=== PATIENT | male | born 1955 | race Caucasian/White ===

== ENCOUNTER → 2016-11-11 | Outpatient (CLI) | payer BC ==
--- NOTE | 2016-11-11 08:51 | Diagnostic Imaging Report ---
PROCEDURE: CT abdomen and pelvis without contrast. TECHNIQUE: Multiple contiguous axial images were obtained through the abdomen and pelvis without the use of intravenous contrast. INDICATION: Hematuria. FINDINGS: The lung bases appear clear. The liver demonstrates multiple hypoattenuation lesions with the fluid density suggestive of from hepatic cysts. The spleen is not enlarged. The adrenals and the pancreas appear unremarkable. Cholecystectomy clips are seen. There are no urinary tract stones. No hydronephrosis. The prostate is slightly enlarged measuring 5 cm in transverse dimension. The abdominal aorta is normal in caliber. No periaortic significant enlarged lymph nodes seen. There is no free fluid or fluid collection in the abdomen or pelvis. The appendix is normal. There are a few colonic diverticula. No diverticulitis. There is evidence of prior surgery in the right inguinal region presumably related to hernia repair. There is a small fat-containing indirect left inguinal hernia suggested. There is also a tiny umbilical fat-containing hernia. The osseous structures demonstrate degenerative changes in the lumbar spine and SI joints. IMPRESSION: 1. No urinary tract stones or hydronephrosis. 2. Mild enlargement of the prostate. 3. Tiny fat-containing umbilical and tiny fat-containing left inguinal hernias. Dictated by: Dictated on workstation # [id number]
== END ==
LOC: RAD 07:27
PROVIDERS: ATTEND Urology
DX: K40.90 Unilateral inguinal hernia, without obstruction or gangrene, not specified as recurrent (principal); K42.9 Umbilical hernia without obstruction or gangrene; R31.9 Hematuria, unspecified
CPT/HCPCS: 74176

== ENCOUNTER 2016-12-27 18:45 | Emergency (ER) | payer BC ==
[~2016-12-27] VITALS: Ht 175.3 cm; Wt 86.2 kg
--- NOTE | 2016-12-27 19:14 | ED Fall/Injury ---
General Chief Complaint: Trauma-Non Activation Stated Complaint: FALL FROM 12FT LADDER,DARK URINE, HIP PAIN Nursing Triage Note: Patient reports falling off a ladder falling about 12 ft. at 0800 on 12/27. patient reports falling on R side. patient denies hitting head, LOC or neck pain. patient reports R groin pain and R hip pain. patient is able to walk without difficulty. patient reports having dark urine earlier. patient also reports having CT and MRI contrast yesterday. 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 He's been walking on his leg ever since. He is not short of breath, having chest pain, nauseated or having any chills or fevers. 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 They did find a lesion on his left kidney and also told them they thought he might have a UTI and for the information to his PCP but he has not started any antibiotics for it. The patient does not take any medications nor does he have any other significant medical history other than his cancer that he is not quite in remission for it. He does not smoke drink or do drugs. Patient states that after he went in this afternoon he urinated dark black urine. He thought it may be from the contrast he was given on the CAT scan yesterday. This is the first time he is experienced dark urine. Allergies and Home Medications Allergies Coded Allergies: No Known Drug Allergies (Unverified , 04/29/12) Constitutional: No chills, No diaphoresis Eyes: Denies Blindness, Denies Blurred Vision, Denies Drainage Ears, Nose, Mouth, Throat: denies ear pain, denies ear discharge Respiratory: No cough, No dyspnea on exertion, No short of breath Cardiovascular: No chest pain, No Hx of Intervention, No palpitations Gastrointestinal: No abdominal pain, No constipation, No diarrhea, No dysphagia , No nausea, No vomiting Genitourinary: No discharge, No dysuria Musculoskeletal: No back pain, No gout, No joint pain Skin: No pruritus, No rash Psychiatric/Neurological: Denies Headache, Denies Numbness Past Xvvwlep-Vidpud-Kwcidh Hx Patient Social History Alcohol Use: Denies Use Recreational Drug Use: No Recent Foreign Travel: No Contact w/Someone Who Travel: No Recent Infectious Disease Expo: No Recent Hopitalizations: No Immunizations Up To Date Date of Influenza Vaccine: Feb 02, 2012 Surgeries History of Surgeries: Yes (GALLBLADDER) Surgeries: Gallbladder, Orthopedic Respiratory History of Respiratory Disorde: No Cardiovascular History of Cardiac Disorders: No Neurological History of Neurological Disord: No Genitourinary History of Genitourinary Disor: Yes (BLOOD IN URINE FOLLOWED BY DR. GOMEZ) Gastrointestinal History of Gastrointestinal Di: No Musculoskeletal History of Musculoskeletal Dis: No Endocrine History of Endocrine Disorders: No HEENT History of HEENT Disorders: No 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) Psychosocial History of Psychiatric Problem: No Integumentary History of Skin or Integumenta: No Blood Transfusions History of Blood Disorders: No Physical Exam Vital Signs Vital Sign - Last 12Hours 12/27/16 18:57 Temp 98.2 Pulse 77 Resp 18 B/P (MAP) 157/98 Pulse Ox 97 Capillary Refill : Less Than 3 Seconds General Appearance: WD/WN, no apparent distress HEENT: PERRL/EOMI, normal ENT inspection, TMs normal, pharynx normal Neck: non-tender, full range of motion, supple Cardiovascular: normal peripheral pulses, regular rate, rhythm, no edema Respiratory: chest non-tender, lungs clear, normal breath sounds Peripheral Pulses: 2+ Dorsalis Pedis (R), 2+ Left Dors-Pedis (L), 2+ Radial Pulses (R), 2+ Radial Pulses (L) Gastrointestinal: normal bowel sounds, soft, no organomegaly, tenderness ( right lower quadrant and right flank) Back: normal inspection, CVA tenderness (R) Extremities: normal range of motion, non-tender, normal inspection, normal capillary refill Neurologic/Psychiatric: no motor/sensory deficits, alert, normal mood/affect, oriented x 3 Skin: normal color, warm/dry Lymphatic: no adenopathy Diego Coma Score Best Eye Response: (4) Open Spontaneously Best Verbal Response: (5) Oriented Best Motor Response: (6) Obeys Commands [place] Total: 15 Progress/Results/Core Measures Results/Orders Lab Results Laboratory Tests Test 12/27/16 19:30 12/27/16 19:40 Range/Units White Blood Count 10.2 4.3-11.0 10^3/uL Red Blood Count 4.07 L 4.35-5.85 10^6/uL Hemoglobin 12.9 L 13.3-17.7 G/DL Hematocrit 37 L 40-54 % Mean Corpuscular Volume 92 80-99 FL Mean Corpuscular Hemoglobin 32 25-34 PG Mean Corpuscular Hemoglobin Concent 35 32-36 G/DL Red Cell Distribution Width 13.1 10.0-14.5 % Platelet Count 237 130-400 10^3/uL Mean Platelet Volume 9.9 7.4-10.4 FL Neutrophils (%) (Auto) 76 H 42-75 % Lymphocytes (%) (Auto) 12 12-44 % Monocytes (%) (Auto) 11 0-12 % Eosinophils (%) (Auto) 2 0-10 % Basophils (%) (Auto) 0 0-10 % Neutrophils # (Auto) 7.7 1.8-7.8 X 10^3 Lymphocytes # (Auto) 1.2 1.0-4.0 X 10^3 Monocytes # (Auto) 1.1 H 0.0-1.0 X 10^3 Eosinophils # (Auto) 0.2 0.0-0.3 10^3/uL Basophils # (Auto) 0.0 0.0-0.1 10^3/uL Sodium Level 143 135-145 MMOL/L Potassium Level 3.7 3.6-5.0 MMOL/L Chloride Level 110 H 98-107 MMOL/L Carbon Dioxide Level 21 21-32 MMOL/L Anion Gap 12 5-14 MMOL/L Blood Urea Nitrogen 14 7-18 MG/DL Creatinine 0.93 0.60-1.30 MG/DL Estimat Glomerular Filtration Rate > 60 BUN/Creatinine Ratio 15 Glucose Level 89 70-105 MG/DL Calcium Level 9.1 8.5-10.1 MG/DL Magnesium Level 2.1 1.8-2.4 MG/DL Total Bilirubin 0.5 0.1-1.0 MG/DL Aspartate Amino Transf (AST/SGOT) 42 H 5-34 U/L Alanine Aminotransferase (ALT/SGPT) 29 0-55 U/L Alkaline Phosphatase 56 40-136 U/L Total Protein 7.5 6.4-8.2 GM/DL Albumin 4.1 3.2-4.5 GM/DL Urine Color GENTRY H Urine Clarity VERY CLOUDY H Urine pH 5 5-9 Urine Specific [place] 1.025 H 1.016-1.022 Urine Protein 3+ H NEGATIVE Urine Glucose (UA) NEGATIVE NEGATIVE Urine Ketones NEGATIVE NEGATIVE Urine Nitrite NEGATIVE NEGATIVE Urine Bilirubin NEGATIVE NEGATIVE Urine Urobilinogen NORMAL NORMAL MG/DL Urine Leukocyte Esterase 1+ H NEGATIVE Urine RBC (Auto) 5+ H NEGATIVE Urine RBC TNTC H /HPF Urine WBC 0-2 /HPF Urine Crystals NONE /LPF Urine Bacteria NEGATIVE /HPF Urine Casts NONE /LPF Urine Mucus SMALL H /LPF Urine Culture Indicated NO My Orders Orders - ABIMAEL KIRAN Ct Abdomen/Pelvis Wo (12/27/16 19:06) Cbc With Automated Diff (12/27/16 19:06) Comprehensive Metabolic Panel (12/27/16 19:06) Magnesium (12/27/16 19:06) Ua Culture If Indicated (12/27/16 19:06) Vital Signs/I&O Vital Sign - Last 12Hours 12/27/16 18:57 Temp 98.2 Pulse 77 Resp 18 B/P (MAP) 157/98 Pulse Ox 97 Blood Pressure Mean: 117 Progress Note #1: Time: 19:13 Progress Note The trauma occurred several hours ago patient is been walking okay. We will go ahead and not activated a full trauma panel at this time. Progress Note #2: Time: 20:31 Progress Note As a lot of blood in his urine but he is not significantly anemic at this time. He is having no symptoms. We'll go ahead and allow him to follow-up with his prescheduled appointment with Dr. Clay on Thursday to compare this urinalysis to previous ones. No evidence of any UTI right now. Topical start any antibiotics. He may need a closer follow-up with urology based on this urinalysis and a repeat urinalysis on Thursday if the hematuria continues. We'll give him good return instructions and let him go home. His urine was not grossly bloody. Diagnostic Imaging Diagonstic Imaging: CT Plain Films/CT/US/NM/MRI: abdomen (C/O), pelvis Comments NAME: HARRY GARCÍA [facility] REC#: [id number] PHYSICIAN: ABIMAEL KIRAN MD CC: CJ KAUFMAN MD; ABIMAEL KIRAN Page 1 of 1 RADIOLOGY REPORT VIA [facility], [facility]. [place], [place] CC: CJ KAUFMAN MD; ABIMAEL KIRAN Page 1 of 1 RADIOLOGY REPORT NAME: HARRY GARCÍA [facility] REC#: [id number] PT STATUS: REG ER : 1955 PHYSICIAN: ABIMAEL KIRAN MD ADMIT DATE: 12/27/16/ER Signed Date of Exam: 12/27/16 CT ABDOMEN/PELVIS WO PROCEDURE: CT abdomen and pelvis without contrast. TECHNIQUE: Multiple contiguous axial images were obtained through the abdomen and pelvis without the use of intravenous contrast. INDICATION: Fall with right abdominal and groin region pain Unenhanced images of the liver reveal multiple hypodensities similar to the previous study which are most consistent with liver cysts. Gallbladder surgically absent. There is no evidence of pancreatic or splenic abnormality identified on noncontrast study. The stomach is distended with particulate matter. No adrenal gland abnormality is identified. Hypodense nodules in the upper and lower pole of the left kidney are not changed and likely represent cysts. There is no evidence of peritoneal fluid or organized hematoma in the abdomen or pelvis. There is postoperative finding within the right inguinal region likely related to previous hernia repair. No acute osseous abnormality is identified. There is no evidence of paraspinous hematoma. IMPRESSION: No acute abnormality or significant change is seen compared to the previous study. Dictated by: Dictated on workstation # [id number] Dict: 12/27/161924 Trans: 12/27/161948 Interpreted by: CJ KAUFMAN MD Electronically signed by: CJ KAUFMAN MD 12/27/161948 Reviewed: Reviewed by Me Departure Impression Impression: Primary Impression: Fall Qualified Codes: W19.XXXA - Unspecified fall, initial encounter Additional Impressions: Right hip pain Hematuria Qualified Codes: R31.21 - Asymptomatic microscopic hematuria Disposition: 01 HOME, SELF-CARE Condition: Stable Departure-Patient Inst. Decision time for Depature: 20:33 Referrals: KIKE CLAY MD (PCP/Family) Primary Care Physician Patient Instructions: Concussion, Adult (DC) Add. Discharge Instructions: Make sure drinking plenty of fluids to help flush out your kidneys. Reasons to return to the ER would be because of shortness of breath, chest pain or altered mental status or confusion. Otherwise plan on keeping your Thursday morning appointment with Dr. Clay. You may need to go and see the urologist if his repeat examination on Thursday indicates it. For your right hip pain you can take ibuprofen 800 mg every 8 hours or Naprosyn 2 capsules twice a day. You may also use Tylenol 1000 mg every 8 hours as needed. Applying ice over the right hip for 20 minutes every 4-6 hours will be very beneficial in bringing down the swelling and pain. Do not attempt to do things that worsen the pain and your hip. All discharge instructions reviewed with patient and/or family. Voiced understanding. Scripts No Active Prescriptions or Reported Meds Copy Copies To 1: KIKE CLAY MD Copies To 2: ALVA GOMEZ MD, TITUS J Dec 27, 2016 19:14
--- NOTE | 2016-12-27 19:32 | Diagnostic Imaging Report ---
PROCEDURE: CT abdomen and pelvis without contrast. TECHNIQUE: Multiple contiguous axial images were obtained through the abdomen and pelvis without the use of intravenous contrast. INDICATION: Fall with right abdominal and groin region pain Unenhanced images of the liver reveal multiple hypodensities similar to the previous study which are most consistent with liver cysts. Gallbladder surgically absent. There is no evidence of pancreatic or splenic abnormality identified on noncontrast study. The stomach is distended with particulate matter. No adrenal gland abnormality is identified. Hypodense nodules in the upper and lower pole of the left kidney are not changed and likely represent cysts. There is no evidence of peritoneal fluid or organized hematoma in the abdomen or pelvis. There is postoperative finding within the right inguinal region likely related to previous hernia repair. No acute osseous abnormality is identified. There is no evidence of paraspinous hematoma. IMPRESSION: No acute abnormality or significant change is seen compared to the previous study. Dictated by: Dictated on workstation # [id number]
[2016-12-27 19:37] LABS: BASOPHILS % (AUTO) 0 % (0-10); EOSINOPHILS # (AUTO) 0.2 10^3/uL (0.0-0.3); EOSINOPHILS % (AUTO) 2 % (0-10); LYMPHOCYTES # (AUTO) 1.2 X 10^3 (1.0-4.0); LYMPHOCYTES % (AUTO) 12 % (12-44); MEAN CORPUSCULAR HEMOGLOBIN 32 PG (25-34); MEAN CORPUSCULAR HGB CONC 35 G/DL (32-36); MEAN CORPUSCULAR VOLUME 92 FL (80-99); MEAN PLATELET VOLUME 9.9 FL (7.4-10.4); MONOCYTES # (AUTO) 1.1 X 10^3 (0.0-1.0); MONOCYTES % (AUTO) 11 % (0-12); NEUTROPHILS # (AUTO) 7.7 X 10^3 (1.8-7.8); NEUTROPHILS % (AUTO) 76 % (42-75); PLATELET COUNT 237 10^3/uL (130-400); RED BLOOD COUNT 4.07 10^6/uL (4.35-5.85); RED CELL DISTRIBUTION WIDTH 13.1 % (10.0-14.5); WHITE BLOOD COUNT 10.2 10^3/uL (4.3-11.0)
[2016-12-27 19:47] LABS: BILIRUBIN,URINE NEGATIVE (NEGATIVE); KETONES,URINE NEGATIVE (NEGATIVE); LEUKOCYTE ESTERASE ,URINE 1+ (NEGATIVE); NITRITE,URINE NEGATIVE (NEGATIVE); PH,URINE 5 (5-9); PROTEIN,URINE 3+ (NEGATIVE); UROBILINOGEN,URINE NORMAL (NORMAL)
[2016-12-27 19:59] LABS: ALANINE AMINOTRANSFERASE 29 U/L (0-55); ALBUMIN 4.1 GM/DL (3.2-4.5); ANION GAP 12 MMOL/L (5-14); ASPARTATE AMINO TRANSFERASE 42 U/L (5-34); BILIRUBIN,TOTAL 0.5 MG/DL (0.1-1.0); BLOOD UREA NITROGEN 14 MG/DL (7-18); BUN/CREATININE RATIO 15; CALCIUM 9.1 MG/DL (8.5-10.1); CARBON DIOXIDE 21 MMOL/L (21-32); CHLORIDE 110 MMOL/L (98-107); CREATININE SERUM 0.93 MG/DL (0.60-1.30); GFR ESTIMATED > 60; GLUCOSE 89 MG/DL (70-105); MAGNESIUM 2.1 MG/DL (1.8-2.4); POTASSIUM 3.7 MMOL/L (3.6-5.0); SODIUM 143 MMOL/L (135-145); TOTAL PROTEIN 7.5 GM/DL (6.4-8.2)
[2016-12-27 20:02] LABS: WBC,URINE 0-2 /HPF
[2016-12-27 20:44] VITALS: BP 147/97
--- OUTSIDE RECORDS SUMMARY | 2016-12-29 10:27 | XMS REPORT | Encounter Summary ---
Author Author [facility] Organization [facility] Address Unknown Phone Unavailable Care Team Providers Care Power Project Manager Name Role Phone PCP Unavailable Reason for Referral * Radiology Services Status Reason Specialty Diagnoses / Referred By Referred To Procedures Contact Contact No Auth Needed Radiology Diagnoses Emily Esparza [address] [address] carcinoma (HCC) [address]ND FLOOR (HCC) [address] [place], [place] [address] of left eye [address] Phone: P rocedures [phone] CT CHEST W Fax: CONTRAST [phone] * Radiology Services Status Reason Specialty Diagnoses / Referred By Referred To Procedures Contact Contact No Auth Needed Radiology Diagnoses Emily Esparza [address] carcinoma (HCC) [address] FLOOR (HCC) [address] [place], [place] [address] of left eye [address] Phone: P rocedures [phone] CT CHEST W Fax: CONTRAST [phone] Reason for Visit * Radiology Services Status Reason Specialty Diagnoses / Referred By Referred To Procedures Contact Contact No Auth Needed Radiology Diagnoses Emily Esparza [address] [place] [address] carcinoma (HCC) [address] FLOOR (HCC) [address] [place], [place] [address] of left eye [address] Phone: P rocedures [phone] CT CHEST W Fax: CONTRAST [phone] Encounter Details Date Type Department Care Team Description 12/26/2016 [facility] Emily Esparza MD Arrived Encounter Hospital Radiology [address] [facility] [place] [address] [place] [address] 2ND FLOOR [phone] [place] [address] [phone] Social History Tobacco Use Types Packs/Day Years Used Date Never Smoker Smokeless Tobacco: Never Used Alcohol Use Drinks/Week oz/Week Comments No Sex Assigned at Date Recorded Not on file as of this encounter Functional Status Functional Status Response Date of Assessment Does the patient have a hearing impairment: No 11/27/2014 Does the patient have a visual impairment: Yes 11/27/2014 Does the patient have impaired ambulation: No 11/27/2014 Does the patient have an activity of daily living No 11/27/2014 (ADL) impairment: Does the patient have an instrumental activity of No 11/27/2014 daily living (IADL) impairment: Cognitive Status Response Date of Assessment Does the patient have a cognitive impairment: No 11/27/2014 as of this encounter Plan of Treatment Not on fileas of this encounter Results * CT CHEST W CONTRAST (12/26/2016 7:31 AM) Specimen Performing Laboratory [facility] RAD RESULTS Impressions 1. Development of a tiny nodule in the right lower lobe with suggestion of central cavitation. This may be related to atypical infection, however follow- up chest CT in 3 months is recommended to assess for stability or resolution. 2. Development of a exophytic hypodense lesion upper pole of the left kidney . This may be an emerging cyst, however it does not demonstrate simple cyst features. [address] or contrast-enhanced MRI evaluation is recommended. 3. Relative hypoenhancement of the left kidney when compared to the right. This is concerning for pyelonephritis. Underlying infiltrating neoplasm is an additional, less likely consideration. Clinical correlation is recommended for signs and symptoms of urinary tract infection. 4. No thoracic lymphadenopathy. These findings were discussed with Dr. Esparza by telephone at 8:22 AM on 2016. Finalized by Aron Lennon M.D. on 12/26/2016 8:33 AM. Dictated by Aron Lennon M.D. on 12/26/2016 8: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 Surveillance. Technique: Multiple contiguous axial CT images were obtained through the chest during IV administration of Isovue-370 IV contrast.Post processing coronal and sagittal reconstruction images were made from the axial images. Comparison: May 14, [address] Findings: Axilla, Mediastinum and Ritika: No lymphadenopathy. Heart and Great Vessels: The heart size is normal. There is no pericardial effusion. Lungs and Pleura: Small amount of retained secretions are seen in the upper trachea. Minor scarring is again seen in both lungs with mild dependent atelectasis. A tiny new nodule is seen in the right lower lobe along the major fissure measuring 0.5 cm on series 5, image 27 with suggestion of internal cavitation. No other new or enlarging pulmonary nodules are identified. No pleural effusions. Chest Wall and Osseous Structures: No destructive osseous lesions. Visualized Upper Abdomen: Small probable cysts are stable in the right lobe of the liver. There is an exophytic lesion now seen from the medial upper left kidney with ill-defined margins which is higher density than a simple cyst. It measures up to 2.7 cm on series 5, image 66. There is mild relative hypoenhancement of the left renal parenchyma when compared to the right with loss of corticomedullary differentiation. 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 Surveillance. Technique: Multiple contiguous axial CT images were obtained through the chest during IV administration of Isovue-370 IV contrast. Post processing coronal and sagittal reconstruction images were made from the axial images. Comparison: May 14, [address] Findings: Axilla, Mediastinum and Ritika: No lymphadenopathy. Heart and Great Vessels: The heart size is normal. There is no pericardial effusion. Lungs and Pleura: Small amount of retained secretions are seen in the upper trachea. Minor scarring is again seen in both lungs with mild dependent atelectasis. A tiny new nodule is seen in the right lower lobe along the major fissure measuring 0.5 cm on series 5, image 27 with suggestion of internal cavitation. No other new or enlarging pulmonary nodules are identified. No pleural effusions. Chest Wall and Osseous Structures: No destructive osseous lesions. Visualized Upper Abdomen: Small probable cysts are stable in the right lobe of the liver. There is an exophytic lesion now seen from the medial upper left kidney with ill-defined margins which is higher density than a simple cyst. It measures up to 2.7 cm on series 5, image 66. There is mild relative hypoenhancement of the left renal parenchyma when compared to the right with loss of corticomedullary differentiation. IMPRESSION 1. Development of a tiny nodule in the right lower lobe with suggestion of central cavitation. This may be related to atypical infection, however follow- up chest CT in 3 months is recommended to assess for stability or resolution. 2. Development of a exophytic hypodense lesion upper pole of the left kidney . This may be an emerging cyst, however it does not demonstrate simple cyst features. [address] or contrast-enhanced MRI evaluation is recommended. 3. Relative hypoenhancement of the left kidney when compared to the right. This is concerning for pyelonephritis. Underlying infiltrating neoplasm is an additional, less likely consideration. Clinical correlation is recommended for signs and symptoms of urinary tract infection. 4. No thoracic lymphadenopathy. These findings were discussed with Dr. Esparza by telephone at 8:22 AM on 2016. Finalized by Aron Lennon M.D. on 12/26/2016 8:33 AM. Dictated by Aron Lennon M.D. on 12/26/2016 8:18 AM. 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 sodium chloride PF 0.9% injection 50 mL Given 12/26/2016 50 mL 50 mL, Intravenous, ONCE, 1 dose, Thu 07:45 CDT 12/26/16 at 0745, Intra-procedure (IR) in this encounter
--- OUTSIDE RECORDS SUMMARY | 2016-12-29 10:27 | XMS REPORT | Continuity of Care Document ---
Author Author [facility] Organization [facility] Address Unknown Phone Unavailable Care Team Providers Care Employee Communications Intern Name Role Phone [employer] Unavailable Unavailable Problems Medications Allergies, Adverse Reactions, Alerts Immunizations Results Vital Signs Encounters Location Location Details Encounter Type Encounter Number Reason For Visit Attending Provider ADM Date DC Date Status Source OUTPATIENT [id number] VERONICA BANDA 05/14/20152015 Active [facility] OUTPATIENT [id number] VERONICA BANDA 12/26/2016 Active [facility] Procedures Plan of Care Social History Assessment and Plan Family History Value Date Source Advance Directives Order Name Results Value Date Source
--- OUTSIDE RECORDS SUMMARY | 2016-12-29 10:27 | XMS REPORT | Encounter Summary ---
Author Author [facility] Organization [facility] Address Unknown Phone Unavailable Care Team Providers Care Seals Engraver Name Role Phone PCP Unavailable Encounter Details Date Type Department Care Team Description 11/24/2016 Procedure Pass [facility] Radiology [address] [place] [address] Social History Tobacco Use Types Packs/Day Years [...] Treatment Not on fileas of this encounter Visit Diagnoses Not on filein this encounter
--- OUTSIDE RECORDS SUMMARY | 2016-12-29 10:27 | XMS REPORT | Clinical Summary ---
Author Author [facility] Organization [facility] Address Unknown Phone Unavailable Care Team Providers Care Compressed Air Pile Driver Operator Name Role Phone PCP Unavailable Source Comments Some departments are not documenting in the electronic medical record. If you do not see the information that you expected, contact Release of Information in the Health Information Management department at [phone] for further assistance in locating additional records.[facility] Allergies No Known Allergies Current Medications Prescription Sig. Disp. Refills Start End Date Status Date ASCORBATE CALCIUM Take 1 Tab by mouth Active (VITAMIN C PO) daily. RESVERATROL PO Take 1 Tab by mouth Active daily. SELENIUM PO Take 1 Tab by mouth Active daily. vitamins, multiple tablet Take 1 Tab by mouth Active daily. acetaminophen (TYLENOL) Take 325 mg by mouth as Active 325 mg tablet Needed. 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 Dysphagia 05/31/2012 Impacted cerumen of left ear 05/31/2012 Encounters Date Type Specialty Care Team Description 12/26/2016 [facility] Radiology Emily Esparza MD Arrived Encounter 12/26/2016 [facility] Radiology Emily Esparza MD Arrived Encounter 11/24/2016 Office Visit Otolaryngology Emily Esparza MD Basaloid carcinoma (HCC) (Primary Dx);Oral cancer (HCC);Eyelash ptosis of left eye 11/24/2016 Procedure Pass Radiology 11/24/2016 Procedure Pass Radiology from Last 3 Months Family History Medical History Relation Name Comments Cancer Mother breast Allergy-severe Paternal Grandfather Relation Name Status Comments Brother Alive Brother Alive Brother Daughter Alive Father Maternal Grandfather Maternal Grandmother Mother Paternal Grandfather Alive Paternal Grandmother Sister Alive Son Alive Social History Tobacco Use Types Packs/Day Years Used Date Never Smoker Smokeless Tobacco: Never Used Alcohol Use Drinks/Week oz/Week Comments No Sex Assigned at Date Recorded Not on file Last Filed Vital Signs Vital Sign Reading Time Taken Blood Pressure 146/82 11/24/2016 10:11 AM CDT Pulse 60 11/24/2016 10:11 AM CDT Temperature 36.7 C (98 F) 06/10/2012 8:12 AM FUNDER Respiratory Rate - - Oxygen Saturation 95% 06/10/2012 8:12 AM FUNDER Inhaled Oxygen - - Concentration Weight 88.7 kg (195 lb 9.6 oz) 11/24/2016 10:11 AM CDT Height 175.3 cm (5' 9") 11/24/2016 10:11 AM CDT Body Mass Index 28.89 11/24/2016 10:11 AM CDT Plan of Treatment Health Maintenance Due Date Last Done Comments HEPATITIS C SCREENING 1954 PHYSICAL (COMPREHENSIVE) 1961 EXAM PERTUSSIS VACCINE 1965 TETANUS VACCINE 09/17/1971 COLORECTAL CANCER 2004 SCREENING SHINGLES VACCINE 2014 INFLUENZA VACCINE 01/02/2017 Results * MRI ORBIT FACE AND/OR NECK W/CONTRST (12/26/2016 8:29 AM) Specimen Performing Laboratory [facility] RES[facility] Impressions 1.Normal MRI of the orbits and optic pathway. 2.Stable postsurgical left buccal changes without residual or recurrent buccal mass lesion. 3.Small, peripherally enhancing, cystic bilateral superficial parotid lesions, similar to MRI brain June 28, 2013, and favored for benign etiology such as incidental lymphoepithelial cysts. Approved by Franc Valadez M.D. on 12/26/2016 11:36 AM By my electronic signature, I attest that I have personally reviewed the images for this examination and formulated the interpretations and opinions expressed in this report Finalized by Elie Espinal M.D. on 12/26/2016 11:57 AM. Dictated by Franc Valadez M.D. on 12/26/2016 9:44 AM. Narrative MRI ORBITS CLINICAL HISTORY: 61-year-old male, VISION CHANGES. 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 COMPARISON: MRI brain June 28, 2013. IV CONTRAST: Multihance FINDINGS: The globes and orbits are normal in appearance. No orbital mass is identified. The optic nerves, optic chiasm and optic tracts are symmetric and without signal abnormality. Surgical clips are noted in the left buccal space, without residual or recurrent left buccal mass lesion. There is a well-circumscribed, cystic, superficial left parotid lesion measuring 1.4 x 1.0 x 1.5 cm (series 5 image 18 and series 2 image 28) with a 0.5 cm enhancing mural nodule (series 6 image 18). There is a similar appearing cystic, incomplete rim enhancing lesion within the superficial right parotid gland measuring 0.9 cm (series 5 image 22). There are similar-appearing, though incompletely evaluated lesions on prior MRI of the brain from June 28, 2013. Procedure Note Interface, Radiant Results - 12/26/2016 12:00 PM CDT MRI ORBITS CLINICAL HISTORY: 61-year-old male, VISION CHANGES. 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 COMPARISON: MRI brain June 28, 2013. IV CONTRAST: Multihance FINDINGS: The globes and orbits are normal in appearance. No orbital mass is identified. The optic nerves, optic chiasm and optic tracts are symmetric and without signal abnormality. Surgical clips are noted in the left buccal space, without residual or recurrent left buccal mass lesion. There is a well-circumscribed, cystic, superficial left parotid lesion measuring 1.4 x 1.0 x 1.5 cm (series 5 image 18 and series 2 image 28) with a 0.5 cm enhancing mural nodule (series 6 image 18). There is a similar appearing cystic, incomplete rim enhancing lesion within the superficial right parotid gland measuring 0.9 cm (series 5 image 22). There are similar-appearing, though incompletely evaluated lesions on prior MRI of the brain from June 28, 2013. IMPRESSION 1. Normal MRI of the orbits and optic pathway. 2. Stable postsurgical left buccal changes without residual or recurrent buccal mass lesion. 3. Small, peripherally enhancing, cystic bilateral superficial parotid lesions , similar to MRI brain June 28, 2013, and favored for benign etiology such as incidental lymphoepithelial cysts. Approved by Franc Valadez M.D. on 12/26/2016 11:36 AM By my electronic signature, I attest that I have personally reviewed the images for this examination and formulated the interpretations and opinions expressed in this report Finalized by Elie Espinal M.D. on 12/26/2016 11:57 AM. Dictated by Franc Valadez M.D. on 12/26/2016 9:44 AM. * CT CHEST W CONTRAST (12/26/2016 7:31 [...] 0.4 - 1.24 MG/DL Specimen Performing Laboratory [facility] [address] [place] [address] from Last 3 Months
--- OUTSIDE RECORDS SUMMARY | 2016-12-29 10:27 | XMS REPORT | Encounter Summary ---
Author Author [facility] Organization [facility] Address Unknown Phone Unavailable Care Team Providers Care Family Reunification Specialist Name Role Phone PCP Unavailable Encounter Details Date Type Department Care Team Description 11/24/2016 Procedure Pass [facility] Radiology [address] MED OFFICE BLDG [address] [place] [address] Social History Tobacco Use Types Packs/Day Years [...]
--- OUTSIDE RECORDS SUMMARY | 2016-12-29 10:28 | XMS REPORT | Encounter Summary ---
Author Author [facility] Organization [facility] Address Unknown Phone Unavailable Care Team Providers Care Surface Grinder Tender Name Role Phone PCP Unavailable Reason for Referral * Radiology Services Status Reason Specialty Diagnoses / Referred By Referred To Procedures Contact Contact No Auth Needed Radiology Diagnoses Emily Esparza Mob Mri [facility] [address] carcinoma (HCC) [address] cancer [address] FLOOR (HCC) [address] [place], [place] [address] of left eye [address] Phone: P rocedures [phone] MRI ORBIT FACE Fax: AND/OR NECK [phone] W/CONTRST * Radiology Services Status Reason Specialty Diagnoses / Referred By Referred To Procedures Contact Contact No Auth Needed Radiology Diagnoses Emily Esparza Mob Ct [facility] [address] carcinoma (HCC) [address] cancer [address] 2ND FLOOR (HCC) [address] [place], [place] [address] of left eye [address] Phone: P rocedures [phone] CT CHEST W Fax: CONTRAST [phone] Reason for Visit * Reason Comments Follow Up Encounter Details Date Type Department Care Team Description 11/24/2016 Office Visit [facility] Emily Esparza MD Basaloid carcinoma (HCC) [facility] [address] (Primary Dx);Oral cancer [address] (HCC);Eyelash [place] [address] left eye 3RD FLOOR POD C [phone] [place] [address] Social History Tobacco Use Types Packs/Day Years Used Date Never Smoker Smokeless Tobacco: Never Used Alcohol Use Drinks/Week oz/Week Comments No Sex Assigned at Date Recorded Not on file as of this encounter Last Filed Vital Signs Vital Sign Reading Time Taken Blood Pressure 146/82 11/24/2016 10:11 AM CDT Pulse 60 11/24/2016 10:11 AM CDT Temperature - - Respiratory Rate - - Oxygen Saturation - - Inhaled Oxygen - - Concentration Weight 88.7 kg (195 lb 9.6 oz) 11/24/2016 10:11 AM CDT Height 175.3 cm (5' 9") 11/24/2016 10:11 AM CDT Body Mass Index 28.89 11/24/2016 10:11 AM CDT in this encounter Functional Status Functional Status Response [...] impairment: No 11/27/2014 as of this encounter Progress Notes * Emily Esparza MD - 11/24/2016 10:30 AM CDT Formatting of this note may be different from the original. Date of Service: 11/24/2016 Subjective: Carmelo Still is a 61 y.o. male. 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 He undergone resection of [id number] buccal mucosa adenoid cystic carcinoma with perineural invasion, with STSG reconstruction on 06/09/2012. He underwent adjuvant radiation, which he finished in October 2012. Currently about 4 years out from therapy. He returns today for routine surveillance. H has no new complaint , no newly felt lesions or bumps. He still complains of pain over his left cheek that has been present since his treatment. He has some limitation with his mouth opening. He has no problem with dry mouth and no problems with swallowing. History of Present Illness Review of Systems Constitutional: Negative. HENT: Pain over left cheek that has been present since his treatment. He has some limitation with his mouth opening. He has no problem with dry mouth and no problems with swallowing. Eyes: Negative. Respiratory: Negative. Cardiovascular: Negative. Gastrointestinal: Negative. Endocrine: Negative. Genitourinary: Negative. Musculoskeletal: Negative. Skin: Negative. Allergic/Immunologic: Negative. Neurological: Negative. Hematological: Negative. Psychiatric/Behavioral: Negative. Objective: acetaminophen (TYLENOL) 325 mg tablet Take 325 mg by mouth as Needed. ASCORBATE CALCIUM (VITAMIN C PO) Take 1 Tab by mouth daily. RESVERATROL PO Take 1 Tab by mouth daily. SELENIUM PO Take 1 Tab by mouth daily. vitamins, multiple tablet Take 1 Tab by mouth daily. Vitals: 11/24/16 1011 BP: 146/82 Pulse: 60 Weight: 88.7 kg (195 lb 9.6 oz) Height: 175.3 cm (69") Body mass index is 28.89 kg/(m^2). Physical Exam Constitutional: He is oriented to person, place, and time. He appears well- developed and well-nourished. HENT: Right Ear: External ear normal. Left Ear: External ear normal. Nose: Nose normal. Mouth/Throat: Oropharynx is clear and moist. No suspicious lesions on oral cavity examination. The operative site appears clear. The STSG appears well healed. Eyes: Patient has left sided mild ptosis. No limitations with his extra occular muscles movement. No problems with vision. Neck: Normal range of motion. Neck supple. Musculoskeletal: Normal range of motion. Neurological: He is alert and oriented to person, place, and time. He has normal reflexes. Skin: Skin is warm. Psychiatric: He has a normal mood and affect. His behavior is normal. Judgment and thought content normal. Assessment and Plan: Mr. Still appears to be doing great regarding his follow up with no suspicious newly developed lesions or neck nodes. We will order a new MRI H&N with contrast and chest CT scan. He will see an adoption services manager for his ptosis. He will follow up with us after 6 months. ATTESTATION I personally performed the henley portions of the E/M visit, discussed case with resident and concur with resident documentation of history, physical exam, assessment, and treatment plan unless otherwise noted. Staff name: Emily Esparza MD Date: 11/24/2016 in this encounter Plan of Treatment Not on fileas of this encounter Results * MRI ORBIT FACE AND/OR NECK [...] expressed in this report Finalized by Elie Espinla M.D. on 12/26/2016 11:57 AM. Dictated by [...] Aron Lennon M.D. on 12/26/2016 8:18 AM. in this encounter Visit Diagnoses Diagnosis Basaloid carcinoma (HCC) - Primary Other malignant neoplasm without specification of site Oral cancer (HCC) Malignant neoplasm of mouth, unspecified site Eyelash ptosis of left eye in this encounter
--- OUTSIDE RECORDS SUMMARY | 2016-12-29 10:28 | XMS REPORT | Encounter Summary ---
Author Author [facility] Organization [facility] Address Unknown Phone Unavailable Care Team Providers Care Airline Operations Agent Name Role Phone PCP Unavailable Reason for Referral * Radiology Services Status Reason Specialty Diagnoses / Referred By Referred To Procedures Contact Contact No Auth Needed Radiology Diagnoses Emily Esparza Mob Mri Basaloid MD [address] carcinoma (HCC) [address] FLOOR (HCC) [address] [place], [place] [address] of left eye [address] Phone: P rocedures [phone] MRI ORBIT FACE Fax: AND/OR NECK [phone] W/CONTRST * Radiology Services Status Reason Specialty Diagnoses / Referred By Referred To Procedures Contact Contact No Auth Needed Radiology Diagnoses Emily Esparza Mob Mri Basaloid MD [address] carcinoma (HCC) [address] FLOOR (HCC) [address] [place], [place] [address] of left eye [address] Phone: P rocedures [phone] MRI ORBIT FACE Fax: AND/OR NECK [phone] W/CONTRST Reason for Visit * Radiology Services Status Reason Specialty Diagnoses / Referred By Referred To Procedures Contact Contact No Auth Needed Radiology Diagnoses Emily Esparza Mob Mri Basaloid MD [address] carcinoma (HCC) [address] FLOOR (HCC) [address] [place], [place] [address] of left eye [address] Phone: P rocedures [phone] MRI ORBIT FACE Fax: AND/OR NECK [phone] W/CONTRST Encounter Details Date Type Department Care Team Description 12/26/2016 Hospital [facility] Emily Esparza MD Arrived Encounter [facility] Radiology [address] [place] [address] 2[address] FLOOR [phone] [place] [address] [phone] Social History Tobacco Use Types Packs/Day Years [...] Franc Valadez M.D. on 12/26/2016 9:44 AM. in this encounter Visit Diagnoses Diagnosis Basaloid carcinoma (HCC) Other malignant neoplasm without specification of site Oral cancer (HCC) Malignant neoplasm of mouth, unspecified site Eyelash ptosis of left eye in this encounter Administered Medications Medication Order MAR Action Action Date Dose Rate Site gadobenate dimeglumine (MULTIHANCE) Given 12/26/2016 18 mL injection 18 mL 08:10 CDT 18 mL, Intravenous, ONCE, 1 dose, Thu12/26/16 at 0815, NOTE: This is a HIGH ALERT Medication. in this encounter
== END 2016-12-27 20:42 | disposition home or self-care (01) ==
LOC: EDUNIT# 18:45 → ER 18:47
DX: M25.551 Pain in right hip (principal); R31.9 Hematuria, unspecified; C76.0 Malignant neoplasm of head, face and neck; W11.XXXA Fall on and from ladder, initial encounter
CPT/HCPCS: 36415; 74176; 80053; 81000; 83735; 85025; 99282

== ENCOUNTER → 2017-01-07 | Outpatient (CLI) | payer BC ==
[~2017-01-07] MED LIST: CEPH-507 PO; CIPR-225 PO; GLUC1TAB20 PO; HYDR-3812 PO; MV-M1TAB37 PO; ONDA4TAB8 SL; POLY17PO6 PO
--- NOTE | 2017-01-07 13:53 | Diagnostic Imaging Report ---
EXAMINATION: Bilateral renal ultrasound. INDICATION: Abnormal CT exam. FINDINGS: The CT abdomen/pelvis exam performed on 12/27/2016 noted hypodense nodules in the superior and inferior poles of the left kidney. These were felt to most likely represent cysts. On this exam, there is indeed a 1.6 x 2.3 x 2.1 cm simple cyst along the inferior pole of the left kidney. This would correspond with the finding of the CT exam. The medial aspect of the superior pole of the right kidney is partially obscured by bowel gas. A lengthy evaluation of this area was conducted by our sonologist. There is no clear evidence for a solid or cystic mass in this region. However I do feel that the analysis of the superior pole the left kidney is compromised by the bowel gas. I would recommend MRI be performed for more sensitive evaluation of the superior pole of the left kidney. The kidneys are otherwise unremarkable. The urinary bladder is only partially filled and consequently not well evaluated. There is no obvious bladder abnormality evident. Both of the ureteral jets were not visualized, however. IMPRESSION: 1. There is a 1.6 x 2.3 x 2.1 cm simple cyst along the inferior pole of the left kidney. There is no discrete solid or cystic mass involving the superior pole of the left kidney but this area was difficult to evaluate due to the presence of bowel gas. Recommendations as above. 2. There is no abnormality of the right kidney or the bladder. 3. These results were discussed with Dr. Ryan. Dictated by: Dictated on workstation # [id number]
== END ==
LOC: RAD 08:29
PROVIDERS: ATTEND Internal Medicine
DX: N28.1 Cyst of kidney, acquired (principal)
CPT/HCPCS: 76770

== ENCOUNTER → 2017-02-02 | Outpatient (CLI) | payer BC ==
[~2017-02-02] MED LIST changes: -CEPH-507 PO; -CIPR-225 PO; +GADOBUTROL 10 MMOL/10 ML (GADAVIST) VIAL IV ONE; -GLUC1TAB20 PO; -HYDR-3812 PO; -MV-M1TAB37 PO; -ONDA4TAB8 SL; -POLY17PO6 PO
--- NOTE | 2017-02-02 11:27 | Diagnostic Imaging Report ---
PROCEDURE: MR imaging abdomen with and without contrast. TECHNIQUE: Multiplanar, multisequence MR imaging of the abdomen was performed with and without contrast. INDICATION: Left kidney lesion. 8 mL of Gadavist is administered intravenously. FINDINGS: The upper pole of the left kidney demonstrates a medial T2 bright and T1 hypointense nonenhancing lesion measuring 2.4 cm compatible with a cyst. There is a similar lower pole lesion in the left kidney measuring 2.4 cm as well compatible with a simple cyst. There are multiple other lesions in both kidneys that are less than a centimeter in size, too small to accurately characterize with no obvious enhancement suggestive of multiple tiny cysts. There is no hydronephrosis in either kidney. The abdominal aorta is normal in caliber. No para-aortic significantly enlarged lymph nodes. The adrenal glands, and the spleen, and the pancreas appear unremarkable. Multiple simple appearing liver cysts are seen. There is mild diastasis of the recti and mild bulge of the anterior abdominal wall seen. IMPRESSION: Multiple bilateral renal cysts with no solid mass identified. Dictated by: Dictated on workstation # [id number]
== END ==
LOC: RAD 08:32
PROVIDERS: ATTEND Internal Medicine
DX: N28.1 Cyst of kidney, acquired (principal)
CPT/HCPCS: 74183

== ENCOUNTER 2017-02-09 06:29 | Emergency (ER) | payer BC ==
[~2017-02-09] VITALS: Ht 175.3 cm; Wt 86.2 kg
--- OUTSIDE RECORDS SUMMARY | 2017-02-09 06:35 | XMS REPORT | Encounter Summary ---
Author Author [facility] Organization [facility] Address Unknown Phone Unavailable Care Team Providers Care Manager Diversity Name Role Phone PCP Unavailable Reason for Referral * Radiology Services Status Reason Specialty Diagnoses / Referred By Referred To Procedures Contact Contact No Auth Needed Radiology Diagnoses Emily Esparza Mob Mri Basaloid MD [address] carcinoma (HCC) [address] FLOOR (HCC) [address] [place], [place] [address] of left eye [address] Phone: P rocedures [phone] MRI ORBIT FACE Fax: AND/OR NECK [phone] W/CONTRST * Radiology Services Status Reason Specialty Diagnoses / Referred By Referred To Procedures Contact Contact No Auth Needed Radiology Diagnoses Emily Esparza Mob Mri Basaloid MD [address] carcinoma (HCC) [address] FLOOR (HCC) [address] [place], [place] [address] of left eye [address] Phone: P rocedures [phone] MRI ORBIT FACE Fax: AND/OR NECK [phone] W/CONTRST Reason for Visit * Radiology Services Status Reason Specialty Diagnoses / Referred By Referred To Procedures Contact Contact No Auth Needed Radiology Diagnoses Emily Esparza Mob Mri Basaloid MD [address] carcinoma (HCC) [address] FLOOR (HCC) [address] [place] [address] of left eye [address] Phone: P rocedures [phone] MRI ORBIT FACE Fax: AND/OR NECK [phone] W/CONTRST Encounter Details Date Type Department Care Team Description 12/26/2016 Hospital [facility] Emily Esparza MD Encounter [facility] Radiology [address] [place] [address] 2[address] FLOOR [phone] [place] [address] [phone] Social History Tobacco Use Types Packs/Day Years [...] impairment: No 11/27/2014 as of this encounter Medications at Time of Discharge Medication Sig. Disp. Refills Start Date End Date acetaminophen (TYLENOL) Take 325 mg by mouth as 325 mg tablet Needed. ASCORBATE CALCIUM Take 1 Tab by mouth (VITAMIN C PO) daily. RESVERATROL PO Take 1 Tab by mouth daily. SELENIUM PO Take 1 Tab by mouth daily. vitamins, multiple tablet Take 1 Tab by mouth daily. as of this encounter Plan of Treatment [...]
--- OUTSIDE RECORDS SUMMARY | 2017-02-09 06:35 | XMS REPORT | Encounter Summary ---
Author Author [facility] Organization [facility] Address Unknown Phone Unavailable Care Team Providers Care Commercial Finance Analyst Name Role Phone PCP Unavailable Reason for Referral * Radiology Services Status Reason Specialty Diagnoses / Referred By Referred To Procedures Contact Contact No Auth Needed Radiology Diagnoses Emily Esparza Mob [address] [address] carcinoma (HCC) [address] FLOOR (HCC) [address] [place], [place] [address] of left eye [address] Phone: P rocedures [phone] CT CHEST W Fax: CONTRAST [phone] * Radiology Services Status Reason Specialty Diagnoses / Referred By Referred To Procedures Contact Contact No Auth Needed Radiology Diagnoses Emily Esparza Mob [address] [place] [address] carcinoma (HCC) [address] FLOOR (HCC) [address] [place] [address] of left eye [address] Phone: P rocedures [phone] CT CHEST W Fax: CONTRAST [phone] Reason for Visit * Radiology Services Status Reason Specialty Diagnoses / Referred By Referred To Procedures Contact Contact No Auth Needed Radiology Diagnoses Emily Esparza Mob [address] [facility] [address] carcinoma (HCC) [address] FLOOR (HCC) [address] [place] [address] of left eye [address] Phone: P rocedures [phone] CT CHEST W Fax: CONTRAST [phone] Encounter Details Date Type Department Care Team Description 12/26/2016 Hospital [facility] Emily Esparza MD Encounter Hospital Radiology [address] [facility] [address] [place] [address] 2ND FLOOR [phone] [place] [address] [phone] Social History Tobacco Use Types Packs/Day Years [...] Specimen Performing Laboratory [facility] [address] [place] [address] in this encounter Visit Diagnoses Diagnosis Basaloid [...]
--- OUTSIDE RECORDS SUMMARY | 2017-02-09 06:35 | XMS REPORT | Clinical Summary ---
Author Author [facility] Organization [facility] Address Unknown Phone Unavailable Care Team Providers Care Senior Group Manager Name Role Phone PCP Unavailable Source Comments Some departments are not documenting in the electronic medical record. If you do not see the information that you expected, contact Release of Information in the Health Information Management department at [phone] for further assistance in locating additional records.[facility] Allergies No Known Allergies Current Medications [...] Encounters Date Type Specialty Care Team Description 01/22/2017 Telephone Otolaryngology Nuvia Lopez RN Records Request 12/26/2016 Hospital Radiology Emily Esparza MD Encounter 12/26/2016 Hospital Radiology Emily Esparza MD Encounter 11/24/2016 Office Visit Otolaryngology Emily Esparza [...] 36.7 C (98 F) 06/10/2012 8:12 AM RADIOSONDE OPERATOR Respiratory Rate - - Oxygen Saturation 95% 06/10/2012 8:12 AM RADIOSONDE OPERATOR Inhaled Oxygen - - Concentration Weight 88.7 [...] 2004 SCREENING SHINGLES VACCINE 2014 INFLUENZA VACCINE 02/01/2017 Results * MRI ORBIT FACE AND/OR NECK [...] MG/DL Specimen Performing Laboratory [facility] [address] [place] [phone] from Last 3 Months
--- OUTSIDE RECORDS SUMMARY | 2017-02-09 06:35 | XMS REPORT | Encounter Summary ---
Author Author [facility] Organization [facility] Address Unknown Phone Unavailable Care Team Providers Care Boat Carpenter Mechanic Name Role Phone PCP Unavailable Reason for Visit * Reason Comments Records Request Encounter Details Date Type Department Care Team Description 01/22/2017 Telephone [facility] Nuvia Lopez RN Records Request Physicians - ENT 3RD FLOOR POD C [address] [place] [address] Social History Tobacco Use Types [...] impairment: No 11/27/2014 as of this encounter Miscellaneous Notes * Telephone Encounter - Nuvia Lopez RN - 01/22/2017 11:15 AM CDT PCP office received dictated report of recent chest CT, but did not receive copy of MRI. Requesting copy. Copy faxed as requested. in this encounter Plan of Treatment Not on fileas of this encounter Visit Diagnoses Not on filein this encounter
--- OUTSIDE RECORDS SUMMARY | 2017-02-09 06:35 | XMS REPORT | Continuity of Care Document ---
Author Author [facility] Organization [facility] Address Unknown Phone Unavailable Care Team Providers Care Networker Name Role Phone [employer] Unavailable Unavailable Problems Medications Allergies, Adverse Reactions, Alerts Immunizations Results Vital Signs Encounters Location Location Details Encounter Type Encounter Number Reason For Visit Attending Provider ADM Date DC Date Status Source OUTPATIENT [id number] VERONICA BANDA 05/14/20152015 Active [facility] OUTPATIENT [id number] VERONICA BANDA 12/26/20162016 Active [facility] O VERONICA BANDA 06/02/2017 Active [facility] Procedures Plan of Care Social History Assessment and Plan Family History Value Date Source Advance Directives Order Name Results Value Date Source
--- OUTSIDE RECORDS SUMMARY | 2017-02-09 06:36 | XMS REPORT | Encounter Summary ---
Author Author [facility] Organization [facility] Address Unknown Phone Unavailable Care Team Providers Care Research Biologist Name Role Phone PCP Unavailable Encounter Details Date Type Department Care Team Description 11/24/[address] [facility] Radiology [address] MED OFFICE BLDG [address]ND [place] [address] Social History Tobacco Use Types Packs/Day Years [...]
--- OUTSIDE RECORDS SUMMARY | 2017-02-09 06:36 | XMS REPORT | Encounter Summary ---
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) [address] [place], [place] [address] of left eye [address] Phone: P rocedures [phone] MRI ORBIT FACE Fax: AND/OR NECK [phone] W/CONTRST * Radiology Services Status Reason Specialty Diagnoses / Referred By Referred To Procedures Contact Contact No Auth Needed Radiology Diagnoses Emily Esparza Mob Ct 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) [address] [place], [place] [address] of left eye [address] Phone: P rocedures [phone] CT CHEST W Fax: CONTRAST [phone] Reason for Visit * Reason Comments Follow Up Encounter Details Date Type Department Care Team Description 11/24/2016 Office Visit [facility] Emily Esparza MD Basaloid carcinoma (HCC) Physicians - ENT Clinic [address] (Primary Dx);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 He will see an line driver for his ptosis. He will follow up [...]
--- OUTSIDE RECORDS SUMMARY | 2017-02-09 06:36 | XMS REPORT | Encounter Summary ---
Author Author [facility] Organization [facility] Address Unknown Phone Unavailable Care Team Providers Care Label Cutter Name Role Phone PCP Unavailable Encounter Details Date Type Department Care Team Description 11/24/2016 Procedure Pass [facility] Radiology [address] MED OFFICE [place]LD[address] [place] [address] Social History Tobacco Use Types Packs/Day Years [...]
[2017-02-09] MEDS ORDERED: NS IV 1000 ML 1,000 ML IV ONE (06:40)
[2017-02-09] MEDS ORDERED: ONDANSETRON 4 MG/2 ML (SDV) Z0FRAN IVP ONE (06:45)
[2017-02-09] MEDS ORDERED: fentaNYL INJECTION 100 MCG/2 ML AMP IVP ONE (06:45)
[2017-02-09 06:48] LABS: BASOPHILS % (AUTO) 0 % (0-10); EOSINOPHILS # (AUTO) 0.1 10^3/uL (0.0-0.3); EOSINOPHILS % (AUTO) 1 % (0-10); LYMPHOCYTES # (AUTO) 0.8 X 10^3 (1.0-4.0); LYMPHOCYTES % (AUTO) 8 % (12-44); MEAN CORPUSCULAR HEMOGLOBIN 31 PG (25-34); MEAN CORPUSCULAR HGB CONC 34 G/DL (32-36); MEAN CORPUSCULAR VOLUME 91 FL (80-99); MONOCYTES # (AUTO) 0.9 X 10^3 (0.0-1.0); MONOCYTES % (AUTO) 9 % (0-12); NEUTROPHILS # (AUTO) 8.5 X 10^3 (1.8-7.8); NEUTROPHILS % (AUTO) 82 % (42-75); PLATELET COUNT 241 10^3/uL (130-400); RED BLOOD COUNT 4.07 10^6/uL (4.35-5.85); RED CELL DISTRIBUTION WIDTH 13.1 % (10.0-14.5); WHITE BLOOD COUNT 10.4 10^3/uL (4.3-11.0)
--- NOTE | 2017-02-09 07:02 | ED Back Pain ---
General Chief Complaint: Back Problems Stated Complaint: GROIN PAIN BACK PAIN Nursing Triage Note: FLANK PAIN RADIATING TO GROIN Nursing Sepsis Screen: No Definite Risk Source of Information: Patient Exam Limitations: No Limitations History of Present Illness Time Seen by Provider: 06:34 Initial Comments This 61-year-old gentleman presents to the emergency room with sudden onset of pain in the left flank radiating around to the left groin and testicle this started very early this morning. He cannot find a comfortable position. He has been producing brown urine this morning. Patient describes a history of renal lesions. He also had a fall a couple months ago that resulted in hematuria. He is nauseated and heaving. He has no history of renal stones. According to chart review, and the CT of his abdomen and pelvis that identified renal lesions was followed by MRI and ultrasound. These studies confirmed the lesions were of cystic nature. There are also hypodensities noted within the liver that were unchanged from prior. No kidney stones were noted on recent imaging. Allergies and Home Medications Allergies Coded Allergies: No Known Drug Allergies (Unverified , 04/29/12) Home Medications No Active Prescriptions or Reported Meds Constitutional: no symptoms reported EENTM: no symptoms reported Respiratory: no symptoms reported Cardiovascular: no symptoms reported Gastrointestinal: see HPI Genitourinary: see HPI Musculoskeletal: no symptoms reported Skin: no symptoms reported Psychiatric/Neurological: No Symptoms Reported Past Zwdkiab-Smhupj-Hxqprf Hx Patient Social History Alcohol Use: Denies Use Recreational Drug Use: No Smoking Status: Never a Smoker Recent Foreign Travel: No Contact w/Someone Who Travel: No Recent Infectious Disease Expo: No Recent Hopitalizations: Yes Immunizations Up To Date Tetanus Booster (TDap): Unknown Date of Influenza Vaccine: Feb 02, 2012 Seasonal Allergies Seasonal Allergies: No Surgeries History of Surgeries: Yes (GALLBLADDER) Surgeries: Gallbladder, Orthopedic Respiratory History of Respiratory Disorde: No Cardiovascular History of Cardiac Disorders: No Neurological History of Neurological Disord: No Genitourinary History of Genitourinary Disor: Yes Genitourinary Disorders: Kidney Stones Gastrointestinal History of Gastrointestinal Di: No Musculoskeletal History of Musculoskeletal Dis: No Endocrine History of Endocrine Disorders: No HEENT History of HEENT Disorders: No 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) Psychosocial History of Psychiatric Problem: No Integumentary History of Skin or Integumenta: No Blood Transfusions History of Blood Disorders: No Physical Exam Vital Signs Vital Sign - Last 12Hours 02/09/17 06:45 Temp 97.6 Pulse 71 Resp 22 B/P (MAP) 140/83 Pulse Ox 97 O2 Delivery Room Air Capillary Refill : Less Than 3 Seconds General Appearance: WD/WN, Moderate Distress HEENT: PERRL/EOMI, Normal ENT Inspection Neck: Normal Inspection Cardiovascular: No Edema, No Murmur, Tachycardia Respiratory: Lungs Clear, Normal Breath Sounds, No Accessory Muscle Use, No Respiratory Distress Gastrointestinal: Normal Bowel Sounds, Non Tender, Soft Extremity: Normal Inspection, No Pedal Edema Neurologic/Psychiatric: Alert, Oriented x3, No Motor/Sensory Deficits, Normal Mood/Affect, vaccine key customer leader II-XII Norm as Tested Skin: Normal Color, Warm/Dry Progress/Results/Core Measures Results/Orders Lab Results Laboratory Tests Test 02/09/17 06:40 02/09/17 06:55 Range/Units White Blood Count 10.4 4.3-11.0 10^3/uL Red Blood Count 4.07 L 4.35-5.85 10^6/uL Hemoglobin 12.7 L 13.3-17.7 G/DL Hematocrit 37 L 40-54 % Mean Corpuscular Volume 91 80-99 FL Mean Corpuscular Hemoglobin 31 25-34 PG Mean Corpuscular Hemoglobin Concent 34 32-36 G/DL Red Cell Distribution Width 13.1 10.0-14.5 % Platelet Count 241 130-400 10^3/uL Mean Platelet Volume 10.0 7.4-10.4 FL Neutrophils (%) (Auto) 82 H 42-75 % Lymphocytes (%) (Auto) 8 L 12-44 % Monocytes (%) (Auto) 9 0-12 % Eosinophils (%) (Auto) 1 0-10 % Basophils (%) (Auto) 0 0-10 % Neutrophils # (Auto) 8.5 H 1.8-7.8 X 10^3 Lymphocytes # (Auto) 0.8 L 1.0-4.0 X 10^3 Monocytes # (Auto) 0.9 0.0-1.0 X 10^3 Eosinophils # (Auto) 0.1 0.0-0.3 10^3/uL Basophils # (Auto) 0.0 0.0-0.1 10^3/uL Sodium Level 139 135-145 MMOL/L Potassium Level 3.4 L 3.6-5.0 MMOL/L Chloride Level 105 98-107 MMOL/L Carbon Dioxide Level 25 21-32 MMOL/L Anion Gap 9 5-14 MMOL/L Blood Urea Nitrogen 14 7-18 MG/DL Creatinine 1.19 0.60-1.30 MG/DL Estimat Glomerular Filtration Rate > 60 BUN/Creatinine Ratio 12 Glucose Level 133 H 70-105 MG/DL Calcium Level 9.2 8.5-10.1 MG/DL Total Bilirubin 0.5 0.1-1.0 MG/DL Aspartate Amino Transf (AST/SGOT) 23 5-34 U/L Alanine Aminotransferase (ALT/SGPT) 21 0-55 U/L Alkaline Phosphatase 60 40-136 U/L Total Protein 7.6 6.4-8.2 GM/DL Albumin 4.1 3.2-4.5 GM/DL Urine Color BROWN H Urine Clarity BLOODY H Urine pH 7 5-9 Urine Specific [place] 1.010 L 1.016-1.022 Urine Protein 3+ H NEGATIVE Urine Glucose (UA) NEGATIVE NEGATIVE Urine Ketones NEGATIVE NEGATIVE Urine Nitrite NEGATIVE NEGATIVE Urine Bilirubin NEGATIVE NEGATIVE Urine Urobilinogen NORMAL NORMAL MG/DL Urine Leukocyte Esterase 1+ H NEGATIVE Urine RBC (Auto) 5+ H NEGATIVE Urine RBC TNTC H /HPF Urine WBC RARE /HPF Urine Crystals NONE /LPF Urine Bacteria TRACE /HPF Urine Casts NONE /LPF Urine Mucus NEGATIVE /LPF Urine Culture Indicated NO My Orders Orders - STEF GAVIN MD Saline Lock/Iv-Start (02/09/17 06:40) Cbc With Automated Diff (02/09/17 06:40) Comprehensive Metabolic Panel (02/09/17 06:40) Ua Culture If Indicated (02/09/17 06:40) Ns Iv 1000 Ml (Sodium Chloride 0.9%) (02/09/17 06:40) Fentanyl Injection (Sublimaze Injection (02/09/17 06:45) Ondansetron Injection (Zofran Injectio (02/09/17 06:45) Ct Abd/Pelvis Wo(Kidney Stone) (02/09/17 07:35) Ketorolac Injection (Toradol Injection) (02/09/17 07:45) Medications Given in ED Current Medications Medications Dose Ordered Sig/William Route Start Time Stop Time Status Last Admin Dose Admin Fentanyl Citrate 100 mcg ONCE ONCE IVP 02/09/17 06:45 02/09/17 06:46 DC 02/09/17 06:53 100 MCG Ketorolac Tromethamine 30 mg ONCE ONCE IVP 02/09/17 07:45 02/09/17 07:46 DC 02/09/17 08:13 30 MG Ondansetron HCl 8 mg ONCE ONCE IVP 02/09/17 06:45 02/09/17 06:46 DC 02/09/17 06:53 8 MG Sodium Chloride 1,000 ml @ 0 mls/hr Q0M ONCE IV 02/09/17 06:40 02/09/17 06:42 DC 02/09/17 06:53 0 MLS/HR Vital Signs/I&O Vital Sign - Last 12Hours 02/09/17 02/09/17 06:45 06:53 Temp 97.6 97.6 Pulse 71 Resp 22 B/P (MAP) 140/83 Pulse Ox 97 O2 Delivery Room Air Blood Pressure Mean: 102 Progress Note #1: Time: 08:52 Progress Note Patient had typical symptomatology of ureteral stone. Workup was pursued accordingly. Pain was initially treated with fentanyl. When pain rebounded he was treated with Toradol. Prior imaging studies were reviewed. To ensure I evaluated all of his prior abnormal findings appropriately along with his current complaint, I contacted Dr. Montanez, radiologist in [place] to discuss appropriate studies. He recommended using CT without contrast as the other issues had been well evaluated with follow-up MRI and ultrasound. Upon review of his present CT, I contacted Dr. Gomez. He would like to see the patient in follow-up and would like to review his CT studies personally. He recommends treating pain and providing prophylactic antibiotic in the meantime. Progress Note #2: Time: 09:16 Progress Note Patient is pain-free at this time. Plan was communicated with patient. He elaborates that he actually had an episode of hematuria prior to his fall and then another case of hematuria after the fall. Prior to his fall he had seen Dr. Gomez and underwent cystoscopy which he reports was clean. I contacted Dr. Gomez with this update. He still would like the patient to see him in follow- up with the plan as outlined above. Diagnostic Imaging Diagonstic Imaging: CT Plain Films/CT/US/NM/MRI: abdomen, pelvis Comments CT abdomen and pelvis viewed by me and report reviewed. See report below: NAME: [facility] REC#: [id number] PT STATUS: REG ER : 1955 PHYSICIAN: STEF GAVIN MD ADMIT DATE: 02/09/17/ER Signed Date of Exam:02/09/17 CT ABD/PELVIS WO(KIDNEY STONE) PROCEDURE: CT urinary tract, rule out kidney stone. TECHNIQUE: Multiple contiguous axial images were obtained through the abdomen and pelvis without the use of intravenous contrast. INDICATION: Left flank pain. Comparison made with prior examination from 12/27/16 FINDINGS: The heart size is normal. The lung bases are clear. There are benign cysts in the liver. There is no biliary ductal dilatation. Gallbladder is surgically absent. Spleen is normal. The pancreas and adrenal glands are unremarkable. The right kidney is normal in appearance. There are inflammatory changes about the left kidney including some fluid particularly along the anterior aspect of left pararenal space. There appears to be some left hydronephrosis with some hyperdense material layering in the renal pelvis as well as questionable faint stone near the left UPJ. The aorta is nonaneurysmal. Bowel gas pattern is nonspecific. There is no free air. There is no pelvic mass, adenopathy or free fluid. There are bilateral inguinal hernias containing omental fat. There are degenerative changes in the spine. IMPRESSION: Perinephric stranding in the left including some free fluid along the anterior aspect of left pararenal space. There is left hydronephrosis with suggestion of some hyperdense material layering within the left renal pelvis as well as a faint hyperdensity in region of left UPJ suspect for stone. Recommend clinical correlation. Multiple benign hepatic cysts. Degenerative changes in the spine. No other acute abnormality in the abdomen or pelvis. Dictated by: Dictated on workstation # [id number] Dict: 02/09/17751 Trans: 02/09/17827 [id number] Interpreted by: RUBA AGUSTIN MD Electronically signed by: RUBA AGUSTIN MD 02/09/17827 Departure Impression Impression: Primary Impression: Hydronephrosis, left Additional Impressions: Left flank pain Nausea and vomiting Qualified Codes: R11.2 - Nausea with vomiting, unspecified Hematuria Qualified Codes: R31.9 - Hematuria, unspecified Disposition: 01 HOME, SELF-CARE Condition: Improved Departure-Patient Inst. Referrals: KIKE CLAY MD (PCP/Family) Primary Care Physician Patient Instructions: Kidney Stones in Adults Add. Discharge Instructions: Drink plenty of water. Contact Dr. Gomez's office tomorrow for instructions on a follow-up appointment. Complete your antibiotic as prescribed. Use Zofran (ondansetron) as prescribed for nausea and vomiting. Use hydrocodone as prescribed for pain. Return to the emergency room if you have significant complications or return of severe symptoms. All discharge instructions reviewed with patient and/or family. Voiced understanding. Scripts Ondansetron (Zofran Odt) 4 Mg Tab.rapdis 4 MG SL Q4H Y for NAUSEA/VOMITING-1ST LINE, #10 TAB 1 Refill Prov: STEF GAVIN MD 02/09/17 Hydrocodone/Acetaminophen (Hydrocodon -Acetaminophen 5-325) 1 Each Tablet 1-2 EACH PO Q4H Y for PAIN, #20 TAB Prov: STEF GAVIN MD 02/09/17 Ciprofloxacin HCl (Cipro) 500 Mg Tablet 500 MG PO BID, #20 TAB Prov: STEF GAVIN MD 02/09/17 Copy Copies To 1: ALVA GOMEZ MD Copies To 2: KIKE CLAY MD, JOSHUA T MD Feb 09, 2017 07:02
[2017-02-09 07:04] LABS: BILIRUBIN,URINE NEGATIVE (NEGATIVE); KETONES,URINE NEGATIVE (NEGATIVE); LEUKOCYTE ESTERASE ,URINE 1+ (NEGATIVE); NITRITE,URINE NEGATIVE (NEGATIVE); PH,URINE 7 (5-9); PROTEIN,URINE 3+ (NEGATIVE); UROBILINOGEN,URINE NORMAL (NORMAL)
[2017-02-09 07:15] LABS: ALANINE AMINOTRANSFERASE 21 U/L (0-55); ALBUMIN 4.1 GM/DL (3.2-4.5); ANION GAP 9 MMOL/L (5-14); ASPARTATE AMINO TRANSFERASE 23 U/L (5-34); BILIRUBIN,TOTAL 0.5 MG/DL (0.1-1.0); BLOOD UREA NITROGEN 14 MG/DL (7-18); BUN/CREATININE RATIO 12; CALCIUM 9.2 MG/DL (8.5-10.1); CARBON DIOXIDE 25 MMOL/L (21-32); CHLORIDE 105 MMOL/L (98-107); CREATININE SERUM 1.19 MG/DL (0.60-1.30); GFR ESTIMATED > 60; GLUCOSE 133 MG/DL (70-105); POTASSIUM 3.4 MMOL/L (3.6-5.0); SODIUM 139 MMOL/L (135-145); TOTAL PROTEIN 7.6 GM/DL (6.4-8.2)
[2017-02-09 07:17] LABS: WBC,URINE RARE /HPF
[2017-02-09] MEDS ORDERED: KETOROLAC 30 MG/ML VIAL IVP ONE (07:45)
--- NOTE | 2017-02-09 08:13 | Diagnostic Imaging Report ---
PROCEDURE: CT urinary tract, rule out kidney stone. TECHNIQUE: Multiple contiguous axial images were obtained through the abdomen and pelvis without the use of intravenous contrast. INDICATION: Left flank pain. Comparison made with prior examination from 12/27/16 FINDINGS: The heart size is normal. The lung bases are clear. There are benign cysts in the liver. There is no biliary ductal dilatation. Gallbladder is surgically absent. Spleen is normal. The pancreas and adrenal glands are unremarkable. The right kidney is normal in appearance. There are inflammatory changes about the left kidney including some fluid particularly along the anterior aspect of left pararenal space. There appears to be some left hydronephrosis with some hyperdense material layering in the renal pelvis as well as questionable faint stone near the left UPJ. The aorta is nonaneurysmal. Bowel gas pattern is nonspecific. There is no free air. There is no pelvic mass, adenopathy or free fluid. There are bilateral inguinal hernias containing omental fat. There are degenerative changes in the spine. IMPRESSION: Perinephric stranding in the left including some free fluid along the anterior aspect of left pararenal space. There is left hydronephrosis with suggestion of some hyperdense material layering within the left renal pelvis as well as a faint hyperdensity in region of left UPJ suspect for stone. Recommend clinical correlation. Multiple benign hepatic cysts. Degenerative changes in the spine. No other acute abnormality in the abdomen or pelvis. Dictated by: Dictated on workstation # [id number]
[2017-02-09] MEDS ORDERED: ONDA4TAB8 SL (09:21)
[2017-02-09] MEDS ORDERED: CIPR-225 PO (09:21)
[2017-02-09] MEDS ORDERED: HYDR-3812 PO (09:21)
[2017-02-09 09:35] VITALS: BP 137/80
== END 2017-02-09 09:37 | disposition home or self-care (01) ==
LOC: EDUNIT# 06:29 → ER 06:31
DX: N13.30 Unspecified hydronephrosis (principal); R31.9 Hematuria, unspecified; R11.2 Nausea with vomiting, unspecified; Z85.828 Personal history of other malignant neoplasm of skin; Z87.442 Personal history of urinary calculi
CPT/HCPCS: 36415; 74176; 80053; 81000; 85025

== ENCOUNTER 2017-03-25 21:00 | Inpatient (IN) | payer BC ==
[~2017-03-25] VITALS: Ht 175.3 cm; Wt 88.9 kg
[~2017-03-25 21:00] MED LIST changes: +CIPR-225 PO; -GADOBUTROL 10 MMOL/10 ML (GADAVIST) VIAL IV ONE; +HYDR-3812 PO; +ONDA4TAB8 SL
[2017-03-25] MEDS ORDERED: KETOROLAC 30 MG/ML VIAL IVP ONE (21:15)
[2017-03-25] MEDS ORDERED: ONDANSETRON 4 MG/2 ML (SDV) Z0FRAN IVP ONE (21:15)
--- NOTE | 2017-03-25 21:21 | ED GI ---
General Chief Complaint: Abdominal/GI Problems Stated Complaint: ABD PAIN;VOMITING Source of Information: Patient Exam Limitations: No Limitations History of Present Illness Time Seen By Provider: 21:19 Initial Comments To ER with left-sided abdominal pain worse than usual and vomiting since 3 p.m. today. He states that he has had chronic consistent left-sided abdominal pain since a fall on December 27 of this year. At that time, he fell 12 feet landing on the RIGHT side. 3 hours after the fall he noticed his urine to be grossly bloody. He has had frequent intermittently bloody urine since the fall no December 27 and persistent left sided abdominal discomfort. He has followed up with Dr. Marino, had renal ultrasound and MRI of the abdomen and states that nothing can be found. Upon arrival to the emergency room tonight he is noted to be febrile at 101.4.. He has not had fevers up to this point. Timing/Duration: 1-2 Days Severity/Quality: Moderate Location: LUQ, LLQ Radiation: No Radiation Activities at Onset: None Allergies and Home Medications Allergies Coded Allergies: No Known Drug Allergies (Unverified , 04/29/12) Review of Systems Constitutional: see HPI, No chills, No fever EENTM: No Symptoms Reported Respiratory: No Symptoms Reported Cardiovascular: See HPI Gastrointestinal: See HPI, Abdominal Pain, Nausea, Vomiting Genitourinary: See HPI, Flank Pain, Hematuria Musculoskeletal: no symptoms reported Skin: no symptoms reported Psychiatric/Neurological: No Symptoms Reported Endocrine: No Symptoms Reported Past Ulbaein-Enqixy-Ogogob Hx Patient Social History Recent Foreign Travel: No Contact w/Someone Who Travel: No Recent Hopitalizations: Yes Immunizations Up To Date Tetanus Booster (TDap): Unknown Date of Influenza Vaccine: Feb 02, 2012 Seasonal Allergies Seasonal Allergies: No Surgeries History of Surgeries: Yes (GALLBLADDER) Surgeries: Gallbladder, Orthopedic Respiratory History of Respiratory Disorde: No Cardiovascular History of Cardiac Disorders: No Neurological History of Neurological Disord: No Genitourinary History of Genitourinary Disor: Yes Genitourinary Disorders: Kidney Stones Gastrointestinal History of Gastrointestinal Di: No Musculoskeletal History of Musculoskeletal Dis: No Endocrine History of Endocrine Disorders: No HEENT History of HEENT Disorders: No 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) Psychosocial History of Psychiatric Problem: No Integumentary History of Skin or Integumenta: No Blood Transfusions History of Blood Disorders: No Physical Exam Vital Signs VS - Last 72 Hours, by Label 03/25/17 21:04 Temp 101.4 Pulse 114 Resp 20 B/P (MAP) 149/106 Pulse Ox 98 O2 Delivery Room Air Capillary Refill : General Appearance: WD/WN, no apparent distress HEENT: PERRL/EOMI, normal ENT inspection Neck: non-tender, full range of motion Respiratory: no respiratory distress, no accessory muscle use Cardiovascular: regular rate, rhythm Gastrointestinal: normal bowel sounds, non tender, soft Extremities: normal range of motion, non-tender Neurologic/Psychiatric: alert, normal mood/affect, oriented x 3 Skin: normal color, warm/dry Focused Exam Evaluation Lactate Level Laboratory Tests 03/25/17 21:10: Lactic Acid Level 0.86 Lactic Acid Level Laboratory Tests Test 03/25/17 21:10 Lactic Acid Level 0.86 MMOL/L (0.50-2.00) Progress/Results/Core Measures Results/Orders Lab Results Laboratory Tests Test 03/25/17 21:05 03/25/17 21:10 Range/Units Urine Color GENTRY H Urine Clarity VERY CLOUDY H Urine pH 6.5 5-9 Urine Specific Russell 1.015 L 1.016-1.022 Urine Protein 3+ H NEGATIVE Urine Glucose (UA) NEGATIVE NEGATIVE Urine Ketones 2+ H NEGATIVE Urine Nitrite NEGATIVE NEGATIVE Urine Bilirubin NEGATIVE NEGATIVE Urine Urobilinogen NORMAL NORMAL MG/DL Urine Leukocyte Esterase 1+ H NEGATIVE Urine RBC (Auto) 5+ H NEGATIVE Urine RBC TNTC H /HPF Urine WBC 2-5 /HPF Urine Crystals NONE /LPF Urine Bacteria TRACE /HPF Urine Casts NONE /LPF Urine Mucus NEGATIVE /LPF Urine Culture Indicated YES Serum Alcohol < 10 <10 MG/DL White Blood Count 17.1 H 4.3-11.0 10^3/uL Red Blood Count 4.65 4.35-5.85 10^6/uL Hemoglobin 14.7 13.3-17.7 G/DL Hematocrit 42 40-54 % Mean Corpuscular Volume 91 80-99 FL Mean Corpuscular Hemoglobin 32 25-34 PG Mean Corpuscular Hemoglobin Concent 35 32-36 G/DL Red Cell Distribution Width 13.0 10.0-14.5 % Platelet Count 273 130-400 10^3/uL Mean Platelet Volume 10.0 7.4-10.4 FL Neutrophils (%) (Auto) 92 H 42-75 % Lymphocytes (%) (Auto) 2 L 12-44 % Monocytes (%) (Auto) 5 0-12 % Eosinophils (%) (Auto) 0 0-10 % Basophils (%) (Auto) 0 0-10 % Neutrophils # (Auto) 15.8 H 1.8-7.8 X 10^3 Lymphocytes # (Auto) 0.4 L 1.0-4.0 X 10^3 Monocytes # (Auto) 0.9 0.0-1.0 X 10^3 Eosinophils # (Auto) 0.1 0.0-0.3 10^3/uL Basophils # (Auto) 0.0 0.0-0.1 10^3/uL Neutrophils % (Manual) 91 % Lymphocytes % (Manual) 3 % Monocytes % (Manual) 3 % Eosinophils % (Manual) 0 % Basophils % (Manual) 0 % Band Neutrophils 3 % Blood Morphology Comment NORMAL Erythrocyte Sedimentation Rate 13 0-30 MM/HR Sodium Level 142 135-145 MMOL/L Potassium Level 3.9 3.6-5.0 MMOL/L Chloride Level 107 98-107 MMOL/L Carbon Dioxide Level 22 21-32 MMOL/L Anion Gap 13 5-14 MMOL/L Blood Urea Nitrogen 18 7-18 MG/DL Creatinine 1.21 0.60-1.30 MG/DL Estimat Glomerular Filtration Rate > 60 BUN/Creatinine Ratio 15 Glucose Level 122 H 70-105 MG/DL Lactic Acid Level 0.86 0.50-2.00 MMOL/L Calcium Level 9.7 8.5-10.1 MG/DL Total Bilirubin 0.9 0.1-1.0 MG/DL Aspartate Amino Transf (AST/SGOT) 28 5-34 U/L Alanine Aminotransferase (ALT/SGPT) 24 0-55 U/L Alkaline Phosphatase 65 40-136 U/L Lactate Dehydrogenase 299 H 125-220 U/L Total Protein 8.6 H 6.4-8.2 GM/DL Albumin 4.5 3.2-4.5 GM/DL Triglycerides Level 46 <150 MG/DL Cholesterol Level 154 < 200 MG/DL LDL Cholesterol Direct 98 1-129 MG/DL VLDL Cholesterol 9 5-40 MG/DL HDL Cholesterol 49 40-60 MG/DL Lipase 268 H 8-78 U/L My Orders Orders - MOLLY FISHER APRN Cbc With Automated Diff (03/25/17 21:05) Comprehensive Metabolic Panel (03/25/17 21:05) Ua Culture If Indicated (03/25/17 21:05) Saline Lock/Iv-Start (03/25/17 21:05) Ketorolac Injection (Toradol Injection) (03/25/17 21:15) Ondansetron Injection (Zofran Injectio (03/25/17 21:15) Ct Abdomen/Pelvis W Wo (03/25/17 21:16) Blood Culture (03/25/17:17) Lactic Acid Analyzer (03/25/17:17) Lipase (03/25/17 21:21) Ibuprofen Tablet (Motrin Tablet) (03/25/17 21:30) Drug Screen Stat (Urine) (03/25/17 21:23) Alcohol (03/25/17 21:23) Manual Differential (03/25/17 21:10) Ceftriaxone Injection (Rocephin Injectio (03/25/17 21:30) Ns Iv 1000 Ml (Sodium Chloride 0.9%) (03/25/17 21:30) Urine Culture (03/25/17 21:05) Lipid Panel (03/25/17 22:15) Chest Pa/Lat (2 View) (03/25/17 22:16) Erythrocyte Sedimentation Rate (03/25/17 22:23) Ekg Tracing (03/25/17 22:24) LDH (03/25/17 22:26) Medications Given in ED Current Medications Medications Dose Ordered Sig/William Route Start Time Stop Time Status Last Admin Dose Admin Ceftriaxone Sodium 1000 mg/ Sodium Chloride 50 ml @ 100 mls/hr ONCE ONCE IV 03/25/17 21:30 03/25/17 21:59 DC 03/25/17 22:05 100 MLS/HR Ibuprofen 800 mg ONCE ONCE PO 03/25/17 21:30 03/25/17 21:31 DC 03/25/17 21:30 800 MG Ondansetron HCl 4 mg ONCE ONCE IVP 03/25/17 21:15 03/25/17 21:16 DC 03/25/17 21:29 4 MG Vital Signs/I&O Vital Sign - Last 12Hours 03/25/17 21:04 Temp 101.4 Pulse 114 Resp 20 B/P (MAP) 149/106 Pulse Ox 98 O2 Delivery Room Air Diagnostic Imaging Diagonstic Imaging: CT Comments NAME: [facility] REC#: [id number] PT STATUS: REG ER : 1955 PHYSICIAN: MOLLY FISHER APRN ADMIT DATE: 03/25/17/ER Draft Date of Exam:03/25/17 CT ABDOMEN/PELVIS W WO PROCEDURE: CT abdomen and pelvis with and without contrast. TECHNIQUE: Precontrast acquisitions were acquired through the abdomen and pelvis. Multiple contiguous axial images were obtained through the abdomen and pelvis after the administration of intravenous contrast. INDICATION: Abdominal pain. COMPARISON: CT abdomen and pelvis without contrast 02/09/2017. MRI abdomen without and with IV contrast 02/02/2017. FINDINGS: The lung bases are clear. Stable benign-appearing cysts in the liver. Cholecystectomy. The pancreas, spleen, right kidney, adrenal glands, collecting systems, and unopacified bladder are unremarkable. Enlarged prostate. Again noted is the enlargement of the left kidney and perinephric stranding, mildly improved since the prior exam. There is decreased enhancement of the superior half of the left kidney. There is nonspecific diffuse moderate fluid distention of the small bowel with no focal transition point. No free intraperitoneal air or fluid. No lymphadenopathy. Moderate spondylotic changes in the visualized spine. No acute osseous findings. IMPRESSION: 1. The left kidney remains enlarged with mild improvement of the perinephric stranding since the prior, noncontrast, exam. There is decreased enhancement of the superior half of the left kidney, which can be seen with infarct, possibly an infectious etiology. A neoplastic process is considered less likely given the recent MRI findings. 2. Diffuse nonspecific fluid-filled distention of the small bowel, possibly related to an infectious or inflammatory enteritis. There is no finding suspicious for high-grade bowel obstruction at this time. Dictated on workstation # [id number] Dict: 03/25/172157 Trans: 03/25/172210 [id number] Interpreted by: YANIRA HARMON MD Electronically signed by: Departure Communication (Admissions) Time/Spoke to Admitting Phy: 22:53 Communication I discussed the case with Dr. Silva. She agrees to accept patient and would like him in ICU for monitoring. Consult to Dr. Boo. Time/Spoke to Consulting Phy: 22:53 Communication/Consulting I did speak with Dr. Boo just now and he agrees to consult in the morning. Agrees with the tentative plan for Rocephin IV fluids. Progress Notes 2221-HR was 114, Temp 101.4, WBC 17k. Left renal perfusion abnormality on CT possibly secondary to infection so pt meets sepsis criteria. However, he does not have pyuria. I did order a force culture on urine. At this point it is not clear why the patient has SIRS Impression Impression: Primary Impression: Left flank pain Additional Impressions: Sepsis Leukocytosis Pancreatitis Disposition: ADMITTED INPATIENT Condition: Stable Admissions Decision to Admit Reason: Admit from ER (General) Decision to Admit/Date: Mar 25, 2017 Time/Decision to Admit Time: 23:09 Departure-Patient Inst. Referrals: KIKE CLAY MD (PCP/Family) Primary Care Physician MOLLY FISHER APRN Mar 25, 2017 21:21
[2017-03-25 21:22] LABS: BASOPHILS % (AUTO) 0 % (0-10); EOSINOPHILS # (AUTO) 0.1 10^3/uL (0.0-0.3); EOSINOPHILS % (AUTO) 0 % (0-10); LYMPHOCYTES # (AUTO) 0.4 X 10^3 (1.0-4.0); LYMPHOCYTES % (AUTO) 2 % (12-44); MEAN CORPUSCULAR HEMOGLOBIN 32 PG (25-34); MEAN CORPUSCULAR HGB CONC 35 G/DL (32-36); MEAN CORPUSCULAR VOLUME 91 FL (80-99); MONOCYTES # (AUTO) 0.9 X 10^3 (0.0-1.0); MONOCYTES % (AUTO) 5 % (0-12); NEUTROPHILS # (AUTO) 15.8 X 10^3 (1.8-7.8); NEUTROPHILS % (AUTO) 92 % (42-75); PLATELET COUNT 273 10^3/uL (130-400); RED BLOOD COUNT 4.65 10^6/uL (4.35-5.85); WHITE BLOOD COUNT 17.1 10^3/uL (4.3-11.0)
[2017-03-25 21:23] LABS: BILIRUBIN,URINE NEGATIVE (NEGATIVE); KETONES,URINE 2+ (NEGATIVE); LEUKOCYTE ESTERASE ,URINE 1+ (NEGATIVE); NITRITE,URINE NEGATIVE (NEGATIVE); PH,URINE 6.5 (5-9); PROTEIN,URINE 3+ (NEGATIVE); UROBILINOGEN,URINE NORMAL (NORMAL)
[2017-03-25] MEDS ORDERED: IBUPROFEN 800 MG (MOTRIN) TAB PO ONE (21:30)
[2017-03-25] MEDS ORDERED: cefTRIAXone INJECTION 1,000 MG in NS (IVPB) 50 ML IV ONE (21:30)
[2017-03-25] MEDS ORDERED: NS IV 1000 ML 1,000 ML IV SCH (21:30)
[2017-03-25 21:52] LABS: ALANINE AMINOTRANSFERASE 24 U/L (0-55); ALBUMIN 4.5 GM/DL (3.2-4.5); ANION GAP 13 MMOL/L (5-14); ASPARTATE AMINO TRANSFERASE 28 U/L (5-34); BILIRUBIN,TOTAL 0.9 MG/DL (0.1-1.0); BLOOD UREA NITROGEN 18 MG/DL (7-18); BUN/CREATININE RATIO 15; CALCIUM 9.7 MG/DL (8.5-10.1); CARBON DIOXIDE 22 MMOL/L (21-32); CHLORIDE 107 MMOL/L (98-107); CREATININE SERUM 1.21 MG/DL (0.60-1.30); GFR ESTIMATED > 60; GLUCOSE 122 MG/DL (70-105); POTASSIUM 3.9 MMOL/L (3.6-5.0); SODIUM 142 MMOL/L (135-145); TOTAL PROTEIN 8.6 GM/DL (6.4-8.2)
[2017-03-25 22:08] LABS: BAND NEUTROPHILS 3 %; BASOPHILS % (MANUAL) 0 %; EOSINOPHILS % (MANUAL) 0 %; LYMPHOCYTES % (MANUAL) 3 %; NEUTROPHILS % (MANUAL) 91 %
--- NOTE | 2017-03-25 22:11 | Diagnostic Imaging Report ---
PROCEDURE: CT abdomen and pelvis with and without contrast. TECHNIQUE: Precontrast acquisitions were acquired through the abdomen and pelvis. Multiple contiguous axial images were obtained through the abdomen and pelvis after the administration of intravenous contrast. INDICATION: Abdominal pain. COMPARISON: CT abdomen and pelvis without contrast 02/09/2017. MRI abdomen without and with IV contrast 02/02/2017. FINDINGS: The lung bases are clear. Stable benign-appearing cysts in the liver. Cholecystectomy. The pancreas, spleen, right kidney, adrenal glands, collecting systems, and unopacified bladder are unremarkable. Enlarged prostate. Again noted is the enlargement of the left kidney and perinephric stranding, mildly improved since the prior exam. There is decreased enhancement of the superior half of the left kidney. There is nonspecific diffuse moderate fluid distention of the small bowel with no focal transition point. No free intraperitoneal air or fluid. No lymphadenopathy. Moderate spondylotic changes in the visualized spine. No acute osseous findings. IMPRESSION: 1. The left kidney remains enlarged with mild improvement of the perinephric stranding since the prior, noncontrast, exam. There is decreased enhancement of the superior half of the left kidney, which can be seen with infarct, possibly an infectious etiology. A neoplastic process is considered less likely given the recent MRI findings. 2. Diffuse nonspecific fluid-filled distention of the small bowel, possibly related to an infectious or inflammatory enteritis. There is no finding suspicious for high-grade bowel obstruction at this time. Dictated by: Dictated on workstation # [id number]
[2017-03-25 22:49] LABS: CHOLESTEROL 154 MG/DL (< 200); DIRECT LDL 98 MG/DL (1-129); TRIGLYCERIDES 46 MG/DL (<150); VLDL CHOLESTEROL 9 MG/DL (5-40)
[2017-03-25 23:40] VITALS: BP 142/86
[2017-03-26] VITALS (14 sets, daily range): BP systolic 115–144; BP diastolic 72–93
[2017-03-26] MEDS: NS IV 1000 ML 1,000 ML IV SCH ×2 (00:45→09:40)
[2017-03-26] MEDS ORDERED: IBUPROFEN 800 MG (MOTRIN) TAB PO PRN (01:00)
[2017-03-26] MEDS ORDERED: ACETAMINOPHEN 325 MG TABLET/CAPLET (TYLENOL) PO PRN (01:00)
[2017-03-26] MEDS: fentaNYL INJECTION 100 MCG/2 ML AMP IVP PRN ×3 (02:06→09:49)
[2017-03-26 05:16] LABS: BASOPHILS % (AUTO) 0 % (0-10); EOSINOPHILS % (AUTO) 0 % (0-10); LYMPHOCYTES # (AUTO) 0.3 X 10^3 (1.0-4.0); LYMPHOCYTES % (AUTO) 2 % (12-44); MEAN CORPUSCULAR HEMOGLOBIN 31 PG (25-34); MEAN CORPUSCULAR HGB CONC 34 G/DL (32-36); MEAN CORPUSCULAR VOLUME 92 FL (80-99); MONOCYTES # (AUTO) 0.8 X 10^3 (0.0-1.0); MONOCYTES % (AUTO) 7 % (0-12); NEUTROPHILS % (AUTO) 90 % (42-75); PLATELET COUNT 229 10^3/uL (130-400); RED BLOOD COUNT 4.02 10^6/uL (4.35-5.85); RED CELL DISTRIBUTION WIDTH 13.1 % (10.0-14.5); WHITE BLOOD COUNT 11.1 10^3/uL (4.3-11.0)
[2017-03-26 05:32] LABS: ANION GAP 7 MMOL/L (5-14); BLOOD UREA NITROGEN 16 MG/DL (7-18); BUN/CREATININE RATIO 18; CALCIUM 8.3 MG/DL (8.5-10.1); CARBON DIOXIDE 23 MMOL/L (21-32); CHLORIDE 111 MMOL/L (98-107); CREATININE SERUM 0.89 MG/DL (0.60-1.30); GFR ESTIMATED > 60; GLUCOSE 112 MG/DL (70-105); LIPASE 75 U/L (8-78); MAGNESIUM 1.8 MG/DL (1.8-2.4); PHOSPHORUS 2.8 MG/DL (2.3-4.7); POTASSIUM 3.7 MMOL/L (3.6-5.0); SODIUM 141 MMOL/L (135-145)
[2017-03-26] MEDS ORDERED: MAGNESIUM 1 GM/100 ML IVPB 100 ML IV SCH (06:00)
[2017-03-26] MEDS ORDERED: POTASSIUM CL 10MEQ/50ML IVPB 50 ML IV SCH (06:00)
[2017-03-26] MEDS ORDERED: KCL 20 MEQ TAB (K-DUR) PO SCH (06:00)
--- NOTE | 2017-03-26 07:20 | Diagnostic Imaging Report ---
Indication: Dyspnea. Comparison: 03/25/2017. Findings: Lungs are clear by portable radiography. No pleural effusion or pneumothorax. Normal cardiomediastinal silhouette and pulmonary vasculature. Impression: No acute cardiopulmonary process by portable radiography. Dictated by: Dictated on workstation # [id number]
--- NOTE | 2017-03-26 07:53 | Diagnostic Imaging Report ---
INDICATION: Dyspnea. EXAMINATION: Two-view chest 03/25/2017. COMPARISON: 07/27/2014 FINDINGS: There is atelectasis at the lung bases. No infiltrates or effusions. Heart and pulmonary vasculature appear unremarkable. IMPRESSION: 1. Atelectasis at the lung bases, otherwise negative chest. Dictated by: Dictated on workstation # [id number]
--- NOTE | 2017-03-26 08:21 | Consultation ---
History of Present Illness History of Present Illness Patient Consulted On(kody/time) 03/26/17 08:17 Date Seen by Provider: Mar 26, 2017 Time Seen by Provider: 07:48 Reason for Visit: Severe lower abdominal pain with nausea History of Present Illness This gentleman has a complex history, dating back to 4 months ago, when he sustained a fall from a tree, 12 feet high, landing on the left side of his body. He was evaluated at [facility] and renal cysts where discovered on the left side. No fractures were reported by the patient. He continues to suffer pain over the left side of the abdomen and reports a distinct change in his bowel habits, with increasing constipation and lower abdominal pain. He denies any urinary symptoms, but CT scan from last night shows inflammation around the left kidney with question about an infarction. In addition, his amylase was elevated at the time of ER visit last night, but has since returned to normal. He is otherwise healthy and takes no other medications. Allergies and Home Medications Allergies Coded Allergies: No Known Drug Allergies (Unverified , 04/29/12) Past Xmzdtfb-Mkwnqq-Ilofut Hx Patient Social History Alcohol Use: Denies Use Recreational Drug Use: No Smoking Status: Never a Smoker 2nd Hand Smoke Exposure: No Recent Foreign Travel: No Contact w/Someone Who Travel: No Recent Infectious Disease Expo: No Recent Hopitalizations: Yes Immunizations Up To Date Tetanus Booster (TDap): Unknown Date of Pneumonia Vaccine: Feb 15, 2014 Date of Influenza Vaccine: Feb 01, 2017 Seasonal Allergies Seasonal Allergies: No Surgeries History of Surgeries: Yes (Back surgery, Ing hernia bilat, adenoid cystic carcinoma L mouth wall) Surgeries: Gallbladder, Orthopedic Respiratory History of Respiratory Disorde: No Cardiovascular History of Cardiac Disorders: No Neurological History of Neurological Disord: No Reproductive System Sexually Transmitted Disease: No HIV/AIDS: No Genitourinary History of Genitourinary Disor: Yes Genitourinary Disorders: Kidney Stones Gastrointestinal History of Gastrointestinal Di: No (New DX pancreatitis) Gastrointestinal Disorders: Chronic Constipation, Pancreatitis, Gall Bladder Disease Musculoskeletal History of Musculoskeletal Dis: Yes (BL inguinal hernia, ) Musculoskeletal Disorders: Arthritis Endocrine History of Endocrine Disorders: No HEENT History of HEENT Disorders: No Loss of Vision: Denies 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 Did You Recieve Any Treatments: Yes Type of Tx Receive: Radiation Psychosocial History of Psychiatric Problem: No Integumentary History of Skin or Integumenta: No Blood Transfusions History of Blood Disorders: No Adverse Reaction to a Blood Tr: No Family Medical History Family Medial History: FH: breast cancer 19 MOTHER FH: heart failure 19 FATHER FHx: prostate cancer 19 FATHER Myocardial infarction 19 FATHER Review of Systems-General Constitutional: malaise, weakness EENTM: no symptoms reported Respiratory: no symptoms reported Cardiovascular: no symptoms reported Gastrointestinal: see HPI Genitourinary: no symptoms reported Musculoskeletal: back pain Skin: no symptoms reported Psychiatric/Neurological: No Symptoms Reported Physical Exam-General Problems Physical Exam Vital Signs Vital Sign - Last 12Hours 03/25/17 21:04 Temp 101.4 Pulse 114 Resp 20 B/P (MAP) 149/106 Pulse Ox 98 O2 Delivery Room Air Capillary Refill : Less Than 3 Seconds General Appearance: moderate distress HEENT: normal ENT inspection Neck: full range of motion, normal inspection Respiratory: lungs clear Cardiovascular: normal peripheral pulses Gastrointestinal: non tender, soft, other Rectal: deferred Back: normal inspection Extremities: normal inspection Neurologic/Psychiatric: alert, oriented x 3 Skin: warm/dry Comments No recurrence of his inguinal hernia. No ventral hernia. No mass palpable Assessment/Plan Assessment/Plan Admission Diagnosis/Plan Gentleman with undiagnosed lower abdominal pain. Change in bowel habits. Left renal issues. Reasonable to evaluate with colonoscopy first. Clinical Quality Measures DVT/VTE Risk/Contraindication: Risk Factor Score Per Nursin RFS Level Per Nursing on Admit: 4+=Very High PATRICIA ROSAS MD Mar 26, 2017 08:21
[2017-03-26] MEDS ORDERED: MAGNESIUM CITRATE 300 ML BTL PO NR ×3 (08:30→20:30)
--- NOTE | 2017-03-26 09:36 | History & Physical-Hospitalist ---
HPI History of Present Illness: HPI/Chief Complaint Pt is a 61yoCM who presented to the ER with CC of abd pain. He has a history of abdominal pain that developed after a stephanie 12/27/16 from a 12ft. He landed on his right side and since then has had intermittant abd pain, bloating, and bouts of hematuria. He had been evaluated extensively by his PCP and by Dr Marino , urology. He has had 3 CT abd/pelvis since that fall, along with an abd MRI, renal usg, and cystoscopy without identifying etiology of symptoms. Yesterday at 4pm he developed severe abd pain with nausea and vomiting prompting him to seek evaluation in the ER. 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 He was found to have perineprhic stranding on CT concenring for infection along with a leukocytosis. He was admitted for IV abx and pain management. He has also had a significant change in bowel habits since December where he is now constantly constipated and struggles to have BMs. He denies blood in his stool, change in bowel habits. Source: patient Exam Limitations: no limitations Date Seen 03/26/17 Time Seen by Provider: 08:40 Attending Physician Adwoa Silva DO PCP Elie Ryan MD Referring Physician Date of Admission Mar 25, 2017 at 11:00 pm Home Medications & Allergies Home Medications Reviewed patient Home Medication Reconciliation Form Allergies Allergies Coded Allergies No Known Drug Allergies (Nxirkrxvax73/27/12) Past Daouiys-Xjurzd-Mgyvpb Hx Patient Social History Marrital Status: Employed/Student: employed Alcohol Use: Denies Use Recreational Drug Use: No Smoking Status: Never a Smoker 2nd Hand Smoke Exposure: No Physical Abuse Screen: No Sexual Abuse: No Recent Foreign Travel: No Contact w/other who traveled: No Recent Hopitalizations: Yes Recent Infectious Disease Expo: No Immunizations Up To Date Tetanus Booster (TDap): Unknown Date of Pneumonia Vaccine: Feb 15, 2014 Date of Influenza Vaccine: Feb 01, 2017 Seasonal Allergies Seasonal Allergies: No Surgeries Yes (Back surgery, Ing hernia bilat, adenoid cystic carcinoma L mouth wall) Gallbladder, Orthopedic Respiratory No Cardiovascular No Neurological No Reproductive System Sexually Transmitted Disease: No HIV/AIDS: No Genitourinary Yes Kidney Stones Gastrointestinal No (New DX pancreatitis) Chronic Constipation, Pancreatitis, Gall Bladder Disease Musculoskeletal Yes (BL inguinal hernia, ) Arthritis Endocrine History of Endocrine Disorders: No HEENT History of HEENT Disorders: No Loss of Vision: Denies Cancer Yes (L CHEEK) Skin Did You Recieve Any Treatments: Yes Type of Treatment: Radiation Psychosocial History of Psychiatric Problem: No Integumentary History of Skin or Integumenta: No Blood Transfusions History of Blood Disorders: No Adverse Reaction to a Blood Tr: No Family Medical History Family Hx: FH: breast cancer 19 MOTHER FH: heart failure 19 FATHER FHx: prostate cancer 19 FATHER Myocardial infarction 19 FATHER Review of Systems Constitutional: No chills, No fever, malaise EENTM: No blurred vision, No double vision, No nose congestion, No throat pain Respiratory: No cough, No dyspnea on exertion, No short of breath Cardiovascular: No chest pain, No edema, No palpitations Gastrointestinal: see HPI, abdominal pain, constipation, No diarrhea, No hematemesis, No melena, nausea, vomiting Genitourinary: No dysuria, No frequency, hematuria Musculoskeletal: No joint pain, No muscle pain Skin: No lesions, No rash Psychiatric/Neurological: Denies Headache, Denies Numbness, Denies Tingling Physical Exam Physical Exam Vital Signs Vital Sign - Last 12Hours 03/25/17 21:04 Temp 101.4 Pulse 114 Resp 20 B/P (MAP) 149/106 Pulse Ox 98 O2 Delivery Room Air Capillary Refill : Less Than 3 Seconds General Appearance: No Apparent Distress, WD/WN HEENT: PERRL/EOMI, Moist Mucous Membranes Neck: Non Tender, Supple Respiratory: Lungs Clear, No Respiratory Distress Cardiovascular: Regular Rate, Rhythm, No Murmur Gastrointestinal: Normal Bowel Sounds, Non Tender, Soft, Distended (mild), No Guarding, No Rebound Extremity: Normal Capillary Refill, No Calf Tenderness Neurologic/Psychiatric: Alert, Oriented x3, Normal Mood/Affect Skin: Normal Color, Warm/Dry Results Results/Procedures Lab Laboratory Tests 03/25/17 21:10 03/26/17 05:00 Assessment/Plan Admission Diagnosis abd pain Diagnosis/Problems Diagnosis/Problems (1) Abdominal pain Status: Chronic Assessment & Plan: Surgery consulted, appreciate recs Plan for scope tomorrow- will do bowel prep today Symptoms consistent with IBS though could be related to a dietary intolerance ( gluten, lactose, etc) Qualifiers: Qualified Codes: R10.84 - Generalized abdominal pain (2) Constipation Status: Chronic Assessment & Plan: Bowel prep today Will likely need consistent bowel regimen at home (only takes intermittently) (3) Elevated blood pressure reading Status: Acute Assessment & Plan: No history of HTN Trend, likely due to acute illness (4) Hematuria Status: Chronic Assessment & Plan: Has had extensive work up with Dr Jamila YAO RBCs on UA from yesterday (clean catch- not cathed specimen) Follow up as outpatient Qualifiers: Qualified Codes: R31.9 - Hematuria, unspecified (5) Leukocytosis Status: Acute Assessment & Plan: Will continue abx given imaging findings and white count Continue Rocephin (6) Prophylactic measure Assessment & Plan: SCDs CLD 1/2 NS at 125ml/hr Clinical Quality Measures DVT/VTE Risk/Contraindication: Risk Factor Score Per Nursin RFS Level Per Nursing on Admit: 4+=Very High SUSHANT HOLMAN MD Mar 26, 2017 9:36 am
[2017-03-26] MEDS: ONDANSETRON 4 MG/2 ML (SDV) Z0FRAN IVP PRN ×2 (09:47→15:47)
[2017-03-26] MEDS: 1/2 NS IV SOLUTION 1,000 ML IV SCH ×2 (11:49→20:22)
--- OUTSIDE RECORDS SUMMARY | 2017-03-26 14:35 | XMS REPORT | Clinical Summary ---
Author Author [facility] Address Unknown Phone Unavailable Care Team Providers Care Piano Regulator Inspector Name Role Phone PCP Unavailable Source Comments Some departments are not documenting in the electronic medical record. If you do not see the information that you expected, contact Release of Information in the Health Information Management department at [phone] for further assistance in locating additional records.[facility] Allergies No Known Allergies Current Medications Prescription [...] Encounters Date Type Specialty Care Team Description 03/10/2017 Orders Only Otolaryngology Nuvia Lopez, RN Oral cancer (HCC ) (Primary Dx) 01/22/2017 Telephone Otolaryngology Nuvia Lopez RN Records Request 12/26/2016 Hospital Radiology Emily Esparza MD Encounter 12/26/2016 Hospital Radiology Emily Esparza MD Encounter 11/24/2016 Procedure Pass Radiology 11/24/2016 Procedure Pass [...] 36.7 C (98 F) 06/10/2012 8:12 AM CLINICAL DOCUMENTATION DEVELOPER Respiratory Rate - - Oxygen Saturation 95% 06/10/2012 8:12 AM CLINICAL DOCUMENTATION DEVELOPER Inhaled Oxygen - - Concentration Weight 88.7 [...] 2004 SCREENING SHINGLES VACCINE 2014 INFLUENZA VACCINE 12/02/2016 Results * MRI ORBIT FACE AND/OR NECK [...] Specimen Performing Laboratory [facility] [address] [place] [address] from Last 3 Months
--- OUTSIDE RECORDS SUMMARY | 2017-03-26 14:35 | XMS REPORT | Encounter Summary ---
Author Author [facility] Organization [facility] Address Unknown Phone Unavailable Care Team Providers Care Cloth Napping Supervisor Name Role Phone PCP Unavailable Reason for Referral * Radiology Services Status Reason Specialty Diagnoses / Referred By Referred To Procedures Contact Contact New Request Radiology Diagnoses Emily Esparza, Oral cancer ([facility]) [address] [place]ced[address] [place] [address] [place], [place] [address] Encounter Details Date Type Department Care Team Description 03/10/2017 Orders Only [facility] Nuvia Lopez RN Oral cancer ([facility]) Physicians - ENT (Primary Dx) 3RD FLOOR POD C [address] [place] [address] Social History Tobacco Use Types [...] as of this encounter Plan of Treatment Name Priority Associated Diagnoses Order Schedule CT CHEST W CONTRAST Routine Oral cancer (HCC) Expected: 03/10/2017 (Approximate), Expires: 03/10/2018 as of this encounter Visit Diagnoses Diagnosis Oral cancer (HCC) - Primary Malignant neoplasm of mouth, unspecified site in this encounter
--- OUTSIDE RECORDS SUMMARY | 2017-03-26 14:35 | XMS REPORT | Encounter Summary ---
Author Author [facility] Organization [facility] Address Unknown Phone Unavailable Care Team Providers Care Personal Injury Litigation Paralegal Name Role Phone PCP Unavailable Reason for Visit * Reason Comments Records Request Encounter Details Date Type Department Care Team Description 01/22/2017 Telephone [facility] Nuvia Lopez RN Records Request Physicians - ENT 3RD FLOOR POD C [address] [place] [address] Social History Tobacco Use Types [...]
--- OUTSIDE RECORDS SUMMARY | 2017-03-26 14:35 | XMS REPORT | Continuity of Care Document ---
Author Author [facility] Address Unknown Phone Unavailable Care Team Providers Care Apparel Rental Clerk Name Role Phone [employer] Unavailable Unavailable Problems Medications Allergies, Adverse Reactions, Alerts Immunizations Results Vital Signs Encounters Location Location Details Encounter Type Encounter Number Reason For Visit Attending Provider ADM Date DC Date Status Source OUTPATIENT [id number] VERONICA BANDA 05/14/20152015 Active [facility] OUTPATIENT [id number] VERONICA BANDA 12/26/20162016 Active [facility] O VERONICA BANDA 06/02/[address] [facility] Procedures Plan of Care Social History Assessment and Plan Family History Value Date Source Advance Directives Order Name Results Value Date Source
--- OUTSIDE RECORDS SUMMARY | 2017-03-26 14:36 | XMS REPORT | Encounter Summary ---
Author Author [facility] Organization [facility] Address Unknown Phone Unavailable Care Team Providers Care Biomedical Engineering Technologist Name Role Phone PCP Unavailable Encounter Details Date Type Department Care Team Description 11/24/2016 Procedure Pass [facility] Radiology [address] MED OFFICE [place]LD[place] [address]ND [place] [address] Social History Tobacco Use Types Packs/Day Years [...]
--- OUTSIDE RECORDS SUMMARY | 2017-03-26 14:36 | XMS REPORT | Encounter Summary ---
Author Author [facility] Organization [facility] Address Unknown Phone Unavailable Care Team Providers Care Endoscopy Specialty Technician Name Role Phone PCP Unavailable Encounter Details Date Type Department Care Team Description 11/24/2016 Procedure Pass [facility] Radiology [address] MED OFFICE [place]LD[place] [address] [place] [address] Social History Tobacco Use Types Packs/Day Years [...]
--- OUTSIDE RECORDS SUMMARY | 2017-03-26 14:36 | XMS REPORT | Encounter Summary ---
Author Author [facility] Organization [facility] Address Unknown Phone Unavailable Care Team Providers Care Therapist Respiratory Name Role Phone PCP Unavailable Reason for Referral * Radiology Services Status Reason Specialty Diagnoses / Referred By Referred To Procedures Contact Contact No Auth Needed Radiology Diagnoses Emily Esparza Mob [address] carcinoma (HCC) [address] OFF[address] Oral cancer Bl[address] 2ND FLOOR (HCC) [place] [address] [place], [place] [address] of left eye [address] Phone: P rocedures [phone] CT CHEST W Fax: CONTRAST [phone] * Radiology Services Status Reason Specialty Diagnoses / Referred By Referred To Procedures Contact Contact No Auth Needed Radiology Diagnoses Emily Esparza Mob [address] carcinoma (HCC) [address] OFF[address] Oral cancer [address] 2ND FLOOR (HCC) [place] [address] [place], [place] [address] of left eye [address] Phone: P rocedures [phone] CT CHEST W Fax: CONTRAST [phone] Reason for Visit * Radiology Services Status Reason Specialty Diagnoses / Referred By Referred To Procedures Contact Contact No Auth Needed Radiology Diagnoses Emily Esparza Mob [address] carcinoma (HCC) [address] OFF[address] Oral cancer Bl[address] 2ND FLOOR (HCC) [address] [place], [place] [address] of left eye [address] Phone: P rocedures [phone] CT CHEST W Fax: CONTRAST [phone] Encounter Details Date Type Department Care Team Description 12/26/2016 Hospital [facility] Emily Esparza MD Encounter [facility] [address] [facility] [address] [facility] MED [place] [address] [place] [address] 2ND FLOOR [phone] [place] [address] [phone] Social History Tobacco Use Types Packs/Day Years [...] Specimen Performing Laboratory [facility] [address] [place] [address] in this encounter Visit Diagnoses Diagnosis Basaloid [...]
--- OUTSIDE RECORDS SUMMARY | 2017-03-26 14:36 | XMS REPORT | Encounter Summary ---
Author Author [facility] Organization [facility] Address Unknown Phone Unavailable Care Team Providers Care Switchman Name Role Phone PCP Unavailable Reason for Referral * Radiology Services Status Reason Specialty Diagnoses / Referred By Referred To Procedures Contact Contact No Auth Needed Radiology Diagnoses Emily Esparza Mob Mri Basaloid MD [address] carcinoma (HCC) [address] OFF[address] Oral cancer [address] 2ND FLOOR (HCC) [address] [place], [place] [address] of left eye [address] Phone: P rocedures [phone] MRI ORBIT FACE Fax: AND/OR NECK [phone] W/CONTRST * Radiology Services Status Reason Specialty Diagnoses / Referred By Referred To Procedures Contact Contact No Auth Needed Radiology Diagnoses Emily Esparza Mob Mri Basaloid MD [address] carcinoma (HCC) [address] Oral cancer [address] 2ND FLOOR (HCC) [place] [address] [place], [place] [address] of left eye [address] Phone: P rocedures [phone] MRI ORBIT FACE Fax: AND/OR NECK [phone] W/CONTRST Reason for Visit * Radiology Services Status Reason Specialty Diagnoses / Referred By Referred To Procedures Contact Contact No Auth Needed Radiology Diagnoses Emily Esparza Mob Mri Basaloid MD [address] carcinoma (HCC) [address] OFF[address] cancer [address] 2ND FLOOR (HCC) [address] [place], [place] [address] of left eye [address] Phone: P rocedures [phone] MRI ORBIT FACE Fax: AND/OR NECK [phone] W/CONTRST Encounter Details Date Type Department Care Team Description 12/26/2016 Hospital [facility] Emily Esparza MD Encounter [facility] Radiology [address] [place] [address] 2ND FLOOR [phone] [place] [address] [phone] Social History Tobacco Use Types Packs/Day Years [...]
[2017-03-26] MEDS ORDERED: cefTRIAXone INJECTION 1,000 MG in NS (IVPB) 50 ML IV SCH (22:00)
[2017-03-27 00:34] VITALS: BP 135/75
[2017-03-27 04:40] VITALS: BP 137/56
[2017-03-27] MEDS: 1/2 NS IV SOLUTION 1,000 ML IV SCH (06:14)
[2017-03-27 06:18] LABS: BASOPHILS % (AUTO) 0 % (0-10); EOSINOPHILS # (AUTO) 0.2 10^3/uL (0.0-0.3); EOSINOPHILS % (AUTO) 3 % (0-10); LYMPHOCYTES # (AUTO) 0.7 X 10^3 (1.0-4.0); LYMPHOCYTES % (AUTO) 13 % (12-44); MEAN CORPUSCULAR HEMOGLOBIN 31 PG (25-34); MEAN CORPUSCULAR HGB CONC 34 G/DL (32-36); MEAN CORPUSCULAR VOLUME 93 FL (80-99); MEAN PLATELET VOLUME 10.7 FL (7.4-10.4); MONOCYTES % (AUTO) 17 % (0-12); NEUTROPHILS # (AUTO) 3.8 X 10^3 (1.8-7.8); NEUTROPHILS % (AUTO) 67 % (42-75); PLATELET COUNT 202 10^3/uL (130-400); RED BLOOD COUNT 3.74 10^6/uL (4.35-5.85); RED CELL DISTRIBUTION WIDTH 13.3 % (10.0-14.5); WHITE BLOOD COUNT 5.7 10^3/uL (4.3-11.0)
[2017-03-27 06:45] LABS: ANION GAP 7 MMOL/L (5-14); BLOOD UREA NITROGEN 10 MG/DL (7-18); BUN/CREATININE RATIO 12; CALCIUM 8.1 MG/DL (8.5-10.1); CARBON DIOXIDE 22 MMOL/L (21-32); CHLORIDE 110 MMOL/L (98-107); CREATININE SERUM 0.83 MG/DL (0.60-1.30); GFR ESTIMATED > 60; GLUCOSE 100 MG/DL (70-105); POTASSIUM 3.3 MMOL/L (3.6-5.0); SODIUM 139 MMOL/L (135-145)
[2017-03-27] MEDS: POTASSIUM CL 10MEQ/50ML IVPB 50 ML IV SCH ×2 (07:45→08:57)
[2017-03-27 08:10] VITALS: BP 140/84
[2017-03-27] MEDS ORDERED: MV-M1TAB37 PO (09:30)
[2017-03-27] MEDS ORDERED: GLUC1TAB20 PO (09:30)
[2017-03-27] MEDS ORDERED: POLY17PO6 PO (10:37)
[2017-03-27] MEDS ORDERED: CEPH-507 PO (10:37)
--- NOTE | 2017-03-27 10:46 | Discharge Summary-Hospitalist ---
Diagnosis/Chief Complaint Date of Admission Mar 25, 2017 at 11:00 pm Date of Discharge Admission Diagnosis abd pain Discharge Diagnosis Irritable Bowel Syndrome (1) Irritable bowel syndrome Assessment & Plan: Colonoscopy done 03/27- one rectal polyp removed otherwise unremarkable Will follow up with Dr Boo for repeat in 5 years Advised to start bowel regimen (2) Constipation Status: Chronic Assessment & Plan: Colonoscopy on 03/27- Will need consistent bowel regimen at home (only takes intermittently) Started on daily Miralax (3) Abdominal pain Status: Chronic Assessment & Plan: Surgery consulted, appreciate recs Symptoms consistent with IBS though could be related to a dietary intolerance ( gluten, lactose, etc) (4) Elevated blood pressure reading Status: Acute Assessment & Plan: No history of HTN Within goal for age though Follow up as an outpatient (5) Hematuria Status: Chronic Assessment & Plan: Has had extensive work up with Dr Gomez including cystoscopy TNTC RBCs on UA from yesterday (clean catch- not cathed specimen) Follow up as outpatient (6) Leukocytosis Status: Acute Assessment & Plan: Will continue abx given imaging findings and white count Transition to oral abx to complete as an outpatient Discharge Summary Consultations Dr Boo Discharge Physical Examination Allergies: Coded Allergies: No Known Drug Allergies (Unverified , 04/29/12) Vitals & I&Os Vital Signs Date Time Temp Pulse Resp B/P (MAP) Pulse Ox O2 Delivery O2 Flow Rate FiO2 03/27/17 12:30 99.1 74 18 156/79 99 Room Air Hospital Course Pt is a 61yoCM with a PMH of recurrent macroscopic hematuria who presented with abd pain. He has had progressive abd pain since a fall in December and has had extensive workup as an outpatient. His abd pain worsened and he was found to have perinephric stranding on CT abd/pelvis concerning for pyelonephritis. He was admitted for IV abx and surgical evaluation. He was transitioned to oral abx to complete a 7 day course. He underwent colonoscopy for bowel changes and a rectal polyp was found, otherwise unremarkable. He was discharged to home with a bowel regimen to follow up with Dr Clay. Labs (last 24 hrs) Laboratory Tests 03/27/17 05:31: White Blood Count 5.7, Red Blood Count 3.74L, Hemoglobin 11.7L, Hematocrit 35L, Mean Corpuscular Volume 93, Mean Corpuscular Hemoglobin 31, Mean Corpuscular Hemoglobin Concent 34, Red Cell Distribution Width 13.3, Platelet Count 202, Mean Platelet Volume 10.7H, Neutrophils (%) (Auto) 67, Lymphocytes (%) (Auto) 13 , Monocytes (%) (Auto) 17H, Eosinophils (%) (Auto) 3, Basophils (%) (Auto) 0, Neutrophils # (Auto) 3.8, Lymphocytes # (Auto) 0.7L, Monocytes # (Auto) 1.0, Eosinophils # (Auto) 0.2, Basophils # (Auto) 0.0, Sodium Level 139, Potassium Level 3.3L, Chloride Level 110H, Carbon Dioxide Level 22, Anion Gap 7, Blood Urea Nitrogen 10, Creatinine 0.83, Estimat Glomerular Filtration Rate > 60, BUN/ Creatinine Ratio 12, Glucose Level 100, Calcium Level 8.1L Microbiology 03/25/17 Blood Culture - Preliminary, Resulted No growth 03/26/17 MRSA Screen - Final, Complete MRSA not isolated 03/25/17 Urine Culture - Preliminary, Resulted NO GROWTH Pending Labs Discharge Home Medications: Active Scripts Active Keflex (Cephalexin) 500 Mg Capsule 500 Mg PO BID 4 Days Miralax (Polyethylene Glycol 3350) 17 Gm Powd.pack 17 Gm PO DAILY PRN 30 Days Use once to three time daily so have having at least one soft bowel movement every day. Reported Glucosamine Chondroitin Tab (Gluc [place]/Chondro [place] A/Vit C/Mn) 1 Each Tablet 1 Tab PO DAILY José Multi For Men Tablet (Mv-Mn/FA/Lycopene/Lut/Hb#178) 1 Each Tablet 1 Tab PO DAILY Instructions to patient/family Please see electronic discharge instructions given to patient. Clinical Quality Measures DVT/VTE Risk/Contraindication: Risk Factor Score Per Nursin RFS Level Per Nursing on Admit: 4+=Very High Copy Copies To 1: ALVA GOMEZ MD; KIKE CLAY MD Problem Qualifiers (1) Irritable bowel syndrome: Irritable bowel syndrome type: with constipation Qualified Codes: K58.1 - Irritable bowel syndrome with constipation (2) Abdominal pain: Abdominal location: generalized Qualified Codes: R10.84 - Generalized abdominal pain (3) Hematuria: Hematuria type: unspecified type Qualified Codes: R31.9 - Hematuria, unspecified SUSHANT HOLMAN MD Mar 27, 2017 10:46
[2017-03-27 12:30] VITALS: BP 156/79
[2017-03-27] MEDS ORDERED: MIDAZOLAM 2 MG/2 ML (VERSED) VIAL ONE ×3 (13:02→13:03)
[2017-03-27] MEDS ORDERED: fentaNYL INJECTION 100 MCG/2 ML AMP ONE (13:03)
[2017-03-27] MEDS: fentaNYL INJECTION 100 MCG/2 ML AMP IVP PRN ×2 (13:07→13:15)
[2017-03-27] MEDS: MIDAZOLAM 10 MG/2 ML (VERSED) VIAL IVP PRN ×3 (13:08→13:20)
--- NOTE | 2017-03-27 13:32 | Conscious Sedation/ASA ---
Conscious Sedation Pre-Proced Time Reviewed: 12:45 ASA Class: 2 Airway Mallampati Classification: ([place] appropriate class) I. II. III, IV Lungs Heart ASA score ASA 1: a normal healthy patient ASA 2: a patient with a mild systemic disease (mid diabetes, controlled hypertension, obesity ASA 3: a patient with a severe systemic disease that limits activity (angina , COPD, prior Myocardial infarction) ASA 4: a patient with an incapacitating disease that is a constant threat to life (CHF, renal failure) ASA 5: a moribund patient not expected to survive 24 hrs. (ruptured aneurysm) ASA 6: a declared brain patient whose organs are being harvested. For emergent operations, add the letter E after the classification Grade 1 Sedation Plan: Discussed options with patient/fam Note The patient is an appropriate candidate to undergo the planned procedure, sedation, and anesthesia. The patient immediately re-assessed prior to indication. PATRICIA ROSAS MD Mar 27, 2017 1:32 pm
--- NOTE | 2017-03-27 13:34 | Endo Procedure Record ---
Endo Procedure Report Date of Procedure Mar 27, 2017 Surgeon (s) PATRICIA ROSAS MD Post Procedure/Op Diagnosis 1. 2 mm mid rectal polyp 2. Very few sigmoid diverticula Procedure Performed Colonoscopy to cecum Hot biopsy polypectomy Description of Procedure Anesthesia Type: Conscious Sedation Specimen(s) collected/removed Rectal polyp Description of the Procedure Indication for procedure: This gentleman has been admitted with very poorly localized abdominal pain of long-standing duration. He reported a change in his bowel habits and therefore colonoscopy was felt to be reasonable. Informed consent was obtained after reviewing the procedure in detail. Description of procedure: He was placed in left lateral decubitus position and his vital signs were monitored. Conscious sedation was achieved using Versed and fentanyl. Digital rectal examination was unremarkable. The colonoscope was then introduced in the rectum and advanced all the way up to the cecum. The quality of bowel preparation was satisfactory. The scope was then withdrawn slowly and the mucosa examined in a systematic fashion. Findings: 1. 2 mm polyp at the mid rectum, that was excised with hot biopsy forceps 2. Very few sigmoid diverticula. He tolerated the procedure well and was taken back to the nursing area in a stable condition. Impression: Change in bowel habits. Small rectal polyp excised. Very few sigmoid diverticula. Recommend surveillance colonoscopy in 5 years. Copies To: KIKE CLAY MD Copies To: SUSHANT HOLMAN MD, XAVIER M MD Mar 27, 2017 1:34 pm
[2017-03-27] MEDS ORDERED: NS IV 500 ML 500 ML IV SCH (13:45)
[2017-03-27 15:23] VITALS: BP 165/85
[2017-03-27 15:29] VITALS: BP 165/85
== END 2017-03-27 15:40 | disposition home or self-care (01) | DRG 392 ==
LOC: EDUNIT# 21:00 → ER 21:02 → UNDOADMIN 23:00 → ICU 23:00 → 4TH 03-26 10:30
PROVIDERS: ADMIT Internal Medicine; ATTEND Internal Medicine
PROC: 0DBP8ZX Excision of Rectum, Via Natural or Artificial Opening Endoscopic, Diagnostic (ICD-10-PCS; principal; 2017-03-27 13:00)
DX: K58.1 Irritable bowel syndrome with constipation (principal); K62.1 Rectal polyp; R31.29 Other microscopic hematuria; D72.829 Elevated white blood cell count, unspecified
CPT/HCPCS: 36415; 71010; 71020; 74178; 80048; 80053; 80061; 80306; 80320; 81000; 83605; 83615; 83690; 83735; 84100; 85007; 85025; 85027; 85652; 87040; 87081; 87088

== ENCOUNTER → 2017-04-01 | Outpatient (CLI) | payer BC ==
[~2017-04-01] MED LIST changes: +CATHETER FLUSH 10 ML SYR IV PRN; +CEPH-507 PO; +GLUC1TAB20 PO; +IOHEXOL 350 MG/ML 100 ML (OMNIPAQUE 350) VIAL IV ONE; +MV-M1TAB37 PO; +POLY17PO6 PO
[2017-04-01 09:15] LABS: BLOOD UREA NITROGEN 16 MG/DL (7-18); BUN/CREATININE RATIO 18; CREATININE SERUM 0.91 MG/DL (0.60-1.30); GFR ESTIMATED > 60
--- NOTE | 2017-04-02 17:32 | Diagnostic Imaging Report ---
PROCEDURE: CT chest with contrast only. TECHNIQUE: Multiple contiguous axial images were obtained through the chest after administration of intravenous contrast. INDICATION: Follow-up pulmonary nodules. 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 COMPARISON: CT chest of 12/26/2016. 75 mL of Omnipaque-350 is administered intravenously. FINDINGS: CT chest: 7 mm pulmonary nodule is again noted in the superior segment of the right upper lobe without significant change from 12/26/2016 with a tiny central cavitation suggested. It appears minimally more prominent which could relate to slice selection without definitive change. It is close to the subpleural surface at the lateral aspect of the oblique fissure level. Another nodule measuring 6 mm is slightly more prominent compared to the previous exam when it measured 4 mm. There is no significant consolidation or mass otherwise within the lungs. The mediastinum demonstrates no significant lymphadenopathy or mass. No significant hilar or axillary lymphadenopathy. The thoracic aorta is normal in caliber. The heart size is normal. No pericardial or pleural effusion. Sections in the upper abdomen demonstrate large area of abnormal density within the upper pole of the left kidney. It appears to have associated fullness and is concerning for an infiltrative mass. When compared to 12/25/2016, it appears to involve a larger area although exact measurements are difficult related to the poor definition of its borders. The area of involvement on axial image 63 adjacent to the medial upper pole cyst is 7 x 4.7 cm compared roughly to similar level measurements of 6.4 x 4.7 cm. The persistence over a few months with suggestion of involvement of the larger area is concerning for an infiltrative neoplasm. This is not a typical appearance for renal cell carcinoma which would be expected to be a well-defined hyperenhancing mass. Hepatic cysts without change are seen in the central aspect of the liver measuring up to 1.3 cm. Osseous structures demonstrate mild degenerative changes. IMPRESSION: 1. Pulmonary nodules are seen in the superior segment of the right upper lobe with central tiny cavitation and in the superior segment of the left lower lobe posteriorly, both appear minimally more prominent compared to 12/26/2016. Difference is subtle and could potentially be related to technique differences. Early metastasis is not excluded. Correlate with follow-up exams. 2. The previously seen hypodense abnormality within the upper pole of the left kidney is more prominent and appears to involve a larger area although it is a poorly-defined process and the exact measurements are difficult. It is concerning for infiltrative malignancy such as a lymphoma or metastasis, and CT-guided biopsy is suggested. The findings were discussed with Dr. Ryan personally by Dr. Osorio at 03:00 p.m. Dictated by: Dictated on workstation # [id number]
== END ==
LOC: RAD 08:43
PROVIDERS: ATTEND Internal Medicine
DX: R91.8 Other nonspecific abnormal finding of lung field (principal); N28.89 Other specified disorders of kidney and ureter; Z85.89 Personal history of malignant neoplasm of other organs and systems
CPT/HCPCS: 36415; 71260; 82565; 84520

== ENCOUNTER 2017-04-08 06:59 | Day surgery (SDC) | payer BC ==
[2017-04-08] VITALS (16 sets, daily range): BP systolic 134–162; BP diastolic 68–91
[~2017-04-08] VITALS: Ht 175.3 cm; Wt 88.9 kg
[~2017-04-08 06:59] MED LIST changes: -CATHETER FLUSH 10 ML SYR IV PRN; -IOHEXOL 350 MG/ML 100 ML (OMNIPAQUE 350) VIAL IV ONE
--- OUTSIDE RECORDS SUMMARY | 2017-04-08 07:03 | XMS REPORT | Continuity of Care Document ---
Author Author [facility] Organization [facility] Address Unknown Phone Unavailable Care Team Providers Care Bill Cutter Name Role Phone [employer] Unavailable Unavailable Problems Medications Allergies, Adverse Reactions, Alerts Immunizations Results Vital Signs Encounters Location Location Details Encounter Type Encounter Number Reason For Visit Attending Provider ADM Date DC Date Status Source OUTPATIENT [id number] VERONICA BANDA 05/14/20152015 Active [facility] OUTPATIENT [id number] VERONICA BANDA 12/26/20162016 Active The [facility] O VERONICA BANDA 06/02/2017 Active [facility] Procedures Plan of Care Social History Assessment and Plan Family History Value Date Source Advance Directives Order Name Results Value Date Source
--- OUTSIDE RECORDS SUMMARY | 2017-04-08 07:03 | XMS REPORT | Clinical Summary ---
Author Author [facility] Organization [facility] Address Unknown Phone Unavailable Care Team Providers Care Window Dresser Name Role Phone PCP Unavailable Source Comments Some departments are not documenting in the electronic medical record. If you do not see the information that you expected, contact Release of Information in the Health Information Management department at [phone] for further assistance in locating additional records.[facility] Allergies No Known Allergies Current Medications Prescription [...] ) (Primary Dx) 01/22/2017 Telephone Otolaryngology Nuvia Lopez, RN Records Request from Last 3 Months Family History Medical [...] 36.7 C (98 F) 06/10/2012 8:12 AM FEED MIXER Respiratory Rate - - Oxygen Saturation 95% 06/10/2012 8:12 AM FEED MIXER Inhaled Oxygen - - Concentration Weight 88.7 [...] SHINGLES VACCINE 2014 INFLUENZA VACCINE 12/02/2016 Results Not on filefrom Last 3 Months
--- OUTSIDE RECORDS SUMMARY | 2017-04-08 07:03 | XMS REPORT | Encounter Summary ---
Author Author [facility] Organization [facility] Address Unknown Phone Unavailable Care Team Providers Care Front Office Manager Name Role Phone PCP Unavailable Reason for Referral * Radiology Services Status Reason Specialty Diagnoses / Referred By Referred To Procedures Contact Contact New Request Radiology Diagnoses Emily Esparza, Oral cancer ([facility]) [address] [place]ced[address] [place] [address] [place], [place] [address] Encounter Details Date Type Department Care Team Description 03/10/2017 Orders Only [facility] Nuvia Lopez RN Oral cancer ([facility]) Physicians - ENT (Primary Dx) 3RD FLOOR POD C [address] [place] [address] Social History Tobacco Use Types [...]
--- OUTSIDE RECORDS SUMMARY | 2017-04-08 07:03 | XMS REPORT | Encounter Summary ---
Author Author [facility] Organization [facility] Address Unknown Phone Unavailable Care Team Providers Care Hr Consultant Name Role Phone PCP Unavailable Reason for Visit * Reason Comments Records Request Encounter Details Date Type Department Care Team Description 01/22/2017 Telephone [facility] Nuvia Lopez RN Records Request Physicians - ENT 3RD FLOOR POD C [address] [place] [address] Social History Tobacco Use Types [...]
[2017-04-08] MEDS ORDERED: LIDOCAINE 1% INJ 20 ML (XYLOCAINE) VIAL INJ ONE (07:30)
[2017-04-08 07:40] LABS: MEAN PLATELET VOLUME 9.7 FL (7.4-10.4); RED BLOOD COUNT 4.09 10^6/uL (4.35-5.85); RED CELL DISTRIBUTION WIDTH 12.9 % (10.0-14.5); WHITE BLOOD COUNT 7.1 10^3/uL (4.3-11.0)
[2017-04-08 07:49] LABS: PROTHROMBIN TIME PATIENT 12.9 SEC (12.2-14.7)
[2017-04-08] MEDS: fentaNYL INJECTION 100 MCG/2 ML AMP IVP PRN ×3 (09:00→09:12)
--- NOTE | 2017-04-08 09:27 | Pre-Procedure Progress Note ---
Pre-Procedure Progress Note H&P Reviewed The H&P was reviewed, patient examined and no changes noted. Date H&P Reviewed: Apr 08, 2017 Time H&P Reviewed: 08:30 Pre-Procedure Diagnosis: left renal mass POLLY OLIVEIRA MD Apr 08, 2017 09:27
[2017-04-08] MEDS ORDERED: HYDROcodone/APAP 5 MG/325 MG (LORTAB) TAB PO PRN (09:30)
--- NOTE | 2017-04-08 13:47 | Diagnostic Imaging Report ---
EXAMINATION: CT-guided biopsy-kidney. INDICATION: Mass in the upper pole of the left kidney. Current history and physical and other medical records are reviewed prior to the procedure. CONSENT: Informed consent was obtained from the patient. The risks, benefits, potential complications and alternatives were reviewed and all questions answered to the patient's satisfaction. The patient's vital signs, cardiac rhythm, and pulse oximetry were observed throughout the procedure by qualified nursing personnel. Sedation/medications: none. FINDINGS: Infiltrative mass in the upper pole of the left kidney. PROCEDURE: After maximal sterile barrier technique preparation and draping, 1% lidocaine was utilized for local anesthesia. With the patient in prone position, and via posterior paraspinal approach, a 17-gauge guide needle is introduced into the upper pole left kidney mass under CT scan guidance. After confirming adequate positioning with saved CT images, multiple 18 gauge core biopsy specimens were obtained. Gelfoam injected in the tract as the guide needle was removed The patient tolerated the procedure well with no immediate complications. IMPRESSION: Successful CT-guided biopsy of upper pole left kidney mass. Dictated by: Dictated on workstation # [id number]
== END 2017-04-08 14:00 ==
LOC: RAD 06:59
PROVIDERS: ATTEND Internal Medicine
DX: N28.89 Other specified disorders of kidney and ureter (principal)
CPT/HCPCS: 36415; 77012; 85027; 85610; 85730

== ENCOUNTER → 2017-06-26 | Outpatient (CLI) | payer BC ==
[~2017-06-26] MED LIST changes: +ACHD5005 PO; -HYDR-3812 PO
[2017-06-26] MEDS: IOHEXOL 350 MG/ML 100 ML (OMNIPAQUE 350) VIAL IV ONE (08:19)
[2017-06-26] MEDS: NS 250 ML (IVPB) BAG IV ONE (08:19)
[2017-06-26] MEDS: BARIUM SUSPENSION 2.1% (VANILLA SILQ) 450 ML PO ONE (08:19)
--- NOTE | 2017-06-26 09:36 | Diagnostic Imaging Report ---
PROCEDURE: CT chest, abdomen, and pelvis with contrast. TECHNIQUE: Multiple contiguous axial images were obtained through the chest, abdomen, and pelvis after the administration of intravenous contrast. INDICATION: Urothelial carcinoma of the kidney. COMPARISON: Comparison is made with prior CT chest from 04/01/[address] abdomen and pelvis from 03/25/2017. FINDINGS: CT chest: No axillary lymphadenopathy is detected. No hilar or mediastinal lymphadenopathy is identified. No pericardial or pleural fluid is detected. Previously noted density in the superior segment of the right lower lobe has increased in size measuring 9 mm compared with 7 mm. This is primarily cavitary now with a very thin capsule. Subpleural nodular density superior segment left lower lobe has also increased in size measuring 10 mm compared with 6 mm. A nodule in the subpleural right upper lobe measures 4 mm compared with 2-3 mm on prior. New nodules are identified in the left lower lobe. The largest in the anterior portion of the left lower lobe, image 39 measures 9 mm. Second nodule more posterior in left lower lobe measures 7 mm image 40. IMPRESSION: 1. Increase in size and number of bilateral pulmonary nodules when compared with prior exam from 04/01/2017, consistent with worsening pulmonary metastatic disease. No thoracic lymphadenopathy is identified. CT abdomen and pelvis: Liver again demonstrates numerous circumscribed low-density lesions throughout, suggestive of cysts. These are similar to prior exam. The gallbladder appears to be surgically absent. The pancreas and spleen are unremarkable. No adrenal mass is identified. The right kidney is unremarkable. The patient has undergone left nephrectomy since prior CT. There are several slightly prominent lymph nodes in the central retroperitoneum. An aortocaval node measures approximately 8 mm short axis. There are numerous shotty nodes in the central retroperitoneum. No definite renal vein or IVC thrombus is identified. The aorta is non-aneurysmal. The small and large bowel loops appear to be of normal caliber. Imaging through the pelvis demonstrates some prostatic enlargement. Seminal vesicles are prominent but similar to prior. The bladder demonstrates some mild generalized wall thickening however this could be owing to incomplete distention. No osteolytic or blastic lesions are seen. IMPRESSION: 1. Status post left nephrectomy. There are some mildly prominent central retroperitoneal nodes, suspicious for metastatic disease. No other significant abnormality is detected. Dictated by: Dictated on workstation # [id number]
== END ==
LOC: RAD 07:52
PROVIDERS: ATTEND Internal Medicine Hematology & Oncology
DX: C64.9 Malignant neoplasm of unspecified kidney, except renal pelvis (principal); R91.8 Other nonspecific abnormal finding of lung field; R59.0 Localized enlarged lymph nodes; Z90.5 Acquired absence of kidney; Z90.49 Acquired absence of other specified parts of digestive tract
CPT/HCPCS: 71260; 74177

== ENCOUNTER 2017-09-07 09:00 | Outpatient (RCR) | payer BC ==
[2017-06-16 15:51] LABS: BASOPHILS % (AUTO) 0 % (0-10); EOSINOPHILS # (AUTO) 0.1 10^3/uL (0.0-0.3); EOSINOPHILS % (AUTO) 1 % (0-10); HEMATOCRIT 32 % (40-54); HEMOGLOBIN 10.9 G/DL (13.3-17.7); LYMPHOCYTES # (AUTO) 1.3 X 10^3 (1.0-4.0); LYMPHOCYTES % (AUTO) 17 % (12-44); MEAN CORPUSCULAR HEMOGLOBIN 31 PG (25-34); MEAN CORPUSCULAR HGB CONC 34 G/DL (32-36); MEAN CORPUSCULAR VOLUME 91 FL (80-99); MEAN PLATELET VOLUME 9.6 FL (7.4-10.4); MONOCYTES # (AUTO) 0.7 X 10^3 (0.0-1.0); MONOCYTES % (AUTO) 9 % (0-12); NEUTROPHILS # (AUTO) 5.4 X 10^3 (1.8-7.8); NEUTROPHILS % (AUTO) 73 % (42-75); PLATELET COUNT 325 10^3/uL (130-400); RED BLOOD COUNT 3.53 10^6/uL (4.35-5.85); RED CELL DISTRIBUTION WIDTH 13.4 % (10.0-14.5); WHITE BLOOD COUNT 7.4 10^3/uL (4.3-11.0)
[2017-06-16 16:09] LABS: ALANINE AMINOTRANSFERASE 14 U/L (0-55); ALBUMIN 4.1 GM/DL (3.2-4.5); ALKALINE PHOSPHATASE 54 U/L (40-136); BILIRUBIN,TOTAL 0.3 MG/DL (0.1-1.0); BUN/CREATININE RATIO 18; CALCIUM 9.4 MG/DL (8.5-10.1); CARBON DIOXIDE 26 MMOL/L (21-32); CHLORIDE 106 MMOL/L (98-107); GFR ESTIMATED > 60; GLUCOSE 97 MG/DL (70-105); SODIUM 139 MMOL/L (135-145); TOTAL PROTEIN 7.6 GM/DL (6.4-8.2)
[2017-06-30 11:48] LABS: BILIRUBIN,URINE NEGATIVE (NEGATIVE); CLARITY,URINE CLEAR; COLOR,URINE YELLOW; GLUCOSE, URINE (UA) NEGATIVE (NEGATIVE); KETONES,URINE NEGATIVE (NEGATIVE); LEUKOCYTE ESTERASE ,URINE NEGATIVE (NEGATIVE); NITRITE,URINE NEGATIVE (NEGATIVE); PH,URINE 7 (5-9); PROTEIN,URINE NEGATIVE (NEGATIVE); UROBILINOGEN,URINE NORMAL (NORMAL)
[2017-06-30 12:09] LABS: BASOPHILS % (AUTO) 0 % (0-10); EOSINOPHILS # (AUTO) 0.1 10^3/uL (0.0-0.3); EOSINOPHILS % (AUTO) 2 % (0-10); HEMATOCRIT 34 % (40-54); HEMOGLOBIN 11.4 G/DL (13.3-17.7); LYMPHOCYTES # (AUTO) 1.1 X 10^3 (1.0-4.0); LYMPHOCYTES % (AUTO) 15 % (12-44); MEAN CORPUSCULAR HEMOGLOBIN 31 PG (25-34); MEAN CORPUSCULAR HGB CONC 34 G/DL (32-36); MEAN CORPUSCULAR VOLUME 92 FL (80-99); MEAN PLATELET VOLUME 9.7 FL (7.4-10.4); MONOCYTES # (AUTO) 0.8 X 10^3 (0.0-1.0); MONOCYTES % (AUTO) 11 % (0-12); NEUTROPHILS # (AUTO) 5.5 X 10^3 (1.8-7.8); NEUTROPHILS % (AUTO) 72 % (42-75); PLATELET COUNT 257 10^3/uL (130-400); RED BLOOD COUNT 3.68 10^6/uL (4.35-5.85); RED CELL DISTRIBUTION WIDTH 13.7 % (10.0-14.5); WHITE BLOOD COUNT 7.6 10^3/uL (4.3-11.0)
[2017-06-30 12:13] LABS: BACTERIA,URINE NEGATIVE /HPF
[2017-06-30 12:32] LABS: ALANINE AMINOTRANSFERASE 17 U/L (0-55); ALBUMIN 4.2 GM/DL (3.2-4.5); ALKALINE PHOSPHATASE 57 U/L (40-136); BILIRUBIN,TOTAL 0.3 MG/DL (0.1-1.0); BUN/CREATININE RATIO 20; CALCIUM 9.3 MG/DL (8.5-10.1); CARBON DIOXIDE 26 MMOL/L (21-32); CHLORIDE 104 MMOL/L (98-107); CREATININE SERUM 1.06 MG/DL (0.60-1.30); GFR ESTIMATED > 60; GLUCOSE 107 MG/DL (70-105); POTASSIUM 3.8 MMOL/L (3.6-5.0); SODIUM 138 MMOL/L (135-145); TOTAL PROTEIN 7.6 GM/DL (6.4-8.2)
[2017-07-07 10:25] LABS: BASOPHILS % (AUTO) 0 % (0-10); EOSINOPHILS # (AUTO) 0.1 10^3/uL (0.0-0.3); EOSINOPHILS % (AUTO) 2 % (0-10); HEMATOCRIT 31 % (40-54); HEMOGLOBIN 10.4 G/DL (13.3-17.7); LYMPHOCYTES # (AUTO) 1.1 X 10^3 (1.0-4.0); LYMPHOCYTES % (AUTO) 32 % (12-44); MEAN CORPUSCULAR HEMOGLOBIN 32 PG (25-34); MEAN CORPUSCULAR HGB CONC 34 G/DL (32-36); MEAN CORPUSCULAR VOLUME 93 FL (80-99); MEAN PLATELET VOLUME 9.2 FL (7.4-10.4); MONOCYTES # (AUTO) 0.2 X 10^3 (0.0-1.0); MONOCYTES % (AUTO) 6 % (0-12); NEUTROPHILS % (AUTO) 60 % (42-75); PLATELET COUNT 202 10^3/uL (130-400); RED BLOOD COUNT 3.29 10^6/uL (4.35-5.85); RED CELL DISTRIBUTION WIDTH 13.2 % (10.0-14.5); WHITE BLOOD COUNT 3.3 10^3/uL (4.3-11.0)
[2017-07-07 10:45] LABS: BUN/CREATININE RATIO 19; CALCIUM 8.7 MG/DL (8.5-10.1); CARBON DIOXIDE 22 MMOL/L (21-32); CHLORIDE 106 MMOL/L (98-107); CREATININE SERUM 1.11 MG/DL (0.60-1.30); GFR ESTIMATED > 60; GLUCOSE 90 MG/DL (70-105); POTASSIUM 4.1 MMOL/L (3.6-5.0); SODIUM 139 MMOL/L (135-145)
[2017-07-14 10:25] LABS: BASOPHILS % (AUTO) 1 % (0-10); EOSINOPHILS % (AUTO) 1 % (0-10); HEMATOCRIT 31 % (40-54); HEMOGLOBIN 10.3 G/DL (13.3-17.7); LYMPHOCYTES # (AUTO) 0.7 X 10^3 (1.0-4.0); LYMPHOCYTES % (AUTO) 40 % (12-44); MEAN CORPUSCULAR HEMOGLOBIN 31 PG (25-34); MEAN CORPUSCULAR HGB CONC 34 G/DL (32-36); MEAN CORPUSCULAR VOLUME 92 FL (80-99); MEAN PLATELET VOLUME 9.2 FL (7.4-10.4); MONOCYTES # (AUTO) 0.1 X 10^3 (0.0-1.0); MONOCYTES % (AUTO) 5 % (0-12); NEUTROPHILS # (AUTO) 0.9 X 10^3 (1.8-7.8); NEUTROPHILS % (AUTO) 53 % (42-75); PLATELET COUNT 105 10^3/uL (130-400); RED BLOOD COUNT 3.32 10^6/uL (4.35-5.85); RED CELL DISTRIBUTION WIDTH 13.1 % (10.0-14.5); WHITE BLOOD COUNT 1.7 10^3/uL (4.3-11.0)
[2017-07-14 10:43] LABS: BUN/CREATININE RATIO 18; CALCIUM 9.1 MG/DL (8.5-10.1); CARBON DIOXIDE 25 MMOL/L (21-32); CHLORIDE 106 MMOL/L (98-107); CREATININE SERUM 1.15 MG/DL (0.60-1.30); GFR ESTIMATED > 60; GLUCOSE 103 MG/DL (70-105); SODIUM 137 MMOL/L (135-145)
[2017-07-21 09:56] LABS: BASOPHILS % (AUTO) 1 % (0-10); EOSINOPHILS # (AUTO) 0.1 10^3/uL (0.0-0.3); EOSINOPHILS % (AUTO) 2 % (0-10); HEMATOCRIT 32 % (40-54); HEMOGLOBIN 10.6 G/DL (13.3-17.7); LYMPHOCYTES % (AUTO) 23 % (12-44); MEAN CORPUSCULAR HEMOGLOBIN 31 PG (25-34); MEAN CORPUSCULAR HGB CONC 33 G/DL (32-36); MEAN CORPUSCULAR VOLUME 94 FL (80-99); MEAN PLATELET VOLUME 9.2 FL (7.4-10.4); MONOCYTES # (AUTO) 0.8 X 10^3 (0.0-1.0); MONOCYTES % (AUTO) 17 % (0-12); NEUTROPHILS # (AUTO) 2.7 X 10^3 (1.8-7.8); NEUTROPHILS % (AUTO) 58 % (42-75); PLATELET COUNT 406 10^3/uL (130-400); RED BLOOD COUNT 3.38 10^6/uL (4.35-5.85); RED CELL DISTRIBUTION WIDTH 14.6 % (10.0-14.5); WHITE BLOOD COUNT 4.5 10^3/uL (4.3-11.0)
[2017-07-21 10:10] LABS: BUN/CREATININE RATIO 15; CARBON DIOXIDE 23 MMOL/L (21-32); CHLORIDE 108 MMOL/L (98-107); CREATININE SERUM 1.17 MG/DL (0.60-1.30); GFR ESTIMATED > 60; GLUCOSE 92 MG/DL (70-105); MAGNESIUM 1.9 MG/DL (1.8-2.4); POTASSIUM 4.2 MMOL/L (3.6-5.0); SODIUM 139 MMOL/L (135-145)
[2017-07-27 10:17] LABS: BASOPHILS % (AUTO) 1 % (0-10); EOSINOPHILS # (AUTO) 0.1 10^3/uL (0.0-0.3); EOSINOPHILS % (AUTO) 1 % (0-10); HEMATOCRIT 32 % (40-54); HEMOGLOBIN 10.9 G/DL (13.3-17.7); LYMPHOCYTES % (AUTO) 21 % (12-44); MEAN CORPUSCULAR HEMOGLOBIN 31 PG (25-34); MEAN CORPUSCULAR HGB CONC 34 G/DL (32-36); MEAN CORPUSCULAR VOLUME 93 FL (80-99); MEAN PLATELET VOLUME 9.3 FL (7.4-10.4); MONOCYTES % (AUTO) 19 % (0-12); NEUTROPHILS # (AUTO) 2.9 X 10^3 (1.8-7.8); NEUTROPHILS % (AUTO) 58 % (42-75); PLATELET COUNT 529 10^3/uL (130-400); RED BLOOD COUNT 3.48 10^6/uL (4.35-5.85); RED CELL DISTRIBUTION WIDTH 14.7 % (10.0-14.5)
[2017-07-27 10:39] LABS: ALANINE AMINOTRANSFERASE 21 U/L (0-55); ALKALINE PHOSPHATASE 62 U/L (40-136); BILIRUBIN,TOTAL 0.3 MG/DL (0.1-1.0); BUN/CREATININE RATIO 18; CARBON DIOXIDE 25 MMOL/L (21-32); CHLORIDE 107 MMOL/L (98-107); CREATININE SERUM 1.16 MG/DL (0.60-1.30); GFR ESTIMATED > 60; GLUCOSE 92 MG/DL (70-105); MAGNESIUM 2.1 MG/DL (1.8-2.4); POTASSIUM 4.3 MMOL/L (3.6-5.0); SODIUM 138 MMOL/L (135-145); TOTAL PROTEIN 7.2 GM/DL (6.4-8.2)
[2017-08-03 09:27] LABS: BASOPHILS % (AUTO) 1 % (0-10); EOSINOPHILS % (AUTO) 1 % (0-10); HEMATOCRIT 31 % (40-54); HEMOGLOBIN 10.4 G/DL (13.3-17.7); LYMPHOCYTES % (AUTO) 35 % (12-44); MEAN CORPUSCULAR HEMOGLOBIN 31 PG (25-34); MEAN CORPUSCULAR HGB CONC 34 G/DL (32-36); MEAN CORPUSCULAR VOLUME 92 FL (80-99); MEAN PLATELET VOLUME 9.7 FL (7.4-10.4); MONOCYTES # (AUTO) 0.2 X 10^3 (0.0-1.0); MONOCYTES % (AUTO) 8 % (0-12); NEUTROPHILS # (AUTO) 1.6 X 10^3 (1.8-7.8); NEUTROPHILS % (AUTO) 56 % (42-75); PLATELET COUNT 236 10^3/uL (130-400); RED BLOOD COUNT 3.34 10^6/uL (4.35-5.85); WHITE BLOOD COUNT 2.9 10^3/uL (4.3-11.0)
[2017-08-03 09:44] LABS: CALCIUM 8.8 MG/DL (8.5-10.1); CREATININE SERUM 1.24 MG/DL (0.60-1.30); MAGNESIUM 2.1 MG/DL (1.8-2.4)
[2017-08-10 09:40] LABS: BASOPHILS % (AUTO) 1 % (0-10); EOSINOPHILS % (AUTO) 1 % (0-10); HEMATOCRIT 28 % (40-54); HEMOGLOBIN 9.8 G/DL (13.3-17.7); LYMPHOCYTES # (AUTO) 0.7 X 10^3 (1.0-4.0); LYMPHOCYTES % (AUTO) 34 % (12-44); MEAN CORPUSCULAR HEMOGLOBIN 32 PG (25-34); MEAN CORPUSCULAR HGB CONC 35 G/DL (32-36); MEAN CORPUSCULAR VOLUME 92 FL (80-99); MONOCYTES # (AUTO) 0.1 X 10^3 (0.0-1.0); MONOCYTES % (AUTO) 6 % (0-12); NEUTROPHILS # (AUTO) 1.2 X 10^3 (1.8-7.8); NEUTROPHILS % (AUTO) 60 % (42-75); PLATELET COUNT 80 10^3/uL (130-400); RED CELL DISTRIBUTION WIDTH 13.7 % (10.0-14.5)
[2017-08-10 09:57] LABS: CALCIUM 8.9 MG/DL (8.5-10.1); CREATININE SERUM 1.25 MG/DL (0.60-1.30); MAGNESIUM 1.9 MG/DL (1.8-2.4); POTASSIUM 4.3 MMOL/L (3.6-5.0)
[2017-08-17 09:26] LABS: BASOPHILS % (AUTO) 0 % (0-10); EOSINOPHILS # (AUTO) 0.1 10^3/uL (0.0-0.3); EOSINOPHILS % (AUTO) 2 % (0-10); HEMATOCRIT 33 % (40-54); LYMPHOCYTES % (AUTO) 21 % (12-44); MEAN CORPUSCULAR HEMOGLOBIN 31 PG (25-34); MEAN CORPUSCULAR HGB CONC 34 G/DL (32-36); MEAN CORPUSCULAR VOLUME 93 FL (80-99); MONOCYTES # (AUTO) 0.8 X 10^3 (0.0-1.0); MONOCYTES % (AUTO) 17 % (0-12); NEUTROPHILS # (AUTO) 2.8 X 10^3 (1.8-7.8); NEUTROPHILS % (AUTO) 60 % (42-75); PLATELET COUNT 319 10^3/uL (130-400); RED CELL DISTRIBUTION WIDTH 15.3 % (10.0-14.5); WHITE BLOOD COUNT 4.6 10^3/uL (4.3-11.0)
[2017-08-17 09:43] LABS: CALCIUM 9.3 MG/DL (8.5-10.1); CREATININE SERUM 1.51 MG/DL (0.60-1.30); MAGNESIUM 2.1 MG/DL (1.8-2.4); POTASSIUM 4.9 MMOL/L (3.6-5.0)
[2017-08-24 10:04] LABS: BASOPHILS % (AUTO) 1 % (0-10); EOSINOPHILS # (AUTO) 0.1 10^3/uL (0.0-0.3); EOSINOPHILS % (AUTO) 2 % (0-10); HEMATOCRIT 34 % (40-54); HEMOGLOBIN 11.4 G/DL (13.3-17.7); LYMPHOCYTES # (AUTO) 0.9 X 10^3 (1.0-4.0); LYMPHOCYTES % (AUTO) 18 % (12-44); MEAN CORPUSCULAR HEMOGLOBIN 31 PG (25-34); MEAN CORPUSCULAR HGB CONC 34 G/DL (32-36); MEAN CORPUSCULAR VOLUME 93 FL (80-99); MEAN PLATELET VOLUME 9.2 FL (7.4-10.4); MONOCYTES # (AUTO) 1.1 X 10^3 (0.0-1.0); MONOCYTES % (AUTO) 22 % (0-12); NEUTROPHILS # (AUTO) 2.8 X 10^3 (1.8-7.8); NEUTROPHILS % (AUTO) 58 % (42-75); PLATELET COUNT 438 10^3/uL (130-400); RED BLOOD COUNT 3.63 10^6/uL (4.35-5.85); WHITE BLOOD COUNT 4.9 10^3/uL (4.3-11.0)
[2017-08-24 10:22] LABS: ALBUMIN 4.2 GM/DL (3.2-4.5); BILIRUBIN,TOTAL 0.3 MG/DL (0.1-1.0); CALCIUM 9.3 MG/DL (8.5-10.1); CREATININE SERUM 1.31 MG/DL (0.60-1.30); MAGNESIUM 2.2 MG/DL (1.8-2.4); POTASSIUM 4.5 MMOL/L (3.6-5.0); TOTAL PROTEIN 7.6 GM/DL (6.4-8.2)
[2017-08-31 09:24] LABS: BASOPHILS % (AUTO) 0 % (0-10); EOSINOPHILS % (AUTO) 1 % (0-10); HEMATOCRIT 30 % (40-54); HEMOGLOBIN 10.3 G/DL (13.3-17.7); LYMPHOCYTES % (AUTO) 27 % (12-44); MEAN CORPUSCULAR HEMOGLOBIN 32 PG (25-34); MEAN CORPUSCULAR HGB CONC 34 G/DL (32-36); MEAN CORPUSCULAR VOLUME 92 FL (80-99); MEAN PLATELET VOLUME 9.1 FL (7.4-10.4); MONOCYTES # (AUTO) 0.3 X 10^3 (0.0-1.0); MONOCYTES % (AUTO) 9 % (0-12); NEUTROPHILS # (AUTO) 2.2 X 10^3 (1.8-7.8); NEUTROPHILS % (AUTO) 63 % (42-75); PLATELET COUNT 192 10^3/uL (130-400); RED BLOOD COUNT 3.26 10^6/uL (4.35-5.85); RED CELL DISTRIBUTION WIDTH 14.3 % (10.0-14.5); WHITE BLOOD COUNT 3.5 10^3/uL (4.3-11.0)
[2017-08-31 09:44] LABS: CALCIUM 9.2 MG/DL (8.5-10.1); CREATININE SERUM 1.22 MG/DL (0.60-1.30); MAGNESIUM 2.2 MG/DL (1.8-2.4); POTASSIUM 4.4 MMOL/L (3.6-5.0)
[~2017-09-07] VITALS: Ht 172.7 cm; Wt 81.2 kg
[~2017-09-07 09:00] MED LIST changes: +CISPLATIN IV SCH; +FOSAPREPITANT DIMEGLUMINE 150 MG in NS (IVPB) CANCER CENTER ONLY 150 ML IV SCH; +GEMCITABINE HCL (GENERIC) 1,000 MG, GEMCITABINE HCL (GENERIC) 600 MG in NS (IVPB) CANCE... IV SCH; +GEMCITABINE HCL (GENERIC) 1,000 MG, GEMCITABINE HCL (GENERIC) 700 MG in NS (IVPB) CANCE... IV SCH; +GEMCITABINE HCL IV SCH; +MAGNESIUM SULFATE IV SCH; +MANNITOL IV SCH; +NS IV 1000 ML (CANCER CTR) IV SCH; +PALONOSETRON 0.25 MG, DEXAMETHASONE 10 MG/NS 50 ML IVPB IV PRN; +[UNRECOGNIZED DRUG - OTHER] IV SCH; +[UNRECOGNIZED DRUG - OTHER] IV SCH; +[UNRECOGNIZED DRUG - OTHER] IV SCH
[2017-09-07 09:31] LABS: BASOPHILS % (AUTO) 1 % (0-10); EOSINOPHILS % (AUTO) 2 % (0-10); HEMATOCRIT 29 % (40-54); HEMOGLOBIN 9.8 G/DL (13.3-17.7); LYMPHOCYTES # (AUTO) 0.6 X 10^3 (1.0-4.0); LYMPHOCYTES % (AUTO) 34 % (12-44); MEAN CORPUSCULAR HEMOGLOBIN 32 PG (25-34); MEAN CORPUSCULAR HGB CONC 34 G/DL (32-36); MEAN CORPUSCULAR VOLUME 92 FL (80-99); MEAN PLATELET VOLUME 8.6 FL (7.4-10.4); MONOCYTES # (AUTO) 0.1 X 10^3 (0.0-1.0); MONOCYTES % (AUTO) 6 % (0-12); NEUTROPHILS # (AUTO) 1.1 X 10^3 (1.8-7.8); NEUTROPHILS % (AUTO) 58 % (42-75); PLATELET COUNT 54 10^3/uL (130-400); RED CELL DISTRIBUTION WIDTH 14.1 % (10.0-14.5); WHITE BLOOD COUNT 1.9 10^3/uL (4.3-11.0)
[2017-09-07 09:48] LABS: BUN/CREATININE RATIO 19; CALCIUM 8.9 MG/DL (8.5-10.1); CARBON DIOXIDE 24 MMOL/L (21-32); CHLORIDE 109 MMOL/L (98-107); CREATININE SERUM 1.16 MG/DL (0.60-1.30); GFR ESTIMATED > 60; GLUCOSE 91 MG/DL (70-105); MAGNESIUM 2.1 MG/DL (1.8-2.4); POTASSIUM 4.4 MMOL/L (3.6-5.0); SODIUM 139 MMOL/L (135-145)
== END 2017-09-14 | disposition home or self-care (01) ==
LOC: ONC 09:00
PROVIDERS: ATTEND Internal Medicine Hematology & Oncology
DX: Z51.11 Encounter for antineoplastic chemotherapy (principal); C64.2 Malignant neoplasm of left kidney, except renal pelvis; C77.9 Secondary and unspecified malignant neoplasm of lymph node, unspecified; Z85.828 Personal history of other malignant neoplasm of skin; Z90.5 Acquired absence of kidney; Z79.899 Other long term (current) drug therapy
CPT/HCPCS: 36415; 36591; 80048; 80053; 81000; 83615; 83735; 85025; 96367; 96375; 96413; 96417; 99211; 99213

== ENCOUNTER → 2017-09-14 | Outpatient (CLI) | payer BC ==
[~2017-09-14] MED LIST changes: +0.9% SODIUM CHLORIDE PF INJ 20 ML VIAL ONE; +BARIUM SUSPENSION 2.1% (VANILLA SILQ) 450 ML PO ONE; +CATHETER FLUSH 10 ML SYR IV PRN; -CISPLATIN IV SCH; -FOSAPREPITANT DIMEGLUMINE 150 MG in NS (IVPB) CANCER CENTER ONLY 150 ML IV SCH; -GEMCITABINE HCL (GENERIC) 1,000 MG, GEMCITABINE HCL (GENERIC) 600 MG in NS (IVPB) CANCE... IV SCH; -GEMCITABINE HCL (GENERIC) 1,000 MG, GEMCITABINE HCL (GENERIC) 700 MG in NS (IVPB) CANCE... IV SCH; -GEMCITABINE HCL IV SCH; +HEParin (CENTRAL IV FLUSH) 500 UNIT/5 ML SYR ONE; +IOHEXOL 350 MG/ML 100 ML (OMNIPAQUE 350) VIAL IV ONE; +LIDOCAINE/EPI 1%-1:200,000 (XYLOCAINE) 10 ML VIAL ONE; -MAGNESIUM SULFATE IV SCH; -MANNITOL IV SCH; +NS 250 ML (IVPB) BAG IV ONE; -NS IV 1000 ML (CANCER CTR) IV SCH; -PALONOSETRON 0.25 MG, DEXAMETHASONE 10 MG/NS 50 ML IVPB IV PRN; +RECEIVED CONTRAST (Hold Metformin) IV SCH; -[UNRECOGNIZED DRUG - OTHER] IV SCH; -[UNRECOGNIZED DRUG - OTHER] IV SCH; -[UNRECOGNIZED DRUG - OTHER] IV SCH
--- NOTE | 2017-09-14 13:21 | Diagnostic Imaging Report ---
PROCEDURE: CT chest with contrast, CT abdomen and pelvis with and without contrast. TECHNIQUE: Pre and post intravenous contrast axial imaging of the abdomen and pelvis and post contrast axial imaging of the chest were performed. INDICATION: Bladder cancer, followup. COMPARISON: Comparison is made with prior CT from 06/26/2017. CT CHEST: FINDINGS: No axillary lymphadenopathy is detected. No mediastinal or hilar lymphadenopathy is identified. No pericardial or pleural fluid is detected. Tiny cavitary lesion in the superior segment of the right lower lobe measures 7 mm compared with 9 mm. Previously noted subpleural density in the right upper lobe is barely detectable today. Subpleural nodule in the anterior left upper lobe is also barely discernible on today's study and previously measured 5 mm. A nodule in the posteromedial left lower lobe, image 28, has decreased in size to 6 mm compared with 10 mm. A dominant nodule in the left lower lobe, image 37, demonstrates significant improvement measuring 5 mm compared with 9 mm. A second nodule more posteriorly in the left lower lobe, image 38, measures 5 mm compared with 7 mm. No new pulmonary nodules are identified. IMPRESSION: Significant improvement in bilateral pulmonary nodules when compared with prior CT from 06/26/2017. No thoracic lymphadenopathy is detected. CT ABDOMEN AND PELVIS: FINDINGS: Hepatic low densities are again noted, again difficult to characterize due to small size but may represent cysts. The gallbladder is surgically absent. The pancreas and spleen are unremarkable. No adrenal mass is seen. Left kidney is surgically absent. The right kidney is unremarkable. Previously noted mildly prominent lymph nodes in the central retroperitoneum do appear improved. There continue to be very small nodes present. An aortocaval node measures 6 mm compared with 8 mm. Numerous additional aortocaval and left periaortic nodes appear to be smaller on today's exam. No mesenteric lymphadenopathy is seen. Small and large bowel loops are normal in caliber. There is no ascites. No definite inguinal or iliac lymphadenopathy is detected. Bladder and prostate are unremarkable. IMPRESSION: Overall improvement and decrease in size of multiple prominent central retroperitoneal lymph nodes when compared with examination from 06/26/2017. No new abnormality is identified. Dictated by: Dictated on workstation # [id number]
--- NOTE | 2017-09-14 16:59 | Diagnostic Imaging Report ---
INDICATION: Bladder cancer. COMPARISON: 09/14/2017, CT chest, abdomen, and pelvis. TECHNIQUE: Anterior and posterior scintigraphic images of the whole body were obtained after the intravenous injection of 25.20 mCi of Tc-99m MDP. FINDINGS: There is normal distribution of tracer throughout the skeleton. No abnormal focal area of increased or decreased tracer accumulation is identified. Normal activity within the kidneys and urinary bladder is identified. IMPRESSION: Normal bone scan without evidence of osseous metastases. Dictated by: Dictated on workstation # [id number]
== END ==
LOC: CARD 11:56
PROVIDERS: ATTEND Internal Medicine Hematology & Oncology
DX: C67.9 Malignant neoplasm of bladder, unspecified (principal); R91.8 Other nonspecific abnormal finding of lung field; R59.1 Generalized enlarged lymph nodes
CPT/HCPCS: 71260; 74178; 78306

== ENCOUNTER 2017-09-18 06:34 | Day surgery (SDC) | payer BC ==
[~2017-09-18] VITALS: Ht 175.3 cm; Wt 88.9 kg
[~2017-09-18 06:34] MED LIST changes: -0.9% SODIUM CHLORIDE PF INJ 20 ML VIAL ONE; -BARIUM SUSPENSION 2.1% (VANILLA SILQ) 450 ML PO ONE; -CATHETER FLUSH 10 ML SYR IV PRN; -HEParin (CENTRAL IV FLUSH) 500 UNIT/5 ML SYR ONE; -IOHEXOL 350 MG/ML 100 ML (OMNIPAQUE 350) VIAL IV ONE; -LIDOCAINE/EPI 1%-1:200,000 (XYLOCAINE) 10 ML VIAL ONE; -NS 250 ML (IVPB) BAG IV ONE; -RECEIVED CONTRAST (Hold Metformin) IV SCH
--- OUTSIDE RECORDS SUMMARY | 2017-09-18 06:37 | XMS REPORT | Continuity of Care Document ---
Author Author [employer] Organization [facility] Address Unknown Phone Unavailable Care Team Providers Care Title I Assistant Name Role Phone [employer] Unavailable Unavailable Problems Medications Allergies, Adverse Reactions, Alerts Immunizations Results Vital Signs Encounters Location Location Details Encounter Type Encounter Number Reason For Visit Attending Provider ADM Date DC Date Status Source OUTPATIENT [id number] VERONICA BANDA 05/14/20152015 Active [facility] OUTPATIENT [id number] VERONICA BANDA 12/26/20162016 Active [facility] OUTPATIENT [id number] 05/08/2017 Active [facility] SPECIMEN [id number] MYRA ONEILL 05/08/201709/2017 Active [facility] SPECIMEN [id number] MYRA ONEILL 05/08/201709/2017 Active [facility] OUTPATIENT [id number] 05/08/2017 Active [facility] INPATIENT [id number] MYRA ONEILL 05/26/2017 Active [facility] CA SERIES [id number] MYRA ONEILL 06/05/201706/2017 Active [facility] CA SERIES [id number] 09/04/2017 Active [facility] O MYRA ONEILL 10/16/2017 Active [facility] Procedures Plan of Care Social History Assessment and Plan Family History Advance Directives Functional Status
--- OUTSIDE RECORDS SUMMARY | 2017-09-18 06:38 | XMS REPORT | Clinical Summary ---
Author Author [facility] Organization [facility] Address Unknown Phone Unavailable Care Team Providers Care Track Laying Supervisor Name Role Phone Emily Esparza MD Unavailable Nile Ramirez APRN Unavailable Unavailable Nile Pak PA-C Unavailable Elie Ryan MD PCP Source Comments Some departments are not documenting in the electronic medical record. If you do not see the information that you expected, contact Release of Information in the Health Information Management department at [phone] for further assistance in locating additional records.[facility] Allergies No Known Allergies Current Medications Prescription Sig. Disp. Refills Start End Date Status Date vitamins, multiple tablet Take 1 tablet by mouth Active daily. glucosamine(+) 500 mg tab Take 500 mg by mouth Active daily as needed. oxyCODONE (ROXICODONE, Take 1-3 tablets by mouth 55 tablet 0 05/28/19 Active OXY-IR) 5 mg every 3 hours as needed. 18 tabletIndications: PAIN hyoscyamine (ANASPAZ; Place 1 tablet under 30 tablet 1 05/28/19 Active NULEV; SYMAX FASTABS; tongue every 4 hours as 18 HYOMAX-FT; ED-SPAZ; needed. Bladder spasms OSCIMIN) 0.125 mg rapid dissolve tablet polyethylene glycol 3350 Take 1 packet by mouth 12 each 5 05/28/19 Active (MIRALAX) 17 g daily. 18 packetIndications: constipation senna/docusate Take 1 tablet by mouth 30 tablet 0 05/28/19 Active (SENOKOT-S) 8.6/50 mg twice daily. 18 tabletIndications: constipation oxybutynin chloride Take 1 tablet by mouth 30 tablet 0 05/28/19 Active (DITROPAN) 5 mg tablet three times daily as 18 needed. Bladder spasms bacitracin 500 unit/g Small amount to head of 05/28/19 Active topical ointment penis/catheter 3-4 times 18 daily to reduce irritation. Active Problems Problem Noted Date Renal mass, left 05/26/2017 Left renal mass 05/08/2017 Overview: MRI Abdomen 02-02-17 The upper pole of the left kidney demonstrates a medial T2 bright and T1 hypointense nonenhancing lesion measuring 2.4 cm compatible with a cyst. CT AP w/wo 03/25/17: . There is decreased enhancement of the superior half the left kidney this is nonspecifiThe left kidney remains enlarged with mild improvement of perinephric stranding since prior noncontrast exam. A neoplastic process is considered less likely given recent MRI findings. CT Chest 04/01/17 w/contrast: 7 mm pulmonary nodule is noted in the superior segment of the right upper lobe without significant change from December 2016 with a tiny central cavitation. It is close to the subpleural surface of the lateral aspect of the oblique fissure. Another nodule measuring 6 mm is slightly more prominent compared to previous exam when it measured 4 mm. 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 The patient's clinical course has been fairly complicated with multiple imaging exams which demonstrated abnormal left superior pole cystic lesion with questionable hypoenhancement and generally abnormal contour of the superior pole of left kidney. Eventual needle biopsy demonstrates potential for upper tract urothelial cell carcinoma, although imaging is not convincing for left renal pelvis involvement. Because of the discord between imaging and pathology, would like to obtain pathology over read by pathologist here at [facility] as well as radiological read by radiologist at [facility]. Discussed with the patient multiple etiologies of upper tract versus renal primary tumor. At this time leading diagnosis is upper tract UCC with Gold standard approach being nephroureterectomy which was discussed with the patient. Patient will be scheduled for laparoscopic nephrectomy while path and radiology are reviewed. We will obtain urine cytology and chromosomal analysis with fish in the meantime. The patient is amenable to this plan. - Urine cytology + FISH analysis - Laparoscopic nephrectomy 05/26/17 scheduled, consented - Pathology to be reviewed at [facility] - Radiology to be reviewed at [facility] Eyelash ptosis of left eye 11/24/2016 Lesion of oral mucosa 10/04/2013 Oral cancer (HCC) 07/13/2012 Basaloid carcinoma (HCC) 05/31/2012 Dysphagia 05/31/2012 Impacted cerumen of left ear 05/31/2012 Family History Medical History Relation Name Comments [...] Vital Sign Reading Time Taken Blood Pressure 130/76 06/05/2017 10:31 AM [employer] Pulse 74 06/05/2017 10:31 AM [employer] Temperature 36.8 C (98.2 F) 06/05/2017 10:31 AM [employer] Respiratory Rate 16 06/05/2017 10:31 AM [employer] Oxygen Saturation 98% 06/05/2017 10:31 AM [employer] Inhaled Oxygen - - Concentration Weight 84.3 kg (185 lb 12.8 oz) 06/05/2017 10:31 AM [employer] Height 175.3 cm (5' 9") 06/05/2017 10:31 AM [employer] Body Mass Index 27.44 06/05/2017 10:31 AM [employer] Plan of Treatment Health Maintenance Due Date Last Done Comments HEPATITIS C SCREENING 1954 PHYSICAL (COMPREHENSIVE) 1961 EXAM PERTUSSIS VACCINE 1965 HIV SCREENING 1969 TETANUS VACCINE 09/17/1971 COLORECTAL CANCER 2004 SCREENING INFLUENZA VACCINE 02/01/2018 01/20/2014, 02/06/2012, 02/12/2011, Additional history exists SHINGLES VACCINE Completed 01/20/2014 Results * PATHOLOGY INTEROPERATIVE REPORT SCAN (07/03/2017 10:33 AM) Narrative Ordered by an unspecified provider. from Last 3 Months
--- OUTSIDE RECORDS SUMMARY | 2017-09-18 06:39 | XMS REPORT | Continuity of Care Document ---
Author Author [facility] Organization [facility] Address Unknown Phone Unavailable Allergies Active Description Code Type Severity Reaction Onset Reported/Identified Relationship to Patient Clinical Status Yes No Known Drug Allergies [id number] Drug Allergy Unknown N/A 04/29/2012 Medications There is no data. Problems Date Dx Coded Attending Type Code Diagnosis Diagnosed By 05/05/2012 Ot 145.0 MAL MAURICE CHEEK MUCOSA 09/23/2012 LOLY BURT MD Ot 145.0 MAL MAURICE CHEEK MUCOSA 09/23/2012 LOLY BURT MD Ot V58.0 ENCOUNTER FOR RADIOTHERAPY 07/27/2014 Ot 784.2 07/27/2014 Ot V72.83 07/27/2014 Ot V74.8 07/27/2014 LOLY BURT MD Ot 145.0 08/11/2014 KIKE CLAY MD Ot 786.2 01/09/2015 Ot 784.2 01/09/2015 Ot V72.83 01/09/2015 Ot V74.8 01/09/2015 LOLY BURT MD Ot 145.0 01/09/2015 KIKE CLAY MD Ot 786.2 10/23/2015 Ot M25.561 PAIN IN RIGHT KNEE 11/08/2015 Ot M25.561 PAIN IN RIGHT KNEE 11/11/2016 Ot 784.2 SWELLING IN HEAD NECK 11/11/2016 Ot V72.83 EXAM PRE- OPERATIVE NEC 11/11/2016 Ot V74.8 SCREEN- BACTERIAL DIS NEC 11/11/2016 LOLY BURT MD Ot 145.0 MAL MAURICE CHEEK MUCOSA 11/11/2016 KIKE CLAY MD Ot 786.2 COUGH 11/11/2016 Ot M25.561 PAIN IN RIGHT KNEE 11/12/2016 ALVA GOMEZ MD Ot K40.90 UNIL INGUINAL HERNIA, W/O OBST OR GANGR, 11/12/2016 ALVA GOMEZ MD Ot K42.9 UMBILICAL HERNIA WITHOUT OBSTRUCTION OR 11/12/2016 ALVA GOMEZ MD Ot R31.9 HEMATURIA, UNSPECIFIED 11/12/2016 JASON FALK, ALVA Moffett Ot K40.90 UNIL INGUINAL HERNIA, W/O OBST OR GANGR, 11/12/2016 JASON FALK, ALVA Moffett Ot K42.9 UMBILICAL HERNIA WITHOUT OBSTRUCTION OR 11/12/2016 ALVA GOMEZ MD Ot R31.9 HEMATURIA, UNSPECIFIED 11/12/2016 JASON FALK, ALVA Moffett Ot K40.90 UNIL INGUINAL HERNIA, W/O OBST OR GANGR, 11/12/2016 JASON FALK, ALVA Moffett Ot K42.9 UMBILICAL HERNIA WITHOUT OBSTRUCTION OR 11/12/2016 ALVA GOMEZ MD Ot R31.9 HEMATURIA, UNSPECIFIED 11/24/2016 JASON FALK, ALVA Moffett Ot K40.90 UNIL INGUINAL HERNIA, W/O OBST OR GANGR, 11/24/2016 JASON FALK, ALVA Moffett Ot K42.9 UMBILICAL HERNIA WITHOUT OBSTRUCTION OR 11/24/2016 ALVA GOMEZ MD Ot R31.9 HEMATURIA, UNSPECIFIED 12/27/2016 ABIMAEL KIRAN MD Ot C76.0 MALIGNANT NEOPLASM OF HEAD, FACE AND NEC 12/27/2016 ABIMAEL KIRAN MD Ot M25.551 PAIN IN RIGHT HIP 12/27/2016 ABIMAEL KIRAN MD Ot R31.9 HEMATURIA, UNSPECIFIED 12/27/2016 ABIMAEL KIRAN MD Ot W11.XXXA FALL ON AND FROM LADDER, INITIAL ENCOUNT 12/28/2016 ABIMAEL KIRAN MD Ot C76.0 MALIGNANT NEOPLASM OF HEAD, FACE AND NEC 12/28/2016 ABIMAEL KIRAN MD Ot M25.551 PAIN IN RIGHT HIP 12/28/2016 ABIMAEL KIRAN MD Ot R31.9 HEMATURIA, UNSPECIFIED 12/28/2016 ABIMAEL KIRAN MD Ot W11.XXXA FALL ON AND FROM LADDER, INITIAL ENCOUNT 01/22/2017 OBED FALK, KIKE Durán Ot N28.1 CYST OF KIDNEY, ACQUIRED 02/09/2017 ROMAINE FALK, STEF Condon Ot N13.30 UNSPECIFIED HYDRONEPHROSIS 02/09/2017 STEF GAVIN MD Ot R10.9 UNSPECIFIED ABDOMINAL PAIN 02/09/2017 ROMAINE FALK, STEF Condon Ot R11.2 NAUSEA WITH VOMITING, UNSPECIFIED 02/09/2017 STEF GAVIN MD Ot R31.9 HEMATURIA, UNSPECIFIED 02/09/2017 ROMAINE FALK, STEF Condon Ot Z85.828 PERSONAL HISTORY OF OTHER MALIGNANT NEOP 02/09/2017 STEF GAVIN MD Ot Z87.442 PERSONAL HISTORY OF URINARY CALCULI 02/11/2017 STEF GAVIN MD Ot N13.30 UNSPECIFIED HYDRONEPHROSIS 02/11/2017 STEF GAVIN MD Ot R10.9 UNSPECIFIED ABDOMINAL PAIN 02/11/2017 STEF GAVIN MD Ot R11.2 NAUSEA WITH VOMITING, UNSPECIFIED 02/11/2017 STEF GAVIN MD Ot R31.9 HEMATURIA, UNSPECIFIED 02/11/2017 STEF GAVIN MD Ot Z85.828 PERSONAL HISTORY OF OTHER MALIGNANT NEOP 02/11/2017 STEF GAVIN MD Ot Z87.442 PERSONAL HISTORY OF URINARY CALCULI 02/11/2017 OBED FALK, KIKE Durán Ot N28.1 CYST OF KIDNEY, ACQUIRED 03/27/2017 TANI TEJEDA DO Ot D72.829 ELEVATED WHITE BLOOD CELL COUNT, UNSPECI 03/27/2017 TANI TEJEDA DO Ot K58.1 IRRITABLE BOWEL SYNDROME WITH CONSTIPATI 03/27/2017 TANI TEJEDA DO Ot K62.1 RECTAL POLYP 03/27/2017 TANI TEJEDA DO Ot R31.29 OTHER MICROSCOPIC HEMATURIA 04/01/2017 Ot 784.2 SWELLING IN HEAD NECK 04/01/2017 Ot V72.83 EXAM PRE- OPERATIVE NEC 04/01/2017 Ot V74.8 SCREEN- BACTERIAL DIS NEC 04/01/2017 JAVED FALK, LOLY Traore Ot 145.0 MAL MAURICE CHEEK MUCOSA 04/01/2017 OBED FALK, KIKE Durán Ot 786.2 COUGH 04/01/2017 Ot M25.561 PAIN IN RIGHT KNEE 04/01/2017 JASON FALK, ALVA Moffett Ot K40.90 UNIL INGUINAL HERNIA, W/O OBST OR GANGR, 04/01/2017 ALVA GOMEZ MD Ot K42.9 UMBILICAL HERNIA WITHOUT OBSTRUCTION OR 04/01/2017 ALVA GOMEZ MD Ot R31.9 HEMATURIA, UNSPECIFIED 04/01/2017 KIKE CLAY MD, Ot N28.1 CYST OF KIDNEY, ACQUIRED 04/01/2017 KIKE CLAY MD, Ot N28.1 CYST OF KIDNEY, ACQUIRED 04/08/2017 KIKE CLAY MD Ot C64.2 MALIGNANT NEOPLASM OF LEFT KIDNEY, EXCEP 04/17/2017 KIKE CLAY MD Ot N28.89 OTHER SPECIFIED DISORDERS OF KIDNEY AND 04/17/2017 KIKE CLAY MD Ot R91.8 OTHER NONSPECIFIC ABNORMAL FINDING OF NINOSKA 04/17/2017 KIKE CLAY MD Ot Z85.89 PERSONAL HISTORY OF MALIGNANT NEOPLASM O 06/22/2017 Ot 784.2 SWELLING IN HEAD NECK 06/22/2017 Ot V72.83 EXAM PRE- OPERATIVE NEC 06/22/2017 Ot V74.8 SCREEN- BACTERIAL DIS NEC 06/22/2017 JAVED FALK, LOLY Traore Ot 145.0 MAL MAURICE CHEEK MUCOSA 06/22/2017 KIKE CLAY MD Ot 786.2 COUGH 06/22/2017 Ot M25.561 PAIN IN RIGHT KNEE 06/22/2017 ALVA GOMEZ MD Ot K40.90 UNIL INGUINAL HERNIA, W/O OBST OR GANGR, 06/22/2017 ALVA GOMEZ MD Ot K42.9 UMBILICAL HERNIA WITHOUT OBSTRUCTION OR 06/22/2017 ALVA GOMEZ MD Ot R31.9 HEMATURIA, UNSPECIFIED 06/22/2017 KIKE CLAY MD Ot N28.1 CYST OF KIDNEY, ACQUIRED 06/22/2017 KIKE CLAY MD Ot N28.1 CYST OF KIDNEY, ACQUIRED 06/22/2017 KIKE CLAY MD Ot N28.89 OTHER SPECIFIED DISORDERS OF KIDNEY AND 06/22/2017 KIKE CLAY MD Ot R91.8 OTHER NONSPECIFIC ABNORMAL FINDING OF NINOSKA 06/22/2017 KIKE CLAY MD Ot Z85.89 PERSONAL HISTORY OF MALIGNANT NEOPLASM O 06/22/2017 GORGE BARBOUR Ot C64.2 MALIGNANT NEOPLASM OF LEFT KIDNEY, EXCEP 06/22/2017 GORGE BARBOUR Ot 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 06/22/2017 GORGE BARBOUR Ot 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 06/22/2017 GORGE BARBOUR Ot Z85.828 PERSONAL HISTORY OF OTHER MALIGNANT NEOP 06/22/2017 GORGE BARBOUR Ot 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 ABSENCE OF KIDNEY 06/24/2017 GORGE BARBOUR Ot C64.2 MALIGNANT NEOPLASM OF LEFT KIDNEY, EXCEP 06/24/2017 GORGE BARBOUR Ot 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 06/24/2017 GORGE BARBOUR Ot Z79.899 OTHER PENITENTIARY (CURRENT) DRUG THERAPY 06/24/2017 GORGE BARBOUR N Ot Z85.828 PERSONAL HISTORY OF OTHER MALIGNANT NEOP 06/24/2017 GORGE BARBOUR Ot 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 ABSENCE OF KIDNEY 06/26/2017 Ot 784.2 SWELLING IN HEAD NECK 06/26/2017 Ot V72.83 EXAM PRE- OPERATIVE NEC 06/26/2017 Ot V74.8 SCREEN- BACTERIAL DIS NEC 06/26/2017 JAVED FALK, LOLY E Ot 145.0 MAL MAURICE CHEEK MUCOSA 06/26/2017 OBED FALK, KIKE Durán Ot 786.2 COUGH 06/26/2017 Ot M25.561 PAIN IN RIGHT KNEE 06/26/2017 ALVA GOMEZ MD Ot K40.90 UNIL INGUINAL HERNIA, W/O OBST OR GANGR, 06/26/2017 ALVA GOMEZ MD Ot K42.9 UMBILICAL HERNIA WITHOUT OBSTRUCTION OR 06/26/2017 ALVA GOMEZ MD Ot R31.9 HEMATURIA, UNSPECIFIED 06/26/2017 KIKE CLAY MD Ot N28.1 CYST OF KIDNEY, ACQUIRED 06/26/2017 KIKE CLAY MD Ot N28.1 CYST OF KIDNEY, ACQUIRED 06/26/2017 KIKE CLAY MD Ot N28.89 OTHER SPECIFIED DISORDERS OF KIDNEY AND 06/26/2017 KIKE CLAY MD Ot R91.8 OTHER NONSPECIFIC ABNORMAL FINDING OF NINOSKA 06/26/2017 KIKE CLAY MD Ot Z85.89 PERSONAL HISTORY OF MALIGNANT NEOPLASM O 06/26/2017 GORGE BARBOUR Ot C64.2 MALIGNANT NEOPLASM OF LEFT KIDNEY, EXCEP 06/26/2017 GORGE BARBOUR Francheska Ot 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 06/26/2017 GORGE BARBOUR Ot 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 06/26/2017 GORGE BARBOUR Ot Z85.828 PERSONAL HISTORY OF OTHER MALIGNANT NEOP 06/26/2017 GORGE BARBOUR Francheska Ot 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 ABSENCE OF KIDNEY 06/29/2017 GORGE BARBOUR Ot C64.9 MALIGNANT NEOPLASM OF UNSP KIDNEY, EXCEP 06/29/2017 GORGE BARBOUR Ot R59.0 LOCALIZED ENLARGED LYMPH NODES 06/29/2017 GORGE BARBOUR Ot R91.8 OTHER NONSPECIFIC ABNORMAL FINDING OF NINOSKA 06/29/2017 GORGE BARBOUR Francheska Ot Z90.49 ACQUIRED ABSENCE OF OTHER SPECIFIED PART 06/29/2017 GORGE BARBOUR Francheska Ot 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 ABSENCE OF KIDNEY 06/29/2017 Ot 784.2 SWELLING IN HEAD NECK 06/29/2017 Ot V72.83 EXAM PRE- OPERATIVE NEC 06/29/2017 Ot V74.8 SCREEN- BACTERIAL DIS NEC 06/29/2017 JAVED FALK, LOLY E Ot 145.0 MAL MAURICE CHEEK MUCOSA 06/29/2017 OBED FALK, KIKE Durán Ot 786.2 COUGH 06/29/2017 Ot M25.561 PAIN IN RIGHT KNEE 06/29/2017 ALVA GOMEZ MD Ot K40.90 UNIL INGUINAL HERNIA, W/O OBST OR GANGR, 06/29/2017 ALVA GOMEZ MD Ot K42.9 UMBILICAL HERNIA WITHOUT OBSTRUCTION OR 06/29/2017 ALVA GOMEZ MD Ot R31.9 HEMATURIA, UNSPECIFIED 06/29/2017 KIKE CLAY MD Ot N28.1 CYST OF KIDNEY, ACQUIRED 06/29/2017 KIKE CLAY MD Ot N28.1 CYST OF KIDNEY, ACQUIRED 06/29/2017 KIKE CLAY MD Ot N28.89 OTHER SPECIFIED DISORDERS OF KIDNEY AND 06/29/2017 KIKE CLAY MD Ot R91.8 OTHER NONSPECIFIC ABNORMAL FINDING OF NINOSKA 06/29/2017 KIKE CLAY MD Ot Z85.89 PERSONAL HISTORY OF MALIGNANT NEOPLASM O 06/29/2017 GORGE BARBOUR Francheska Ot C64.2 MALIGNANT NEOPLASM OF LEFT KIDNEY, EXCEP 06/29/2017 GORGE BARBOUR Francheska Ot 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 06/29/2017 GORGE BARBOUR Francheska Ot Z79.899 OTHER PENITENTIARY (CURRENT) DRUG THERAPY 06/29/2017 GORGE BARBOUR N Ot Z85.828 PERSONAL HISTORY OF OTHER MALIGNANT NEOP 06/29/2017 GORGE BARBOUR N Ot 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 ABSENCE OF KIDNEY 06/29/2017 GORGE BARBOUR N Ot C64.9 MALIGNANT NEOPLASM OF UNSP KIDNEY, EXCEP 06/29/2017 GORGE BARBOUR N Ot R59.0 LOCALIZED ENLARGED LYMPH NODES 06/29/2017 GORGE BARBOUR N Ot R91.8 OTHER NONSPECIFIC ABNORMAL FINDING OF NINOSKA 06/29/2017 GORGE BARBOUR N Ot Z90.49 ACQUIRED ABSENCE OF OTHER SPECIFIED PART 06/29/2017 GORGE BARBOUR N Ot 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 ABSENCE OF KIDNEY 06/30/2017 GORGE BARBOUR N Ot C64.2 MALIGNANT NEOPLASM OF LEFT KIDNEY, EXCEP 06/30/2017 GORGE BARBOUR N Ot 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 06/30/2017 GORGE BARBOUR N Ot Z79.899 OTHER PENITENTIARY (CURRENT) DRUG THERAPY 06/30/2017 GORGE BARBOUR N Ot Z85.828 PERSONAL HISTORY OF OTHER MALIGNANT NEOP 06/30/2017 GORGE BARBOUR N Ot 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 ABSENCE OF KIDNEY 07/13/2017 GORGE BARBOUR N Ot C65.9 MALIGNANT NEOPLASM OF UNSPECIFIED RENAL 07/13/2017 GORGE BARBOUR N Ot R59.0 LOCALIZED ENLARGED LYMPH NODES 07/13/2017 GORGE BARBOUR N Ot R91.8 OTHER NONSPECIFIC ABNORMAL FINDING OF NINOSKA 07/13/2017 GORGE BARBOUR N Ot Z85.528 PERSONAL HISTORY OF OTHER MALIGNANT NEOP 07/13/2017 ANGLEGOGRE N Ot Z90.49 ACQUIRED ABSENCE OF OTHER SPECIFIED PART 07/13/2017 GORGE BARBOUR N Ot 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 ABSENCE OF KIDNEY 07/15/2017 GORGE BARBOUR N Ot C65.9 MALIGNANT NEOPLASM OF UNSPECIFIED RENAL 07/15/2017 GORGE BARBOUR N Ot R59.0 LOCALIZED ENLARGED LYMPH NODES 07/15/2017 GORGE BARBOUR N Ot R91.8 OTHER NONSPECIFIC ABNORMAL FINDING OF NINOSKA 07/15/2017 GORGE BARBOUR N Ot Z85.528 PERSONAL HISTORY OF OTHER MALIGNANT NEOP 07/15/2017 ANGLEGORGE N Ot Z90.49 ACQUIRED ABSENCE OF OTHER SPECIFIED PART 07/15/2017 ANGLEGORGE JO N Ot 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 ABSENCE OF KIDNEY 07/17/2017 ANGLEGORGE JO N Ot C64.2 MALIGNANT NEOPLASM OF LEFT KIDNEY, EXCEP 07/17/2017 GORGE BARBOUR N Ot 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 07/17/2017 ANGLEGORGE JO N Ot 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 07/17/2017 GORGE BARBOUR N Ot Z85.828 PERSONAL HISTORY OF OTHER MALIGNANT NEOP 07/17/2017 GORGE BARBOUR N Ot 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 ABSENCE OF KIDNEY 07/29/2017 GORGE BARBOUR N Ot R59.0 LOCALIZED ENLARGED LYMPH NODES 07/29/2017 GORGE BARBOUR N Ot R91.8 OTHER NONSPECIFIC ABNORMAL FINDING OF NINOSKA 07/29/2017 GORGE BARBOUR N Ot Z85.528 PERSONAL HISTORY OF OTHER MALIGNANT NEOP 07/29/2017 GORGE BARBOUR N Ot Z90.49 ACQUIRED ABSENCE OF OTHER SPECIFIED PART 07/29/2017 GORGE BARBOUR N Ot 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 ABSENCE OF KIDNEY 08/03/2017 ANGLEGORGE JO N Ot C64.2 MALIGNANT NEOPLASM OF LEFT KIDNEY, EXCEP 08/03/2017 GORGE BARBOUR N Ot 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 08/03/2017 GORGE BARBOUR N Ot 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 08/03/2017 GORGE BARBOUR N Ot Z85.828 PERSONAL HISTORY OF OTHER MALIGNANT NEOP 08/03/2017 GORGE BARBOUR N Ot 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 ABSENCE OF KIDNEY 09/14/2017 GORGE BARBOUR N Ot C64.2 MALIGNANT NEOPLASM OF LEFT KIDNEY, EXCEP 09/14/2017 ANGLEGORGE JO N Ot 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 09/14/2017 ANGLEGORGE JO N Ot 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 09/14/2017 GORGE BARBOUR N Ot Z85.828 PERSONAL HISTORY OF OTHER MALIGNANT NEOP 09/14/2017 ANGLEGORGE N Ot 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 ABSENCE OF KIDNEY 09/15/2017 ANGLEGORGE N Ot C67.9 MALIGNANT NEOPLASM OF BLADDER, UNSPECIFI 09/15/2017 GORGE BARBOUR Ot R59.1 GENERALIZED ENLARGED LYMPH NODES 09/15/2017 GORGE BARBOUR Ot R91.8 OTHER NONSPECIFIC ABNORMAL FINDING OF NINOSKA 2017 GORGE BARBOUR Ot C64.2 MALIGNANT NEOPLASM OF LEFT KIDNEY, EXCEP 2017 GORGE BARBOUR Ot 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 2017 GORGE BARBOUR Ot Z51.11 ENCOUNTER FOR ANTINEOPLASTIC CHEMOTHERAP 2017 GORGE BARBOUR Ot 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 2017 GORGE BARBOUR Ot Z85.828 PERSONAL HISTORY OF OTHER MALIGNANT NEOP 2017 GORGE BARBOUR Ot 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 ABSENCE OF KIDNEY 09/17/2017 GORGE BARBOUR Ot C64.2 MALIGNANT NEOPLASM OF LEFT KIDNEY, EXCEP 09/17/2017 GORGE BARBOUR Ot 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 09/17/2017 GORGE BARBOUR Ot Z79.899 OTHER PENITENTIARY (CURRENT) DRUG THERAPY 09/17/2017 GORGE BARBOUR Ot Z85.828 PERSONAL HISTORY OF OTHER MALIGNANT NEOP 09/17/2017 GORGE BARBOUR Ot 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 ABSENCE OF KIDNEY Procedures Code Description Performed By Performed On [id number] EXCISION OF RECTUM, ENDO, DIAGN 03/27/2017 Results Test Result Range Complete blood count (CBC) with automated white blood cell (WBC) differential - 12/27/16 19:30 Blood leukocytes automated count (number/volume) 10.2 10*3/uL 4.3-11.0 Blood erythrocytes automated count (number/volume) 4.07 10*6/uL 4.35-5.85 Venous blood hemoglobin measurement (mass/volume) 12.9 g/dL 13.3-17.7 Blood hematocrit (volume fraction) 37 % 40-54 Automated erythrocyte mean corpuscular volume 92 [foz_us] 80-99 Automated erythrocyte mean corpuscular hemoglobin (mass per erythrocyte) 32 pg 25-34 Automated erythrocyte mean corpuscular hemoglobin concentration measurement ( mass/volume) 35 g/dL 32-36 Automated erythrocyte distribution width ratio 13.1 % 10.0-14.5 Automated blood platelet count (count/volume) 237 10*3/uL 130-400 Automated blood platelet mean volume measurement 9.9 [foz_us] 7.4-10.4 Automated blood neutrophils/100 leukocytes 76 % 42-75 Automated blood lymphocytes/100 leukocytes 12 % 12-44 Blood monocytes/100 leukocytes 11 % 0-12 Automated blood eosinophils/100 leukocytes 2 % 0-10 Automated blood basophils/100 leukocytes 0 % 0-10 Blood neutrophils automated count (number/volume) 7.7 10*3 1.8-7.8 Blood lymphocytes automated count (number/volume) 1.2 10*3 1.0-4.0 Blood monocytes automated count (number/volume) 1.1 10*3 0.0-1.0 Automated eosinophil count 0.2 10*3/uL 0.0-0.3 Automated blood basophil count (count/volume) 0.0 10*3/uL 0.0-0.1 Comprehensive metabolic panel - 12/27/16 19:30 Serum or plasma sodium measurement (moles/volume) 143 mmol/L 135-145 Serum or plasma potassium measurement (moles/volume) 3.7 mmol/L 3.6-5.0 Serum or plasma chloride measurement (moles/volume) 110 mmol/L 98-107 Carbon dioxide 21 mmol/L 21-32 Serum or plasma anion gap determination (moles/volume) 12 mmol/L 5-14 Serum or plasma urea nitrogen measurement (mass/volume) 14 mg/dL 7-18 Serum or plasma creatinine measurement (mass/volume) 0.93 mg/dL 0.60-1.30 Serum or plasma urea nitrogen/creatinine mass ratio 15 NRG Serum or plasma creatinine measurement with calculation of estimated glomerular filtration rate > NRG Serum or plasma glucose measurement (mass/volume) 89 mg/dL 70-105 Serum or plasma calcium measurement (mass/volume) 9.1 mg/dL 8.5-10.1 Serum or plasma total bilirubin measurement (mass/volume) 0.5 mg/dL 0.1-1.0 Serum or plasma alkaline phosphatase measurement (enzymatic activity/volume) 56 U/L 40-136 Serum or plasma aspartate aminotransferase measurement (enzymatic activity/ volume) 42 U/L 5-34 Serum or plasma alanine aminotransferase measurement (enzymatic activity/volume ) 29 U/L 0-55 Serum or plasma protein measurement (mass/volume) 7.5 g/dL 6.4-8.2 Serum or plasma albumin measurement (mass/volume) 4.1 g/dL 3.2-4.5 Magnesium - 12/27/16 19:30 Magnesium 2.1 mg/dL 1.8-2.4 Complete urinalysis with reflex to culture - 12/27/16 19:40 Urine color determination GENTRY NRG Urine clarity determination VERY CLOUDY NRG Urine pH measurement by test strip 5 5-9 Specific gravity of urine by test strip 1.025 1.016- 1.022 Urine protein assay by test strip, semi-quantitative 3+ NEGATIVE Urine glucose detection by automated test strip NEGATIVE NEGATIVE Erythrocytes detection in urine sediment by light microscopy 5+ NEGATIVE Urine ketones detection by automated test strip NEGATIVE NEGATIVE Urine nitrite detection by test strip NEGATIVE NEGATIVE Urine total bilirubin detection by test strip NEGATIVE NEGATIVE Urine urobilinogen measurement by automated test strip (mass/volume) NORMAL NORMAL Urine leukocyte esterase detection by dipstick 1+ NEGATIVE Automated urine sediment erythrocyte count by microscopy (number/high power field) TNTC NRG Automated urine sediment leukocyte count by microscopy (number/high power field ) [HPF] NRG Bacteria detection in urine sediment by light microscopy NEGATIVE NRG Crystals detection in urine sediment by light microscopy NONE NRG Casts detection in urine sediment by light microscopy NONE NRG Mucus detection in urine sediment by light microscopy SMALL NRG Complete urinalysis with reflex to culture NO NRG Complete blood count (CBC) with automated white blood cell (WBC) differential - 02/09/17 06:40 Blood leukocytes automated count (number/volume) 10.4 10*3/uL 4.3-11.0 Blood erythrocytes automated count (number/volume) 4.07 10*6/uL 4.35-5.85 Venous blood hemoglobin measurement (mass/volume) 12.7 g/dL 13.3-17.7 Blood hematocrit (volume fraction) 37 % 40-54 Automated erythrocyte mean corpuscular volume 91 [foz_us] 80-99 Automated erythrocyte mean corpuscular hemoglobin (mass per erythrocyte) 31 pg 25-34 Automated erythrocyte mean corpuscular hemoglobin concentration measurement ( mass/volume) 34 g/dL 32-36 Automated erythrocyte distribution width ratio 13.1 % 10.0-14.5 Automated blood platelet count (count/volume) 241 10*3/uL 130-400 Automated blood platelet mean volume measurement 10.0 [foz_us] 7.4-10.4 Automated blood neutrophils/100 leukocytes 82 % 42-75 Automated blood lymphocytes/100 leukocytes 8 % 12-44 Blood monocytes/100 leukocytes 9 % 0-12 Automated blood eosinophils/100 leukocytes 1 % 0-10 Automated blood basophils/100 leukocytes 0 % 0-10 Blood neutrophils automated count (number/volume) 8.5 10*3 1.8-7.8 Blood lymphocytes automated count (number/volume) 0.8 10*3 1.0-4.0 Blood monocytes automated count (number/volume) 0.9 10*3 0.0-1.0 Automated eosinophil count 0.1 10*3/uL 0.0-0.3 Automated blood basophil count (count/volume) 0.0 10*3/uL 0.0-0.1 Comprehensive metabolic panel - 02/09/17 06:40 Serum or plasma sodium measurement (moles/volume) 139 mmol/L 135-145 Serum or plasma potassium measurement (moles/volume) 3.4 mmol/L 3.6-5.0 Serum or plasma chloride measurement (moles/volume) 105 mmol/L 98-107 Carbon dioxide 25 mmol/L 21-32 Serum or plasma anion gap determination (moles/volume) 9 mmol/L 5-14 Serum or plasma urea nitrogen measurement (mass/volume) 14 mg/dL 7-18 Serum or plasma creatinine measurement (mass/volume) 1.19 mg/dL 0.60-1.30 Serum or plasma urea nitrogen/creatinine mass ratio 12 NRG Serum or plasma creatinine measurement with calculation of estimated glomerular filtration rate > NRG Serum or plasma glucose measurement (mass/volume) 133 mg/dL 70-105 Serum or plasma calcium measurement (mass/volume) 9.2 mg/dL 8.5-10.1 Serum or plasma total bilirubin measurement (mass/volume) 0.5 mg/dL 0.1-1.0 Serum or plasma alkaline phosphatase measurement (enzymatic activity/volume) 60 U/L 40-136 Serum or plasma aspartate aminotransferase measurement (enzymatic activity/ volume) 23 U/L 5-34 Serum or plasma alanine aminotransferase measurement (enzymatic activity/volume ) 21 U/L 0-55 Serum or plasma protein measurement (mass/volume) 7.6 g/dL 6.4-8.2 Serum or plasma albumin measurement (mass/volume) 4.1 g/dL 3.2-4.5 Complete urinalysis with reflex to culture - 02/09/17 06:55 Urine color determination BROWN NRG Urine clarity determination BLOODY NRG Urine pH measurement by test strip 7 5-9 Specific gravity of urine by test strip 1.010 1.016- 1.022 Urine protein assay by test strip, semi-quantitative 3+ NEGATIVE Urine glucose detection by automated test strip NEGATIVE NEGATIVE Erythrocytes detection in urine sediment by light microscopy 5+ NEGATIVE Urine ketones detection by automated test strip NEGATIVE NEGATIVE Urine nitrite detection by test strip NEGATIVE NEGATIVE Urine total bilirubin detection by test strip NEGATIVE NEGATIVE Urine urobilinogen measurement by automated test strip (mass/volume) NORMAL NORMAL Urine leukocyte esterase detection by dipstick 1+ NEGATIVE Automated urine sediment erythrocyte count by microscopy (number/high power field) [facility] Automated urine sediment leukocyte count by microscopy (number/high power field ) RARE NRG Bacteria detection in urine sediment by light microscopy TRACE NRG Crystals detection in urine sediment by light microscopy NONE NRG Casts detection in urine sediment by light microscopy NONE NRG Mucus detection in urine sediment by light microscopy NEGATIVE NRG Complete urinalysis with reflex to culture NO NRG Complete urinalysis with reflex to culture - 03/25/17 21:05 Urine color determination GENTRY NRG Urine clarity determination VERY CLOUDY NRG Urine pH measurement by test strip 6.5 5-9 Specific gravity of urine by test strip 1.015 1.016- 1.022 Urine protein assay by test strip, semi-quantitative 3+ NEGATIVE Urine glucose detection by automated test strip NEGATIVE NEGATIVE Erythrocytes detection in urine sediment by light microscopy 5+ NEGATIVE Urine ketones detection by automated test strip 2+ NEGATIVE Urine nitrite detection by test strip NEGATIVE NEGATIVE Urine total bilirubin detection by test strip NEGATIVE NEGATIVE Urine urobilinogen measurement by automated test strip (mass/volume) NORMAL NORMAL Urine leukocyte esterase detection by dipstick 1+ NEGATIVE Automated urine sediment erythrocyte count by microscopy (number/high power field) [facility] Automated urine sediment leukocyte count by microscopy (number/high power field ) [HPF] NRG Bacteria detection in urine sediment by light microscopy TRACE NRG Crystals detection in urine sediment by light microscopy NONE NRG Casts detection in urine sediment by light microscopy NONE NRG Mucus detection in urine sediment by light microscopy NEGATIVE NRG Complete urinalysis with reflex to culture YES NRG Serum or plasma ethanol measurement (mass/volume) - 03/25/17 21:05 Serum or plasma ethanol measurement (mass/volume) < mg/dL <10 Bacterial urine culture - 03/25/17 21:05 Bacterial urine culture NG NRG Complete blood count (CBC) with automated white blood cell (WBC) differential - 03/25/17 21:10 Blood leukocytes automated count (number/volume) 17.1 10*3/uL 4.3-11.0 Blood erythrocytes automated count (number/volume) 4.65 10*6/uL 4.35-5.85 Venous blood hemoglobin measurement (mass/volume) 14.7 g/dL 13.3-17.7 Blood hematocrit (volume fraction) 42 % 40-54 Automated erythrocyte mean corpuscular volume 91 [foz_us] 80-99 Automated erythrocyte mean corpuscular hemoglobin (mass per erythrocyte) 32 pg 25-34 Automated erythrocyte mean corpuscular hemoglobin concentration measurement ( mass/volume) 35 g/dL 32-36 Automated erythrocyte distribution width ratio 13.0 % 10.0-14.5 Automated blood platelet count (count/volume) 273 10*3/uL 130-400 Automated blood platelet mean volume measurement 10.0 [foz_us] 7.4-10.4 Automated blood neutrophils/100 leukocytes 92 % 42-75 Automated blood lymphocytes/100 leukocytes 2 % 12-44 Blood monocytes/100 leukocytes 5 % 0-12 Automated blood eosinophils/100 leukocytes 0 % 0-10 Automated blood basophils/100 leukocytes 0 % 0-10 Blood neutrophils automated count (number/volume) 15.8 10*3 1.8-7.8 Blood lymphocytes automated count (number/volume) 0.4 10*3 1.0-4.0 Blood monocytes automated count (number/volume) 0.9 10*3 0.0-1.0 Automated eosinophil count 0.1 10*3/uL 0.0-0.3 Automated blood basophil count (count/volume) 0.0 10*3/uL 0.0-0.1 Blood lactic acid measurement (moles/volume) - 03/25/17 21:10 Blood lactic acid measurement (moles/volume) 0.86 mmol/L 0.50-2.00 Lipase - 03/25/17 21:10 Lipase 268 U/L 8-78 Comprehensive metabolic panel - 03/25/17 21:10 Serum or plasma sodium measurement (moles/volume) 142 mmol/L 135-145 Serum or plasma potassium measurement (moles/volume) 3.9 mmol/L 3.6-5.0 Serum or plasma chloride measurement (moles/volume) 107 mmol/L 98-107 Carbon dioxide 22 mmol/L 21-32 Serum or plasma anion gap determination (moles/volume) 13 mmol/L 5-14 Serum or plasma urea nitrogen measurement (mass/volume) 18 mg/dL 7-18 Serum or plasma creatinine measurement (mass/volume) 1.21 mg/dL 0.60-1.30 Serum or plasma urea nitrogen/creatinine mass ratio 15 NRG Serum or plasma creatinine measurement with calculation of estimated glomerular filtration rate > NRG Serum or plasma glucose measurement (mass/volume) 122 mg/dL 70-105 Serum or plasma calcium measurement (mass/volume) 9.7 mg/dL 8.5-10.1 Serum or plasma total bilirubin measurement (mass/volume) 0.9 mg/dL 0.1-1.0 Serum or plasma alkaline phosphatase measurement (enzymatic activity/volume) 65 U/L 40-136 Serum or plasma aspartate aminotransferase measurement (enzymatic activity/ volume) 28 U/L 5-34 Serum or plasma alanine aminotransferase measurement (enzymatic activity/volume ) 24 U/L 0-55 Serum or plasma protein measurement (mass/volume) 8.6 g/dL 6.4-8.2 Serum or plasma albumin measurement (mass/volume) 4.5 g/dL 3.2-4.5 Blood manual differential performed detection - 03/25/17 21:10 Blood monocytes/100 leukocytes 3 % NRG Manual blood segmented neutrophils/100 leukocytes 91 % NRG Blood band neutrophils/100 leukocytes 3 % NRG Manual blood lymphocytes/100 leukocytes 3 % NRG Manual eosinophils/100 leukocytes in nose 0 % NRG Manual blood basophils/100 leukocytes 0 % NR Blood erythrocyte morphology finding identification NORMAL NRG Lactate dehydrogenase 1 [enzymatic activity/volume] in serum or plasma - 21:10 Lactate dehydrogenase 1 [enzymatic activity/volume] in serum or plasma 299 U/L 125-220 Lipid 1996 panel - 03/25/17 21:10 Serum or plasma triglyceride measurement (mass/volume) 46 mg/dL <150 Serum or plasma cholesterol measurement (mass/volume) 154 mg/dL < 200 Serum or plasma cholesterol in HDL measurement (mass/volume) 49 mg/ dL 40-60 Cholesterol in LDL [mass/volume] in serum or plasma by direct assay 98 mg/dL 1-129 Serum or plasma cholesterol in VLDL measurement (mass/volume) 9 mg/ dL 5-40 Erythrocyte sedimentation rate by westergren method - 03/25/17 21:10 Erythrocyte sedimentation rate by westergren method 13 mm 0-30 Bacterial blood culture - 03/25/17 21:30 Bacterial blood culture NG NRG Bacterial blood culture - 03/25/17 22:30 Bacterial blood culture NG NRG Methicillin resistant Staphylococcus aureus (MRSA) screening culture - 01:45 Methicillin resistant Staphylococcus aureus (MRSA) screening culture NEG NRG Urine drug screening test - 03/26/17 02:30 Urine phencyclidine detection by screening method NEGATIVE NEGATIVE Urine benzodiazepines detection by screening method NEGATIVE NEGATIVE Urine cocaine detection NEGATIVE NEGATIVE Urine amphetamines detection by screening method NEGATIVE NEGATIVE Urine methamphetamine detection by screening method NEGATIVE NEGATIVE Urine cannabinoids detection by screening method NEGATIVE NEGATIVE Urine opiates detection by screening method NEGATIVE NEGATIVE Urine barbiturates detection NEGATIVE NEGATIVE Screening urine tricyclic antidepressants detection NEGATIVE NEGATIVE Urine methadone detection by screening method NEGATIVE NEGATIVE Urine oxycodone detection NEGATIVE NEGATIVE Urine propoxyphene detection NEGATIVE NEGATIVE Complete blood count (CBC) with automated white blood cell (WBC) differential - 03/26/17 05:00 Blood leukocytes automated count (number/volume) 11.1 10*3/uL 4.3-11.0 Blood erythrocytes automated count (number/volume) 4.02 10*6/uL 4.35-5.85 Venous blood hemoglobin measurement (mass/volume) 12.5 g/dL 13.3-17.7 Blood hematocrit (volume fraction) 37 % 40-54 Automated erythrocyte mean corpuscular volume 92 [foz_us] 80-99 Automated erythrocyte mean corpuscular hemoglobin (mass per erythrocyte) 31 pg 25-34 Automated erythrocyte mean corpuscular hemoglobin concentration measurement ( mass/volume) 34 g/dL 32-36 Automated erythrocyte distribution width ratio 13.1 % 10.0-14.5 Automated blood platelet count (count/volume) 229 10*3/uL 130-400 Automated blood platelet mean volume measurement 10.0 [foz_us] 7.4-10.4 Automated blood neutrophils/100 leukocytes 90 % 42-75 Automated blood lymphocytes/100 leukocytes 2 % 12-44 Blood monocytes/100 leukocytes 7 % 0-12 Automated blood eosinophils/100 leukocytes 0 % 0-10 Automated blood basophils/100 leukocytes 0 % 0-10 Blood neutrophils automated count (number/volume) 10.0 10*3 1.8-7.8 Blood lymphocytes automated count (number/volume) 0.3 10*3 1.0-4.0 Blood monocytes automated count (number/volume) 0.8 10*3 0.0-1.0 Automated eosinophil count 0.0 10*3/uL 0.0-0.3 Automated blood basophil count (count/volume) 0.0 10*3/uL 0.0-0.1 Whole blood basic metabolic panel - 03/26/17 05:00 Serum or plasma sodium measurement (moles/volume) 141 mmol/L 135-145 Serum or plasma potassium measurement (moles/volume) 3.7 mmol/L 3.6-5.0 Serum or plasma chloride measurement (moles/volume) 111 mmol/L 98-107 Carbon dioxide 23 mmol/L 21-32 Serum or plasma anion gap determination (moles/volume) 7 mmol/L 5-14 Serum or plasma urea nitrogen measurement (mass/volume) 16 mg/dL 7-18 Serum or plasma creatinine measurement (mass/volume) 0.89 mg/dL 0.60-1.30 Serum or plasma urea nitrogen/creatinine mass ratio 18 NRG Serum or plasma creatinine measurement with calculation of estimated glomerular filtration rate > NRG Serum or plasma glucose measurement (mass/volume) 112 mg/dL 70-105 Serum or plasma calcium measurement (mass/volume) 8.3 mg/dL 8.5-10.1 Serum or plasma phosphate measurement (mass/volume) - 03/26/17 05:00 Serum or plasma phosphate measurement (mass/volume) 2.8 mg/dL 2.3-4.7 Magnesium - 03/26/17 05:00 Magnesium 1.8 mg/dL 1.8-2.4 Lipase - 03/26/17 05:00 Lipase 75 U/L 8-78 Complete blood count (CBC) with automated white blood cell (WBC) differential - 03/27/17 05:31 Blood leukocytes automated count (number/volume) 5.7 10*3/uL 4.3-11.0 Blood erythrocytes automated count (number/volume) 3.74 10*6/uL 4.35-5.85 Venous blood hemoglobin measurement (mass/volume) 11.7 g/dL 13.3-17.7 Blood hematocrit (volume fraction) 35 % 40-54 Automated erythrocyte mean corpuscular volume 93 [foz_us] 80-99 Automated erythrocyte mean corpuscular hemoglobin (mass per erythrocyte) 31 pg 25-34 Automated erythrocyte mean corpuscular hemoglobin concentration measurement ( mass/volume) 34 g/dL 32-36 Automated erythrocyte distribution width ratio 13.3 % 10.0-14.5 Automated blood platelet count (count/volume) 202 10*3/uL 130-400 Automated blood platelet mean volume measurement 10.7 [foz_us] 7.4-10.4 Automated blood neutrophils/100 leukocytes 67 % 42-75 Automated blood lymphocytes/100 leukocytes 13 % 12-44 Blood monocytes/100 leukocytes 17 % 0-12 Automated blood eosinophils/100 leukocytes 3 % 0-10 Automated blood basophils/100 leukocytes 0 % 0-10 Blood neutrophils automated count (number/volume) 3.8 10*3 1.8-7.8 Blood lymphocytes automated count (number/volume) 0.7 10*3 1.0-4.0 Blood monocytes automated count (number/volume) 1.0 10*3 0.0-1.0 Automated eosinophil count 0.2 10*3/uL 0.0-0.3 Automated blood basophil count (count/volume) 0.0 10*3/uL 0.0-0.1 Whole blood basic metabolic panel - 03/27/17 05:31 Serum or plasma sodium measurement (moles/volume) 139 mmol/L 135-145 Serum or plasma potassium measurement (moles/volume) 3.3 mmol/L 3.6-5.0 Serum or plasma chloride measurement (moles/volume) 110 mmol/L 98-107 Carbon dioxide 22 mmol/L 21-32 Serum or plasma anion gap determination (moles/volume) 7 mmol/L 5-14 Serum or plasma urea nitrogen measurement (mass/volume) 10 mg/dL 7-18 Serum or plasma creatinine measurement (mass/volume) 0.83 mg/dL 0.60-1.30 Serum or plasma urea nitrogen/creatinine mass ratio 12 NRG Serum or plasma creatinine measurement with calculation of estimated glomerular filtration rate > NRG Serum or plasma glucose measurement (mass/volume) 100 mg/dL 70-105 Serum or plasma calcium measurement (mass/volume) 8.1 mg/dL 8.5-10.1 [id number] - 04/01/17 08:51 Serum or plasma urea nitrogen measurement (mass/volume) 16 mg/dL 7-18 Serum or plasma creatinine measurement (mass/volume) 0.91 mg/dL 0.60-1.30 Serum or plasma urea nitrogen/creatinine mass ratio 18 NRG Serum or plasma creatinine measurement with calculation of estimated glomerular filtration rate > NRG Automated blood complete blood count (hemogram) panel - 04/08/17 07:32 Blood leukocytes automated count (number/volume) 7.1 10*3/uL 4.3-11.0 Blood erythrocytes automated count (number/volume) 4.09 10*6/uL 4.35-5.85 Venous blood hemoglobin measurement (mass/volume) 12.6 g/dL 13.3-17.7 Blood hematocrit (volume fraction) 37 % 40-54 Automated erythrocyte mean corpuscular volume 91 [foz_us] 80-99 Automated erythrocyte mean corpuscular hemoglobin (mass per erythrocyte) 31 pg 25-34 Automated erythrocyte mean corpuscular hemoglobin concentration measurement ( mass/volume) 34 g/dL 32-36 Automated erythrocyte distribution width ratio 12.9 % 10.0-14.5 Automated blood platelet count (count/volume) 278 10*3/uL 130-400 Automated blood platelet mean volume measurement 9.7 [foz_us] 7.4-10.4 PT panel in platelet poor plasma by coagulation assay - 04/08/17 07:32 Prothrombin time (PT) in platelet poor plasma by coagulation assay 12.9 s 12.2-14.7 INR in platelet poor plasma or blood by coagulation assay 1.0 0.8-1.4 Activated partial thromboplastin time (aPTT) in platelet poor plasma bycoagulation assay - 04/08/17 07:32 Activated partial thromboplastin time (aPTT) in platelet poor plasma bycoagulation assay 31 s 24-35 Complete blood count (CBC) with automated white blood cell (WBC) differential - 07/07/17 10:15 Blood leukocytes automated count (number/volume) 3.3 10*3/uL 4.3-11.0 Blood erythrocytes automated count (number/volume) 3.29 10*6/uL 4.35-5.85 Venous blood hemoglobin measurement (mass/volume) 10.4 g/dL 13.3-17.7 Blood hematocrit (volume fraction) 31 % 40-54 Automated erythrocyte mean corpuscular volume 93 [foz_us] 80-99 Automated erythrocyte mean corpuscular hemoglobin (mass per erythrocyte) 32 pg 25-34 Automated erythrocyte mean corpuscular hemoglobin concentration measurement ( mass/volume) 34 g/dL 32-36 Automated erythrocyte distribution width ratio 13.2 % 10.0-14.5 Automated blood platelet count (count/volume) 202 10*3/uL 130-400 Automated blood platelet mean volume measurement 9.2 [foz_us] 7.4-10.4 Automated blood neutrophils/100 leukocytes 60 % 42-75 Automated blood lymphocytes/100 leukocytes 32 % 12-44 Blood monocytes/100 leukocytes 6 % 0-12 Automated blood eosinophils/100 leukocytes 2 % 0-10 Automated blood basophils/100 leukocytes 0 % 0-10 Blood neutrophils automated count (number/volume) 2.0 10*3 1.8-7.8 Blood lymphocytes automated count (number/volume) 1.1 10*3 1.0-4.0 Blood monocytes automated count (number/volume) 0.2 10*3 0.0-1.0 Automated eosinophil count 0.1 10*3/uL 0.0-0.3 Automated blood basophil count (count/volume) 0.0 10*3/uL 0.0-0.1 Whole blood basic metabolic panel - 07/07/17 10:15 Serum or plasma sodium measurement (moles/volume) 139 mmol/L 135-145 Serum or plasma potassium measurement (moles/volume) 4.1 mmol/L 3.6-5.0 Serum or plasma chloride measurement (moles/volume) 106 mmol/L 98-107 Carbon dioxide 22 mmol/L 21-32 Serum or plasma anion gap determination (moles/volume) 11 mmol/L 5-14 Serum or plasma urea nitrogen measurement (mass/volume) 21 mg/dL 7-18 Serum or plasma creatinine measurement (mass/volume) 1.11 mg/dL 0.60-1.30 Serum or plasma urea nitrogen/creatinine mass ratio 19 NRG Serum or plasma creatinine measurement with calculation of estimated glomerular filtration rate > NRG Serum or plasma glucose measurement (mass/volume) 90 mg/dL 70-105 Serum or plasma calcium measurement (mass/volume) 8.7 mg/dL 8.5-10.1 Magnesium - 07/07/17 10:15 Magnesium 2.0 mg/dL 1.8-2.4 Encounters ACCT No. Visit Date/Time Discharge Status Pt. Type Provider Facility Loc./Unit Complaint [id number] 09/14/2017 11:56:00 09/14/2017 23:59:59 CLS Outpatient GORGE BARBOUR [facility] CARD C67.9 BLADDER CANCER [id number] 09/07/2017 09:00:00 09/14/2017 00:01:00 DIS Outpatient GORGE BARBOUR [facility] ONC [id number] 06/26/2017 07:52:00 06/26/2017 23:59:59 CLS Outpatient GORGE BARBOUR [facility] RAD C64.9 [id number] 04/08/2017 06:59:00 04/08/2017 14:00:00 DIS Outpatient KIKE CLAY MD [facility] RAD L KIDNEY LESION [id number] 04/01/2017 08:43:00 04/01/2017 23:59:59 CLS Outpatient KIKE CLAY MD [facility] RAD FLU ABNORMAL CT CHEST FROM KU [id number] 03/25/2017 23:00:00 03/27/2017 15:40:00 DIS Inpatient TANI TEJEDA DO [facility] 4TH L FLANK PAIN,SEPSIS,FEVER ,PANCREATITIS [id number] 02/09/2017 06:31:00 02/09/2017 09:37:00 DIS Emergency ROMAINE FALK, STEF Condon [facility] ER GROIN PAIN BACK PAIN [id number] 02/02/2017 08:32:00 02/02/2017 23:59:59 CLS Outpatient KIKE CLAY MD [facility] RAD ABNORMAL CT, L RENAL MASS [id number] 01/07/2017 08:29:00 01/07/2017 23:59:59 CLS Outpatient KIKE CLAY MD [facility] RAD RENAL MASS [id number] 12/27/2016 18:47:00 12/27/2016 20:42:00 DIS Emergency QIANA FALK, ABIMAEL Ramsey [facility] ER FALL FROM 12FT LADDER, DARK URINE, HIP PAIN [id number] 11/11/2016 07:27:00 11/11/2016 23:59:59 CLS Outpatient ALVA GOMEZ MD [facility] RAD HEMATURIA [id number] 07/27/2014 08:36:00 07/27/2014 23:59:59 CLS Outpatient KIKE CLAY MD [facility] RAD COUGH [id number] 10/11/2012 09:25:00 10/11/2012 23:59:59 CLS Outpatient LOLY BURT MD [facility] ONC [id number] 09/10/2012 08:02:00 09/23/2012 00:01:00 DIS Outpatient LOLY BURT MD [facility] ONC [id number] 2017 10:45:00 ACT Outpatient GORGE BARBOUR [facility] ONC [id number] 10/23/2015 07:13:00 Document Registration [id number] 05/05/2012 11:21:00 Document Registration [id number] 04/29/2012 12:22:00 Document Registration [id number] 07/28/2014 12:19:14 ACT Document Registration
[2017-09-18 06:45] VITALS: BP 134/83
[2017-09-18] MEDS: LACTATED RINGERS 1,000 ML IV PRN ×2 (07:15→09:30)
[2017-09-18] MEDS ORDERED: 0.9% SODIUM CHLORIDE PF INJ 20 ML VIAL IJ ONE (07:16)
[2017-09-18] MEDS ORDERED: HEParin (CENTRAL IV FLUSH) 500 UNIT/5 ML SYR IV ONE ×2 (07:16→11:45)
[2017-09-18] MEDS ORDERED: ceFAZolin 2 GM IV Premixed 50 ML IV ONE (07:30)
--- NOTE | 2017-09-18 08:17 | Progress Note-Pre Operative ---
Pre-Operative Progress Note H&P Reviewed The H&P was reviewed, patient examined and no changes noted. Time Seen by Provider: 08:10 Date H&P Reviewed: September 18, 2017 Time H&P Reviewed: 08:13 Pre-Operative Diagnosis: venous insufficiency, renal CA JARET MOSQUERA DO September 18, 2017 08:17
[2017-09-18] MEDS ORDERED: proPOfol 200 MG/20 ML (DIPRIVAN) VIAL IV ONE (08:18)
[2017-09-18] MEDS ORDERED: LIDOCAINE PF 2% 5 ML (XYLOCAINE) VIAL ONE (08:18)
[2017-09-18] MEDS ORDERED: fentaNYL INJECTION 100 MCG/2 ML AMP ONE (08:19)
[2017-09-18] MEDS ORDERED: MIDAZOLAM 2 MG/2 ML (VERSED) VIAL ONE (08:19)
[2017-09-18] MEDS ORDERED: LIDOCAINE/EPI 1%-1:200,000 (XYLOCAINE) 10 ML VIAL INJ ONE ×2 (08:34→11:45)
[2017-09-18] MEDS ORDERED: DEXAMETHASONE 10 MG/ML (DECADRON) 1 ML VIAL ONE (08:51)
[2017-09-18] MEDS ORDERED: ONDANSETRON 4 MG/2 ML (SDV) Z0FRAN ONE (08:51)
--- NOTE | 2017-09-18 09:01 | Progress Note-Post Operative ---
Post-Operative Progess Note Surgeon (s)/Meteorological Equipment Repairer (s) Surgeon JARET MOSQUERA DO Meteorological Equipment Repairer: none Pre-Operative Diagnosis venous insufficiency, renal CA Post-Operative Diagnosis same Procedure & Operative Findings Date of Procedure 09/18/17 Procedure Performed/Findings Insertion of [place] cath, R SC vein, R chest wall Anesthesia Type IV sedation by PSYCHOLOGY TEACHER Estimated Blood Loss Estimated blood loss (mL): scant Specimens/Packing Specimens Removed none JARET MOSQUERA DO September 18, 2017 09:01
--- NOTE | 2017-09-18 09:06 | Discharge Inst-Surgical ---
Discharge Inst-Surgical Depart Medication/Instructions New, Converted or Re-Newed RX: RX Given to Pt/Family Patient Instructions Follow up Appt: Make appointment for 1 week. Instructions: No lifting greater than 10 pounds. No strenuous activity. May shower in 24 hours, no tub bath or soaking. Use incentive spirometer at home as directed. No Smoking Skin/Wound Care: May remove bandages. You need to leave the Dermabond on over incision it will fall off on its own. Symptoms to Report: Appetite Changes, Extremity Discoloration, Numbness/Tingling, Swelling Increased , Bleeding Excessive, Eyesight Changes, Pain Increased, Urine Color Change, Constipation(Persistent), Fever over 101 degree F, Pain/Pressure in chest, Urinating Difficulty, Cough Up/Vomit Blood, Heart Beat Irreg/Pounding, Pain/ Pressure in jaw, Cramps in feet or legs, Lightheadedness, Pain/Pressure in shoulder, Diarrhea(Persistent), Memory Changes Suddenly, Questions/Concerns, Weight gain consecutive days, Dizziness/Fainting, Nausea/Vomiting, Shortness of Breath, Weight gain over 2 pounds If questions or concerns contact your physician Or seek help at emergency department. Activity Activity as Tolerated: Yes Driving Instructions: No Driving/Refer to Dr. Perez Discharge Diet: No Restrictions Diet After 24 Hours: Clear Liquid if Nauseous If Any Problems/Questions/Issu: Contact Your Physician, Go to Emergency Room Skin/Wound Care Infection Signs and Symptoms: Increased Redness, Foul Odor of Wound, Increased Drainage, Skin Itchy or Has a Rash, Increased Swelling, Temperature Above 101 F Stitches/Juadh/Dermabond Dis: JARET Munoz DO September 18, 2017 09:06
[2017-09-18] MEDS ORDERED: ACHD5005 PO (09:07)
[2017-09-18] MEDS ORDERED: ONDANSETRON 4 MG/2 ML (SDV) Z0FRAN IVP PRN (09:15)
[2017-09-18] MEDS ORDERED: morphine INJ 10 MG/ML 1ML (SYR OR VIAL) IVP PRN (09:15)
[2017-09-18] MEDS ORDERED: MEPERIDINE (DEMEROL) INJ 50 MG/ML IVP PRN (09:15)
[2017-09-18 09:35] VITALS: BP 140/78
[2017-09-18 10:05] VITALS: BP 141/83
[2017-09-18 10:35] VITALS: BP 137/82
--- NOTE | 2017-09-18 10:54 | Anesthesia-General Post-Op ---
MAC Patient Condition Mental Status/LOC: Same as Preop Cardiovascular: Satisfactory Nausea/Vomiting: Absent Respiratory: Satisfactory Pain: Controlled Complications: Absent Post Op Complications Complications None Follow Up Care/Instructions Patient Instructions None needed. Anesthesiology Discharge Order Discharge Order Patient is doing well, no complaints, stable vital signs, no apparent adverse anesthesia problems. No complications reported per nursing. LIA DOTSON CRNA September 18, 2017 10:54
[2017-09-18] MEDS ORDERED: 0.9% SODIUM CHLORIDE PF INJ 10 ML VIAL IV ONE (11:45)
--- NOTE | 2017-09-18 19:06 | OPERATIVE REPORT ---
DATE OF SERVICE: PREOPERATIVE DIAGNOSES: 1. Venous insufficiency. 2. Renal cancer. POSTOPERATIVE DIAGNOSES: 1. Venous insufficiency. 2. Renal cancer. PROCEDURE: Insertion of Port-A-Cath, left subclavian vein, left anterior chest wall with fluoroscopy guidance. SURGEON: Rene Ortiz DO. PET CARE ASSISTANT: None. ANESTHESIA: IV sedation with local lidocaine. BLOOD LOSS: Scant. FLUIDS: Per anesthesia. No specimens. POSTOPERATIVE CONDITION: Stable. INDICATION FOR PROCEDURE: The patient is a 62-year-old male who unfortunately has some renal cancer. He is getting chemotherapy they have been using some peripheral veins but now unable to get access to peripheral veins. He has venous insufficiency, will need long-term chemotherapy. FINDINGS: The patient had a Port-A-Cath placed in left anterior chest wall, left subclavian vein without difficulty with fluoroscopy guidance. PROCEDURE NOTE: After informed consent was obtained, the patient was brought to the operating room, placed on the table in supine position. He was sterilely prepped and draped in normal fashion. Local lidocaine was used to infiltrate the left clavicle as well as the left anterior chest wall and the patient was then placed slightly Trendelenburg, advanced the 18-gauge finder needle under negative inspiration and cannulated the subclavian vein on the first attempt, got a good flash of blood, removed the syringe and then placed a guidewire down the needle using Seldinger technique. Using fluoroscopy, able to guide it into the superior vena cava, removed the needle. I then made a stab incision at the guidewire using #11 blade and then made an incision in the left anterior chest wall using #11 blade, carried down through the skin into subcutaneous tissue, deepened down to subcutaneous tissue with Bovie electrocautery and then created a pocket with Bovie electrocautery as well as some blunt dissection. Next, over the guidewire, placed the dilating catheter, went in easily, checked fluoroscopy, it was in good position, placed a tunneling device and tunneled the catheter from this incision point to the pocket just created and then removed the inner portion of the dilator as well as the guidewire and placed the catheter using the Seldinger technique. Again, checked with fluoroscopy and was in good position, removed the inner wire from the catheter and then attached the catheter to the port and then held this in place with a locking mechanism, then checked with used a Hickman needle to access the port, got a good flash of blood and then flushed with saline and then aspirated. Again, good flash of blood and then flushed with 2 mL of heparin. Placed the port into the pocket previously created, sutured in place with a 3-0 Prolene suture. Checked with fluoroscopy. There were no kinks. It appeared to be in good position, catheter still looked to be like the superior vena cava and then closed the incision closing the subcutaneous tissue with 3-0 Vicryl, two interrupted sutures. I then closed the skin with 4-0 undyed Monocryl, three interrupted subcuticular stitches and closed the small stab incision with a single interrupted 4-0 undyed Monocryl subcuticular stitch. Area was cleaned and dried. Dermabond placed as well as dressing. The patient then transferred to recovery room in stable condition. Sponge, instrument and needle count correct at the end of the case. Job ID: [id number] DocumentID: [id number] Dictated Date: 09/18/2017 09:21:07 Computer Systems Auditor Date: 09/18/2017 19:05:23 Dictated By: DO NIVIA DAILY
--- NOTE | 2017-09-18 19:21 | Diagnostic Imaging Report ---
INDICATION: Power port placement. EXAMINATION: Fluoroscopy was performed for Dr. Ortiz for PowerPort placement. 25 seconds of fluoroscopy was utilized. FINDINGS: Two images demonstrate a left subclavian port. Tip appears to be overlying the upper SVC. IMPRESSION: Fluoroscopy for power port placement. Dictated by: Dictated on workstation # [id number]
== END 2017-09-18 11:05 | disposition home or self-care (01) ==
LOC: SDC 06:34
PROVIDERS: ATTEND Surgery
DX: C65.2 Malignant neoplasm of left renal pelvis (principal); C67.9 Malignant neoplasm of bladder, unspecified; C78.01 Secondary malignant neoplasm of right lung; I87.2 Venous insufficiency (chronic) (peripheral)
CPT/HCPCS: 87081

== ENCOUNTER 2017-10-18 07:01 | Emergency (ER) | payer BC ==
[~2017-10-18] VITALS: Ht 182.9 cm; Wt 86.2 kg
--- NOTE | 2017-10-18 08:11 | ED Lower Extremity ---
General Chief Complaint: Lower Extremity Stated Complaint: HURT ANKLE UNSURE HOW, NO FALL Nursing Triage Note: pt presents to ed with complaints of l foot and ankle pain. reports pain is worse at the arch and when getting out of bed in the morning. no known injury. Nursing Sepsis Screen: No Definite Risk Source: patient, family Exam Limitations: no limitations History of Present Illness Date Seen by Provider: Oct 18, 2017 Time Seen by Provider: 08:08 Initial Comments This 62-year-old white male presents with pain in the plantar surface of his left foot. He denies trauma to the area. The patient's pain is made worse by weightbearing. The patient denies redness or swelling. He has had some calf tenderness. He denies fever, chill, history of gout, or other joint pain. Patient is currently taking chemotherapy. Allergies and Home Medications Allergies Coded Allergies: No Known Drug Allergies (Unverified , 04/29/12) Home Medications Gluc [place]/Chondro [place] A/Vit C/Mn 1 Each Tablet, 1 TAB PO DAILY, (Reported) Hydrocodone Bit/Acetaminophen 1 Tab Tab, 1 TAB PO Q6H PRN Prescribed by: JARET MOSQUERA on 09/18/17 0907 Mv-Mn/FA/Lycopene/Lut/Hb#178 1 Each Tablet, 1 TAB PO DAILY, (Reported) Polyethylene Glycol 3350 17 Gm Powd.pack, 17 GM PO DAILY PRN Use once to three time daily so have having at least one soft bowel movement every day. Prescribed by: SUSHANT HOLMAN on 03/27/17 1037 Patient Home Medication List Home Medication List Reviewed: Yes Constitutional: No chills, No fever EENTM: no symptoms reported Respiratory: No cough, No short of breath Cardiovascular: No chest pain Gastrointestinal: No abdominal pain, No vomiting Genitourinary: no symptoms reported Musculoskeletal: see HPI, other (left foot pain) Skin: no symptoms reported Psychiatric/Neurological: No Symptoms Reported Past Mwweczk-Poogpb-Imighy Hx Past Med/Social Hx: Reviewed Nursing Past Med/Soc Hx Patient Social History Alcohol Use: Denies Use Recreational Drug Use: No Smoking Status: Never a Smoker 2nd Hand Smoke Exposure: No Recent Foreign Travel: No Contact w/Someone Who Travel: No Recent Infectious Disease Expo: No Recent Hopitalizations: Yes Physical Abuse: No Sexual Abuse: No Mistreated: No Fear: No Immunizations Up To Date Tetanus Booster (TDap): Unknown Date of Pneumonia Vaccine: Feb 15, 2014 Date of Influenza Vaccine: Feb 01, 2017 Seasonal Allergies Seasonal Allergies: No Past Medical History Surgeries: Yes (Back , Ing hernia, adenoid cystic carcinoma L mouth wall, l kidney removed) Gallbladder, Orthopedic Respiratory: No Cardiac: No Neurological: No Reproductive Disorders: No Sexually Transmitted Disease: No HIV/AIDS: No Genitourinary: Yes (l kidney removed) Kidney Stones Gastrointestinal: No (New DX pancreatitis) Gastroesophageal Reflux, Chronic Constipation, Pancreatitis, Gall Bladder Disease Musculoskeletal: Yes (BL inguinal hernia, ) Arthritis Endocrine: No HEENT: No Loss of Vision: Denies Cancer: Yes (L CHEEK) Skin, Kidney Did You Recieve Any Treatments: Yes What Type of Treatment Did You: Radiation Psychosocial: Yes Depression Nursing Suicide Risk Score: 0 Integumentary: No Blood Disorders: No Adverse Reaction/Blood Tranf: No Family Medical History FH: breast cancer 19 MOTHER FH: heart failure 19 FATHER FHx: prostate cancer 19 FATHER Myocardial infarction 19 FATHER Physical Exam Vital Signs Vital Signs - First Documented 10/18/17 07:49 Temp 97.6 Pulse 74 Resp 18 B/P (MAP) 162/95 (117) Pulse Ox 95 Capillary Refill : Less Than 3 Seconds General Appearance: WD/WN, mild distress HEENT: normal ENT inspection Neck: normal inspection Cardiovascular: normal peripheral pulses, regular rate, rhythm Respiratory: chest non-tender, lungs clear, normal breath sounds Gastrointestinal: normal bowel sounds, non tender, soft Legs: left leg other (there is tenderness without swelling of the left calf.) Feet: left foot other (there is tenderness palpation in the plantar surface of the left foot.) Neurologic/Tendon: normal sensation, normal motor functions, normal tendon functions Neurologic/Psychiatric: no motor/sensory deficits, alert, normal mood/affect Skin: normal color, warm/dry Progress/Results/Core Measures Results/Orders Lab Results Laboratory Tests Test 10/18/17 09:15 Range/Units White Blood Count 2.0 L 4.3-11.0 10^3/uL Red Blood Count 2.90 L 4.35-5.85 10^6/uL Hemoglobin 9.7 L 13.3-17.7 G/DL Hematocrit 28 L 40-54 % Mean Corpuscular Volume 97 80-99 FL Mean Corpuscular Hemoglobin 33 25-34 PG Mean Corpuscular Hemoglobin Concent 34 32-36 G/DL Red Cell Distribution Width 15.4 H 10.0-14.5 % Platelet Count 222 130-400 10^3/uL Mean Platelet Volume 9.0 7.4-10.4 FL Neutrophils (%) (Auto) 49 42-75 % Lymphocytes (%) (Auto) 42 12-44 % Monocytes (%) (Auto) 6 0-12 % Eosinophils (%) (Auto) 3 0-10 % Basophils (%) (Auto) 1 0-10 % Neutrophils # (Auto) 1.0 L 1.8-7.8 X 10^3 Lymphocytes # (Auto) 0.8 L 1.0-4.0 X 10^3 Monocytes # (Auto) 0.1 0.0-1.0 X 10^3 Eosinophils # (Auto) 0.1 0.0-0.3 10^3/uL Basophils # (Auto) 0.0 0.0-0.1 10^3/uL Sodium Level 139 135-145 MMOL/L Potassium Level 4.7 3.6-5.0 MMOL/L Chloride Level 109 H 98-107 MMOL/L Carbon Dioxide Level 23 21-32 MMOL/L Anion Gap 7 5-14 MMOL/L Blood Urea Nitrogen 26 H 7-18 MG/DL Creatinine 1.26 0.60-1.30 MG/DL Estimat Glomerular Filtration Rate 58 BUN/Creatinine Ratio 21 Glucose Level 107 H 70-105 MG/DL Uric Acid 4.2 2.6-7.2 MG/DL Calcium Level 9.2 8.5-10.1 MG/DL Total Bilirubin 0.2 0.1-1.0 MG/DL Aspartate Amino Transf (AST/SGOT) 18 5-34 U/L Alanine Aminotransferase (ALT/SGPT) 14 0-55 U/L Alkaline Phosphatase 71 40-136 U/L Total Protein 7.3 6.4-8.2 GM/DL Albumin 4.2 3.2-4.5 GM/DL My Orders Orders - KAITLYN AMES MD Foot, Left, 3 Views (10/18/17 08:05) Cbc With Automated Diff (10/18/17 08:05) Erythrocyte Sedimentation Rate (10/18/17 08:05) Uric Acid (10/18/17 08:05) Comprehensive Metabolic Panel (10/18/17 08:11) Us Venous Lower Ext Lt (10/18/17 08:05) Vital Signs/I&O 10/18/17 07:49 Temp 97.6 Pulse 74 Resp 18 B/P (MAP) 162/95 (117) Pulse Ox 95 Blood Pressure Mean: 117 Progress Progress Note : Time: 09:56 Progress Note The patient's ultrasound was negative. X-ray of the left foot was unremarkable. Departure Impression Primary Impression: Plantar fasciitis Disposition: 01 HOME, SELF-CARE Condition: Improved Departure-Patient Inst. Decision time for Depature: 09:56 Referrals: KIKE CLAY MD (PCP/Family) Primary Care Physician Patient Instructions: Heel Pain (Caused by Plantar Fasciitis) (DC), Plantar Fasciitis Exercises Add. Discharge Instructions: Vicodin for pain. Exercises for plantar fasciitis. Close follow-up with your doctor tomorrow. Return if any problems or questions. All discharge instructions reviewed with patient and/or family. Voiced understanding. KAITLYN AMES MD Oct 18, 2017 08:11
--- NOTE | 2017-10-18 08:31 | Diagnostic Imaging Report ---
EXAMINATION: Left foot radiographs, 3 views. COMPARISON: None. HISTORY: 62-year-old male, left foot and ankle pain. FINDINGS: There is no identified acute fracture or dislocation. There is no radiopaque foreign body. Joint spaces are well-preserved. There is no bone erosion. There is no identified ankle joint effusion. There is a very tiny calcaneal heel spur. IMPRESSION: 1. Very tiny calcaneal heel spur. 2. Additional radiographic evaluation of the left foot is unremarkable. Dictated by: Dictated on workstation # [id number]
[2017-10-18 09:29] LABS: BASOPHILS % (AUTO) 1 % (0-10); EOSINOPHILS # (AUTO) 0.1 10^3/uL (0.0-0.3); EOSINOPHILS % (AUTO) 3 % (0-10); HEMATOCRIT 28 % (40-54); HEMOGLOBIN 9.7 G/DL (13.3-17.7); LYMPHOCYTES # (AUTO) 0.8 X 10^3 (1.0-4.0); LYMPHOCYTES % (AUTO) 42 % (12-44); MEAN CORPUSCULAR HEMOGLOBIN 33 PG (25-34); MEAN CORPUSCULAR HGB CONC 34 G/DL (32-36); MEAN CORPUSCULAR VOLUME 97 FL (80-99); MONOCYTES # (AUTO) 0.1 X 10^3 (0.0-1.0); MONOCYTES % (AUTO) 6 % (0-12); NEUTROPHILS % (AUTO) 49 % (42-75); PLATELET COUNT 222 10^3/uL (130-400); RED CELL DISTRIBUTION WIDTH 15.4 % (10.0-14.5)
--- NOTE | 2017-10-18 09:29 | Diagnostic Imaging Report ---
PROCEDURE: US left lower extremity venous. TECHNIQUE: Multiple real-time grayscale images were obtained over the left lower extremity in various projections. Additional duplex Doppler and color Doppler images were also obtained. Indication: Left leg pain and swelling. Comparison: None. Technique: The left lower extremity deep venous system was interrogated from the common femoral vein through the popliteal vein. These images were assessed for grayscale appearance, color and spectral Doppler blood flow, compression, and augmentation. Findings: There is no evidence of intraluminal filling defect. Normal compression and augmentation is noted throughout. Soft tissues are unremarkable. Impression: 1. No sonographic evidence of deep venous thrombosis in the left lower extremity. Dictated by: Dictated on workstation # [id number]
[2017-10-18 09:50] LABS: ALBUMIN 4.2 GM/DL (3.2-4.5); BILIRUBIN,TOTAL 0.2 MG/DL (0.1-1.0); CALCIUM 9.2 MG/DL (8.5-10.1); CREATININE SERUM 1.26 MG/DL (0.60-1.30); POTASSIUM 4.7 MMOL/L (3.6-5.0); TOTAL PROTEIN 7.3 GM/DL (6.4-8.2); URIC ACID 4.2 MG/DL (2.6-7.2)
[2017-10-18 10:08] VITALS: BP 132/70
[2017-10-18 10:22] LABS: ERYTHROCYTE SEDIMENTATION RATE 56 MM/HR (0-30)
--- OUTSIDE RECORDS SUMMARY | 2017-10-18 16:09 | XMS REPORT | Clinical Summary ---
Author [facility] Address Unknown Phone Unavailable Care Team Providers Care Hospice Entrance Attendant Name Role Phone Emily Esparza MD Unavailable Nile Ramirez APRN Unavailable Unavailable Nile Pak PA-C Unavailable Elie Ryan MD PCP Source Comments Some departments are not documenting in the electronic medical record. If you do not see the information that you expected, contact Release of Information in the Health Information Management department at [phone] for further assistance in locating additional records.[facility] Allergies No Known Allergies Current Medications Prescription [...] 3-4 times 18 daily to reduce irritation. ciprofloxacin (CIPRO) 500 Take one tab twice daily 2 tablet 0 Active mg tabletIndications: for one day only 18 Malignant neoplasm of following procedure. urinary bladder, unspecified site (HCC) ciprofloxacin (CIPRO) 500 Take one tab twice daily 2 tablet 0 10/17/19 Discontin mg tabletIndications: for one day only 18 18 ued Malignant neoplasm of following procedure. 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 The patient's clinical course has been fairly [...] pathology over read by pathologist here at as well as radiological read by radiologist at . 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 Dysphagia 05/31/2012 Impacted cerumen of left ear 05/31/2012 Encounters Date Type Specialty Care Team Description 10/16/2017 Office Visit Oncology Rhett Vidales, Malignant neoplasm of urinary bladder, unspecified site (HCC) (Primary Dx) from Last 3 Months Family History Medical [...] Vital Sign Reading Time Taken Blood Pressure 144/83 10/16/2017 9:10 AM CDT Pulse 72 10/16/2017 9:10 AM CDT Temperature 36.8 C (98.3 F) 10/16/2017 9:10 AM CDT Respiratory Rate 18 10/16/2017 9:10 AM CDT Oxygen Saturation 99% 10/16/2017 9:10 AM CDT Inhaled Oxygen - - Concentration Weight 90.9 kg (200 lb 6.4 oz) 10/16/2017 9:10 AM CDT Height 174.5 cm (5' 8.7") 10/16/2017 9:10 AM CDT Body Mass Index 29.85 10/16/2017 9:10 AM CDT Plan of Treatment Health Maintenance Due Date Last Done Comments HEPATITIS C SCREENING 1954 PHYSICAL (COMPREHENSIVE) 1961 EXAM PERTUSSIS VACCINE 1965 HIV SCREENING 1969 TETANUS VACCINE 09/17/1971 COLORECTAL CANCER 2004 SCREENING INFLUENZA VACCINE 02/01/2018 01/20/2014, 02/06/2012, 02/12/2011, Additional history exists SHINGLES VACCINE Completed 01/20/2014 Procedures Procedure Name Priority Date/Time Associated Diagnosis Comments [place] CYSTOURETHROSCOPY Routine 10/16/2017 Malignant neoplasm of Results for this 9:15 AM CDT urinary bladder, procedure are in the unspecified site (HCC) results section. 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 The patient was patient was placed in the lithotomy position. Two percent lidocaine jelly was administered into the urethral for local anesthesia. The genital area was prepped and draped in the normal sterile fashion. A flexible cystoscope was advanced into the patient's urethra and then into the bladder. The bladder was systematically examined and visualized in its entirety. The left ureteral orifice was surgically absent the right was normal in appearance and location. No evidence of any tumors was seen. The scope was retroflexed and the anterior bladder and bladder neck inspected. Again, no evidence of any tumors was seen. The scope was then removed. The patient tolerated the procedure well. He was given antibiotics to cover the instrumentation. He was discharged from the clinic in stable condition. from Last 3 Months
--- OUTSIDE RECORDS SUMMARY | 2017-10-18 16:10 | XMS REPORT | Continuity of Care Document ---
Author Author [facility] Organization [facility] Address Unknown Phone Unavailable Allergies Active Description Code Type Severity Reaction Onset Reported/Identified Relationship to Patient Clinical Status Yes No Known Drug Allergies [id number] Drug Allergy Unknown N/A 04/29/2012 Medications There [...] OF 06/22/2017 GORGE BARBOUR Ot Z79.899 OTHER WOOD HEEL FLAP TRIMMER (CURRENT) DRUG THERAPY 06/22/2017 GORGE BARBOUR Ot Z85.828 PERSONAL HISTORY OF OTHER MALIGNANT NEOP 06/22/2017 GORGE BARBOUR Ot 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 ABSENCE OF KIDNEY 06/24/2017 GORGE BARBOUR Ot C64.2 MALIGNANT NEOPLASM OF LEFT KIDNEY, EXCEP 06/24/2017 GORGE BARBOUR Ot 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 06/24/2017 GORGE BARBOUR Ot Z79.899 OTHER INTERMEDIATE (CURRENT) DRUG THERAPY 06/24/2017 GORGE BARBOUR N [...] OF 06/26/2017 GORGE BARBOUR Ot Z79.899 OTHER WOOD HEEL FLAP TRIMMER (CURRENT) DRUG THERAPY 06/26/2017 GORGE BARBOUR Ot [...] 06/29/2017 GORGE BARBOUR Francheska Ot Z79.899 OTHER INTERMEDIATE (CURRENT) DRUG THERAPY 06/29/2017 GORGE BARBOUR N [...] 06/30/2017 GORGE BARBOUR N Ot Z79.899 OTHER INTERMEDIATE (CURRENT) DRUG THERAPY 06/30/2017 GORGE BARBOUR N [...] PERSONAL HISTORY OF OTHER MALIGNANT NEOP 07/13/2017 ANGLEGORGE N Ot Z90.49 ACQUIRED ABSENCE OF [...] 07/17/2017 ANGLEGORGE JO N Ot Z79.899 OTHER WOOD HEEL FLAP TRIMMER (CURRENT) DRUG THERAPY 07/17/2017 GORGE BARBOUR N [...] 08/03/2017 GORGE BARBOUR N Ot Z79.899 OTHER WOOD HEEL FLAP TRIMMER (CURRENT) DRUG THERAPY 08/03/2017 GORGE BARBOUR N Ot Z85.828 PERSONAL HISTORY OF OTHER MALIGNANT NEOP 08/03/2017 GORGE BARBOUR N Ot 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 ABSENCE OF KIDNEY 09/14/2017 GORGE BARBOUR N Ot C64.2 MALIGNANT NEOPLASM OF LEFT KIDNEY, EXCEP 09/14/2017 ANGLEGORGE JO N Ot 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 09/14/2017 ANGLEGORGE JO N Ot Z79.899 OTHER WOOD HEEL FLAP TRIMMER (CURRENT) DRUG THERAPY 09/14/2017 GORGE BARBOUR N Ot Z85.828 PERSONAL HISTORY OF OTHER MALIGNANT NEOP 09/14/2017 ANGLEGORGE N Ot 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 ABSENCE OF KIDNEY 09/15/2017 ANGLEGORGE N Ot C67.9 MALIGNANT NEOPLASM OF BLADDER, UNSPECIFI 09/15/2017 GORGE BARBOUR Francheska Ot R59.1 GENERALIZED ENLARGED LYMPH NODES 09/15/2017 GORGE BARBOUR Francheska Ot R91.8 OTHER NONSPECIFIC ABNORMAL FINDING OF NINOSKA 2017 GORGE BARBOUR Francheska Ot C64.2 MALIGNANT NEOPLASM OF LEFT KIDNEY, EXCEP 2017 GORGE BARBOUR Francheska Ot 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 2017 GORGE BARBOUR Francheska Ot Z51.11 ENCOUNTER FOR ANTINEOPLASTIC CHEMOTHERAP 2017 GORGE BARBOUR N Ot Z79.899 OTHER WOOD HEEL FLAP TRIMMER (CURRENT) DRUG THERAPY 2017 GORGE BARBOUR Francheska Ot Z85.828 PERSONAL HISTORY OF OTHER MALIGNANT NEOP 2017 GORGE BARBOUR Francheska Ot 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 ABSENCE OF KIDNEY 09/17/2017 GORGE BARBOUR Francheska Ot C64.2 MALIGNANT NEOPLASM OF LEFT KIDNEY, EXCEP 09/17/2017 GORGE BARBOUR Francheska Ot 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 09/17/2017 GORGE BARBOUR N Ot Z79.899 OTHER INTERMEDIATE (CURRENT) DRUG THERAPY 09/17/2017 GORGE BARBOUR Francheska Ot Z85.828 PERSONAL HISTORY OF OTHER MALIGNANT NEOP 09/17/2017 GORGE BARBOUR Francheska Ot 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 ABSENCE OF KIDNEY 09/18/2017 DELMAN DO, JARET B Ot 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 09/18/2017 DELKRISTINA DO, JARET B Ot C67.9 MALIGNANT NEOPLASM OF BLADDER, UNSPECIFI 09/18/2017 DELMAN DO, JARET B Ot 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 09/18/2017 DELMAN DO, JARET B Ot I87.2 VENOUS INSUFFICIENCY (CHRONIC) (PERIPHER 09/21/2017 GORGE BARBOUR Francheska Ot C64.2 MALIGNANT NEOPLASM OF LEFT KIDNEY, EXCEP 09/21/2017 GORGE BARBOUR Francheska Ot 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 09/21/2017 GORGE BARBOUR Francheska Ot Z79.899 OTHER WOOD HEEL FLAP TRIMMER (CURRENT) DRUG THERAPY 09/21/2017 ANGLE JIMYKAREN Francheska Ot Z85.828 PERSONAL HISTORY OF OTHER MALIGNANT NEOP 09/21/2017 GORGE BARBOUR Francheska Ot 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 ABSENCE OF KIDNEY 09/22/2017 DEMETRI DO, JARET B Ot 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 09/22/2017 DEMETRI RAZO, JARET B Ot C67.9 MALIGNANT NEOPLASM OF BLADDER, UNSPECIFI 09/22/2017 DEMETRI DO, JARET B Ot 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 09/22/2017 DEMETRI RAZO, JARET B Ot I87.2 VENOUS INSUFFICIENCY (CHRONIC) (PERIPHER 09/24/2017 GORGE BARBOUR Francheska Ot C67.9 MALIGNANT NEOPLASM OF BLADDER, UNSPECIFI 09/24/2017 GORGE BARBOUR Francheska Ot R59.1 GENERALIZED ENLARGED LYMPH NODES 09/24/2017 GORGE BARBOUR Francheska Ot R91.8 OTHER NONSPECIFIC ABNORMAL FINDING OF NINOSKA 09/30/2017 GORGE BARBOUR Francheska Ot C67.9 MALIGNANT NEOPLASM OF BLADDER, UNSPECIFI 09/30/2017 GORGE BARBOUR Francheska Ot R59.1 GENERALIZED ENLARGED LYMPH NODES 09/30/2017 ANGLEGORGE JO Francheska Ot R91.8 OTHER NONSPECIFIC ABNORMAL FINDING OF NINOSKA Procedures Code Description Performed By Performed On [id number] EXCISION OF RECTUM, ENDO, DIAGN 03/27/2017 Results [...] erythrocyte count by microscopy (number/high power field) [facility] Automated urine sediment leukocyte count by microscopy [...] erythrocyte count by microscopy (number/high power field) [facility] Automated urine sediment leukocyte count by microscopy [...] NRG Manual blood basophils/100 leukocytes 0 % NRG Blood erythrocyte morphology finding identification NORMAL NRG [...] plasma calcium measurement (mass/volume) 8.1 mg/dL 8.5-10.1 [id number] - 04/01/17 08:51 Serum or plasma urea [...] - 07/07/17 10:15 Magnesium 2.0 mg/dL 1.8-2.4 Methicillin resistant Staphylococcus aureus (MRSA) screening culture - 06:54 Methicillin resistant Staphylococcus aureus (MRSA) screening culture NEG NRG Encounters ACCT No. Visit Date/Time Discharge Status Pt. Type Provider Facility Loc./Unit Complaint [id number] 10/05/2017 08:57:00 10/05/2017 23:59:59 CLS Outpatient GORGE BARBOUR N [facility] ONC [id number] 09/18/2017 06:34:00 09/18/2017 11:05:00 DIS Outpatient JARET MOSQUERA DO [facility] SDC KIDNEY CANCER [id number] 09/14/2017 11:56:00 09/14/2017 23:59:59 CLS Outpatient GORGE BARBOUR [facility] CARD C67.9 BLADDER CANCER [id number] 09/07/2017 09:00:00 09/14/2017 00:01:00 DIS Outpatient GORGE BARBOUR [facility] ONC [id number] 06/26/2017 07:52:00 06/26/2017 23:59:59 CLS Outpatient GORGE BARBOUR [facility] RAD C64.9 [id number] 04/08/2017 06:59:00 04/08/2017 14:00:00 DIS Outpatient KIKE CLAY MD [facility] RAD L KIDNEY LESION [id number] 04/01/2017 08:43:00 04/01/2017 23:59:59 CLS Outpatient KIKE CLAY MD [facility] RAD FLU ABNORMAL CT CHEST FROM KU [id number] 03/25/2017 23:00:00 03/27/2017 15:40:00 DIS Inpatient TANI TEJEDA DO [facility] 4TH L FLANK PAIN,SEPSIS,FEVER ,PANCREATITIS [id number] 02/09/2017 06:31:00 02/09/2017 09:37:00 DIS Emergency STEF GAVIN MD [facility] ER GROIN PAIN BACK PAIN [id number] 02/02/2017 08:32:00 02/02/2017 23:59:59 CLS Outpatient KIKE CLAY MD [facility] RAD ABNORMAL CT, L RENAL MASS [id number] 01/07/2017 08:29:00 01/07/2017 23:59:59 CLS Outpatient KIKE CLAY MD [facility] RAD RENAL MASS [id number] 12/27/2016 18:47:00 12/27/2016 20:42:00 DIS Emergency QIANA FALK, ABIMAEL Ramsey [facility] ER FALL FROM 12FT LADDER, DARK URINE, HIP PAIN [id number] 11/11/2016 07:27:00 11/11/2016 23:59:59 CLS Outpatient ALVA GOMEZ MD [facility] RAD HEMATURIA [id number] 07/27/2014 08:36:00 07/27/2014 23:59:59 CLS Outpatient KIKE CLAY MD [facility] RAD COUGH [id number] 10/11/2012 09:25:00 10/11/2012 23:59:59 CLS Outpatient LOLY BURT MD [facility] ONC [id number] 09/10/2012 08:02:00 09/23/2012 00:01:00 DIS Outpatient LOLY BURT MD [facility] ONC [id number] 10/23/2015 07:13:00 Document Registration [id number] 05/05/2012 11:21:00 Document Registration [id number] 04/29/2012 12:22:00 Document Registration [id number] 07/28/2014 12:19:14 ACT Document Registration
--- OUTSIDE RECORDS SUMMARY | 2017-10-18 16:10 | XMS REPORT | Encounter Summary ---
Author Author [facility] Organization [facility] Address Unknown Phone Unavailable Care Team Providers Care Manager [employer] Name Role Phone Emily Esparza MD Unavailable Nile Ramirez APRN Unavailable Unavailable Nile Pak PA-C Unavailable Elie Ryan MD PCP Reason for Visit * Reason Comments Heme/Onc Care Encounter Details Date Type Department Care Team Description 10/16/2017 Office Visit [facility] Rhett Vidales, Malignant neoplasm of [facility] Exam urinary bladder, [address] unspecified site (HCC) [place] [address] [address] (Primary Dx) [phone] [place] [address] [phone] Social History Tobacco Use Types Packs/Day Years [...] Mass Index 29.85 10/16/2017 9:10 AM CDT in this encounter Functional Status Functional Status Response Date of Assessment Does the patient have a hearing impairment: No 05/28/2017 Does the patient have a visual impairment: No 05/28/2017 Does the patient have impaired ambulation: No 05/28/2017 Does the patient have an activity of daily living No 05/28/2017 (ADL) impairment: Does the patient have an instrumental activity of No 05/28/2017 daily living (IADL) impairment: Cognitive Status Response Date of Assessment Does the patient have a cognitive impairment: No 05/28/2017 as of this encounter Progress Notes * Rhett Vidales MD - 10/16/2017 9:15 AM CDT Formatting of this note may be different from the original. Date of Service: 10/16/2017 Subjective: Carmelo Still is a 62 y.o. male. History of Present Illness Mr. Garcia is a 62-year-old white male with a history of an upper tract tumor status post left left laparoscopic nephroureterectomy for a PT4N1 urothelial cell carcinoma. This was performed in May 2017. He subsequently has been receiving chemotherapy with Dr. Woodward in [place]. He states that they have found several other areas on restaging CTs but these appear to be responding well to chemotherapy. Overall he reports he is doing well has had no bladder symptoms. He is here today for a cystoscopy. 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 Hernia of unspecified site of abdominal cavity without mention of obstruction or gangrene Herniated lumbar intervertebral disc Osteoarthritis Past Surgical History: Procedure Laterality Date CYSTOSCOPY N/A 05/26/2017 CYSTOSCOPY FLEXIBLE performed by [facility] NEPHRECTOMY Left 05/26/2017 NEPHROURETERECTOMY LAPAROSCOPY WITH OPEN BLADDER CUFF performed by [facility] HX BACK SURGERY lumbar HX CHOLECYSTECTOMY HX HERNIA REPAIR MOUTH BIOPSY tumor removed from the cheek Family History Problem Relation Age of Onset Cancer Mother breast Allergy-severe Paternal Grandfather Social History Social History Marital status: Spouse name: N/A Number of children: N/A Years of education: N/A Occupational History Not on file. Social History Main Topics Smoking status: Never Smoker Smokeless tobacco: Never Used Alcohol use No Drug use: No Sexual activity: Not on file Other Topics Concern Not on file Social History Narrative No narrative on file Review of Systems Constitutional: Positive for fatigue. Negative for chills and fever. HENT: Negative for hearing loss. Eyes: Negative for visual disturbance. Respiratory: Negative for shortness of breath. Cardiovascular: Negative for chest pain and leg swelling. Gastrointestinal: Negative for abdominal pain. Genitourinary: See HPI Musculoskeletal: Negative for back pain. Skin: Negative for rash. Neurological: Negative for weakness. Psychiatric/Behavioral: Negative for confusion. Objective: bacitracin 500 unit/g topical ointment Small amount to head of penis/ catheter 3-4 times daily to reduce irritation. glucosamine(+) 500 mg tab Take 500 mg by mouth daily as needed. hyoscyamine (ANASPAZ; NULEV; SYMAX FASTABS; HYOMAX-FT; ED-SPAZ; OSCIMIN) 0.[address] tablet [address] 1 tablet under tongue every 4 hours as needed. Bladder spasms oxybutynin chloride (DITROPAN) 5 mg tablet Take 1 tablet by mouth three times daily as needed. Bladder spasms oxyCODONE (ROXICODONE, OXY-IR) 5 mg tablet Take 1-3 tablets by mouth every 3 hours as needed. polyethylene glycol 3350 (MIRALAX) 17 g packet Take 1 packet by mouth daily. senna/docusate (SENOKOT-S) 8.6/50 mg tablet Take 1 tablet by mouth twice daily. vitamins, multiple tablet Take 1 tablet by mouth daily. Vitals: 10/16/17 0910 BP: 144/83 Pulse: 72 Resp: 18 Temp: 36.8 C (98.3 F) TempSrc: Oral SpO2: 99% Weight: 90.9 kg (200 lb 6.4 oz) Height: 174.5 cm (68.7") Body mass index is 29.85 kg/m. Pain Score: Zero ECOG performance status is 0, Fully active, able to carry on all pre-disease performance without restriction. Physical Exam Constitutional: He is oriented to person, place, and time. He appears well- developed and well-nourished. HENT: Head: Normocephalic. Eyes: Right eye exhibits no discharge. Left eye exhibits no discharge. Neck: Normal range of motion. Cardiovascular: Normal rate. Pulmonary/Chest: Effort normal. No respiratory distress. Abdominal: Soft. He exhibits no distension. There is no tenderness. Well healed lower midline incision Musculoskeletal: He exhibits no edema. Neurological: He is alert and oriented to person, place, and time. Skin: Skin is warm. No rash noted. Psychiatric: He has a normal mood and affect. Cysto MARIEL Assessment and Plan: 1. History of a PT for N1 urothelial cell carcinoma of the left upper tract status post left nephroureterectomy. Currently receiving chemotherapy no evidence of recurrence in the bladder today. Follow-up in 3 months for repeat cystoscopy. in this encounter Procedure Notes * Rhett Vidales MD - 10/16/2017 9:15 AM CDT Associated Order(s): CYSTOSCOPY Procedure(s): MD CYSTOURETHROSCOPY Pre-Procedure Diagnose(s): Malignant neoplasm of urinary bladder, unspecified site (HCC) Date : 10/16/2017 Surgeon: Rhett Vidales MD, [facility] Preoperative Diagnosis: ureteral cancer Postoperative Diagnosis: ureteral [...] discharged from the clinic in stable condition. in this encounter Plan of Treatment Not on fileas of this encounter Procedures Procedure Name Priority Date/Time Associated Diagnosis Comments MD CYSTOURETHROSCOPY Routine 10/16/2017 Malignant neoplasm of Results for this 9:15 AM CDT urinary bladder, procedure are in the unspecified site (HCC) results section. in this encounter Results * CYSTOSCOPY (10/16/2017 9:15 AM) Specimen Performing Laboratory OTHER OUTSIDE LAB Narrative Rhett Vidales MD 10/16/20179:36 AM Date : 10/16/2017 Surgeon: Rhett Vidales MD, FACS Preoperative Diagnosis: ureteral cancer Postoperative Diagnosis: ureteral [...] discharged from the clinic in stable condition. in this encounter Visit Diagnoses Diagnosis Malignant neoplasm of urinary bladder, unspecified site (HCC) - Primary
== END 2017-10-18 10:07 | disposition home or self-care (01) ==
LOC: EDUNIT# 07:01 → ER 07:03
DX: M72.2 Plantar fascial fibromatosis (principal); C44.319 Basal cell carcinoma of skin of other parts of face; K21.9 Gastro-esophageal reflux disease without esophagitis; F32.9 Major depressive disorder, single episode, unspecified; Z87.442 Personal history of urinary calculi; Z98.890 Other specified postprocedural states; Z87.19 Personal history of other diseases of the digestive system; Z90.5 Acquired absence of kidney; Z85.528 Personal history of other malignant neoplasm of kidney; Z92.3 Personal history of irradiation
CPT/HCPCS: 36415; 73630; 80053; 84550; 85025; 85652

== ENCOUNTER → 2017-12-10 | Outpatient (CLI) | payer BC ==
[~2017-12-10] MED LIST changes: +BARIUM SUSPENSION 2.1% (VANILLA SILQ) 450 ML PO ONE; +CATHETER FLUSH 10 ML SYR IV PRN; +GADOBUTROL 10 MMOL/10 ML (GADAVIST) VIAL IV ONE; +IOHEXOL 350 MG/ML 100 ML (OMNIPAQUE 350) VIAL IV ONE; +NS 250 ML (IVPB) BAG IV ONE
--- NOTE | 2017-12-10 11:49 | Diagnostic Imaging Report ---
PROCEDURE: CT chest, abdomen, and pelvis with contrast. TECHNIQUE: Multiple contiguous axial images were obtained through the chest, abdomen, and pelvis after the administration of intravenous contrast. 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 Study is performed for restaging. Comparison is made with prior CT from 09/14/2017. CT chest: A left chest wall port is in place with tip at the SVC right atrial junction. No axillary lymphadenopathy is identified. No hilar or mediastinal lymphadenopathy is seen. No pericardial or pleural fluid is identified. Tiny cavitary lesion superior segment right lower lobe is stable at 7 mm. Subpleural nodule right upper lobe, image 24 is stable. Tiny nodular density posterior medial left lower lobe barely visible on today's study, previously measuring 6 mm. Nodule in the left lower lobe appears to be fairly stable 6 mm compared with 5 mm. Second nodule posterior to this in the left lower lobe is barely visible on today's study measuring 4 mm compared with 5 mm. No new pulmonary nodule is seen. No infiltrates are seen. IMPRESSION: Stable CT of the chest when compared study from 09/14/2017. No thoracic lymphadenopathy is seen. Pulmonary nodules appear to be stable and some of which are slightly smaller when compared with prior study. CT abdomen and pelvis: Hepatic low densities appear stable and again suggestive of cysts. Gallbladder is surgically absent. Pancreas and spleen are unremarkable. No adrenal mass is seen. Left kidney is surgically absent. Right kidney is unremarkable. Aorta is nonaneurysmal. Central retroperitoneal lymph nodes previously noted continue to showed decrease in size and are barely visible on today's study. No new retroperitoneal adenopathy is seen. No mesenteric lymphadenopathy is seen. Small and large bowel loops are normal caliber. There is no ascites. Bladder and prostate are unremarkable. No inguinal or iliac lymphadenopathy is seen. Bony structures are nonacute. IMPRESSION: Continued improved appearance of the abdomen with decrease in size of previously noted prominent central retroperitoneal lymph nodes. Lymph nodes are now barely visible on today's study. No new abnormality is seen. Dictated by: Dictated on workstation # [id number]
--- NOTE | 2017-12-10 15:11 | Diagnostic Imaging Report ---
INDICATION: Salivary gland carcinoma. TECHNIQUE: Patient was administered 27.2 mCi of technetium-99m MDP intravenously, and whole-body imaging was performed after a three-hour delay. COMPARISON: Comparison is made with prior bone scan from 09/14/2017. FINDINGS: Normal uptake of activity by the axial and appendicular skeleton. There is uptake by the right kidney with excretion into the urinary bladder. The left kidney is surgically absent. No abnormal foci of tracer accumulation is seen to suggest osseous metastatic disease. IMPRESSION: No scintigraphic evidence of osseous metastatic disease. Dictated by: Dictated on workstation # [id number]
--- NOTE | 2017-12-10 16:36 | Diagnostic Imaging Report ---
PROCEDURE: MRI neck with and without contrast. TECHNIQUE: Multiplanar, multisequence MRI of the neck was performed with and without contrast. 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 COMPARISON: Exam correlated with outside soft tissue neck MRI performed on 12/26/2016. FINDINGS: There is volume loss in the left parotid gland, likely on a post-treatment basis within its anterior superficial pole. A T2 hyperintense cystic nodule measures today 10 mm, previously 12 mm, presumed lymphoepithelial cyst. Similar finding in the right parotid superficially is less than 1 cm and also slightly smaller. A surface marker placed at the site of treatment for previous neoplasm. No underlying mass or pathological distortion of the parenchymal elements found. No pathological-appearing cervical lymph nodes. No findings of osteonecrosis or myositis. No lymphadenopathy. Mucosal surfaces of the neck are unremarkable. No acute or suspicious finding. IMPRESSION: No findings of neoplastic recurrence, bone infarct, abscess, or adenopathy. Cystic nodule in superficial lobes of the parotids has decreased in size. No adverse development. Dictated by: Dictated on workstation # [id number]
== END ==
LOC: CARD 10:41
PROVIDERS: ATTEND Internal Medicine Hematology & Oncology
DX: Z01.89 Encounter for other specified special examinations (principal); C67.9 Malignant neoplasm of bladder, unspecified; C78.01 Secondary malignant neoplasm of right lung
CPT/HCPCS: 70543; 71260; 74177; 78306

== ENCOUNTER 2017-12-14 12:45 | Outpatient (RCR) | payer BC ==
[2017-09-16 12:25] LABS: BASOPHILS % (AUTO) 0 % (0-10); EOSINOPHILS # (AUTO) 0.1 10^3/uL (0.0-0.3); EOSINOPHILS % (AUTO) 2 % (0-10); HEMATOCRIT 31 % (40-54); HEMOGLOBIN 10.6 G/DL (13.3-17.7); LYMPHOCYTES # (AUTO) 1.1 X 10^3 (1.0-4.0); LYMPHOCYTES % (AUTO) 29 % (12-44); MEAN CORPUSCULAR HEMOGLOBIN 32 PG (25-34); MEAN CORPUSCULAR HGB CONC 34 G/DL (32-36); MEAN CORPUSCULAR VOLUME 95 FL (80-99); MEAN PLATELET VOLUME 9.1 FL (7.4-10.4); MONOCYTES % (AUTO) 26 % (0-12); NEUTROPHILS # (AUTO) 1.6 X 10^3 (1.8-7.8); NEUTROPHILS % (AUTO) 43 % (42-75); PLATELET COUNT 338 10^3/uL (130-400); RED BLOOD COUNT 3.32 10^6/uL (4.35-5.85); RED CELL DISTRIBUTION WIDTH 15.8 % (10.0-14.5); WHITE BLOOD COUNT 3.7 10^3/uL (4.3-11.0)
[2017-09-16 12:40] LABS: ALANINE AMINOTRANSFERASE 14 U/L (0-55); ALBUMIN 4.1 GM/DL (3.2-4.5); ALKALINE PHOSPHATASE 63 U/L (40-136); BILIRUBIN,TOTAL 0.3 MG/DL (0.1-1.0); BUN/CREATININE RATIO 14; CARBON DIOXIDE 22 MMOL/L (21-32); CHLORIDE 107 MMOL/L (98-107); CREATININE SERUM 1.21 MG/DL (0.60-1.30); GFR ESTIMATED > 60; GLUCOSE 81 MG/DL (70-105); MAGNESIUM 2.2 MG/DL (1.8-2.4); POTASSIUM 4.5 MMOL/L (3.6-5.0); SODIUM 139 MMOL/L (135-145); TOTAL PROTEIN 7.3 GM/DL (6.4-8.2)
[2017-09-21 09:21] LABS: BASOPHILS % (AUTO) 1 % (0-10); EOSINOPHILS # (AUTO) 0.1 10^3/uL (0.0-0.3); EOSINOPHILS % (AUTO) 2 % (0-10); HEMATOCRIT 32 % (40-54); HEMOGLOBIN 10.7 G/DL (13.3-17.7); LYMPHOCYTES # (AUTO) 0.8 X 10^3 (1.0-4.0); LYMPHOCYTES % (AUTO) 21 % (12-44); MEAN CORPUSCULAR HEMOGLOBIN 32 PG (25-34); MEAN CORPUSCULAR HGB CONC 34 G/DL (32-36); MEAN CORPUSCULAR VOLUME 95 FL (80-99); MONOCYTES % (AUTO) 28 % (0-12); NEUTROPHILS # (AUTO) 1.8 X 10^3 (1.8-7.8); NEUTROPHILS % (AUTO) 49 % (42-75); PLATELET COUNT 357 10^3/uL (130-400); RED BLOOD COUNT 3.33 10^6/uL (4.35-5.85); RED CELL DISTRIBUTION WIDTH 15.7 % (10.0-14.5); WHITE BLOOD COUNT 3.7 10^3/uL (4.3-11.0)
[2017-09-21 09:41] LABS: BILIRUBIN,TOTAL 0.4 MG/DL (0.1-1.0); CREATININE SERUM 1.4 MG/DL (0.60-1.30); MAGNESIUM 1.9 MG/DL (1.8-2.4); POTASSIUM 4.2 MMOL/L (3.6-5.0); TOTAL PROTEIN 7.1 GM/DL (6.4-8.2)
[2017-09-29 08:48] LABS: BASOPHILS % (AUTO) 0 % (0-10); EOSINOPHILS % (AUTO) 1 % (0-10); HEMATOCRIT 30 % (40-54); HEMOGLOBIN 10.2 G/DL (13.3-17.7); LYMPHOCYTES % (AUTO) 21 % (12-44); MEAN CORPUSCULAR HEMOGLOBIN 32 PG (25-34); MEAN CORPUSCULAR HGB CONC 34 G/DL (32-36); MEAN CORPUSCULAR VOLUME 95 FL (80-99); MEAN PLATELET VOLUME 9.5 FL (7.4-10.4); MONOCYTES # (AUTO) 0.7 X 10^3 (0.0-1.0); MONOCYTES % (AUTO) 13 % (0-12); NEUTROPHILS # (AUTO) 3.2 X 10^3 (1.8-7.8); NEUTROPHILS % (AUTO) 65 % (42-75); PLATELET COUNT 130 10^3/uL (130-400); RED BLOOD COUNT 3.16 10^6/uL (4.35-5.85); RED CELL DISTRIBUTION WIDTH 14.8 % (10.0-14.5)
[2017-09-29 09:17] LABS: CALCIUM 8.9 MG/DL (8.5-10.1); CREATININE SERUM 1.25 MG/DL (0.60-1.30); MAGNESIUM 2.1 MG/DL (1.8-2.4); POTASSIUM 4.3 MMOL/L (3.6-5.0)
[2017-10-05 09:13] LABS: BASOPHILS % (AUTO) 0 % (0-10); EOSINOPHILS % (AUTO) 1 % (0-10); HEMATOCRIT 29 % (40-54); HEMOGLOBIN 10.2 G/DL (13.3-17.7); LYMPHOCYTES # (AUTO) 0.8 X 10^3 (1.0-4.0); LYMPHOCYTES % (AUTO) 22 % (12-44); MEAN CORPUSCULAR HEMOGLOBIN 34 PG (25-34); MEAN CORPUSCULAR HGB CONC 35 G/DL (32-36); MEAN CORPUSCULAR VOLUME 96 FL (80-99); MONOCYTES # (AUTO) 0.1 X 10^3 (0.0-1.0); MONOCYTES % (AUTO) 3 % (0-12); NEUTROPHILS # (AUTO) 2.7 X 10^3 (1.8-7.8); NEUTROPHILS % (AUTO) 75 % (42-75); PLATELET COUNT 64 10^3/uL (130-400); RED BLOOD COUNT 3.04 10^6/uL (4.35-5.85); RED CELL DISTRIBUTION WIDTH 14.8 % (10.0-14.5); WHITE BLOOD COUNT 3.6 10^3/uL (4.3-11.0)
[2017-10-05 09:38] LABS: CALCIUM 9.3 MG/DL (8.5-10.1); CREATININE SERUM 1.31 MG/DL (0.60-1.30); POTASSIUM 4.8 MMOL/L (3.6-5.0)
[2017-10-12 09:14] LABS: BASOPHILS % (AUTO) 0 % (0-10); EOSINOPHILS # (AUTO) 0.1 10^3/uL (0.0-0.3); EOSINOPHILS % (AUTO) 2 % (0-10); HEMATOCRIT 31 % (40-54); HEMOGLOBIN 10.6 G/DL (13.3-17.7); LYMPHOCYTES # (AUTO) 0.8 X 10^3 (1.0-4.0); LYMPHOCYTES % (AUTO) 17 % (12-44); MEAN CORPUSCULAR HEMOGLOBIN 33 PG (25-34); MEAN CORPUSCULAR HGB CONC 34 G/DL (32-36); MEAN CORPUSCULAR VOLUME 96 FL (80-99); MEAN PLATELET VOLUME 9.3 FL (7.4-10.4); MONOCYTES # (AUTO) 0.8 X 10^3 (0.0-1.0); MONOCYTES % (AUTO) 16 % (0-12); NEUTROPHILS # (AUTO) 2.9 X 10^3 (1.8-7.8); NEUTROPHILS % (AUTO) 64 % (42-75); PLATELET COUNT 157 10^3/uL (130-400); RED BLOOD COUNT 3.26 10^6/uL (4.35-5.85); RED CELL DISTRIBUTION WIDTH 16.2 % (10.0-14.5); WHITE BLOOD COUNT 4.6 10^3/uL (4.3-11.0)
[2017-10-12 09:35] LABS: ALBUMIN 4.2 GM/DL (3.2-4.5); BILIRUBIN,TOTAL 0.4 MG/DL (0.1-1.0); CALCIUM 9.1 MG/DL (8.5-10.1); CREATININE SERUM 1.35 MG/DL (0.60-1.30); POTASSIUM 4.4 MMOL/L (3.6-5.0); TOTAL PROTEIN 7.4 GM/DL (6.4-8.2)
[2017-10-19 09:05] LABS: BASOPHILS % (AUTO) 0 % (0-10); EOSINOPHILS # (AUTO) 0.1 10^3/uL (0.0-0.3); EOSINOPHILS % (AUTO) 2 % (0-10); HEMATOCRIT 27 % (40-54); HEMOGLOBIN 9.5 G/DL (13.3-17.7); LYMPHOCYTES # (AUTO) 0.9 X 10^3 (1.0-4.0); LYMPHOCYTES % (AUTO) 31 % (12-44); MEAN CORPUSCULAR HEMOGLOBIN 34 PG (25-34); MEAN CORPUSCULAR HGB CONC 35 G/DL (32-36); MEAN CORPUSCULAR VOLUME 96 FL (80-99); MEAN PLATELET VOLUME 8.9 FL (7.4-10.4); MONOCYTES # (AUTO) 0.3 X 10^3 (0.0-1.0); MONOCYTES % (AUTO) 11 % (0-12); NEUTROPHILS # (AUTO) 1.5 X 10^3 (1.8-7.8); NEUTROPHILS % (AUTO) 55 % (42-75); PLATELET COUNT 192 10^3/uL (130-400); WHITE BLOOD COUNT 2.8 10^3/uL (4.3-11.0)
[2017-10-19 09:21] LABS: BUN/CREATININE RATIO 17; CALCIUM 8.9 MG/DL (8.5-10.1); CARBON DIOXIDE 21 MMOL/L (21-32); CHLORIDE 109 MMOL/L (98-107); CREATININE SERUM 1.21 MG/DL (0.60-1.30); GFR ESTIMATED > 60; GLUCOSE 105 MG/DL (70-105); MAGNESIUM 2.3 MG/DL (1.8-2.4); POTASSIUM 4.5 MMOL/L (3.6-5.0); SODIUM 138 MMOL/L (135-145)
[2017-10-26 11:42] LABS: BASOPHILS % (AUTO) 0 % (0-10); EOSINOPHILS % (AUTO) 1 % (0-10); HEMATOCRIT 26 % (40-54); HEMOGLOBIN 8.8 G/DL (13.3-17.7); LYMPHOCYTES # (AUTO) 0.9 X 10^3 (1.0-4.0); LYMPHOCYTES % (AUTO) 38 % (12-44); MEAN CORPUSCULAR HEMOGLOBIN 33 PG (25-34); MEAN CORPUSCULAR HGB CONC 34 G/DL (32-36); MEAN CORPUSCULAR VOLUME 97 FL (80-99); MEAN PLATELET VOLUME 8.9 FL (7.4-10.4); MONOCYTES # (AUTO) 0.3 X 10^3 (0.0-1.0); MONOCYTES % (AUTO) 11 % (0-12); NEUTROPHILS # (AUTO) 1.2 X 10^3 (1.8-7.8); NEUTROPHILS % (AUTO) 50 % (42-75); PLATELET COUNT 48 10^3/uL (130-400); RED BLOOD COUNT 2.67 10^6/uL (4.35-5.85); RED CELL DISTRIBUTION WIDTH 15.2 % (10.0-14.5); WHITE BLOOD COUNT 2.3 10^3/uL (4.3-11.0)
[2017-10-26 11:57] LABS: BUN/CREATININE RATIO 21; CALCIUM 8.9 MG/DL (8.5-10.1); CARBON DIOXIDE 20 MMOL/L (21-32); CHLORIDE 111 MMOL/L (98-107); CREATININE SERUM 1.21 MG/DL (0.60-1.30); GFR ESTIMATED > 60; GLUCOSE 97 MG/DL (70-105); MAGNESIUM 2.2 MG/DL (1.8-2.4); POTASSIUM 4.5 MMOL/L (3.6-5.0); SODIUM 139 MMOL/L (135-145)
[2017-11-02 09:36] LABS: BASOPHILS % (AUTO) 0 % (0-10); EOSINOPHILS % (AUTO) 1 % (0-10); HEMATOCRIT 27 % (40-54); HEMOGLOBIN 9.2 G/DL (13.3-17.7); LYMPHOCYTES # (AUTO) 0.7 X 10^3 (1.0-4.0); LYMPHOCYTES % (AUTO) 22 % (12-44); MEAN CORPUSCULAR HEMOGLOBIN 34 PG (25-34); MEAN CORPUSCULAR HGB CONC 34 G/DL (32-36); MEAN CORPUSCULAR VOLUME 99 FL (80-99); MEAN PLATELET VOLUME 8.7 FL (7.4-10.4); MONOCYTES # (AUTO) 0.7 X 10^3 (0.0-1.0); MONOCYTES % (AUTO) 23 % (0-12); NEUTROPHILS # (AUTO) 1.7 X 10^3 (1.8-7.8); NEUTROPHILS % (AUTO) 54 % (42-75); PLATELET COUNT 181 10^3/uL (130-400); RED BLOOD COUNT 2.72 10^6/uL (4.35-5.85); RED CELL DISTRIBUTION WIDTH 16.5 % (10.0-14.5); WHITE BLOOD COUNT 3.2 10^3/uL (4.3-11.0)
[2017-11-02 09:59] LABS: BILIRUBIN,TOTAL 0.3 MG/DL (0.1-1.0); CALCIUM 8.8 MG/DL (8.5-10.1); CREATININE SERUM 1.34 MG/DL (0.60-1.30); MAGNESIUM 1.9 MG/DL (1.8-2.4); POTASSIUM 4.3 MMOL/L (3.6-5.0); TOTAL PROTEIN 6.9 GM/DL (6.4-8.2)
[2017-11-09 09:13] LABS: BASOPHILS % (AUTO) 1 % (0-10); EOSINOPHILS % (AUTO) 1 % (0-10); HEMATOCRIT 27 % (40-54); LYMPHOCYTES # (AUTO) 0.8 X 10^3 (1.0-4.0); LYMPHOCYTES % (AUTO) 38 % (12-44); MEAN CORPUSCULAR HEMOGLOBIN 33 PG (25-34); MEAN CORPUSCULAR HGB CONC 34 G/DL (32-36); MEAN CORPUSCULAR VOLUME 99 FL (80-99); MEAN PLATELET VOLUME 8.5 FL (7.4-10.4); MONOCYTES # (AUTO) 0.3 X 10^3 (0.0-1.0); MONOCYTES % (AUTO) 13 % (0-12); NEUTROPHILS # (AUTO) 0.9 X 10^3 (1.8-7.8); NEUTROPHILS % (AUTO) 47 % (42-75); PLATELET COUNT 210 10^3/uL (130-400); RED CELL DISTRIBUTION WIDTH 15.6 % (10.0-14.5)
[2017-11-09 09:29] LABS: CALCIUM 8.9 MG/DL (8.5-10.1); CREATININE SERUM 1.37 MG/DL (0.60-1.30); MAGNESIUM 1.9 MG/DL (1.8-2.4); POTASSIUM 4.2 MMOL/L (3.6-5.0)
[2017-11-16 10:43] LABS: BASOPHILS % (AUTO) 1 % (0-10); EOSINOPHILS % (AUTO) 0 % (0-10); HEMATOCRIT 26 % (40-54); HEMOGLOBIN 9.1 G/DL (13.3-17.7); LYMPHOCYTES # (AUTO) 0.7 X 10^3 (1.0-4.0); LYMPHOCYTES % (AUTO) 42 % (12-44); MEAN CORPUSCULAR HEMOGLOBIN 34 PG (25-34); MEAN CORPUSCULAR HGB CONC 35 G/DL (32-36); MEAN CORPUSCULAR VOLUME 99 FL (80-99); MEAN PLATELET VOLUME 8.9 FL (7.4-10.4); MONOCYTES # (AUTO) 0.1 X 10^3 (0.0-1.0); MONOCYTES % (AUTO) 8 % (0-12); NEUTROPHILS # (AUTO) 0.9 X 10^3 (1.8-7.8); NEUTROPHILS % (AUTO) 50 % (42-75); PLATELET COUNT 46 10^3/uL (130-400); RED BLOOD COUNT 2.65 10^6/uL (4.35-5.85); RED CELL DISTRIBUTION WIDTH 15.6 % (10.0-14.5); WHITE BLOOD COUNT 1.8 10^3/uL (4.3-11.0)
[2017-11-16 11:07] LABS: CALCIUM 8.8 MG/DL (8.5-10.1); CREATININE SERUM 1.34 MG/DL (0.60-1.30); MAGNESIUM 2.3 MG/DL (1.8-2.4); POTASSIUM 4.3 MMOL/L (3.6-5.0)
[2017-11-23 10:33] LABS: BASOPHILS % (AUTO) 0 % (0-10); EOSINOPHILS % (AUTO) 1 % (0-10); HEMATOCRIT 27 % (40-54); HEMOGLOBIN 9.2 G/DL (13.3-17.7); LYMPHOCYTES # (AUTO) 0.8 X 10^3 (1.0-4.0); LYMPHOCYTES % (AUTO) 20 % (12-44); MEAN CORPUSCULAR HEMOGLOBIN 33 PG (25-34); MEAN CORPUSCULAR HGB CONC 34 G/DL (32-36); MEAN CORPUSCULAR VOLUME 99 FL (80-99); MEAN PLATELET VOLUME 8.8 FL (7.4-10.4); MONOCYTES # (AUTO) 0.8 X 10^3 (0.0-1.0); MONOCYTES % (AUTO) 20 % (0-12); NEUTROPHILS # (AUTO) 2.4 X 10^3 (1.8-7.8); NEUTROPHILS % (AUTO) 59 % (42-75); PLATELET COUNT 174 10^3/uL (130-400); RED BLOOD COUNT 2.76 10^6/uL (4.35-5.85); RED CELL DISTRIBUTION WIDTH 16.8 % (10.0-14.5)
[2017-11-23 10:58] LABS: ALBUMIN 4.1 GM/DL (3.2-4.5); BILIRUBIN,TOTAL 0.2 MG/DL (0.1-1.0); CALCIUM 8.9 MG/DL (8.5-10.1); CREATININE SERUM 1.34 MG/DL (0.60-1.30); MAGNESIUM 2.1 MG/DL (1.8-2.4); POTASSIUM 4.5 MMOL/L (3.6-5.0)
[2017-11-30 09:14] LABS: BASOPHILS % (AUTO) 1 % (0-10); EOSINOPHILS % (AUTO) 1 % (0-10); HEMATOCRIT 27 % (40-54); HEMOGLOBIN 9.3 G/DL (13.3-17.7); LYMPHOCYTES # (AUTO) 0.8 X 10^3 (1.0-4.0); LYMPHOCYTES % (AUTO) 40 % (12-44); MEAN CORPUSCULAR HEMOGLOBIN 35 PG (25-34); MEAN CORPUSCULAR HGB CONC 35 G/DL (32-36); MEAN CORPUSCULAR VOLUME 100 FL (80-99); MEAN PLATELET VOLUME 9.1 FL (7.4-10.4); MONOCYTES # (AUTO) 0.2 X 10^3 (0.0-1.0); MONOCYTES % (AUTO) 12 % (0-12); NEUTROPHILS # (AUTO) 0.9 X 10^3 (1.8-7.8); NEUTROPHILS % (AUTO) 46 % (42-75); PLATELET COUNT 204 10^3/uL (130-400); RED BLOOD COUNT 2.67 10^6/uL (4.35-5.85); RED CELL DISTRIBUTION WIDTH 15.5 % (10.0-14.5); WHITE BLOOD COUNT 1.9 10^3/uL (4.3-11.0)
[2017-11-30 09:35] LABS: CALCIUM 9.1 MG/DL (8.5-10.1); CREATININE SERUM 1.31 MG/DL (0.60-1.30); MAGNESIUM 1.9 MG/DL (1.8-2.4); POTASSIUM 4.2 MMOL/L (3.6-5.0)
[2017-12-07 09:13] LABS: BASOPHILS % (AUTO) 0 % (0-10); EOSINOPHILS # (AUTO) 0.1 10^3/uL (0.0-0.3); EOSINOPHILS % (AUTO) 1 % (0-10); HEMATOCRIT 29 % (40-54); LYMPHOCYTES # (AUTO) 0.9 X 10^3 (1.0-4.0); LYMPHOCYTES % (AUTO) 20 % (12-44); MEAN CORPUSCULAR HEMOGLOBIN 34 PG (25-34); MEAN CORPUSCULAR HGB CONC 34 G/DL (32-36); MEAN CORPUSCULAR VOLUME 101 FL (80-99); MEAN PLATELET VOLUME 9.7 FL (7.4-10.4); MONOCYTES # (AUTO) 0.8 X 10^3 (0.0-1.0); MONOCYTES % (AUTO) 16 % (0-12); NEUTROPHILS % (AUTO) 63 % (42-75); PLATELET COUNT 136 10^3/uL (130-400); RED CELL DISTRIBUTION WIDTH 16.4 % (10.0-14.5); WHITE BLOOD COUNT 4.7 10^3/uL (4.3-11.0)
[2017-12-07 09:37] LABS: CALCIUM 9.1 MG/DL (8.5-10.1); CREATININE SERUM 1.36 MG/DL (0.60-1.30); MAGNESIUM 2.1 MG/DL (1.8-2.4); POTASSIUM 4.4 MMOL/L (3.6-5.0)
[~2017-12-14] VITALS: Ht 172.7 cm; Wt 92.5 kg
[~2017-12-14 12:45] MED LIST changes: +ALTEPLASE 2 MG (CATHFLO) CANCER CENTER IV ONE; -BARIUM SUSPENSION 2.1% (VANILLA SILQ) 450 ML PO ONE; -CATHETER FLUSH 10 ML SYR IV PRN; +CISPLATIN IV SCH; +FOSAPREPITANT DIMEGLUMINE 150 MG in NS (IVPB) CANCER CENTER ONLY 150 ML IV SCH; -GADOBUTROL 10 MMOL/10 ML (GADAVIST) VIAL IV ONE; +GEMCITABINE HCL (GENERIC) 1,000 MG, GEMCITABINE HCL (GENERIC) 300 MG in NS (IVPB) CANCE... IV SCH; +GEMCITABINE HCL (GENERIC) 1,000 MG, GEMCITABINE HCL (GENERIC) 500 MG in NS (IVPB) CANCE... IV SCH; +GEMCITABINE HCL (GENERIC) 1,000 MG, GEMCITABINE HCL (GENERIC) 600 MG in NS (IVPB) CANCE... IV SCH; +GEMCITABINE HCL IV SCH; -IOHEXOL 350 MG/ML 100 ML (OMNIPAQUE 350) VIAL IV ONE; +MAGNESIUM SULFATE IV SCH; +MANNITOL IV SCH; -NS 250 ML (IVPB) BAG IV ONE; +NS IV 1000 ML (CANCER CTR) IV SCH; +PALONOSETRON 0.25 MG, DEXAMETHASONE 10 MG/NS 50 ML IVPB IV PRN; +[UNRECOGNIZED DRUG - OTHER] IV SCH; +[UNRECOGNIZED DRUG - OTHER] IV SCH; +[UNRECOGNIZED DRUG - OTHER] IV SCH
[2017-12-14 13:06] LABS: BASOPHILS % (AUTO) 0 % (0-10); EOSINOPHILS % (AUTO) 1 % (0-10); HEMATOCRIT 30 % (40-54); LYMPHOCYTES # (AUTO) 0.9 X 10^3 (1.0-4.0); LYMPHOCYTES % (AUTO) 20 % (12-44); MEAN CORPUSCULAR HEMOGLOBIN 34 PG (25-34); MEAN CORPUSCULAR HGB CONC 34 G/DL (32-36); MEAN CORPUSCULAR VOLUME 102 FL (80-99); MEAN PLATELET VOLUME 9.2 FL (7.4-10.4); MONOCYTES % (AUTO) 22 % (0-12); NEUTROPHILS # (AUTO) 2.6 X 10^3 (1.8-7.8); NEUTROPHILS % (AUTO) 58 % (42-75); PLATELET COUNT 250 10^3/uL (130-400); RED BLOOD COUNT 2.91 10^6/uL (4.35-5.85); RED CELL DISTRIBUTION WIDTH 15.8 % (10.0-14.5); WHITE BLOOD COUNT 4.5 10^3/uL (4.3-11.0)
[2017-12-14 13:25] LABS: ALBUMIN 4.2 GM/DL (3.2-4.5); BILIRUBIN,TOTAL 0.3 MG/DL (0.1-1.0); CALCIUM 8.9 MG/DL (8.5-10.1); CREATININE SERUM 1.61 MG/DL (0.60-1.30); MAGNESIUM 2.3 MG/DL (1.8-2.4); POTASSIUM 4.2 MMOL/L (3.6-5.0); TOTAL PROTEIN 7.3 GM/DL (6.4-8.2)
[2017-12-14] MEDS ORDERED: GEMCITABINE HCL (GENERIC) 1,000 MG, GEMCITABINE HCL (GENERIC) 300 MG in NS (IVPB) CANCE... IV SCH (14:00)
== END 2017-12-15 | disposition home or self-care (01) ==
LOC: ONC 12:45
PROVIDERS: ATTEND Internal Medicine Hematology & Oncology
DX: Z51.11 Encounter for antineoplastic chemotherapy (principal); C64.2 Malignant neoplasm of left kidney, except renal pelvis; C77.9 Secondary and unspecified malignant neoplasm of lymph node, unspecified; Z85.828 Personal history of other malignant neoplasm of skin; Z90.5 Acquired absence of kidney; Z79.899 Other long term (current) drug therapy
CPT/HCPCS: 36415; 36591; 36593; 80048; 80053; 83615; 83735; 85025; 96367; 96375; 96413; 96417; 99213

== ENCOUNTER 2018-01-25 08:46 | Outpatient (RCR) | payer BC ==
[2017-12-21 11:27] LABS: BASOPHILS % (AUTO) 1 % (0-10); EOSINOPHILS % (AUTO) 1 % (0-10); HEMATOCRIT 29 % (40-54); HEMOGLOBIN 10.1 G/DL (13.3-17.7); LYMPHOCYTES % (AUTO) 35 % (12-44); MEAN CORPUSCULAR HEMOGLOBIN 36 PG (25-34); MEAN CORPUSCULAR HGB CONC 35 G/DL (32-36); MEAN CORPUSCULAR VOLUME 102 FL (80-99); MEAN PLATELET VOLUME 8.6 FL (7.4-10.4); MONOCYTES # (AUTO) 0.6 X 10^3 (0.0-1.0); MONOCYTES % (AUTO) 20 % (0-12); NEUTROPHILS # (AUTO) 1.3 X 10^3 (1.8-7.8); NEUTROPHILS % (AUTO) 44 % (42-75); PLATELET COUNT 149 10^3/uL (130-400); RED CELL DISTRIBUTION WIDTH 14.5 % (10.0-14.5)
[2017-12-21 11:45] LABS: CALCIUM 9.3 MG/DL (8.5-10.1); CREATININE SERUM 1.42 MG/DL (0.60-1.30); MAGNESIUM 2.2 MG/DL (1.8-2.4); POTASSIUM 4.6 MMOL/L (3.6-5.0)
[2017-12-28 10:03] LABS: BASOPHILS % (AUTO) 0 % (0-10); EOSINOPHILS # (AUTO) 0.1 10^3/uL (0.0-0.3); EOSINOPHILS % (AUTO) 2 % (0-10); HEMATOCRIT 30 % (40-54); HEMOGLOBIN 10.2 G/DL (13.3-17.7); LYMPHOCYTES % (AUTO) 20 % (12-44); MEAN CORPUSCULAR HEMOGLOBIN 35 PG (25-34); MEAN CORPUSCULAR HGB CONC 34 G/DL (32-36); MEAN CORPUSCULAR VOLUME 102 FL (80-99); MEAN PLATELET VOLUME 9.1 FL (7.4-10.4); MONOCYTES # (AUTO) 0.8 X 10^3 (0.0-1.0); MONOCYTES % (AUTO) 17 % (0-12); NEUTROPHILS % (AUTO) 62 % (42-75); PLATELET COUNT 157 10^3/uL (130-400); RED BLOOD COUNT 2.93 10^6/uL (4.35-5.85); RED CELL DISTRIBUTION WIDTH 15.1 % (10.0-14.5); WHITE BLOOD COUNT 4.8 10^3/uL (4.3-11.0)
[2017-12-28 10:22] LABS: CALCIUM 9.2 MG/DL (8.5-10.1); CREATININE SERUM 1.59 MG/DL (0.60-1.30); MAGNESIUM 2.2 MG/DL (1.8-2.4); POTASSIUM 4.1 MMOL/L (3.6-5.0)
[2018-01-05 09:20] LABS: BASOPHILS % (AUTO) 0 % (0-10); EOSINOPHILS % (AUTO) 1 % (0-10); HEMATOCRIT 29 % (40-54); HEMOGLOBIN 9.8 G/DL (13.3-17.7); LYMPHOCYTES # (AUTO) 0.8 X 10^3 (1.0-4.0); LYMPHOCYTES % (AUTO) 23 % (12-44); MEAN CORPUSCULAR HEMOGLOBIN 35 PG (25-34); MEAN CORPUSCULAR HGB CONC 34 G/DL (32-36); MEAN CORPUSCULAR VOLUME 104 FL (80-99); MEAN PLATELET VOLUME 8.7 FL (7.4-10.4); MONOCYTES # (AUTO) 0.6 X 10^3 (0.0-1.0); MONOCYTES % (AUTO) 16 % (0-12); NEUTROPHILS # (AUTO) 2.1 X 10^3 (1.8-7.8); NEUTROPHILS % (AUTO) 60 % (42-75); PLATELET COUNT 131 10^3/uL (130-400); RED BLOOD COUNT 2.81 10^6/uL (4.35-5.85); RED CELL DISTRIBUTION WIDTH 14.4 % (10.0-14.5); WHITE BLOOD COUNT 3.5 10^3/uL (4.3-11.0)
[2018-01-05 09:39] LABS: CALCIUM 9.2 MG/DL (8.5-10.1); CREATININE SERUM 1.33 MG/DL (0.60-1.30); MAGNESIUM 2.3 MG/DL (1.8-2.4); POTASSIUM 4.2 MMOL/L (3.6-5.0)
[2018-01-11 09:52] LABS: BASOPHILS % (AUTO) 0 % (0-10); EOSINOPHILS # (AUTO) 0.1 10^3/uL (0.0-0.3); EOSINOPHILS % (AUTO) 1 % (0-10); HEMATOCRIT 29 % (40-54); LYMPHOCYTES # (AUTO) 0.8 X 10^3 (1.0-4.0); LYMPHOCYTES % (AUTO) 17 % (12-44); MEAN CORPUSCULAR HEMOGLOBIN 35 PG (25-34); MEAN CORPUSCULAR HGB CONC 34 G/DL (32-36); MEAN CORPUSCULAR VOLUME 104 FL (80-99); MEAN PLATELET VOLUME 8.9 FL (7.4-10.4); MONOCYTES # (AUTO) 0.7 X 10^3 (0.0-1.0); MONOCYTES % (AUTO) 15 % (0-12); NEUTROPHILS # (AUTO) 3.2 X 10^3 (1.8-7.8); NEUTROPHILS % (AUTO) 67 % (42-75); PLATELET COUNT 164 10^3/uL (130-400); RED BLOOD COUNT 2.84 10^6/uL (4.35-5.85); RED CELL DISTRIBUTION WIDTH 14.7 % (10.0-14.5); WHITE BLOOD COUNT 4.7 10^3/uL (4.3-11.0)
[2018-01-11 10:14] LABS: BILIRUBIN,TOTAL 0.5 MG/DL (0.1-1.0); CALCIUM 9.2 MG/DL (8.5-10.1); CREATININE SERUM 1.63 MG/DL (0.60-1.30); MAGNESIUM 2.2 MG/DL (1.8-2.4); POTASSIUM 4.1 MMOL/L (3.6-5.0); TOTAL PROTEIN 7.3 GM/DL (6.4-8.2)
[2018-01-18 10:41] LABS: BASOPHILS % (AUTO) 0 % (0-10); EOSINOPHILS % (AUTO) 1 % (0-10); HEMATOCRIT 29 % (40-54); HEMOGLOBIN 9.7 G/DL (13.3-17.7); LYMPHOCYTES # (AUTO) 0.8 X 10^3 (1.0-4.0); LYMPHOCYTES % (AUTO) 31 % (12-44); MEAN CORPUSCULAR HEMOGLOBIN 35 PG (25-34); MEAN CORPUSCULAR HGB CONC 34 G/DL (32-36); MEAN CORPUSCULAR VOLUME 104 FL (80-99); MEAN PLATELET VOLUME 8.8 FL (7.4-10.4); MONOCYTES # (AUTO) 0.5 X 10^3 (0.0-1.0); MONOCYTES % (AUTO) 19 % (0-12); NEUTROPHILS # (AUTO) 1.3 X 10^3 (1.8-7.8); NEUTROPHILS % (AUTO) 49 % (42-75); PLATELET COUNT 196 10^3/uL (130-400); RED BLOOD COUNT 2.76 10^6/uL (4.35-5.85); RED CELL DISTRIBUTION WIDTH 13.5 % (10.0-14.5); WHITE BLOOD COUNT 2.6 10^3/uL (4.3-11.0)
[2018-01-18 11:02] LABS: CALCIUM 9.2 MG/DL (8.5-10.1); CREATININE SERUM 1.27 MG/DL (0.60-1.30); MAGNESIUM 2.2 MG/DL (1.8-2.4); POTASSIUM 4.3 MMOL/L (3.6-5.0)
[~2018-01-25] VITALS: Ht 172.7 cm; Wt 93.4 kg
[~2018-01-25 08:46] MED LIST changes: -ALTEPLASE 2 MG (CATHFLO) CANCER CENTER IV ONE; -CISPLATIN IV SCH; -FOSAPREPITANT DIMEGLUMINE 150 MG in NS (IVPB) CANCER CENTER ONLY 150 ML IV SCH; -GEMCITABINE HCL (GENERIC) 1,000 MG, GEMCITABINE HCL (GENERIC) 500 MG in NS (IVPB) CANCE... IV SCH; -GEMCITABINE HCL (GENERIC) 1,000 MG, GEMCITABINE HCL (GENERIC) 600 MG in NS (IVPB) CANCE... IV SCH; -GEMCITABINE HCL IV SCH; -MAGNESIUM SULFATE IV SCH; -MANNITOL IV SCH; -[UNRECOGNIZED DRUG - OTHER] IV SCH; -[UNRECOGNIZED DRUG - OTHER] IV SCH; -[UNRECOGNIZED DRUG - OTHER] IV SCH
[2018-01-25 09:04] LABS: BASOPHILS % (AUTO) 0 % (0-10); EOSINOPHILS # (AUTO) 0.1 10^3/uL (0.0-0.3); EOSINOPHILS % (AUTO) 2 % (0-10); HEMATOCRIT 31 % (40-54); HEMOGLOBIN 10.7 G/DL (13.3-17.7); LYMPHOCYTES # (AUTO) 0.8 X 10^3 (1.0-4.0); LYMPHOCYTES % (AUTO) 17 % (12-44); MEAN CORPUSCULAR HEMOGLOBIN 36 PG (25-34); MEAN CORPUSCULAR HGB CONC 35 G/DL (32-36); MEAN CORPUSCULAR VOLUME 103 FL (80-99); MEAN PLATELET VOLUME 9.6 FL (7.4-10.4); MONOCYTES # (AUTO) 0.9 X 10^3 (0.0-1.0); MONOCYTES % (AUTO) 20 % (0-12); NEUTROPHILS # (AUTO) 2.7 X 10^3 (1.8-7.8); NEUTROPHILS % (AUTO) 61 % (42-75); PLATELET COUNT 173 10^3/uL (130-400); RED BLOOD COUNT 2.96 10^6/uL (4.35-5.85); RED CELL DISTRIBUTION WIDTH 13.6 % (10.0-14.5); WHITE BLOOD COUNT 4.4 10^3/uL (4.3-11.0)
[2018-01-25 09:27] LABS: CALCIUM 9.2 MG/DL (8.5-10.1); CREATININE SERUM 1.4 MG/DL (0.60-1.30); MAGNESIUM 2.2 MG/DL (1.8-2.4); POTASSIUM 4.3 MMOL/L (3.6-5.0)
[2018-02-01 10:13] LABS: BASOPHILS % (AUTO) 0 % (0-10); EOSINOPHILS % (AUTO) 0 % (0-10); HEMATOCRIT 30 % (40-54); HEMOGLOBIN 9.8 G/DL (13.3-17.7); LYMPHOCYTES # (AUTO) 0.8 X 10^3 (1.0-4.0); LYMPHOCYTES % (AUTO) 28 % (12-44); MEAN CORPUSCULAR HEMOGLOBIN 35 PG (25-34); MEAN CORPUSCULAR HGB CONC 33 G/DL (32-36); MEAN CORPUSCULAR VOLUME 104 FL (80-99); MEAN PLATELET VOLUME 8.6 FL (7.4-10.4); MONOCYTES # (AUTO) 0.6 X 10^3 (0.0-1.0); MONOCYTES % (AUTO) 22 % (0-12); NEUTROPHILS # (AUTO) 1.4 X 10^3 (1.8-7.8); NEUTROPHILS % (AUTO) 49 % (42-75); PLATELET COUNT 208 10^3/uL (130-400); RED BLOOD COUNT 2.83 10^6/uL (4.35-5.85); RED CELL DISTRIBUTION WIDTH 13.2 % (10.0-14.5); WHITE BLOOD COUNT 2.8 10^3/uL (4.3-11.0)
[2018-02-01 10:32] LABS: CALCIUM 9.1 MG/DL (8.5-10.1); CREATININE SERUM 1.32 MG/DL (0.60-1.30); MAGNESIUM 2.2 MG/DL (1.8-2.4); POTASSIUM 4.4 MMOL/L (3.6-5.0)
== END 2018-02-01 09:56 | disposition home or self-care (01) ==
LOC: ONC 08:46
PROVIDERS: ATTEND Internal Medicine Hematology & Oncology
DX: C64.2 Malignant neoplasm of left kidney, except renal pelvis (principal); C77.9 Secondary and unspecified malignant neoplasm of lymph node, unspecified; Z85.828 Personal history of other malignant neoplasm of skin; Z90.5 Acquired absence of kidney; Z79.899 Other long term (current) drug therapy
CPT/HCPCS: 36415; 36591; 80048; 80053; 83615; 83735; 85025; 96375; 96413

== ENCOUNTER → 2018-03-29 | Outpatient (CLI) | payer BC ==
[~2018-03-29] MED LIST changes: +BARIUM SUSPENSION 2.1% (VANILLA SILQ) 450 ML PO ONE; +CATHETER FLUSH 10 ML SYR IV PRN; -GEMCITABINE HCL (GENERIC) 1,000 MG, GEMCITABINE HCL (GENERIC) 300 MG in NS (IVPB) CANCE... IV SCH; +IOHEXOL 350 MG/ML 100 ML (OMNIPAQUE 350) VIAL IV ONE; +NS 250 ML (IVPB) BAG IV ONE; -NS IV 1000 ML (CANCER CTR) IV SCH; -PALONOSETRON 0.25 MG, DEXAMETHASONE 10 MG/NS 50 ML IVPB IV PRN; +RECEIVED CONTRAST (Hold Metformin) IV SCH
--- NOTE | 2018-03-29 12:41 | Diagnostic Imaging Report ---
PROCEDURE: CT chest with contrast, CT abdomen and pelvis with and without contrast. TECHNIQUE: Pre and post intravenous contrast axial imaging of the abdomen and pelvis and post contrast axial imaging of the chest were performed. INDICATION: Renal carcinoma and secondary lung carcinoma. COMPARISON: Comparison is made with prior CT from 12/10/2017. FINDINGS: CT chest: No axillary lymphadenopathy is detected. No hilar or mediastinal lymphadenopathy is detected. No pericardial or pleural fluid is identified. Parenchymal evaluation demonstrates increase in size of a cavitary lesion in the superior segment of the right lower lobe measuring 11 mm compared with 7 mm. There is an enlarging subpleural nodule in the right upper lobe, image 25 measuring 6 mm. This was barely visible on prior exam. A nodule adjacent to the major fissure in the superior segment of the right lower lobe has increased measuring 5 mm compared with 3 mm. There is a new nodule in the right lower lobe measuring 11 mm. There is some adjacent scarring or atelectasis. Left lower lobe contains numerous nodules which have increased in size. The dominant nodule is in the left lower lobe laterally, image 37 measuring 19 mm x 11 mm. This compares with 6 mm on prior study. A previously noted 4 mm nodule posteriorly in the left lower lobe now measures 9 mm. Numerous additional nodules are present. IMPRESSION: Increase in size and number of multiple bilateral pulmonary nodules when compared with the prior study from 12/10/2017. Features are consistent with worsening pulmonary metastatic disease. No definite thoracic lymphadenopathy or effusion is seen. CT abdomen and pelvis: There has been development of multiple enlarged low-density masses within the liver, consistent with hepatic metastatic disease. Lesion in the right lobe of the liver posteriorly, image 53 measures 3.4 cm in size. This compares with a lesion too small to characterize on prior CT which measured 11 mm. More anteriorly in the right lobe, there is a new mass measuring 3.2 cm in AP diameter. The mass in the left lobe measures approximately 2.8 cm. There is a tiny low density at this location which was too small to characterize. There are several additional low-density lesions throughout the liver, again many of which may represent metastatic lesions. Several are too small to characterize and could represent cysts as well. The gallbladder is surgically absent. No biliary ductal dilatation is seen. The pancreas and spleen are unremarkable. No adrenal mass is seen. The right kidney is unremarkable. Left kidney is surgically absent. No central retroperitoneal lymphadenopathy is seen. There are small lymph nodes near the johnathan hepatis which are slightly prominent. These were barely visible on prior exam. Small and large bowel loops are normal in caliber without evidence of obstruction. There is no ascites. The bladder is unremarkable. Prostate does appear to be somewhat enlarged. There is a fat-containing left inguinal hernia. No definite pelvic lymphadenopathy is seen. The bony structures are nonacute. IMPRESSION: 1. Development of hepatic metastatic disease when compared exam from 12/10/2017. Minimally prominent lymph nodes in the johnathan hepatis are also present. 2. Status post left nephrectomy. No central retroperitoneal lymphadenopathy or pelvic lymphadenopathy is seen. Dictated by: Dictated on workstation # [id number]
--- NOTE | 2018-03-29 14:59 | Diagnostic Imaging Report ---
INDICATION: Renal pelvis carcinoma. TECHNIQUE: Patient was administered 27.3 mCi technetium 99m MDP intravenously and whole body imaging was performed after a three-hour delay. COMPARISON: Comparison is made with prior whole body bone scan from 12/10/2017. FINDINGS: There is uptake of activity by the axial and appendicular skeleton. There is uptake by the right kidney with excretion into the urinary bladder. The left kidney appears surgically absent. No abnormal foci of tracer accumulation are seen to suggest osseous metastatic disease. IMPRESSION: No evidence of osseous metastatic disease. Dictated by: Dictated on workstation # [id number]
== END ==
LOC: CARD 10:45
PROVIDERS: ATTEND Internal Medicine Hematology & Oncology
DX: C65.2 Malignant neoplasm of left renal pelvis (principal); C78.01 Secondary malignant neoplasm of right lung; C78.7 Secondary malignant neoplasm of liver and intrahepatic bile duct; Z90.5 Acquired absence of kidney
CPT/HCPCS: 71260; 74178; 78306

== ENCOUNTER 2018-04-29 09:04 | Outpatient (RCR) | payer BC ==
[2018-02-08 09:22] LABS: BASOPHILS % (AUTO) 0 % (0-10); EOSINOPHILS # (AUTO) 0.1 10^3/uL (0.0-0.3); EOSINOPHILS % (AUTO) 1 % (0-10); HEMATOCRIT 30 % (40-54); HEMOGLOBIN 10.2 G/DL (13.3-17.7); LYMPHOCYTES # (AUTO) 0.7 X 10^3 (1.0-4.0); LYMPHOCYTES % (AUTO) 12 % (12-44); MEAN CORPUSCULAR HEMOGLOBIN 36 PG (25-34); MEAN CORPUSCULAR HGB CONC 34 G/DL (32-36); MEAN CORPUSCULAR VOLUME 104 FL (80-99); MEAN PLATELET VOLUME 9.3 FL (7.4-10.4); MONOCYTES % (AUTO) 16 % (0-12); NEUTROPHILS # (AUTO) 4.2 X 10^3 (1.8-7.8); NEUTROPHILS % (AUTO) 71 % (42-75); PLATELET COUNT 198 10^3/uL (130-400); RED BLOOD COUNT 2.87 10^6/uL (4.35-5.85); RED CELL DISTRIBUTION WIDTH 13.2 % (10.0-14.5)
[2018-02-08 09:45] LABS: BILIRUBIN,TOTAL 0.4 MG/DL (0.1-1.0); CREATININE SERUM 1.39 MG/DL (0.60-1.30); POTASSIUM 4.3 MMOL/L (3.6-5.0); TOTAL PROTEIN 7.3 GM/DL (6.4-8.2)
[2018-02-15 09:22] LABS: BASOPHILS % (AUTO) 1 % (0-10); EOSINOPHILS % (AUTO) 0 % (0-10); HEMATOCRIT 30 % (40-54); HEMOGLOBIN 10.6 G/DL (13.3-17.7); LYMPHOCYTES # (AUTO) 0.9 X 10^3 (1.0-4.0); LYMPHOCYTES % (AUTO) 23 % (12-44); MEAN CORPUSCULAR HEMOGLOBIN 35 PG (25-34); MEAN CORPUSCULAR HGB CONC 35 G/DL (32-36); MEAN CORPUSCULAR VOLUME 101 FL (80-99); MEAN PLATELET VOLUME 8.6 FL (7.4-10.4); MONOCYTES # (AUTO) 0.8 X 10^3 (0.0-1.0); MONOCYTES % (AUTO) 20 % (0-12); NEUTROPHILS # (AUTO) 2.3 X 10^3 (1.8-7.8); NEUTROPHILS % (AUTO) 57 % (42-75); PLATELET COUNT 232 10^3/uL (130-400); RED CELL DISTRIBUTION WIDTH 13.2 % (10.0-14.5); WHITE BLOOD COUNT 4.1 10^3/uL (4.3-11.0)
[2018-02-15 09:43] LABS: CALCIUM 9.4 MG/DL (8.5-10.1); CREATININE SERUM 1.36 MG/DL (0.60-1.30); POTASSIUM 3.9 MMOL/L (3.6-5.0)
[2018-02-22 09:26] LABS: BASOPHILS % (AUTO) 0 % (0-10); EOSINOPHILS # (AUTO) 0.1 10^3/uL (0.0-0.3); EOSINOPHILS % (AUTO) 2 % (0-10); HEMATOCRIT 30 % (40-54); HEMOGLOBIN 9.8 G/DL (13.3-17.7); LYMPHOCYTES # (AUTO) 0.8 X 10^3 (1.0-4.0); LYMPHOCYTES % (AUTO) 14 % (12-44); MEAN CORPUSCULAR HEMOGLOBIN 34 PG (25-34); MEAN CORPUSCULAR HGB CONC 33 G/DL (32-36); MEAN CORPUSCULAR VOLUME 102 FL (80-99); MEAN PLATELET VOLUME 9.2 FL (7.4-10.4); MONOCYTES # (AUTO) 0.9 X 10^3 (0.0-1.0); MONOCYTES % (AUTO) 17 % (0-12); NEUTROPHILS # (AUTO) 3.7 X 10^3 (1.8-7.8); NEUTROPHILS % (AUTO) 67 % (42-75); PLATELET COUNT 220 10^3/uL (130-400); RED BLOOD COUNT 2.88 10^6/uL (4.35-5.85); RED CELL DISTRIBUTION WIDTH 13.8 % (10.0-14.5); WHITE BLOOD COUNT 5.5 10^3/uL (4.3-11.0)
[2018-02-22 09:53] LABS: CREATININE SERUM 1.3 MG/DL (0.60-1.30); MAGNESIUM 2.2 MG/DL (1.8-2.4); POTASSIUM 4.1 MMOL/L (3.6-5.0)
[2018-03-01 09:41] LABS: BASOPHILS % (AUTO) 0 % (0-10); EOSINOPHILS % (AUTO) 1 % (0-10); HEMATOCRIT 30 % (40-54); HEMOGLOBIN 9.8 G/DL (13.3-17.7); LYMPHOCYTES # (AUTO) 0.9 X 10^3 (1.0-4.0); LYMPHOCYTES % (AUTO) 21 % (12-44); MEAN CORPUSCULAR HEMOGLOBIN 33 PG (25-34); MEAN CORPUSCULAR HGB CONC 33 G/DL (32-36); MEAN CORPUSCULAR VOLUME 101 FL (80-99); MEAN PLATELET VOLUME 8.4 FL (7.4-10.4); MONOCYTES # (AUTO) 0.8 X 10^3 (0.0-1.0); MONOCYTES % (AUTO) 19 % (0-12); NEUTROPHILS # (AUTO) 2.4 X 10^3 (1.8-7.8); NEUTROPHILS % (AUTO) 59 % (42-75); PLATELET COUNT 235 10^3/uL (130-400); RED BLOOD COUNT 2.95 10^6/uL (4.35-5.85); RED CELL DISTRIBUTION WIDTH 13.4 % (10.0-14.5); WHITE BLOOD COUNT 4.1 10^3/uL (4.3-11.0)
[2018-03-01 09:58] LABS: CALCIUM 9.4 MG/DL (8.5-10.1); CREATININE SERUM 1.34 MG/DL (0.60-1.30)
[2018-03-08 10:49] LABS: BASOPHILS % (AUTO) 0 % (0-10); EOSINOPHILS # (AUTO) 0.1 10^3/uL (0.0-0.3); EOSINOPHILS % (AUTO) 2 % (0-10); HEMATOCRIT 30 % (40-54); LYMPHOCYTES % (AUTO) 14 % (12-44); MEAN CORPUSCULAR HEMOGLOBIN 34 PG (25-34); MEAN CORPUSCULAR HGB CONC 33 G/DL (32-36); MEAN CORPUSCULAR VOLUME 101 FL (80-99); MONOCYTES # (AUTO) 1.1 X 10^3 (0.0-1.0); MONOCYTES % (AUTO) 17 % (0-12); NEUTROPHILS # (AUTO) 4.5 X 10^3 (1.8-7.8); NEUTROPHILS % (AUTO) 67 % (42-75); PLATELET COUNT 270 10^3/uL (130-400); RED BLOOD COUNT 2.96 10^6/uL (4.35-5.85); WHITE BLOOD COUNT 6.7 10^3/uL (4.3-11.0)
[2018-03-08 11:08] LABS: BILIRUBIN,TOTAL 0.3 MG/DL (0.1-1.0); CALCIUM 9.2 MG/DL (8.5-10.1); CREATININE SERUM 1.36 MG/DL (0.60-1.30); MAGNESIUM 2.2 MG/DL (1.8-2.4); TOTAL PROTEIN 7.6 GM/DL (6.4-8.2)
[2018-03-15 11:56] LABS: BASOPHILS % (AUTO) 0 % (0-10); EOSINOPHILS % (AUTO) 1 % (0-10); HEMATOCRIT 30 % (40-54); HEMOGLOBIN 9.8 G/DL (13.3-17.7); LYMPHOCYTES # (AUTO) 0.9 X 10^3 (1.0-4.0); LYMPHOCYTES % (AUTO) 26 % (12-44); MEAN CORPUSCULAR HEMOGLOBIN 33 PG (25-34); MEAN CORPUSCULAR HGB CONC 32 G/DL (32-36); MEAN CORPUSCULAR VOLUME 101 FL (80-99); MONOCYTES % (AUTO) 27 % (0-12); NEUTROPHILS # (AUTO) 1.7 X 10^3 (1.8-7.8); NEUTROPHILS % (AUTO) 46 % (42-75); PLATELET COUNT 263 10^3/uL (130-400); RED CELL DISTRIBUTION WIDTH 14.1 % (10.0-14.5); WHITE BLOOD COUNT 3.6 10^3/uL (4.3-11.0)
[2018-03-15 12:12] LABS: CALCIUM 9.3 MG/DL (8.5-10.1); CREATININE SERUM 1.4 MG/DL (0.60-1.30); MAGNESIUM 2.3 MG/DL (1.8-2.4); POTASSIUM 3.9 MMOL/L (3.6-5.0)
[2018-03-22 09:09] LABS: BASOPHILS % (AUTO) 0 % (0-10); EOSINOPHILS # (AUTO) 0.1 10^3/uL (0.0-0.3); EOSINOPHILS % (AUTO) 2 % (0-10); HEMATOCRIT 31 % (40-54); HEMOGLOBIN 10.1 G/DL (13.3-17.7); LYMPHOCYTES # (AUTO) 0.9 X 10^3 (1.0-4.0); LYMPHOCYTES % (AUTO) 13 % (12-44); MEAN CORPUSCULAR HEMOGLOBIN 33 PG (25-34); MEAN CORPUSCULAR HGB CONC 33 G/DL (32-36); MEAN CORPUSCULAR VOLUME 101 FL (80-99); MEAN PLATELET VOLUME 9.2 FL (7.4-10.4); MONOCYTES # (AUTO) 1.1 X 10^3 (0.0-1.0); MONOCYTES % (AUTO) 17 % (0-12); NEUTROPHILS # (AUTO) 4.4 X 10^3 (1.8-7.8); NEUTROPHILS % (AUTO) 68 % (42-75); PLATELET COUNT 233 10^3/uL (130-400); RED BLOOD COUNT 3.04 10^6/uL (4.35-5.85); RED CELL DISTRIBUTION WIDTH 14.3 % (10.0-14.5); WHITE BLOOD COUNT 6.4 10^3/uL (4.3-11.0)
[2018-03-22 09:32] LABS: CALCIUM 9.1 MG/DL (8.5-10.1); CREATININE SERUM 1.31 MG/DL (0.60-1.30); MAGNESIUM 2.1 MG/DL (1.8-2.4); POTASSIUM 4.1 MMOL/L (3.6-5.0)
[2018-03-29 09:35] LABS: BASOPHILS % (AUTO) 0 % (0-10); EOSINOPHILS % (AUTO) 1 % (0-10); HEMATOCRIT 30 % (40-54); HEMOGLOBIN 9.9 G/DL (13.3-17.7); LYMPHOCYTES # (AUTO) 0.7 X 10^3 (1.0-4.0); LYMPHOCYTES % (AUTO) 23 % (12-44); MEAN CORPUSCULAR HEMOGLOBIN 33 PG (25-34); MEAN CORPUSCULAR HGB CONC 33 G/DL (32-36); MEAN CORPUSCULAR VOLUME 101 FL (80-99); MEAN PLATELET VOLUME 8.3 FL (7.4-10.4); MONOCYTES # (AUTO) 0.7 X 10^3 (0.0-1.0); MONOCYTES % (AUTO) 21 % (0-12); NEUTROPHILS # (AUTO) 1.8 X 10^3 (1.8-7.8); NEUTROPHILS % (AUTO) 55 % (42-75); PLATELET COUNT 267 10^3/uL (130-400); RED BLOOD COUNT 2.97 10^6/uL (4.35-5.85); RED CELL DISTRIBUTION WIDTH 14.4 % (10.0-14.5); WHITE BLOOD COUNT 3.2 10^3/uL (4.3-11.0)
[2018-03-29 10:01] LABS: BILIRUBIN,TOTAL 0.4 MG/DL (0.1-1.0); CALCIUM 9.4 MG/DL (8.5-10.1); CREATININE SERUM 1.37 MG/DL (0.60-1.30); POTASSIUM 4.1 MMOL/L (3.6-5.0); TOTAL PROTEIN 7.7 GM/DL (6.4-8.2)
[2018-04-05 10:23] LABS: BASOPHILS % (AUTO) 0 % (0-10); EOSINOPHILS # (AUTO) 0.1 10^3/uL (0.0-0.3); EOSINOPHILS % (AUTO) 2 % (0-10); HEMATOCRIT 30 % (40-54); HEMOGLOBIN 9.7 G/DL (13.3-17.7); LYMPHOCYTES % (AUTO) 14 % (12-44); MEAN CORPUSCULAR HEMOGLOBIN 32 PG (25-34); MEAN CORPUSCULAR HGB CONC 32 G/DL (32-36); MEAN CORPUSCULAR VOLUME 100 FL (80-99); MEAN PLATELET VOLUME 8.8 FL (7.4-10.4); MONOCYTES # (AUTO) 1.2 X 10^3 (0.0-1.0); MONOCYTES % (AUTO) 18 % (0-12); NEUTROPHILS # (AUTO) 4.4 X 10^3 (1.8-7.8); NEUTROPHILS % (AUTO) 66 % (42-75); PLATELET COUNT 257 10^3/uL (130-400); RED BLOOD COUNT 3.01 10^6/uL (4.35-5.85); RED CELL DISTRIBUTION WIDTH 14.4 % (10.0-14.5); WHITE BLOOD COUNT 6.6 10^3/uL (4.3-11.0)
[2018-04-05 10:45] LABS: ALBUMIN 3.9 GM/DL (3.2-4.5); BILIRUBIN,TOTAL 0.3 MG/DL (0.1-1.0); CALCIUM 9.2 MG/DL (8.5-10.1); CREATININE SERUM 1.33 MG/DL (0.60-1.30); POTASSIUM 4.3 MMOL/L (3.6-5.0); TOTAL PROTEIN 7.5 GM/DL (6.4-8.2)
[~2018-04-29] VITALS: Ht 172.7 cm; Wt 90.7 kg
[~2018-04-29 09:04] MED LIST changes: -BARIUM SUSPENSION 2.1% (VANILLA SILQ) 450 ML PO ONE; -CATHETER FLUSH 10 ML SYR IV PRN; +GEMCITABINE HCL (GENERIC) 1,000 MG, GEMCITABINE HCL (GENERIC) 300 MG in NS (IVPB) CANCE... IV SCH; -IOHEXOL 350 MG/ML 100 ML (OMNIPAQUE 350) VIAL IV ONE; -NS 250 ML (IVPB) BAG IV ONE; +NS IV 1000 ML (CANCER CTR) IV SCH; +NS IV 500 ML (CANCER CENTER) 500 ML IV SCH; +NS IV 500 ML (CANCER CENTER) 500 ML ONE; +PALONOSETRON 0.25 MG, DEXAMETHASONE 10 MG/NS 50 ML IVPB IV PRN; +PEMBROLIZUMAB 200 MG in NS (IVPB) CANCER CENTER 50 ML IV SCH; -RECEIVED CONTRAST (Hold Metformin) IV SCH
[2018-04-29 09:30] LABS: BASOPHILS % (AUTO) 0 % (0-10); EOSINOPHILS # (AUTO) 0.2 10^3/uL (0.0-0.3); EOSINOPHILS % (AUTO) 2 % (0-10); HEMATOCRIT 28 % (40-54); HEMOGLOBIN 9.1 G/DL (13.3-17.7); LYMPHOCYTES # (AUTO) 0.9 X 10^3 (1.0-4.0); LYMPHOCYTES % (AUTO) 11 % (12-44); MEAN CORPUSCULAR HEMOGLOBIN 31 PG (25-34); MEAN CORPUSCULAR HGB CONC 32 G/DL (32-36); MEAN CORPUSCULAR VOLUME 96 FL (80-99); MEAN PLATELET VOLUME 8.8 FL (7.4-10.4); MONOCYTES # (AUTO) 0.9 X 10^3 (0.0-1.0); MONOCYTES % (AUTO) 11 % (0-12); NEUTROPHILS # (AUTO) 6.4 X 10^3 (1.8-7.8); NEUTROPHILS % (AUTO) 76 % (42-75); PLATELET COUNT 319 10^3/uL (130-400); RED BLOOD COUNT 2.94 10^6/uL (4.35-5.85); RED CELL DISTRIBUTION WIDTH 14.6 % (10.0-14.5); WHITE BLOOD COUNT 8.4 10^3/uL (4.3-11.0)
[2018-04-29 09:47] LABS: ALBUMIN 3.7 GM/DL (3.2-4.5); BILIRUBIN,TOTAL 0.3 MG/DL (0.1-1.0); CREATININE SERUM 1.27 MG/DL (0.60-1.30); TOTAL PROTEIN 7.6 GM/DL (6.4-8.2)
== END 2018-05-02 | disposition home or self-care (01) ==
LOC: ONC 09:04
PROVIDERS: ATTEND Internal Medicine Hematology & Oncology
DX: Z51.11 Encounter for antineoplastic chemotherapy (principal); C64.2 Malignant neoplasm of left kidney, except renal pelvis; C77.9 Secondary and unspecified malignant neoplasm of lymph node, unspecified; Z85.828 Personal history of other malignant neoplasm of skin; Z90.5 Acquired absence of kidney; Z79.899 Other long term (current) drug therapy
CPT/HCPCS: 36415; 36591; 80048; 80053; 82728; 83540; 83615; 83735; 84443; 85025; 96375; 96413

== ENCOUNTER → 2018-06-21 | Outpatient (CLI) | payer BC ==
[~2018-06-21] MED LIST changes: -GEMCITABINE HCL (GENERIC) 1,000 MG, GEMCITABINE HCL (GENERIC) 300 MG in NS (IVPB) CANCE... IV SCH; -NS IV 1000 ML (CANCER CTR) IV SCH; -NS IV 500 ML (CANCER CENTER) 500 ML IV SCH; -NS IV 500 ML (CANCER CENTER) 500 ML ONE; -PALONOSETRON 0.25 MG, DEXAMETHASONE 10 MG/NS 50 ML IVPB IV PRN; -PEMBROLIZUMAB 200 MG in NS (IVPB) CANCER CENTER 50 ML IV SCH
[2018-06-21 17:12] LABS: BILIRUBIN,URINE NEGATIVE (NEGATIVE); CLARITY,URINE CLEAR; COLOR,URINE YELLOW; GLUCOSE, URINE (UA) NEGATIVE (NEGATIVE); KETONES,URINE NEGATIVE (NEGATIVE); LEUKOCYTE ESTERASE ,URINE NEGATIVE (NEGATIVE); NITRITE,URINE NEGATIVE (NEGATIVE); PH,URINE 5 (5-9); PROTEIN,URINE 2+ (NEGATIVE); UROBILINOGEN,URINE NORMAL (NORMAL)
[2018-06-21 17:13] LABS: HEMOGLOBIN 9.3 G/DL (13.3-17.7); MEAN PLATELET VOLUME 8.6 FL (7.4-10.4); RED CELL DISTRIBUTION WIDTH 16.2 % (10.0-14.5); WHITE BLOOD COUNT 10.5 10^3/uL (4.3-11.0)
[2018-06-21 17:24] LABS: BACTERIA,URINE NEGATIVE /HPF; RBC,URINE 0-2 /HPF; WBC,URINE RARE /HPF
[2018-06-21 17:28] LABS: ALBUMIN 3.9 GM/DL (3.2-4.5); BILIRUBIN,TOTAL 0.3 MG/DL (0.1-1.0); CALCIUM 9.5 MG/DL (8.5-10.1); CREATININE SERUM 1.34 MG/DL (0.60-1.30); POTASSIUM 4.2 MMOL/L (3.6-5.0); TOTAL PROTEIN 8.5 GM/DL (6.4-8.2)
--- NOTE | 2018-06-21 17:33 | Diagnostic Imaging Report ---
PROCEDURE: CT abdomen and pelvis without contrast. TECHNIQUE: Multiple contiguous axial images were obtained through the abdomen and pelvis without the use of intravenous contrast. INDICATION: Right-sided abdominal pain. COMPARISON: CT chest, abdomen, and pelvis from 03/29/2018. FINDINGS: Evaluation of the abdominal viscera is mildly limited without contrast. Lower chest: Multiple enlarging and/or new pulmonary nodules are present and compatible with progression of disease. The dominant nodule in the left lung base now meets criteria for mass measuring 3.6 x 3.1 cm (previously 1.8 x 1.1 cm). Peritoneum: No free intraperitoneal air or fluid. Liver and biliary system: Multiple enlarging hypodensities throughout the liver are compatible with progression of metastatic disease. Direct comparison in size is limited due to lack of IV contrast on today's examination. However, the dominant lesion on today's exam now measures approximately 4.1 x 3.6 cm (previously 3.1 x 2.9 cm). Cholecystectomy. No pathologic biliary duct dilatation. Spleen and Pancreas: Spleen is normal. Unenhanced pancreas is grossly normal. Adrenals: Normal. tract: Status post left nephrectomy. No soft tissue nodularity within the operative bed. Right kidney is normal in size without stones or obstruction. Urinary bladder is decompressed, limiting evaluation. Prostate is borderline enlarged and unchanged. GI tract: Stomach is partially filled with air and there is no wall thickening. No bowel obstruction. No pericolonic inflammatory changes. Normal appendix. Vasculature and Lymph nodes: Normal caliber aorta. No abdominal or pelvic lymphadenopathy. Musculoskeletal: No definitive skeletal metastases by CT. IMPRESSION: 1. No acute inflammatory or obstructive process in the abdomen or pelvis. 2. Worsening of metastatic disease characterized by multiple enlarging pulmonary and liver metastases. Dictated by: Dictated on workstation # [id number]
== END ==
LOC: RAD 16:49
PROVIDERS: ATTEND Physician Assistant
DX: C78.00 Secondary malignant neoplasm of unspecified lung (principal); C78.7 Secondary malignant neoplasm of liver and intrahepatic bile duct; C80.1 Malignant (primary) neoplasm, unspecified; Z90.49 Acquired absence of other specified parts of digestive tract
CPT/HCPCS: 36415; 74176; 80053; 81000; 83690; 85027; 86141

== ENCOUNTER → 2018-06-29 | Outpatient (CLI) | payer BC ==
[~2018-06-29] MED LIST changes: +CATHETER FLUSH 10 ML SYR IV PRN; +IOHEXOL 350 MG/ML 100 ML (OMNIPAQUE 350) VIAL IV ONE; +NS 100 ML (IVPB) BAG IV ONE; +RECEIVED CONTRAST (Hold Metformin) IV SCH
--- NOTE | 2018-06-29 16:53 | Diagnostic Imaging Report ---
INDICATION: Renal cell carcinoma. TECHNIQUE: CT of the chest, abdomen, and pelvis obtained with IV contrast bolus. COMPARISON: CT abdomen and pelvis compared to 06/21/2018. CT chest compared to 03/29/2018. CT chest findings: There were no enlarged mediastinal or hilar nodes. There were no enlarged axillary nodes. Port-A-Cath is seen over the left chest wall with tip in distal SVC. There is no pleural or pericardial fluid. Lung parenchymal windows demonstrate numerous bilateral pulmonary nodules which appear increased in size and number compared to the previous study. The nodule in the left lower lobe which had measured 1.9 x 1.1 cm now measures 3.4 x 3.0 cm. Nodule in the left lower lobe posteriorly which had measured 9 mm now measures 2.1 cm. Cavitary lesion in the right lung posteriorly which had measured about 11 mm now measures about [address] abdomen and pelvis findings: The liver shows numerous lesions throughout both lobes, compatible with metastatic disease, with progression compared to the previous study of 03/29/2018. These nodules were better visualized on the previous study of 06/21/2018 done without contrast. The lesion in the right lobe posteriorly which had measured 3.4 cm now measures about 4.3 cm. Lesion in the right lobe anteriorly which had measured about 3.2 x 3.0 cm now measures about 4.3 x 3.0 cm. Lesion in the left lobe of the liver which had measured 2.8 cm now measures about 5.2 cm. The spleen and adrenals and pancreas appear unremarkable. The right kidney appears normal. The left kidney has been removed. There is no retroperitoneal mass. There is no ascites or pelvic mass. IMPRESSION: 1. CT chest demonstrates increasing size and number of pulmonary nodules compared to 03/29/2018, compatible with progression of metastatic disease. 2. CT abdomen and pelvis demonstrates progression of metastatic disease in the liver compared to 03/29/2018. These lesions are better visualized than on 06/21/2018 since contrast was given. Patient has had prior left nephrectomy. Dictated by: Dictated on workstation # [id number]
--- NOTE | 2018-06-29 18:29 | Diagnostic Imaging Report ---
INDICATION: History of renal pelvis carcinoma, liver and lung cancer. TECHNIQUE: The patient was administered 27.0 mCi technetium 99m MDP. Anterior and posterior whole-body planar images are obtained. CORRELATION STUDY: 03/29/2018. FINDINGS: There is relatively stable appearance about the whole body bone scan. There appears to be normal uptake throughout the visualized osseous structures. No new or concerning areas of radiotracer accumulation to suggest osseous blastic metastatic disease. There is note made of uptake in the solitary right kidney. IMPRESSION: 1. Stable, negative-appearing bone scan. Dictated by: Dictated on workstation # [id number]
== END ==
LOC: CARD 11:47
PROVIDERS: ATTEND Internal Medicine Hematology & Oncology
DX: Z01.89 Encounter for other specified special examinations (principal); C65.2 Malignant neoplasm of left renal pelvis; C67.9 Malignant neoplasm of bladder, unspecified; C78.7 Secondary malignant neoplasm of liver and intrahepatic bile duct; C78.01 Secondary malignant neoplasm of right lung
CPT/HCPCS: 71260; 74177; 78306

== ENCOUNTER → 2018-08-03 | Outpatient (CLI) | payer BC ==
[~2018-08-03] MED LIST changes: -CATHETER FLUSH 10 ML SYR IV PRN; -IOHEXOL 350 MG/ML 100 ML (OMNIPAQUE 350) VIAL IV ONE; -NS 100 ML (IVPB) BAG IV ONE; -RECEIVED CONTRAST (Hold Metformin) IV SCH
== END ==
LOC: RAD 10:07
PROVIDERS: ATTEND Nurse Practitioner Adult Health
DX: C67.9 Malignant neoplasm of bladder, unspecified (principal); C78.7 Secondary malignant neoplasm of liver and intrahepatic bile duct; C78.01 Secondary malignant neoplasm of right lung; Z53.8 Procedure and treatment not carried out for other reasons

== ENCOUNTER 2018-08-18 16:15 | Inpatient (IN) | payer BC ==
[~2018-08-18] VITALS: Ht 175.3 cm; Wt 80.8 kg
[~2018-08-18 16:15] MED LIST changes: -BENZ200C51 PO; -CITA10TA7 PO; -DIPH25TA31 PO; -DOCU-143 PO; -GLUC500T10 PO; -HOLD METFORMIN - RECEIVED CONTRAST 20 ML VIAL IV SCH; -HYDR-3812 PO; -IOHEXOL 350 MG/ML 100 ML (OMNIPAQUE 350) VIAL IV ONE; -MORP-33 PO; -ONDA8TAB12 PO; -OXYC-529 PO; -PANT40TA3 PO; -SORB1SOL2 PO
[2018-08-18 16:20] VITALS: BP 141/83
--- NOTE | 2018-08-18 16:20 | NUR ---
jaxon holcomb admitted to room 426-1, with an admitting diagnosis of constipation and CA, on 08/18/18 [facility], accompanied by STAFF AND .JAXON HOLCOMB introduced to surroundings, call light, bed controls, phone, TV, temperature control, lights, meal times, smoking policy, visitor policy, side rail policy, bathrooms and showers. Patient Rights given to patient in the handbook.JAXON HOLCOMB verbalizes understanding that [facility] is not responsible for the loss or damage to any personal effects or valuables that are kept in the patients posession during their hospitalization. The following Patient Care Plans were discussed with the PT: Discharge Planning, PAIN CONTROL,IV THERAPY, and TESTS AND PROCEDURES. JAXON HOLCOMB verbalizes understanding of Interdisciplinary Patient Education. Patient and/or family were informed about the Rapid Response Team and its purpose.
[2018-08-18 16:25] VITALS: BP 141/83
[2018-08-18] MEDS ORDERED: BISACODYL 10 MG SUPP (DULCOLAX) PR NR (16:30)
[2018-08-18] MEDS ORDERED: ONDANSETRON 8 MG (ZOFRAN) ORAL DISSOLVE TAB PO PRN (16:30)
[2018-08-18] MEDS ORDERED: NS 1000 ML IV BAG IV SCH (16:30)
--- OUTSIDE RECORDS SUMMARY | 2018-08-18 16:31 | XMS REPORT | Clinical Summary ---
Author Author [facility] Address Unknown Phone Unavailable Care Team Providers Care Switch Technician Name Role Phone Emily Esparza MD Unavailable Nile Ramirez APRN Unavailable Unavailable Nile Pak PA-C Unavailable Unavailable Elie Ryan MD PCP Source Comments Some departments are not documenting in the electronic medical record. If you do not see the information that you expected, contact Release of Information in the Health Information Management department at [phone] for further assistance in locating additional records.[facility] Allergies No Known Allergies Medications End Date Status Medication Sig Dispensed Refills Start Date Active vitamins, multiple tablet Take 1 tablet 0 by mouth daily. Active glucosamine(+) 500 mg tab Take 500 mg 0 by mouth daily as needed. 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 The patient's clinical course has been fairly [...] Lesion of oral mucosa 10/04/2013 Oral cancer 07/13/2012 Basaloid carcinoma 05/31/2012 Dysphagia 05/31/2012 Impacted cerumen of left ear 05/31/2012 Family History Medical History Relation Name Comments Cancer Mother breast Allergy-severe Paternal Grandfather Relation Name Status Comments Brother Alive Brother Alive Brother Daughter Alive Father Maternal Grandfather Maternal Grandmother Mother Paternal Grandfather Alive Paternal Grandmother Sister Alive Son Alive Social History Date Tobacco Use Types Packs/Day Years Used Never Smoker Smokeless Tobacco: Never Used Alcohol Use Drinks/Week oz/Week Comments No Sex Assigned at Date Recorded Not on file Industry Job Start Date Occupation Not on file Not on file Not on file Travel End Travel History Travel Start No recent travel history available. Last Filed Vital Signs Time Taken Vital Sign Reading 01/22/2018 9:01 AM CDT Blood Pressure 137/73 01/22/2018 9:01 AM CDT Pulse 68 01/22/2018 9:01 AM CDT Temperature 36.6 C (97.9 F) 01/22/2018 9:01 AM CDT Respiratory Rate 18 01/22/2018 9:01 AM CDT Oxygen Saturation 100% - Inhaled Oxygen - Concentration 01/22/2018 9:01 AM CDT Weight 93.3 kg (205 lb 9.6 oz) 01/22/2018 9:01 AM CDT Height 174.5 cm (5' 8.7") 01/22/2018 9:01 AM CDT Body Mass Index 30.63 Plan of Treatment Health Maintenance Due Date Last Done Comments HEPATITIS C SCREENING 1954 PHYSICAL (COMPREHENSIVE) 1961 EXAM HIV SCREENING 1969 DTAP/TDAP VACCINES (1 - 1972 Tdap) COLORECTAL CANCER 2004 SCREENING SHINGLES RECOMBINANT 2004 VACCINE (1 of 2) INFLUENZA VACCINE 12/02/2018 01/20/2014, 02/06/2012, 02/12/2011, Additional history exists Results Not on filefrom Last 3 Months Insurance Type Payer Benefit Subscriber ID Effective Phone Address Plan / Dates Group HMO BS [facility] xxxxxxxxxxxx [id number] [employer] Advance Directives Patient has advance care planning documents, and code status on file. For more information, please contact: [facility] [address] [place] [address] Date Inactivated Comments Code Status Date Activated 05/28/2017 6:30 PM Full Code 05/26/2017 3:57 PM Provider has discussed Code Status Yes w/Patient or Family? 06/11/2012 5:06 AM Full Code 06/09/2012 7:25 PM Provider has discussed Code Status No, discussion not w/Patient or Family? necessary based on Dx
--- OUTSIDE RECORDS SUMMARY | 2018-08-18 16:33 | XMS REPORT | Continuity of Care Document ---
Author Organization Unknown Address Unknown Allergies Active Description Code Type Severity Reaction Onset Reported/Identified Relationship to Patient Clinical Status Yes No Known Drug Allergies [id number] Drug Allergy Unknown N/A 04/29/2012 Medications There is no data. 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 Ot Z79.899 OTHER [facility] (CURRENT) DRUG THERAPY GORGE BARBOUR Ot Z85.828 PERSONAL HISTORY OF OTHER MALIGNANT NEOP GORGE BARBOUR Ot 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 ABSENCE OF KIDNEY 05/05/2012 Ot 145.0 MAL MAURICE CHEEK MUCOSA [...] Ot V74.8 SCREEN- BACTERIAL DIS NEC 11/11/2016 JAVED FALK, LOLY E Ot 145.0 MAL MAURICE CHEEK MUCOSA 11/11/2016 OBED FALK, KIKE Durán Ot 786.2 COUGH 11/11/2016 Ot M25.561 PAIN IN RIGHT KNEE 11/12/2016 JASON FALK, ALVA Moffett Ot K40.90 UNIL INGUINAL HERNIA, W/O OBST OR GANGR, 11/12/2016 JASON FALK, ALVA Moffett Ot K42.9 UMBILICAL HERNIA WITHOUT OBSTRUCTION OR 11/12/2016 JASON FALK, ALVA Moffett Ot R31.9 HEMATURIA, UNSPECIFIED 11/12/2016 JASON FALK, ALVA Moffett Ot K40.90 UNIL INGUINAL HERNIA, W/O OBST OR GANGR, 11/12/2016 JASON FALK, ALVA Moffett Ot K42.9 UMBILICAL HERNIA WITHOUT OBSTRUCTION OR 11/12/2016 JASON FALK, ALVA Moffett Ot R31.9 HEMATURIA, UNSPECIFIED 11/12/2016 JASON FALK, ALVA Moffett Ot K40.90 UNIL INGUINAL HERNIA, W/O OBST OR GANGR, 11/12/2016 JASON FALK, ALVA Moffett Ot K42.9 UMBILICAL HERNIA WITHOUT OBSTRUCTION OR 11/12/2016 JASON FALK, ALVA Moffett Ot R31.9 HEMATURIA, UNSPECIFIED 11/24/2016 JASON FALK, [...] KIRAN MD Ot R31.9 HEMATURIA, UNSPECIFIED 12/28/2016 QIANA FALK, ABIMAEL Ramsey Ot W11.XXXA FALL ON AND FROM LADDER, INITIAL ENCOUNT 01/22/2017 OBED FALK, KIKE Durán Ot N28.1 CYST OF KIDNEY, ACQUIRED 02/09/2017 ROMAINE FALK, STEF Condon Ot N13.30 UNSPECIFIED HYDRONEPHROSIS 02/09/2017 STEF GAVIN MD Ot R10.9 UNSPECIFIED ABDOMINAL PAIN 02/09/2017 STEF GAVIN MD Ot R11.2 NAUSEA WITH VOMITING, UNSPECIFIED 02/09/2017 STEF GAVIN MD Ot R31.9 HEMATURIA, UNSPECIFIED 02/09/2017 STEF GAVIN MD Ot Z85.828 PERSONAL HISTORY [...] OTHER MALIGNANT NEOP 02/11/2017 STEF GAVIN MD T Ot Z87.442 PERSONAL HISTORY OF URINARY CALCULI 02/11/2017 KIKE CLAY MD Ot N28.1 CYST OF KIDNEY, ACQUIRED 03/27/2017 TEJEDATITI RAZO TANI Ot D72.829 ELEVATED WHITE BLOOD CELL COUNT, UNSPECI 03/27/2017 ILEANA RAZO TANI Ot K58.1 IRRITABLE BOWEL SYNDROME WITH CONSTIPATI 03/27/2017 ILEANA RAZO TANI Ot K62.1 RECTAL POLYP 03/27/2017 ILEANA RAZO TANI Ot R31.29 OTHER MICROSCOPIC HEMATURIA 04/01/2017 Ot 784.2 SWELLING IN HEAD NECK 04/01/2017 Ot V72.83 EXAM PRE- OPERATIVE NEC 04/01/2017 Ot V74.8 SCREEN- BACTERIAL DIS NEC 04/01/2017 JAVED FALK, LOLY E Ot 145.0 MAL MAURICE CHEEK MUCOSA 04/01/2017 KIKE CLAY MD Ot 786.2 COUGH 04/01/2017 Ot M25.561 PAIN IN RIGHT KNEE 04/01/2017 ALVA GOMEZ MD Ot K40.90 UNIL INGUINAL HERNIA, W/O OBST OR GANGR, 04/01/2017 ALVA GOMEZ MD Ot K42.9 UMBILICAL HERNIA WITHOUT OBSTRUCTION OR 04/01/2017 ALVA GOMEZ MD Ot R31.9 HEMATURIA, UNSPECIFIED 04/01/2017 KIKE CLAY MD Ot N28.1 CYST OF KIDNEY, ACQUIRED 04/01/2017 KIKE CLAY MD Ot N28.1 CYST OF KIDNEY, ACQUIRED 04/08/2017 [...] OF 06/22/2017 GORGE BARBOUR Ot Z79.899 OTHER CABLE BRAIDER (CURRENT) DRUG THERAPY 06/22/2017 GORGE BARBOUR N Ot Z85.828 PERSONAL HISTORY OF OTHER MALIGNANT NEOP 06/22/2017 GORGE BARBOUR N Ot 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 ABSENCE OF KIDNEY 06/24/2017 GORGE BARBOUR Ot C64.2 MALIGNANT NEOPLASM OF LEFT KIDNEY, EXCEP 06/24/2017 GORGE BARBOUR Ot 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 06/24/2017 GORGE BARBOUR Ot Z79.899 OTHER CABLE BRAIDER (CURRENT) DRUG THERAPY 06/24/2017 GORGE BARBOUR Ot Z85.828 PERSONAL HISTORY OF OTHER MALIGNANT NEOP 06/24/2017 GORGE BARBOUR Ot 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 ABSENCE OF KIDNEY 06/26/2017 Ot 784.2 SWELLING IN HEAD NECK 06/26/2017 Ot V72.83 EXAM PRE- OPERATIVE NEC 06/26/2017 Ot V74.8 SCREEN- BACTERIAL DIS NEC 06/26/2017 JAVED FALK, LOLY E Ot 145.0 MAL MAURICE CHEEK MUCOSA 06/26/2017 KIKE CLAY MD Ot 786.2 COUGH 06/26/2017 Ot M25.561 PAIN [...] OF LEFT KIDNEY, EXCEP 06/26/2017 GORGE BARBOUR Ot 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 06/26/2017 GORGE BARBOUR Ot Z79.899 OTHER CABLE BRAIDER (CURRENT) DRUG THERAPY 06/26/2017 GORGE BARBOUR N Ot Z85.828 PERSONAL HISTORY OF OTHER MALIGNANT NEOP 06/26/2017 GORGE BARBOUR N Ot 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 ABSENCE OF KIDNEY 06/29/2017 GORGE BARBOUR Ot C64.9 MALIGNANT NEOPLASM OF UNSP KIDNEY, EXCEP 06/29/2017 GORGE BARBOUR Ot R59.0 LOCALIZED ENLARGED LYMPH NODES 06/29/2017 GORGE BARBOUR Ot R91.8 OTHER NONSPECIFIC ABNORMAL FINDING OF NINOSKA 06/29/2017 GORGE BARBOUR Ot Z90.49 ACQUIRED ABSENCE OF OTHER SPECIFIED PART 06/29/2017 GORGE BARBOUR Ot 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 ABSENCE OF KIDNEY 06/29/2017 Ot 784.2 SWELLING IN HEAD NECK 06/29/2017 Ot V72.83 EXAM PRE- OPERATIVE NEC 06/29/2017 Ot V74.8 SCREEN- BACTERIAL DIS NEC 06/29/2017 JAVED FALK, LOLY E Ot 145.0 MAL MAURICE CHEEK MUCOSA 06/29/2017 KIKE CLAY MD Ot 786.2 COUGH 06/29/2017 Ot M25.561 PAIN IN RIGHT KNEE 06/29/2017 ALVA GOMEZ MD Ot K40.90 UNIL INGUINAL HERNIA, W/O OBST OR GANGR, 06/29/2017 ALVA GOMEZ MD Ot K42.9 UMBILICAL HERNIA WITHOUT OBSTRUCTION OR 06/29/2017 ALVA GOMEZ MD Ot R31.9 HEMATURIA, UNSPECIFIED 06/29/2017 KIKE LCAY MD Ot N28.1 CYST OF KIDNEY, ACQUIRED 06/29/2017 KIKE CLAY MD Ot N28.1 CYST OF KIDNEY, ACQUIRED 06/29/2017 KIKE CLAY MD Ot N28.89 OTHER SPECIFIED DISORDERS OF KIDNEY AND 06/29/2017 KIKE CLAY MD Ot R91.8 OTHER NONSPECIFIC ABNORMAL FINDING OF NINOSKA 06/29/2017 KIKE CLAY MD Ot Z85.89 PERSONAL HISTORY OF MALIGNANT NEOPLASM O 06/29/2017 GORGE BARBOUR N Ot C64.2 MALIGNANT NEOPLASM OF LEFT KIDNEY, EXCEP 06/29/2017 GORGE BARBOUR N Ot 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 06/29/2017 GORGE BARBOUR N Ot Z79.899 OTHER [facility] (CURRENT) DRUG THERAPY 06/29/2017 GORGE BARBOUR N Ot Z85.828 PERSONAL HISTORY OF OTHER MALIGNANT NEOP 06/29/2017 ANGLE BOBAN N Ot 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 ABSENCE OF KIDNEY 06/29/2017 ANGLE, BOBAN N Ot C64.9 MALIGNANT NEOPLASM OF UNSP KIDNEY, EXCEP 06/29/2017 ANGLE, BOBAN N Ot R59.0 LOCALIZED ENLARGED LYMPH NODES 06/29/2017 ANGLE, BOBAN N Ot R91.8 OTHER NONSPECIFIC ABNORMAL FINDING OF NINOSKA 06/29/2017 ANGLE, BOBKAREN N Ot Z90.49 ACQUIRED ABSENCE OF OTHER SPECIFIED PART 06/29/2017 ANGLE BOBAN N Ot 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 ABSENCE OF KIDNEY 06/30/2017 GORGE BARBOUR N Ot C64.2 MALIGNANT NEOPLASM OF LEFT KIDNEY, EXCEP 06/30/2017 GORGE BARBOUR N Ot 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 06/30/2017 GORGE BARBOUR N Ot Z79.899 OTHER [facility] (CURRENT) DRUG THERAPY 06/30/2017 ANGLE, JIMYKAREN N Ot Z85.828 PERSONAL HISTORY OF OTHER MALIGNANT NEOP 06/30/2017 ANGLE BOBAN N Ot 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 ABSENCE OF KIDNEY 07/13/2017 ANGLE, JIMYAN N Ot C65.9 MALIGNANT NEOPLASM OF UNSPECIFIED RENAL 07/13/2017 ANGLE BOBAN N Ot R59.0 LOCALIZED ENLARGED LYMPH NODES 07/13/2017 ANGLE BOBAN N Ot R91.8 OTHER NONSPECIFIC ABNORMAL FINDING OF NINOSKA 07/13/2017 ANGLE, BOBAN N Ot Z85.528 PERSONAL HISTORY OF OTHER MALIGNANT NEOP 07/13/2017 ANGLE BOBAN N Ot Z90.49 ACQUIRED ABSENCE OF OTHER SPECIFIED PART 07/13/2017 ANGLE, BOBAN N Ot 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 ABSENCE OF KIDNEY 07/15/2017 GORGE BARBOUR N Ot C65.9 MALIGNANT NEOPLASM OF UNSPECIFIED RENAL 07/15/2017 GORGE BARBOUR N Ot R59.0 LOCALIZED ENLARGED LYMPH NODES 07/15/2017 GORGE BARBOUR N Ot R91.8 OTHER NONSPECIFIC ABNORMAL FINDING OF NINOSKA 07/15/2017 GORGE BARBOUR N Ot Z85.528 PERSONAL HISTORY OF OTHER MALIGNANT NEOP 07/15/2017 GORGE BARBOUR N Ot Z90.49 ACQUIRED ABSENCE OF OTHER SPECIFIED PART 07/15/2017 GORGE BARBOUR N Ot 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 ABSENCE OF KIDNEY 07/17/2017 ANGLEGORGE JO N Ot C64.2 MALIGNANT NEOPLASM OF LEFT KIDNEY, EXCEP 07/17/2017 GORGE BARBOUR N Ot 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 07/17/2017 GORGE BARBOUR N Ot Z79.899 OTHER CABLE BRAIDER (CURRENT) DRUG THERAPY 07/17/2017 ANGLEJIMY JOAN N Ot Z85.828 PERSONAL HISTORY OF OTHER MALIGNANT NEOP 07/17/2017 ANGLEGORGE N Ot 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 ABSENCE OF KIDNEY 07/29/2017 ANGLEGORGE JO N Ot R59.0 LOCALIZED ENLARGED LYMPH NODES 07/29/2017 GORGE BARBOUR N Ot R91.8 OTHER NONSPECIFIC ABNORMAL FINDING OF NINOSKA 07/29/2017 GORGE BARBOUR N Ot Z85.528 PERSONAL HISTORY OF OTHER MALIGNANT NEOP 07/29/2017 GORGE BARBOUR N Ot Z90.49 ACQUIRED ABSENCE OF OTHER SPECIFIED PART 07/29/2017 ANGLEGORGE JO N Ot 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 ABSENCE OF KIDNEY 08/03/2017 ANGLEGORGE N Ot C64.2 MALIGNANT NEOPLASM OF LEFT KIDNEY, EXCEP 08/03/2017 GORGE BARBOUR N Ot 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 08/03/2017 ANGLE, BOBKAREN N Ot Z79.899 OTHER CABLE BRAIDER (CURRENT) DRUG THERAPY 08/03/2017 GORGE BARBOUR N Ot Z85.828 PERSONAL HISTORY OF OTHER MALIGNANT NEOP 08/03/2017 ANGLE BOBKAREN N Ot 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 ABSENCE OF KIDNEY 09/14/2017 ANGLEGORGE N Ot C64.2 MALIGNANT NEOPLASM OF LEFT KIDNEY, EXCEP 09/14/2017 GORGE BARBOUR N Ot 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 09/14/2017 GORGE BARBOUR N Ot Z51.11 ENCOUNTER FOR ANTINEOPLASTIC CHEMOTHERAP 09/14/2017 GORGE BARBOUR N Ot Z79.899 OTHER [facility] (CURRENT) DRUG THERAPY 09/14/2017 GORGE BARBOUR N Ot Z85.828 PERSONAL HISTORY OF OTHER MALIGNANT NEOP 09/14/2017 GORGE BARBOUR N Ot 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 ABSENCE OF KIDNEY 09/15/2017 GORGE BARBOUR N Ot C67.9 MALIGNANT NEOPLASM OF BLADDER, UNSPECIFI 09/15/2017 GORGE BARBOUR N Ot R59.1 GENERALIZED ENLARGED LYMPH NODES 09/15/2017 GORGE BARBOUR N Ot R91.8 OTHER NONSPECIFIC ABNORMAL FINDING OF NINOSKA 2017 GORGE BARBOUR N Ot C64.2 MALIGNANT NEOPLASM OF LEFT KIDNEY, EXCEP 2017 GORGE BARBOUR N Ot 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 2017 GORGE BARBOUR N Ot Z51.11 ENCOUNTER FOR ANTINEOPLASTIC CHEMOTHERAP 2017 GORGE BARBOUR N Ot Z79.899 OTHER [facility] (CURRENT) DRUG THERAPY 2017 GORGE BARBOUR N Ot Z85.828 PERSONAL HISTORY OF OTHER MALIGNANT NEOP 2017 GORGE BARBOUR N Ot 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 ABSENCE OF KIDNEY 09/17/2017 GORGE BARBOUR N Ot C64.2 MALIGNANT NEOPLASM OF LEFT KIDNEY, EXCEP 09/17/2017 GORGE BARBOUR N Ot 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 09/17/2017 GORGE BARBOUR N Ot Z79.899 OTHER CABLE BRAIDER (CURRENT) DRUG THERAPY 09/17/2017 GORGE BARBOUR N Ot Z85.828 PERSONAL HISTORY OF OTHER MALIGNANT NEOP 09/17/2017 GORGE BARBOUR N Ot 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 ABSENCE OF KIDNEY 09/18/2017 DELMAN DO, JARET B Ot 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 09/18/2017 DELMAN DO, JARET B Ot C67.9 MALIGNANT NEOPLASM OF BLADDER, UNSPECIFI 09/18/2017 DELMAN DO, JARET B Ot 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 09/18/2017 DELMAN DO, JARET B Ot I87.2 VENOUS INSUFFICIENCY (CHRONIC) (PERIPHER 09/21/2017 ANGLEGORGE JO N Ot C64.2 MALIGNANT NEOPLASM OF LEFT KIDNEY, EXCEP 09/21/2017 ANGLEGORGE JO N Ot 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 09/21/2017 ANGLEGORGE JO N Ot Z79.899 OTHER CABLE BRAIDER (CURRENT) DRUG THERAPY 09/21/2017 ANGLE, BOBAN N Ot Z85.828 PERSONAL HISTORY OF OTHER MALIGNANT NEOP 09/21/2017 ANGLE, BOBAN N Ot 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 ABSENCE OF KIDNEY 09/22/2017 DELMAN DO, JARET B Ot 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 09/22/2017 DELMAN DO, JARET B Ot C67.9 MALIGNANT NEOPLASM OF BLADDER, UNSPECIFI 09/22/2017 DELMAN DO, JARET B Ot 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 09/22/2017 DELMAN DO, JARET B Ot I87.2 VENOUS INSUFFICIENCY (CHRONIC) (PERIPHER 09/24/2017 ANGLEGORGE JO N Ot C67.9 MALIGNANT NEOPLASM OF BLADDER, UNSPECIFI 09/24/2017 ANGLE BOBKAREN N Ot R59.1 GENERALIZED ENLARGED LYMPH NODES 09/24/2017 ANGLE BOBAN N Ot R91.8 OTHER NONSPECIFIC ABNORMAL FINDING OF NINOSKA 09/30/2017 ANGLEGORGE JO N Ot C67.9 MALIGNANT NEOPLASM OF BLADDER, UNSPECIFI 09/30/2017 ANGLE BOBAN N Ot R59.1 GENERALIZED ENLARGED LYMPH NODES 09/30/2017 ANGLE, BOBAN N Ot R91.8 OTHER NONSPECIFIC ABNORMAL FINDING OF NINOSKA 10/15/2017 ANGLEGORGE JO N Ot C64.2 MALIGNANT NEOPLASM OF LEFT KIDNEY, EXCEP 10/15/2017 ANGLE, BOBAN N Ot 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 10/15/2017 ANGLEGOREG JO N Ot Z79.899 OTHER [facility] (CURRENT) DRUG THERAPY 10/15/2017 ANGLEGORGE JO N Ot Z85.828 PERSONAL HISTORY OF OTHER MALIGNANT NEOP 10/15/2017 ANGLE, BOBAN N Ot 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 ABSENCE OF KIDNEY 10/18/2017 HUI FALK, KAITLYN Guzmán Ot C44.319 BASAL CELL CARCINOMA OF SKIN OF OTHER PA 10/18/2017 HUI FALK, KAITLYN Guzmán Ot F32.9 MAJOR DEPRESSIVE DISORDER, SINGLE EPISOD 10/18/2017 HUI FALK, KAITLYN Guzmán Ot K21.9 GASTRO-ESOPHAGEAL REFLUX DISEASE WITHOUT 10/18/2017 HUI FALK, KAITLYN Guzmán Ot M72.2 PLANTAR FASCIAL FIBROMATOSIS 10/18/2017 HUI FALK, KAITLYN Guzmán Ot M79.672 PAIN IN LEFT FOOT 10/18/2017 HUI FALK, KAITLYN Guzmán Ot Z85.528 PERSONAL HISTORY OF OTHER MALIGNANT NEOP 10/18/2017 KAITLYN AMES MD Ot Z87.19 PERSONAL HISTORY OF OTHER DISEASES OF TH 10/18/2017 KAITLYN AMES MD Ot Z87.442 PERSONAL HISTORY OF URINARY CALCULI 10/18/2017 KAITLYN AMES MD Ot 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 ABSENCE OF KIDNEY 10/18/2017 KAITLYN AMES MD Ot Z92.3 PERSONAL HISTORY OF IRRADIATION 10/18/2017 KAITLYN AMES MD Ot Z98.890 OTHER SPECIFIED POSTPROCEDURAL STATES 10/20/2017 HUI FALK, KAITLYN Guzmán Ot C44.319 BASAL CELL CARCINOMA OF SKIN OF OTHER PA 10/20/2017 HUI FALK, KAITLYN Guzmán Ot F32.9 MAJOR DEPRESSIVE DISORDER, SINGLE EPISOD 10/20/2017 HUI FALK, KAITLYN Guzmán Ot K21.9 GASTRO-ESOPHAGEAL REFLUX DISEASE WITHOUT 10/20/2017 HUI FALK, KAITLYN Guzmán Ot M72.2 PLANTAR FASCIAL FIBROMATOSIS 10/20/2017 KAITLYN AMES MD Ot M79.672 PAIN IN LEFT FOOT 10/20/2017 KAITLYN AEMS MD Ot Z85.528 PERSONAL HISTORY OF OTHER MALIGNANT NEOP 10/20/2017 KAITLYN AMES MD Ot Z87.19 PERSONAL HISTORY OF OTHER DISEASES OF TH 10/20/2017 KAITLYN AMES MD Ot Z87.442 PERSONAL HISTORY OF URINARY CALCULI 10/20/2017 KAILTYN AMES MD Ot 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 ABSENCE OF KIDNEY 10/20/2017 KAITLYN AMES MD Ot Z92.3 PERSONAL HISTORY OF IRRADIATION 10/20/2017 KAITLYN AMES MD Ot Z98.890 OTHER SPECIFIED POSTPROCEDURAL STATES 11/16/2017 GORGE BARBOUR N Ot C64.2 MALIGNANT NEOPLASM OF LEFT KIDNEY, EXCEP 11/16/2017 GORGE BARBOUR N Ot 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 11/16/2017 GORGE BARBOUR N Ot Z79.899 OTHER [facility] (CURRENT) DRUG THERAPY 11/16/2017 GORGE BARBOUR N Ot Z85.828 PERSONAL HISTORY OF OTHER MALIGNANT NEOP 11/16/2017 GORGE BARBOUR N Ot 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 ABSENCE OF KIDNEY 12/15/2017 GORGE BARBOUR N Ot C64.2 MALIGNANT NEOPLASM OF LEFT KIDNEY, EXCEP 12/15/2017 GORGE BARBOUR N Ot 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 12/15/2017 GORGE BARBOUR N Ot Z51.11 ENCOUNTER FOR ANTINEOPLASTIC CHEMOTHERAP 12/15/2017 GORGE BARBOUR N Ot Z79.899 OTHER CABLE BRAIDER (CURRENT) DRUG THERAPY 12/15/2017 GORGE BARBOUR N Ot Z85.828 PERSONAL HISTORY OF OTHER MALIGNANT NEOP 12/15/2017 GORGE BARBOUR N Ot 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 ABSENCE OF KIDNEY 12/22/2017 GORGE BARBOUR N Ot C64.2 MALIGNANT NEOPLASM OF LEFT KIDNEY, EXCEP 12/22/2017 GORGE BARBOUR N Ot 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 12/22/2017 GORGE BARBOUR N Ot Z79.899 OTHER CABLE BRAIDER (CURRENT) DRUG THERAPY 12/22/2017 GORGE BARBOUR N Ot Z85.828 PERSONAL HISTORY OF OTHER MALIGNANT NEOP 12/22/2017 ANGLEGORGE JO N Ot 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 ABSENCE OF KIDNEY 01/11/2018 ANGLEGORGE JO N Ot C64.2 MALIGNANT NEOPLASM OF LEFT KIDNEY, EXCEP 01/11/2018 ANGLEGORGE JO N Ot 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 01/11/2018 ANGLEGORGE JO N Ot Z79.899 OTHER [facility] (CURRENT) DRUG THERAPY 01/11/2018 ANGLEGORGE JO N Ot Z85.828 PERSONAL HISTORY OF OTHER MALIGNANT NEOP 01/11/2018 ANGLEGORGE N Ot 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 ABSENCE OF KIDNEY 01/13/2018 GORGE BARBOUR N Ot C64.2 MALIGNANT NEOPLASM OF LEFT KIDNEY, EXCEP 01/13/2018 GORGE BARBOUR N Ot 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 01/13/2018 GORGE BARBOUR N Ot Z79.899 OTHER [facility] (CURRENT) DRUG THERAPY 01/13/2018 GORGE BARBOUR N Ot Z85.828 PERSONAL HISTORY OF OTHER MALIGNANT NEOP 01/13/2018 GORGE BARBOUR N Ot 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 ABSENCE OF KIDNEY 02/01/2018 GORGE BARBOUR N Ot C64.2 MALIGNANT NEOPLASM OF LEFT KIDNEY, EXCEP 02/01/2018 GORGE BARBOUR N Ot 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 02/01/2018 GORGE BARBOUR N Ot Z79.899 OTHER CABLE BRAIDER (CURRENT) DRUG THERAPY 02/01/2018 GORGE BRABOUR N Ot Z85.828 PERSONAL HISTORY OF OTHER MALIGNANT NEOP 02/01/2018 GORGE BARBOUR N Ot 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 ABSENCE OF KIDNEY 02/01/2018 JAVED FALK, LOLY E Ot 145.0 MAL MAURICE CHEEK MUCOSA 02/01/2018 KIKE CLAY MD Ot 786.2 COUGH 02/01/2018 Ot M25.561 PAIN IN RIGHT KNEE 02/01/2018 ALVA GOMEZ MD Ot K40.90 UNIL INGUINAL HERNIA, W/O OBST OR GANGR, 02/01/2018 ALVA GOMEZ MD Ot K42.9 UMBILICAL HERNIA WITHOUT OBSTRUCTION OR 02/01/2018 ALVA GOMEZ MD Ot R31.9 HEMATURIA, UNSPECIFIED 02/01/2018 KIKE CLAY MD Ot N28.1 CYST OF KIDNEY, ACQUIRED 02/01/2018 KIKE CLAY MD, Ot N28.1 CYST OF KIDNEY, ACQUIRED 02/01/2018 KIKE CLAY MD Ot N28.89 OTHER SPECIFIED DISORDERS OF KIDNEY AND 02/01/2018 KIKE CLAY MD Ot R91.8 OTHER NONSPECIFIC ABNORMAL FINDING OF NINOSKA 02/01/2018 KIKE CLAY MD Ot Z85.89 PERSONAL HISTORY OF MALIGNANT NEOPLASM O 02/01/2018 GORGE BARBOUR Francheska Ot R59.0 LOCALIZED ENLARGED LYMPH NODES 02/01/2018 ANGLE, GORGE Pritchard Ot R91.8 OTHER NONSPECIFIC ABNORMAL FINDING OF NINOSKA 02/01/2018 GORGE BARBOUR N Ot Z85.528 PERSONAL HISTORY OF OTHER MALIGNANT NEOP 02/01/2018 GORGE BARBOUR N Ot Z90.49 ACQUIRED ABSENCE OF OTHER SPECIFIED PART 02/01/2018 GORGE BARBOUR N Ot 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 ABSENCE OF KIDNEY 02/01/2018 GORGE BARBOUR N Ot C67.9 MALIGNANT NEOPLASM OF BLADDER, UNSPECIFI 02/01/2018 GORGE BARBOUR N Ot R59.1 GENERALIZED ENLARGED LYMPH NODES 02/01/2018 GORGE BARBOUR N Ot R91.8 OTHER NONSPECIFIC ABNORMAL FINDING OF NINOSKA 02/01/2018 ANGLEGORGE JO N Ot C67.9 MALIGNANT NEOPLASM OF BLADDER, UNSPECIFI 02/01/2018 ANGLEGORGE JO N Ot 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 02/01/2018 GORGE BARBOUR N Ot Z01.89 ENCOUNTER FOR OTHER SPECIFIED SPECIAL EX 02/01/2018 GORGE BARBOUR N Ot C64.2 MALIGNANT NEOPLASM OF LEFT KIDNEY, EXCEP 02/01/2018 ANGLEGORGE JO N Ot 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 02/01/2018 ANGLEGORGE N Ot Z79.899 OTHER [facility] (CURRENT) DRUG THERAPY 02/01/2018 ANGLEGORGE N Ot Z85.828 PERSONAL HISTORY OF OTHER MALIGNANT NEOP 02/01/2018 ANGLEGORGE N Ot 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 ABSENCE OF KIDNEY 02/03/2018 ANGLEGORGE JO N Ot C64.2 MALIGNANT NEOPLASM OF LEFT KIDNEY, EXCEP 02/03/2018 ANGLEGORGE N Ot 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 02/03/2018 ANGLEJIMYAN N Ot Z79.899 OTHER CABLE BRAIDER (CURRENT) DRUG THERAPY 02/03/2018 ANGLEGORGE N Ot Z85.828 PERSONAL HISTORY OF OTHER MALIGNANT NEOP 02/03/2018 ANGLEGORGE N Ot 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 ABSENCE OF KIDNEY 02/08/2018 ANGLEGORGE N Ot C64.2 MALIGNANT NEOPLASM OF LEFT KIDNEY, EXCEP 02/08/2018 ANGLEJIMYAN N Ot 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 02/08/2018 ANGLE, BOBAN N Ot Z79.899 OTHER [facility] (CURRENT) DRUG THERAPY 02/08/2018 GORGE BARBOUR N Ot Z85.828 PERSONAL HISTORY OF OTHER MALIGNANT NEOP 02/08/2018 GORGE BARBOUR N Ot 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 ABSENCE OF KIDNEY 03/30/2018 GORGE BARBOUR N Ot 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 03/30/2018 GORGE BARBOUR N Ot 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 03/30/2018 GORGE BARBOUR N Ot C78.7 SECONDARY MALIG NEOPLASM OF LIVER AND IN 03/30/2018 GORGE BARBOUR N Ot 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 ABSENCE OF KIDNEY 04/07/2018 GORGE BARBOUR N Ot C64.2 MALIGNANT NEOPLASM OF LEFT KIDNEY, EXCEP 04/07/2018 GORGE BARBOUR N Ot 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 04/07/2018 GORGE BARBOUR N Ot Z79.899 OTHER [facility] (CURRENT) DRUG THERAPY 04/07/2018 GORGE BARBOUR N Ot Z85.828 PERSONAL HISTORY OF OTHER MALIGNANT NEOP 04/07/2018 GORGE BARBOUR N Ot 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 ABSENCE OF KIDNEY 04/29/2018 GORGE BARBOUR N Ot C64.2 MALIGNANT NEOPLASM OF LEFT KIDNEY, EXCEP 04/29/2018 GORGE BARBOUR N Ot 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 04/29/2018 GORGE BARBOUR N Ot Z79.899 OTHER CABLE BRAIDER (CURRENT) DRUG THERAPY 04/29/2018 GORGE BARBOUR N Ot Z85.828 PERSONAL HISTORY OF OTHER MALIGNANT NEOP 04/29/2018 GORGE BARBOUR N Ot 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 ABSENCE OF KIDNEY 05/02/2018 GORGE BARBOUR N Ot C64.2 MALIGNANT NEOPLASM OF LEFT KIDNEY, EXCEP 05/02/2018 GORGE BARBOUR N Ot 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 05/02/2018 GORGE BARBOUR N Ot Z51.11 ENCOUNTER FOR ANTINEOPLASTIC CHEMOTHERAP 05/02/2018 GORGE BARBOUR N Ot Z79.899 OTHER CABLE BRAIDER (CURRENT) DRUG THERAPY 05/02/2018 GORGE BARBOUR N Ot Z85.828 PERSONAL HISTORY OF OTHER MALIGNANT NEOP 05/02/2018 GORGE BARBOUR N Ot 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 ABSENCE OF KIDNEY 05/03/2018 GORGE BARBOUR Francheska Ot C64.2 MALIGNANT NEOPLASM OF LEFT KIDNEY, EXCEP 05/03/2018 ANGLE GORGE Pritchard Ot 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 05/03/2018 GORGE BARBOUR Francheska Ot Z51.11 ENCOUNTER FOR ANTINEOPLASTIC CHEMOTHERAP 05/03/2018 GORGE BARBOUR Francheska Ot Z79.899 OTHER [facility] (CURRENT) DRUG THERAPY 05/03/2018 ANGLE JIMYKAREN Francheska Ot Z85.828 PERSONAL HISTORY OF OTHER MALIGNANT NEOP 05/03/2018 ANGLE JIMYKAREN Francheska Ot 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 ABSENCE OF KIDNEY 05/07/2018 OBED FALK, KIKE Durán Ot 786.2 COUGH 05/07/2018 Ot M25.561 PAIN IN RIGHT KNEE 05/07/2018 JASON FALK, ALVA Moffett Ot K40.90 UNIL INGUINAL HERNIA, W/O OBST OR GANGR, 05/07/2018 ALVA GOMEZ MD Ot K42.9 UMBILICAL HERNIA WITHOUT OBSTRUCTION OR 05/07/2018 ALVA GOMEZ MD Ot R31.9 HEMATURIA, UNSPECIFIED 05/07/2018 KIKE CLAY MD Ot N28.1 CYST OF KIDNEY, ACQUIRED 05/07/2018 KIKE CLAY MD Ot N28.1 CYST OF KIDNEY, ACQUIRED 05/07/2018 KIKE CLAY MD Ot N28.89 OTHER SPECIFIED DISORDERS OF KIDNEY AND 05/07/2018 KIKE CLAY MD Ot R91.8 OTHER NONSPECIFIC ABNORMAL FINDING OF NINOSKA 05/07/2018 KIKE CLAY MD Ot Z85.89 PERSONAL HISTORY OF MALIGNANT NEOPLASM O 05/07/2018 ANGLEGORGE Ot R59.0 LOCALIZED ENLARGED LYMPH NODES 05/07/2018 ANGLEGORGE Ot R91.8 OTHER NONSPECIFIC ABNORMAL FINDING OF NINOSKA 05/07/2018 ANGLE JIMYKAREN Francheska Ot Z85.528 PERSONAL HISTORY OF OTHER MALIGNANT NEOP 05/07/2018 ANGLEGORGE Ot Z90.49 ACQUIRED ABSENCE OF OTHER SPECIFIED PART 05/07/2018 ANGLEGORGE Ot 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 ABSENCE OF KIDNEY 05/07/2018 ANGLEGORGE Ot C67.9 MALIGNANT NEOPLASM OF BLADDER, UNSPECIFI 05/07/2018 GORGE BARBOUR Ot R59.1 GENERALIZED ENLARGED LYMPH NODES 05/07/2018 GORGE BARBOUR N Ot R91.8 OTHER NONSPECIFIC ABNORMAL FINDING OF NINOSKA 05/07/2018 GORGE BARBOUR N Ot C67.9 MALIGNANT NEOPLASM OF BLADDER, UNSPECIFI 05/07/2018 GORGE BARBOUR N Ot 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 05/07/2018 GORGE BARBOUR N Ot Z01.89 ENCOUNTER FOR OTHER SPECIFIED SPECIAL EX 05/07/2018 GORGE BARBOUR N Ot 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 05/07/2018 ANGLEGORGE JO N Ot 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 05/07/2018 GORGE BARBOUR N Ot C78.7 SECONDARY MALIG NEOPLASM OF LIVER AND IN 05/07/2018 ANGLE JIMYKAREN N Ot 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 ABSENCE OF KIDNEY 05/07/2018 GORGE BARBOUR N Ot C64.2 MALIGNANT NEOPLASM OF LEFT KIDNEY, EXCEP 05/07/2018 ANGLE JIMYKAREN N Ot 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 05/07/2018 GORGE BARBOUR N Ot Z79.899 OTHER CABLE BRAIDER (CURRENT) DRUG THERAPY 05/07/2018 GORGE BARBOUR N Ot Z85.828 PERSONAL HISTORY OF OTHER MALIGNANT NEOP 05/07/2018 ANGLE, JIMYKAREN N Ot 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 ABSENCE OF KIDNEY 05/10/2018 GORGE BARBOUR N Ot C64.2 MALIGNANT NEOPLASM OF LEFT KIDNEY, EXCEP 05/10/2018 ANGLEGORGE JO N Ot 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 05/10/2018 ANGLE JIMYKAREN N Ot Z79.899 OTHER CABLE BRAIDER (CURRENT) DRUG THERAPY 05/10/2018 ANGLE JIMYKAREN N Ot Z85.828 PERSONAL HISTORY OF OTHER MALIGNANT NEOP 05/10/2018 ANGLEGORGE N Ot 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 ABSENCE OF KIDNEY 05/20/2018 ANGLE, JIMYKAREN N Ot C64.2 MALIGNANT NEOPLASM OF LEFT KIDNEY, EXCEP 05/20/2018 ANGLE JIMYKAREN N Ot 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 05/20/2018 ANGLEGORGE N Ot Z79.899 OTHER CABLE BRAIDER (CURRENT) DRUG THERAPY 05/20/2018 ANGLE GORGE N Ot Z85.828 PERSONAL HISTORY OF OTHER MALIGNANT NEOP 05/20/2018 GORGE BARBOUR N Ot 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 ABSENCE OF KIDNEY 05/20/2018 ANGLEGORGE JO N Ot C64.2 MALIGNANT NEOPLASM OF LEFT KIDNEY, EXCEP 05/20/2018 ANGLEGORGE JO N Ot 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 05/20/2018 ANGLEGORGE JO N Ot Z79.899 OTHER [facility] (CURRENT) DRUG THERAPY 05/20/2018 GORGE BARBOUR N Ot Z85.828 PERSONAL HISTORY OF OTHER MALIGNANT NEOP 05/20/2018 GORGE BARBOUR N Ot 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 ABSENCE OF KIDNEY 05/21/2018 ANGLEGORGE JO N Ot C64.2 MALIGNANT NEOPLASM OF LEFT KIDNEY, EXCEP 05/21/2018 ANGLEGORGE JO N Ot 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 05/21/2018 ANGLEGORGE JO N Ot Z79.899 OTHER [facility] (CURRENT) DRUG THERAPY 05/21/2018 ANGLEGORGE JO N Ot Z85.828 PERSONAL HISTORY OF OTHER MALIGNANT NEOP 05/21/2018 ANGLEGORGE N Ot 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 ABSENCE OF KIDNEY 06/10/2018 ANGLEGORGE JO N Ot C64.2 MALIGNANT NEOPLASM OF LEFT KIDNEY, EXCEP 06/10/2018 GORGE BARBOUR N Ot 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 06/10/2018 ANGLEGORGE JO N Ot Z51.11 ENCOUNTER FOR ANTINEOPLASTIC CHEMOTHERAP 06/10/2018 GORGE BARBOUR N Ot Z79.899 OTHER CABLE BRAIDER (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) DRUG THERAPY 06/10/2018 GORGE BARBOUR N Ot Z85.828 PERSONAL HISTORY OF OTHER MALIGNANT NEOP 06/10/2018 ANGLEGORGE N Ot 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 ABSENCE OF KIDNEY 06/16/2018 ANGLEGORGE JO N Ot C64.2 MALIGNANT NEOPLASM OF LEFT KIDNEY, EXCEP 06/16/2018 GORGE BARBOUR N Ot 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 06/16/2018 ANGLEGORGE JO N Ot Z51.11 ENCOUNTER FOR ANTINEOPLASTIC CHEMOTHERAP 06/16/2018 ANGLEJIMY OJAN N Ot Z79.899 OTHER [facility] (CURRENT) DRUG THERAPY 06/16/2018 GORGE BARBOUR Ot Z85.828 PERSONAL HISTORY OF OTHER MALIGNANT NEOP 06/16/2018 GORGE BARBOUR Ot 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 ABSENCE OF KIDNEY 06/21/2018 KIKE CLAY MD Ot 786.2 COUGH 06/21/2018 Ot M25.561 PAIN IN RIGHT KNEE 06/21/2018 ALVA GOMEZ MD Ot K40.90 UNIL INGUINAL HERNIA, W/O OBST OR GANGR, 06/21/2018 ALVA GOMEZ MD Ot K42.9 UMBILICAL HERNIA WITHOUT OBSTRUCTION OR 06/21/2018 ALVA GOMEZ MD Ot R31.9 HEMATURIA, UNSPECIFIED 06/21/2018 KIKE CLAY MD Ot N28.1 CYST OF KIDNEY, ACQUIRED 06/21/2018 KIKE CLAY MD Ot N28.1 CYST OF KIDNEY, ACQUIRED 06/21/2018 KIKE CLAY MD Ot N28.89 OTHER SPECIFIED DISORDERS OF KIDNEY AND 06/21/2018 KIKE CLAY MD Ot R91.8 OTHER NONSPECIFIC ABNORMAL FINDING OF NINOSKA 06/21/2018 KIKE CLAY MD Ot Z85.89 PERSONAL HISTORY OF MALIGNANT NEOPLASM O 06/21/2018 GORGE BARBOUR Ot R59.0 LOCALIZED ENLARGED LYMPH NODES 06/21/2018 GORGE BARBOUR Ot R91.8 OTHER NONSPECIFIC ABNORMAL FINDING OF NINOSKA 06/21/2018 GORGE BARBOUR Ot Z85.528 PERSONAL HISTORY OF OTHER MALIGNANT NEOP 06/21/2018 GORGE BARBOUR Ot Z90.49 ACQUIRED ABSENCE OF OTHER SPECIFIED PART 06/21/2018 GORGE BARBOUR Ot 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 ABSENCE OF KIDNEY 06/21/2018 GORGE BARBOUR Ot C67.9 MALIGNANT NEOPLASM OF BLADDER, UNSPECIFI 06/21/2018 GORGE BARBOUR Ot R59.1 GENERALIZED ENLARGED LYMPH NODES 06/21/2018 GORGE BARBOUR Ot R91.8 OTHER NONSPECIFIC ABNORMAL FINDING OF NINOSKA 06/21/2018 GORGE BARBOUR Ot C67.9 MALIGNANT NEOPLASM OF BLADDER, UNSPECIFI 06/21/2018 GORGE BARBOUR Ot 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 06/21/2018 GORGE BARBOUR Ot Z01.89 ENCOUNTER FOR OTHER SPECIFIED SPECIAL EX 06/21/2018 ANGLE, BOBAN N Ot 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 06/21/2018 GORGE BARBOUR Francheska Ot 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 06/21/2018 GORGE BARBOUR Francheska Ot C78.7 SECONDARY MALIG NEOPLASM OF LIVER AND IN 06/21/2018 GORGE BARBOUR Ot 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 ABSENCE OF KIDNEY 06/21/2018 GORGE BARBOUR Ot C64.2 MALIGNANT NEOPLASM OF LEFT KIDNEY, EXCEP 06/21/2018 GORGE BARBOUR Francheska Ot 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 06/21/2018 GORGE BARBOUR Francheska Ot Z51.11 ENCOUNTER FOR ANTINEOPLASTIC CHEMOTHERAP 06/21/2018 GORGE BARBOUR Francheska Ot Z79.899 OTHER CABLE BRAIDER (CURRENT) DRUG THERAPY 06/21/2018 GORGE BARBOUR Francheska Ot Z85.828 PERSONAL HISTORY OF OTHER MALIGNANT NEOP 06/21/2018 GORGE BARBOUR Francheska Ot 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 ABSENCE OF KIDNEY 06/21/2018 SAURABH AVILA Ot C78.00 SECONDARY MALIGNANT NEOPLASM OF UNSPECIF 06/21/2018 SAURABH AVILA Ot C78.7 SECONDARY MALIG NEOPLASM OF LIVER AND IN 06/21/2018 SAURABH AVILA Ot C80.1 MALIGNANT (PRIMARY) NEOPLASM, UNSPECIFIE 06/21/2018 SAURABH AVILA Ot Z90.49 ACQUIRED ABSENCE OF OTHER SPECIFIED PART 06/29/2018 KIKE CLAY MD Ot 786.2 COUGH 06/29/2018 Ot M25.561 PAIN IN RIGHT KNEE 06/29/2018 ALVA GOMEZ MD Ot K40.90 UNIL INGUINAL HERNIA, W/O OBST OR GANGR, 06/29/2018 ALVA GOMEZ MD Ot K42.9 UMBILICAL HERNIA WITHOUT OBSTRUCTION OR 06/29/2018 ALVA GOMEZ MD Ot R31.9 HEMATURIA, UNSPECIFIED 06/29/2018 KIKE CLAY MD Ot N28.1 CYST OF KIDNEY, ACQUIRED 06/29/2018 KIKE CLAY MD, Ot N28.1 CYST OF KIDNEY, ACQUIRED 06/29/2018 KIKE CLAY MD Ot N28.89 OTHER SPECIFIED DISORDERS OF KIDNEY AND 06/29/2018 KIKE CLAY MD Ot R91.8 OTHER NONSPECIFIC ABNORMAL FINDING OF NINOSKA 06/29/2018 KIKE CLAY MD Ot Z85.89 PERSONAL HISTORY OF MALIGNANT NEOPLASM O 06/29/2018 GORGE BARBOUR Francheska Ot R59.0 LOCALIZED ENLARGED LYMPH NODES 06/29/2018 ANGLE JIMYKAREN Francheska Ot R91.8 OTHER NONSPECIFIC ABNORMAL FINDING OF NINOSKA 06/29/2018 GORGE BARBOUR Francheska Ot Z85.528 PERSONAL HISTORY OF OTHER MALIGNANT NEOP 06/29/2018 ANGLE JIMYKAREN Francheska Ot Z90.49 ACQUIRED ABSENCE OF OTHER SPECIFIED PART 06/29/2018 ANGLE GORGE Pritchard Ot 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 ABSENCE OF KIDNEY 06/29/2018 ANGLE JIMYKAREN Francheska Ot C67.9 MALIGNANT NEOPLASM OF BLADDER, UNSPECIFI 06/29/2018 GORGE BARBOUR Francheska Ot R59.1 GENERALIZED ENLARGED LYMPH NODES 06/29/2018 GORGE BARBOUR Francheska Ot R91.8 OTHER NONSPECIFIC ABNORMAL FINDING OF NINOSKA 06/29/2018 GORGE BARBOUR Francheska Ot C67.9 MALIGNANT NEOPLASM OF BLADDER, UNSPECIFI 06/29/2018 ANGELGORGE Ot 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 06/29/2018 GORGE BARBOUR Francheska Ot Z01.89 ENCOUNTER FOR OTHER SPECIFIED SPECIAL EX 06/29/2018 ANGLE JIMYKAREN Francheska Ot 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 06/29/2018 ANGLEGORGE Ot 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 06/29/2018 ANGLE GORGE Pritchard Ot C78.7 SECONDARY MALIG NEOPLASM OF LIVER AND IN 06/29/2018 ANGLEGORGE Ot 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 ABSENCE OF KIDNEY 06/29/2018 ANGLEGORGE Ot C64.2 MALIGNANT NEOPLASM OF LEFT KIDNEY, EXCEP 06/29/2018 ANGLEGORGE Ot 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 06/29/2018 ANGLE GORGE Pritchard Ot Z51.11 ENCOUNTER FOR ANTINEOPLASTIC CHEMOTHERAP 06/29/2018 ANGLEGORGE Ot Z79.899 OTHER [facility] (CURRENT) DRUG THERAPY 06/29/2018 ANGLEGORGE Ot Z85.828 PERSONAL HISTORY OF OTHER MALIGNANT NEOP 06/29/2018 ANGLEGORGE Ot 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 ABSENCE OF KIDNEY 06/29/2018 SAURABH AVILA Ot C78.00 SECONDARY MALIGNANT NEOPLASM OF UNSPECIF 06/29/2018 SAURABH AVILA Ot C78.7 SECONDARY MALIG NEOPLASM OF LIVER AND IN 06/29/2018 SAURABH AVILA Ot C80.1 MALIGNANT (PRIMARY) NEOPLASM, UNSPECIFIE 06/29/2018 SAURABH AVILA Ot Z90.49 ACQUIRED ABSENCE OF OTHER SPECIFIED PART 06/30/2018 ANGLEGORGE N Ot 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 06/30/2018 ANGLEGORGE N Ot C67.9 MALIGNANT NEOPLASM OF BLADDER, UNSPECIFI 06/30/2018 ANGLEGORGE N Ot 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 06/30/2018 ANGLEGORGE N Ot C78.7 SECONDARY MALIG NEOPLASM OF LIVER AND IN 06/30/2018 ANGLEGORGE N Ot Z01.89 ENCOUNTER FOR OTHER SPECIFIED SPECIAL EX 07/02/2018 ANGLEGORGE N Ot C64.2 MALIGNANT NEOPLASM OF LEFT KIDNEY, EXCEP 07/02/2018 ANGLEGORGE N Ot 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 07/02/2018 ANGLEGORGE N Ot Z51.11 ENCOUNTER FOR ANTINEOPLASTIC CHEMOTHERAP 07/02/2018 ANGLEGORGE N Ot Z79.899 OTHER [facility] (CURRENT) DRUG THERAPY 07/02/2018 ANGLEGORGE N Ot Z85.828 PERSONAL HISTORY OF OTHER MALIGNANT NEOP 07/02/2018 GORGE BARBOUR N Ot 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 ABSENCE OF KIDNEY 07/12/2018 SAURABH AVILA Ot 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 07/12/2018 SAURABH AVILA Ot C78.7 SECONDARY MALIG NEOPLASM OF LIVER AND IN 07/12/2018 SAURABH AVILA Ot C80.1 MALIGNANT (PRIMARY) NEOPLASM, UNSPECIFIE 07/12/2018 SAURABH AVILA Ot Z90.49 ACQUIRED ABSENCE OF OTHER SPECIFIED PART 07/19/2018 ANGLEGORGE N Ot C64.2 MALIGNANT NEOPLASM OF LEFT KIDNEY, EXCEP 07/19/2018 ANGLEGORGE N Ot 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 07/19/2018 ANGLEGORGE N Ot Z51.11 ENCOUNTER FOR ANTINEOPLASTIC CHEMOTHERAP 07/19/2018 GORGE BARBOUR Francheska Ot Z79.899 OTHER CABLE BRAIDER (CURRENT) DRUG THERAPY 07/19/2018 GORGE BARBOUR Francheska Ot Z85.828 PERSONAL HISTORY OF OTHER MALIGNANT NEOP 07/19/2018 GORGE BARBOUR N Ot 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 ABSENCE OF KIDNEY 07/21/2018 SAURABH AVILA Ot 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 07/21/2018 SAURABH AVILA Ot C78.7 SECONDARY MALIG NEOPLASM OF LIVER AND IN 07/21/2018 SAURABH AVILA Ot C80.1 MALIGNANT (PRIMARY) NEOPLASM, UNSPECIFIE 07/21/2018 SAURABH AVILA Ot Z90.49 ACQUIRED ABSENCE OF OTHER SPECIFIED PART 08/03/2018 GORGE BARBOUR Francheska Ot C64.2 MALIGNANT NEOPLASM OF LEFT KIDNEY, EXCEP 08/03/2018 GORGE BARBOUR Francheska Ot 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 08/03/2018 ANGLEGORGE JO Francheska Ot Z51.11 ENCOUNTER FOR ANTINEOPLASTIC CHEMOTHERAP 08/03/2018 GORGE BARBOUR N Ot Z79.899 OTHER CABLE BRAIDER (CURRENT) DRUG THERAPY 08/03/2018 GORGE BARBOUR Francheska Ot Z85.828 PERSONAL HISTORY OF OTHER MALIGNANT NEOP 08/03/2018 GORGE BARBOUR Francheska Ot 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 ABSENCE OF KIDNEY 08/05/2018 CONCEPCION VALLE HAND CLERICAL VERIFIER Ot C67.9 MALIGNANT NEOPLASM OF BLADDER, UNSPECIFI 08/05/2018 CONCEPCION VALLE HAND CLERICAL VERIFIER Ot 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 08/05/2018 CONCEPCION VALLE HAND CLERICAL VERIFIER Ot C78.7 SECONDARY MALIG NEOPLASM OF LIVER AND IN 08/05/2018 CONCEPCION VALLE HAND CLERICAL VERIFIER Ot Z53.8 PROCEDURE AND TREATMENT NOT CARRIED OUT 08/10/2018 GORGE BARBOUR Francheska Ot C64.2 MALIGNANT NEOPLASM OF LEFT KIDNEY, EXCEP 08/10/2018 ANGLE JIMYKAREN N Ot 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 08/10/2018 GORGE BARBOUR N Ot Z51.11 ENCOUNTER FOR ANTINEOPLASTIC CHEMOTHERAP 08/10/2018 GORGE BARBOUR N Ot Z79.899 OTHER CABLE BRAIDER (CURRENT) DRUG THERAPY 08/10/2018 GORGE BARBOUR N Ot Z85.828 PERSONAL HISTORY OF OTHER MALIGNANT NEOP 08/10/2018 GORGE BARBOUR Ot 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 ABSENCE OF KIDNEY Procedures Code Description Performed By Performed On [id number] EXCISION OF RECTUM, ENDO, DIAGN 03/27/2017 Results [...] plasma calcium measurement (mass/volume) 8.1 mg/dL 8.5-10.1 [id number] - 04/01/17 08:51 Serum or plasma urea [...] Staphylococcus aureus (MRSA) screening culture NEG NRG Complete blood count (CBC) with automated white blood cell (WBC) differential - 10/18/17 09:15 Blood leukocytes automated count (number/volume) 2.0 10*3/uL 4.3-11.0 Blood erythrocytes automated count (number/volume) 2.90 10*6/uL 4.35-5.85 Venous blood hemoglobin measurement (mass/volume) 9.7 g/dL 13.3-17.7 Blood hematocrit (volume fraction) 28 % 40-54 Automated erythrocyte mean corpuscular volume 97 [foz_us] 80-99 Automated erythrocyte mean corpuscular hemoglobin (mass per erythrocyte) 33 pg 25-34 Automated erythrocyte mean corpuscular hemoglobin concentration measurement ( mass/volume) 34 g/dL 32-36 Automated erythrocyte distribution width ratio 15.4 % 10.0-14.5 Automated blood platelet count (count/volume) 222 10*3/uL 130-400 Automated blood platelet mean volume measurement 9.0 [foz_us] 7.4-10.4 Automated blood neutrophils/100 leukocytes 49 % 42-75 Automated blood lymphocytes/100 leukocytes 42 % 12-44 Blood monocytes/100 leukocytes 6 % 0-12 Automated blood eosinophils/100 leukocytes 3 % 0-10 Automated blood basophils/100 leukocytes 1 % 0-10 Blood neutrophils automated count (number/volume) 1.0 10*3 1.8-7.8 Blood lymphocytes automated count (number/volume) 0.8 10*3 1.0-4.0 Blood monocytes automated count (number/volume) 0.1 10*3 0.0-1.0 Automated eosinophil count 0.1 10*3/uL 0.0-0.3 Automated blood basophil count (count/volume) 0.0 10*3/uL 0.0-0.1 Comprehensive metabolic panel - 10/18/17 09:15 Serum or plasma sodium measurement (moles/volume) 139 mmol/L 135-145 Serum or plasma potassium measurement (moles/volume) 4.7 mmol/L 3.6-5.0 Serum or plasma chloride measurement (moles/volume) 109 mmol/L 98-107 Carbon dioxide 23 mmol/L 21-32 Serum or plasma anion gap determination (moles/volume) 7 mmol/L 5-14 Serum or plasma urea nitrogen measurement (mass/volume) 26 mg/dL 7-18 Serum or plasma creatinine measurement (mass/volume) 1.26 mg/dL 0.60-1.30 Serum or plasma urea nitrogen/creatinine mass ratio 21 NRG Serum or plasma creatinine measurement with calculation of estimated glomerular filtration rate 58 NRG Serum or plasma glucose measurement (mass/volume) 107 mg/dL 70-105 Serum or plasma calcium measurement (mass/volume) 9.2 mg/dL 8.5-10.1 Serum or plasma total bilirubin measurement (mass/volume) 0.2 mg/dL 0.1-1.0 Serum or plasma alkaline phosphatase measurement (enzymatic activity/volume) 71 U/L 40-136 Serum or plasma aspartate aminotransferase measurement (enzymatic activity/ volume) 18 U/L 5-34 Serum or plasma alanine aminotransferase measurement (enzymatic activity/volume ) 14 U/L 0-55 Serum or plasma protein measurement (mass/volume) 7.3 g/dL 6.4-8.2 Serum or plasma albumin measurement (mass/volume) 4.2 g/dL 3.2-4.5 Serum or plasma uric acid measurement (mass/volume) - 10/18/17 09:15 Serum or plasma uric acid measurement (mass/volume) 4.2 mg/dL 2.6-7.2 Erythrocyte sedimentation rate by westergren method - 10/18/17 09:15 Erythrocyte sedimentation rate by westergren method 56 mm 0-30 Automated blood complete blood count (hemogram) panel - 06/21/18 17:02 Blood leukocytes automated count (number/volume) 10.5 10*3/uL 4.3-11.0 Blood erythrocytes automated count (number/volume) 3.28 10*6/uL 4.35-5.85 Venous blood hemoglobin measurement (mass/volume) 9.3 g/dL 13.3-17.7 Blood hematocrit (volume fraction) 30 % 40-54 Automated erythrocyte mean corpuscular volume 91 [foz_us] 80-99 Automated erythrocyte mean corpuscular hemoglobin (mass per erythrocyte) 28 pg 25-34 Automated erythrocyte mean corpuscular hemoglobin concentration measurement ( mass/volume) 31 g/dL 32-36 Automated erythrocyte distribution width ratio 16.2 % 10.0-14.5 Automated blood platelet count (count/volume) 398 10*3/uL 130-400 Automated blood platelet mean volume measurement 8.6 [foz_us] 7.4-10.4 Comprehensive metabolic panel - 06/21/18 17:02 Serum or plasma sodium measurement (moles/volume) 138 mmol/L 135-145 Serum or plasma potassium measurement (moles/volume) 4.2 mmol/L 3.6-5.0 Serum or plasma chloride measurement (moles/volume) 104 mmol/L 98-107 Carbon dioxide 23 mmol/L 21-32 Serum or plasma anion gap determination (moles/volume) 11 mmol/L 5-14 Serum or plasma urea nitrogen measurement (mass/volume) 24 mg/dL 7-18 Serum or plasma creatinine measurement (mass/volume) 1.34 mg/dL 0.60-1.30 Serum or plasma urea nitrogen/creatinine mass ratio 18 NRG Serum or plasma creatinine measurement with calculation of estimated glomerular filtration rate 54 NRG Serum or plasma glucose measurement (mass/volume) 96 mg/dL 70-105 Serum or plasma calcium measurement (mass/volume) 9.5 mg/dL 8.5-10.1 Serum or plasma total bilirubin measurement (mass/volume) 0.3 mg/dL 0.1-1.0 Serum or plasma alkaline phosphatase measurement (enzymatic activity/volume) 183 U/L 40-136 Serum or plasma aspartate aminotransferase measurement (enzymatic activity/ volume) 43 U/L 5-34 Serum or plasma alanine aminotransferase measurement (enzymatic activity/volume ) 58 U/L 0-55 Serum or plasma protein measurement (mass/volume) 8.5 g/dL 6.4-8.2 Serum or plasma albumin measurement (mass/volume) 3.9 g/dL 3.2-4.5 CALCIUM CORRECTED 9.6 mg/dL 8.5-10.1 Lipase - 06/21/18 17:02 Lipase 50 U/L 8-78 Serum or plasma C reactive protein measurement (mass/volume) - 06/21/18 17:02 Serum or plasma C reactive protein measurement (mass/volume) 9.22 mg /dL 0.00-0.50 Complete urinalysis with reflex to culture - 06/21/18 17:05 Urine color determination YELLOW NRG Urine clarity determination CLEAR NRG Urine pH measurement by test strip 5 5-9 Specific gravity of urine by test strip 1.025 1.016- 1.022 Urine protein assay by test strip, semi-quantitative 2+ NEGATIVE Urine glucose detection by automated test strip NEGATIVE NEGATIVE Erythrocytes detection in urine sediment by light microscopy 1+ NEGATIVE Urine ketones detection by automated test strip NEGATIVE NEGATIVE Urine nitrite detection by test strip NEGATIVE NEGATIVE Urine total bilirubin detection by test strip NEGATIVE NEGATIVE Urine urobilinogen measurement by automated test strip (mass/volume) NORMAL NORMAL Urine leukocyte esterase detection by dipstick NEGATIVE NEGATIVE Automated urine sediment erythrocyte count by microscopy (number/high power field) [HPF] NRG Automated urine sediment leukocyte count by microscopy (number/high power field ) RARE NRG Bacteria detection in urine sediment by light microscopy NEGATIVE NRG Crystals detection in urine sediment by light microscopy NONE NRG Casts detection in urine sediment by light microscopy NONE NRG Mucus detection in urine sediment by light microscopy SMALL NRG Complete urinalysis with reflex to culture NO NRG Encounters ACCT No. Visit Date/Time Discharge Status Pt. Type Provider Facility Loc./Unit Complaint [id number] 08/03/2018 10:07:00 08/03/2018 23:59:59 CLS Outpatient TE VALLECASPER Arielle RETANA [facility] RAD CARCINOMA OF RENAL PELVIS,SECONDARY CANCER OF LUNG [id number] 06/29/2018 11:47:00 06/29/2018 23:59:59 CLS Outpatient GORGE BARBOUR [facility] CARD CARCINOMA OF RENAL PELVIS,SECONDARY CANCER OF LUNG [id number] 06/21/2018 16:49:00 06/21/2018 23:59:59 CLS Outpatient SAURABH AVILA [facility] RAD RUQ,RLQ PAIN [id number] 04/29/2018 09:04:00 05/02/2018 00:01:00 DIS Outpatient GORGE BARBOUR [facility] ONC [id number] 03/29/2018 10:45:00 03/29/2018 23:59:59 CLS Outpatient GORGE BARBOUR N [facility] CARD SECONDARY CA OF LUNG [id number] 03/08/2018 12:47:00 03/08/2018 23:59:59 CLS Preadmit GORGE BARBOUR N [facility] RAD CARCINOMA OF RENAL PELVIS [id number] 01/25/2018 08:46:00 02/01/2018 09:56:00 DIS Outpatient GORGE BARBOUR N [facility] ONC [id number] 12/10/2017 11:00:00 12/10/2017 23:59:59 CLS Outpatient GORGE BARBOUR N [facility] CARD ENCOUNTER FOR IMAGING STUDY TO RESTAGE NEOPLASM [id number] 11/30/2017 08:41:00 11/30/2017 23:59:59 CLS Outpatient GORGE BARBOUR N [facility] ONC [id number] 10/18/2017 07:03:00 10/18/2017 10:07:00 DIS Emergency HUI FALK, KAITLYN Guzmán [facility] ER HURT ANKLE UNSURE HOW, NO FALL [id number] 09/18/2017 06:34:00 09/18/2017 11:05:00 DIS Outpatient DEMETRI RAZO JARET Mcqueen [facility] SDC KIDNEY CANCER [id number] 09/14/2017 11:56:00 09/14/2017 23:59:59 CLS Outpatient GORGE BARBOUR [facility] CARD C67.9 BLADDER CANCER [id number] 09/07/2017 09:00:00 09/14/2017 00:01:00 DIS Outpatient ANGLE GORGE Pritchard [facility] ONC [id number] 06/26/2017 07:52:00 06/26/2017 23:59:59 CLS Outpatient GORGE BARBOUR [facility] RAD C64.9 [id number] 04/08/2017 06:59:00 04/08/2017 14:00:00 DIS Outpatient KIKE CLAY MD [facility] RAD L KIDNEY LESION [id number] 04/01/2017 08:43:00 04/01/2017 23:59:59 CLS Outpatient KIKE CLAY MD [facility] RAD FLU ABNORMAL CT CHEST FROM KU [id number] 03/25/2017 23:00:00 03/27/2017 15:40:00 DIS Inpatient TANI TEJEDA DO [facility] 4TH L FLANK PAIN,SEPSIS,FEVER ,PANCREATITIS [id number] 02/09/2017 06:31:00 02/09/2017 09:37:00 DIS Emergency ROMAINE FALK, STEF Condon [facility] ER GROIN PAIN BACK PAIN [id number] 02/02/2017 08:32:00 02/02/2017 23:59:59 CLS Outpatient KIKE CLAY MD [facility] RAD ABNORMAL CT, L RENAL MASS [id number] 01/07/2017 08:29:00 01/07/2017 23:59:59 CLS Outpatient KIKE CLAY MD [facility] RAD RENAL MASS [id number] 12/27/2016 18:47:00 12/27/2016 20:42:00 DIS Emergency QIANA FALK, ABIMAEL Ramsey [facility] ER FALL FROM 12FT LADDER, DARK URINE, HIP PAIN [id number] 11/11/2016 07:27:00 11/11/2016 23:59:59 CLS Outpatient ALVA GOMEZ MD [facility] RAD HEMATURIA [id number] 07/27/2014 08:36:00 07/27/2014 23:59:59 CLS Outpatient KIKE CLAY MD [facility] RAD COUGH [id number] 10/11/2012 09:25:00 10/11/2012 23:59:59 CLS Outpatient LOLY BURT MD [facility] ONC [id number] 09/10/2012 08:02:00 09/23/2012 00:01:00 DIS Outpatient LOLY BURT MD [facility] ONC [id number] 08/18/2018 16:25:00 ACT Inpatient GORGE BARBOUR [facility] 4TH ABDOMINAL PAIN [id number] 08/18/2018 13:33:00 ACT Outpatient GORGE BARBOUR [facility] RAD ABN ABD XRAY [id number] 08/18/2018 11:04:00 ACT Outpatient GORGE BARBOUR N [facility] ONC [id number] 08/18/2018 10:39:00 ACT Outpatient CONCEPCION VALLE [facility] RAD ABD PAIN [id number] 10/23/2015 07:13:00 Document Registration [id number] 05/05/2012 11:21:00 Document Registration [id number] 04/29/2012 12:22:00 Document Registration [id number] 07/28/2014 12:19:14 ACT Document Registration
[2018-08-18] MEDS ORDERED: CATHETER FLUSH 10 ML SYR IV PRN (17:00)
[2018-08-18] MEDS ORDERED: ONDANSETRON 4 MG (ZOFRAN) ORAL DISSOLVE TAB PO PRN (17:00)
[2018-08-18] MEDS: NS IV 1000 ML 1,000 ML IV SCH (17:42)
--- NOTE | 2018-08-18 18:26 | HISTORY AND PHYSICAL ---
DATE OF SERVICE: ADMISSION HISTORY AND PHYSICAL The patient is admitted to room 426. PRESENTING COMPLAINT: Abdominal pain. HISTORY OF PRESENT ILLNESS: The patient is a 62-year-old male with a history of metastatic bladder cancer who is on palliative chemotherapy with weekly Abraxane regimen, presented to the Cancer Center today with significant abdominal pain and distention. The patient mentioned that he has not had a bowel movement for close to a week. He is using pain medications including morphine along with laxatives on a regular basis. He denied any nausea or vomiting. No fever or chills. He had plain films of the abdomen, which showed significant dilatation of his bowels. This was followed by a CT scan of the abdomen and pelvis, which confirmed this, but with no evidence of obstruction. Because of his symptoms, it was decided to admit him to the hospital in an observation status for further management. 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 He underwent adjuvant chemotherapy with cisplatin and gemcitabine regimen, but was noted to have metastatic disease soon thereafter. He was treated with Keytruda, but developed progressive disease. More recently, he was started on treatment with single agent Abraxane on a weekly basis and took course 2, day 8 chemotherapy yesterday as an outpatient. 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 No other major medical problems. Other surgeries include bilateral inguinal hernia repair in the past. L4-L5 spinal surgery in 2001 and in 2007. Laparoscopic cholecystectomy in 2007. SOCIAL HISTORY: The patient is and lives in [place], [place]. He has two children, a daughter who lives in [place] and a son who lives in [place], [place]. 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 No history of tobacco, alcohol or recreational drug use. FAMILY HISTORY: Significant for his mother with breast cancer at the age of 63 years. Rest of the family history is unremarkable. PHYSICAL EXAMINATION: GENERAL: Today showed an elderly male, weak appearing, awake and oriented and in mild to moderate discomfort because of the abdominal pain. VITAL SIGNS: Temperature was 96.1, pulse rate 98, respiratory rate 22, blood pressure 141/83 with oxygen saturation of 99% on room air. HEENT: Normocephalic with male pattern baldness, extraocular muscles intact, conjunctivae pink, oral mucosa slightly dry. NECK: Supple with no JVD. No cervical, supraclavicular or axillary lymphadenopathy palpable. CHEST: Symmetrical. LUNGS: Fairly clear to auscultation without wheezes or rales. CARDIOVASCULAR: Regular in rate and rhythm. No murmurs or gallops heard. ABDOMEN: Slightly distended with a hyperdynamic bowel sounds. Mild tenderness with voluntary guarding. No rebound. EXTREMITIES: Showed trace edema around the ankles. NEUROLOGIC: Showed no focal motor deficits. LABORATORY DATA: CBC done yesterday showed WBC 12.7, hemoglobin 7.1, platelet count 301,000 with neutrophil count 10.7, lymphocyte count 0.6 and monocyte count 1.2. The patient received packed red blood cell transfusion today. Chemistry panel done yesterday showed normal electrolytes. BUN was 14 and creatinine 0.9 with GFR more than 60 mL per minute. Corrected calcium was 10.9. AST was elevated at 73, ALT at 63, alkaline phosphatase 258 and albumin level of 2.8. Total bilirubin was normal at 0.7. Acute abdominal series done today showed moderate gaseous distention of the bowel loops in the mid and left abdomen, which appeared to be colonic. Distal colonic obstruction could not be entirely excluded. A CT scan was recommended for further evaluation. CT scan of the abdomen and pelvis done today showed diffuse fluid and stool distended colon. No discrete obstructing lesion is seen. Features are likely due to ileus. There is worsening of metastatic disease in the lung bases and liver. IMPRESSION: 1. Abdominal pain due to moderate distention of colon due to ileus. 2. Metastatic urothelial cancer to the lungs and liver with progression. 3. Anemia, status post packed red blood cell transfusion earlier today on an outpatient basis. 4. Elevated liver function studies secondary to hepatic metastatic disease. PLAN: 1. I will admit the patient to the hospital under observation status. We will try Dulcolax suppository once and if there is no result, he may need an enema. 2. I will consult Dr. Ortiz from surgical services to evaluate the patient. I have talked to him this evening. 3. We will administer clear liquid diet until his bowels are functioning better. 4. I discussed the CT scan results including progression of cancer with the patient and his . They are agreeable to be maintained as DNR. 5. IV fluids with normal saline at 100 mL per hour. 6. Fentanyl 25 mcg IV q.3 hours p.r.n. for pain control. 7. Hold most of home medications except Protonix 40 mg daily. Continue Zofran ODT 8 mg q.6 hours p.r.n. for nausea. 8. Overall, prognosis is guarded. 9. I will discuss about hospice care once the patient's acute condition improves and if he is agreeable to this, we will make arrangements prior to discharge. Job ID: [id number] DocumentID: [id number] Dictated Date: 08/18/2018 17:43:31 Bread Packer Date: 08/18/2018 18:25:04 Dictated By: GORGE BARBOUR MD [facility]
--- NOTE | 2018-08-18 19:12 | NUR ---
UP TO [facility]SC HAD LARGE AMT. BROWN FORMED STOOLS X 5 THE SIZE OF GULF BALLS AND LARGE AMT. BROWN LIQUID. DULCOLAX SUPP GIVEN ORDERED. STOOL FOR C-DIFF SENT TO LAB.
[2018-08-18 20:10] VITALS: BP 106/67
[2018-08-19 00:41] VITALS: BP 111/69
[2018-08-19] MEDS: NS IV 1000 ML 1,000 ML IV SCH ×3 (03:02→23:05)
[2018-08-19 04:00] VITALS: BP 128/71
[2018-08-19 06:51] LABS: BUN/CREATININE RATIO 24; CALCIUM 9.6 MG/DL (8.5-10.1); CARBON DIOXIDE 23 MMOL/L (21-32); CHLORIDE 105 MMOL/L (98-107); GFR ESTIMATED > 60; GLUCOSE 100 MG/DL (70-105); POTASSIUM 4.5 MMOL/L (3.6-5.0); SODIUM 138 MMOL/L (135-145)
[2018-08-19 08:00] VITALS: BP 121/67
[2018-08-19] MEDS ORDERED: SORB1SOL2 PO (08:22)
[2018-08-19] MEDS ORDERED: MORP-33 PO (08:22)
[2018-08-19] MEDS ORDERED: HYDR-3812 PO (08:22)
[2018-08-19] MEDS ORDERED: GLUC500T10 PO (08:22)
[2018-08-19] MEDS ORDERED: CITA10TA7 PO (08:22)
[2018-08-19] MEDS ORDERED: POLY17PO6 PO (08:22)
[2018-08-19] MEDS ORDERED: PANT40TA3 PO (08:22)
[2018-08-19] MEDS ORDERED: DOCU-143 PO (08:22)
[2018-08-19] MEDS ORDERED: ONDA8TAB12 PO (08:22)
[2018-08-19] MEDS ORDERED: DIPH25TA31 PO (08:22)
[2018-08-19] MEDS ORDERED: OXYC-529 PO (08:22)
[2018-08-19] MEDS ORDERED: BENZ200C51 PO (08:22)
--- NOTE | 2018-08-19 08:36 | NUR ---
WENT OVER THE EXT MED HX WITH THE PATIENT AND FAMILY WELL THE LIST FROM THE CANCER CENTER. HE IS NO LONGER TAKING THE OTC MEDS ON THE LIST FROM THE CANCER CENTER, THOSE INCLUDE: GLUCOSAMINE, MTV, AND BENADRYL. HE HAS NOT FILLED ALPRAZOLAM SINCE 06-10-17 AND STATES HE DOES NOT TAKE IT ANYMORE. HE ALSO HAS NOT FILLED THE PROCHLORPERAZINE RECENTLY SO I DID NOT ADD IT TO THE MED REC. ACCORDING TO THE EXT MED HX HE FILLED HYDROCODONE BUT STATES THIS WAS REPLACED BY THE OXYCODONE.
--- NOTE | 2018-08-19 09:05 | NUR ---
PORT DRAW LABS DONE.
[2018-08-19] MEDS: PANTOPRAZOLE 40 MG (PROTONIX) TAB PO SCH (09:08)
[2018-08-19 09:15] LABS: BASOPHILS % (AUTO) 0 % (0-10); EOSINOPHILS % (AUTO) 0 % (0-10); HEMATOCRIT 23 % (40-54); HEMOGLOBIN 7.3 G/DL (13.3-17.7); LYMPHOCYTES # (AUTO) 0.3 X 10^3 (1.0-4.0); LYMPHOCYTES % (AUTO) 3 % (12-44); MEAN CORPUSCULAR HEMOGLOBIN 28 PG (25-34); MEAN CORPUSCULAR HGB CONC 32 G/DL (32-36); MEAN CORPUSCULAR VOLUME 88 FL (80-99); MEAN PLATELET VOLUME 10.5 FL (7.4-10.4); MONOCYTES # (AUTO) 0.3 X 10^3 (0.0-1.0); MONOCYTES % (AUTO) 3 % (0-12); NEUTROPHILS # (AUTO) 10.4 X 10^3 (1.8-7.8); NEUTROPHILS % (AUTO) 94 % (42-75); PLATELET COUNT 241 10^3/uL (130-400); RED CELL DISTRIBUTION WIDTH 18.4 % (10.0-14.5); WHITE BLOOD COUNT 11.1 10^3/uL (4.3-11.0)
--- NOTE | 2018-08-19 09:15 | NUR ---
FENTANYL 25MCG IV FOR ABD PAIN 3/10.
[2018-08-19] MEDS: fentaNYL INJECTION 100 MCG/2 ML AMP IVP PRN ×2 (09:20→13:11)
[2018-08-19 10:33] LABS: HYPOCHROMASIA MODERATE; LYMPHOCYTES % (MANUAL) 4 %; MONOCYTES % (MANUAL) 3 %; NEUTROPHILS % (MANUAL) 93 %; TEAR DROP CELLS SLIGHT
--- NOTE | 2018-08-19 11:24 | Diagnostic Imaging Report ---
Indication: Abdominal distention KUB 10:03 AM Gallbladder appears to be surgically absent. There is mild scoliosis of lumbar spine with some degenerative disc change. There is contrast in the urinary bladder from a previous CT. There is some consolidation at the left lung base. Bowel gas pattern is normal. Impression: Left basilar consolidation may represent pneumonia. No acute abnormalities in the abdomen. Dictated by: Dictated on workstation # [id number]
[2018-08-19 12:00] VITALS: BP 110/68
--- NOTE | 2018-08-19 13:12 | NUR ---
FENTANYL 25 IV FOR PAIN.
--- NOTE | 2018-08-19 15:30 | NUR ---
C. DIF NEGATIVE. ISOLATION DC'D.
[2018-08-19 15:45] VITALS: BP 119/79
--- NOTE | 2018-08-19 16:09 | Consultation ---
History of Present Illness History of Present Illness Patient Consulted On(kody/time) 08/19/18 16:02 Time Seen by Provider: 09:16 History of Present Illness Surgery is asked to consult regarding abdominal pain, abdominal distention and constipation. HPI per Oncology: The patient is a 62-year-old male with a history of metastatic bladder cancer who is on palliative chemotherapy with weekly Abraxane regimen, presented to the Cancer Center today with significant abdominal pain and distention. The patient mentioned that he has not had a bowel movement for close to a week. He is using pain medications including morphine along with laxatives on a regular basis. He denied any nausea or vomiting. No fever or chills. He had plain films of the abdomen, which showed significant dilatation of his bowels. This was followed by a CT scan of the abdomen and pelvis, which confirmed this, but with no evidence of obstruction. Because of his symptoms, it was decided to admit him to the hospital in an observation status for further management. When I saw pt this am he was feeling better but still had 3-4 out of 10 abdominal pain. He stated he had a large amount of BM "liquid and solid" until about 3:15 am this am. He did have another small one this morning around 6am. He thinks his belly is better; "but I haven' t really looked at it". He is also able to urinate and is tolerating clears. Allergies and Home Medications Allergies Coded Allergies: No Known Drug Allergies (Unverified , 04/29/12) Home Medications Benzonatate 200 Mg Capsule, 200 MG PO Q8H PRN for COUGH, (Reported) Citalopram Hydrobromide 10 Mg Tablet, 10 MG PO DAILY, (Reported) Docusate Sodium 100 Mg Capsule, 200 MG PO DAILY, (Reported) Morphine Sulfate 15 Mg Tablet.er, 15 MG PO Q12H, (Reported) Ondansetron HCl 8 Mg Tablet, 8 MG PO Q8H PRN for NAUSEA/VOMITING-1ST LINE, ( Reported) Oxycodone HCl 5 Mg Tablet, 5-10 MG PO Q3H PRN for PAIN-SEVERE, (Reported) Pantoprazole Sodium 40 Mg Tablet.dr, 40 MG PO DAILY, (Reported) Polyethylene Glycol 3350 17 Gm Powd.pack, 17 GM PO BID PRN for CONSTIPATION-2ND LINE, (Reported) Sorbitol Solution 1 Ml Solution, 15-30 ML PO TID PRN for CONSTIPATION, (Reported ) Patient Home Medication List Home Medication List Reviewed: Yes Past [id number]-[id number] Hx Patient Social History Alcohol Use: Denies Use Recreational Drug Use: No 2nd Hand Smoke Exposure: No Recent Foreign Travel: No Contact w/Someone Who Travel: No Recent Infectious Disease Expo: No Recent Hopitalizations: Yes Physical Abuse Screen: No Sexual Abuse: No Immunizations Up To Date Tetanus Booster (TDap): Unknown Date of Pneumonia Vaccine: Feb 15, 2014 Date of Influenza Vaccine: Feb 01, 2017 Seasonal Allergies Seasonal Allergies: No Surgeries History of Surgeries: Yes (Back , Ing hernia, adenoid cystic carcinoma L mouth wall, l kidney removed) Surgeries: Gallbladder, Orthopedic Respiratory History of Respiratory Disorde: No Cardiovascular History of Cardiac Disorders: No Neurological History of Neurological Disord: No Reproductive System Hx Reproductive Disorders: No Sexually Transmitted Disease: No HIV/AIDS: No Genitourinary History of Genitourinary Disor: Yes (l kidney removed) Genitourinary Disorders: Kidney Stones Gastrointestinal History of Gastrointestinal Di: No (pancreatitis) Gastrointestinal Disorders: Gastroesophageal Reflux, Chronic Constipation, Pancreatitis, Gall Bladder Disease Musculoskeletal History of Musculoskeletal Dis: Yes (BL inguinal hernia, ) Musculoskeletal Disorders: Arthritis Endocrine History of Endocrine Disorders: No HEENT History of HEENT Disorders: No Loss of Vision: Denies 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) Cancer: Bladder, Skin, Kidney Psychosocial History of Psychiatric Problem: Yes Behavioral Health Disorders: Depression Integumentary History of Skin or Integumenta: No Blood Transfusions History of Blood Disorders: No Adverse Reaction to a Blood Tr: No Family Medical History Significant Family History: Cancer, CAD Over 55 Years Old Family Medial History: FH: breast cancer 19 MOTHER FH: heart failure 19 FATHER FHx: prostate cancer 19 FATHER Myocardial infarction 19 FATHER Review of Systems-General Constitutional: chills, malaise, weakness EENTM: No mouth pain, No mouth swelling, No epistaxis Respiratory: No cough, No dyspnea on exertion Cardiovascular: No chest pain, No palpitations Gastrointestinal: abdominal pain, constipation; No jaundice Genitourinary: dysuria, frequency Musculoskeletal: joint pain, joint swelling, muscle pain, muscle stiffness Skin: No change in color, No change in hair/nails Psychiatric/Neurological: Depressed; Denies Seizure Physical Exam-General Problems Physical Exam Vital Signs Vital Signs - First Documented 4/17/19 16:20 Temp 96.1 Pulse 98 Resp 22 B/P (MAP) 141/83 (102) Pulse Ox 99 O2 Delivery Room Air Capillary Refill : Less Than 3 Seconds General Appearance: WD/WN, moderate distress Eyes: Bilateral Eye PERRL, Bilateral Eye EOMI HEENT: pharynx normal; No scleral icterus (R), No scleral icterus (L) Respiratory: chest non-tender, lungs clear, normal breath sounds, no respiratory distress, no accessory muscle use Cardiovascular: regular rate, rhythm, no murmur Gastrointestinal: normal bowel sounds, soft; No distended, No guarding, No rebound; tenderness 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 tested, no motor/sensory deficits, alert, normal mood/affect, oriented x 3 Skin: normal color, warm/dry Data Review Labs Laboratory Tests 08/19/18 06:15: Sodium Level 138, Potassium Level 4.5, Chloride Level 105, Carbon Dioxide Level 23, Anion Gap 10, Blood Urea Nitrogen 24H, Creatinine 1.00, Estimat Glomerular Filtration Rate > 60, BUN/Creatinine Ratio 24, Glucose Level 100, Calcium Level 9.6, Magnesium Level 2.0 08/19/18 09:05: White Blood Count 11.1H, Red Blood Count 2.62L, Hemoglobin 7.3L, Hematocrit 23L , Mean Corpuscular Volume 88, Mean Corpuscular Hemoglobin 28, Mean Corpuscular Hemoglobin Concent 32, Red Cell Distribution Width 18.4H, Platelet Count 241, Mean Platelet Volume 10.5H, Neutrophils (%) (Auto) 94H, Lymphocytes (%) (Auto) 3L, Monocytes (%) (Auto) 3, Eosinophils (%) (Auto) 0, Basophils (%) (Auto) 0, Neutrophils # (Auto) 10.4H, Lymphocytes # (Auto) 0.3L, Monocytes # (Auto) 0.3, Eosinophils # (Auto) 0.0, Basophils # (Auto) 0.0, Neutrophils % (Manual) 93, Lymphocytes % (Manual) 4, Monocytes % (Manual) 3, Hypochromasia MODERATE, Tear Drop Cells SLIGHT Microbiology 08/18/18 C. difficile GDH Antigen & Toxins - Final, Complete Assessment/Plan Assessment/Plan Assessment/Plan Constipation Abdominal Pain Metastatic Urothelial CA Pt has begun having BM's; therefore does not need and laxative or colonoscopy for work-up. Pt should continue drinking lots of fluids, may benefit from Pro- biotic and can take Miralax if he continues to have constipation. He can be sent home from surgical standpoint. Thank you for this consult. Clinical Quality Measures DVT/VTE Risk/Contraindication: Risk Factor Score Per Nursin RFS Level Per Nursing on Admit: 3=High JARET MOSQUERA DO Aug 19, 2018 16:08
--- NOTE | 2018-08-19 17:52 | Progress Note-Standard ---
Standard Progress Note Progress Notes/Assess & Plan Date Seen by a Provider: Aug 19, 2018 Time Seen by a Provider: 17:46 Progress/Assessment & Plan 62-year-old male with metastatic urothelial cancer of right renal pelvis to lungs and liver, admitted to the hospital yesterday with ileus. Since last evening patient has had several bowel movements and the abdominal distention is better. He still has crampy abdominal pain and is requiring fentanyl injections intermittently. Denied any nausea or vomiting. Tolerating clear liquids. Still complained of generalized weakness and has not been able to move around significantly. Abdominal x-rays today showed resolution of ileus. I will advance her diet to soft tonight and if tolerated regular diet starting tomorrow. He'll restart his oral pain medications with the morphine ER 15 mg twice a day with the oxycodone 5-10 mg every 6 hours when necessary for breakthrough pain. Once the diarrhea improves, he will need to restart on MiraLAX and stool softeners. I will change his admission status from observation to inpatient admission. We will consult physical therapy for strengthening and ambulation. Recheck labs tomorrow morning. Dr. Jain covering for oncology until Thursday08/23/2018. If significantly better before than, may discharge home on current home medications. Keep follow-up appointment at the cancer center as scheduled. Since he has evidence of progressive disease on current chemotherapy, treatment options are limited. We will discuss this during his next visit as well as best supportive care with hospice. GORGE BARBOUR Aug 19, 2018 17:52
[2018-08-19] MEDS: morphine ER 15 MG (MS CONTIN) TAB PO SCH (17:54)
[2018-08-19 19:15] VITALS: BP 118/71
[2018-08-20] VITALS (12 sets, daily range): BP systolic 109–126; BP diastolic 61–70
--- NOTE | 2018-08-20 00:01 | NUR ---
THIS RN CALLED DR. BARBOUR IN REGARDS TO THE PT'S TEMPERATURE BEING 100.8 TEMPORALLY. ORDERS RECEIVED FOR BLOOD CULTURES AND TYLENOL 650 MG PO Q6H PRN. ORDERS READ BACK AND VERIFIED.
[2018-08-20] MEDS: ACETAMINOPHEN 325 MG TABLET PO PRN ×2 (00:52→15:50)
[2018-08-20] MEDS: morphine ER 15 MG (MS CONTIN) TAB PO SCH ×2 (05:08→17:41)
[2018-08-20 05:18] LABS: BASOPHILS % (AUTO) 0 % (0-10); EOSINOPHILS # (AUTO) 0.3 10^3/uL (0.0-0.3); EOSINOPHILS % (AUTO) 3 % (0-10); HEMATOCRIT 21 % (40-54); LYMPHOCYTES # (AUTO) 0.6 X 10^3 (1.0-4.0); LYMPHOCYTES % (AUTO) 6 % (12-44); MEAN CORPUSCULAR HEMOGLOBIN 28 PG (25-34); MEAN CORPUSCULAR HGB CONC 32 G/DL (32-36); MEAN CORPUSCULAR VOLUME 89 FL (80-99); MEAN PLATELET VOLUME 10.2 FL (7.4-10.4); MONOCYTES # (AUTO) 0.1 X 10^3 (0.0-1.0); MONOCYTES % (AUTO) 1 % (0-12); NEUTROPHILS % (AUTO) 90 % (42-75); PLATELET COUNT 192 10^3/uL (130-400)
[2018-08-20 05:20] LABS: HEMOGLOBIN 6.6 G/DL (13.3-17.7)
--- NOTE | 2018-08-20 05:24 | NUR ---
THIS RN CALLED DR. BARBOUR IN REGARD TO THE PT'S HEMOGLOBIN BEING 6.6. ORDERS RECEIVED FOR 2 UNITS OF PACKED RED BLOOD CELLS. ORDERS READ BACK AND VERIFIED.
[2018-08-20 05:40] LABS: ALANINE AMINOTRANSFERASE 52 U/L (0-55); ALBUMIN 2.2 GM/DL (3.2-4.5); ALKALINE PHOSPHATASE 188 U/L (40-136); BILIRUBIN,TOTAL 0.7 MG/DL (0.1-1.0); BUN/CREATININE RATIO 18; CALCIUM 8.4 MG/DL (8.5-10.1); CARBON DIOXIDE 22 MMOL/L (21-32); CHLORIDE 108 MMOL/L (98-107); CREATININE SERUM 0.88 MG/DL (0.60-1.30); GFR ESTIMATED > 60; GLUCOSE 86 MG/DL (70-105); MAGNESIUM 1.8 MG/DL (1.8-2.4); POTASSIUM 3.6 MMOL/L (3.6-5.0); SODIUM 136 MMOL/L (135-145)
--- NOTE | 2018-08-20 09:28 | Physical Therapy Evaluation ---
PT Evaluation-General Medical Diagnosis Admission Date Aug 19, 2018 at 17:40 Medical Diagnosis: constipation and CA Onset Date: Aug 18, 2018 Therapy Diagnosis Therapy Diagnosis: impaired mobility, strength, endurance Height/Weight Height (Feet): 5 Height (Inches): 9.00 Weight (Pounds): 178 Weight (Ounces): 3.0 Precautions Precautions/Isolations: Chemo Precautions, Fall Prevention, Pressure Ulcer Weight Bear Status Right Lower Extremity: Right Weight Bearing/Tolerated Left Lower Extremity: Left Weight Bearing/Tolerated Referral Physician: Celena Ren MD Reason for Referral: Evaluation/Treatment Medical History Pertinent Medical History: Arthritis, GERD Additional Medical History kidney stones, chronic constipation, pancreatitis, gall bladder disease, bladder CA, depression, surg (back, ing. hernia, adenoid cystic carcinoma left mouth wall, kidney removed, gallbladder, orthopedic) Reviewed History: Yes Social History Current Living Status: Spouse Prior/Core FIM Prior Level of Function Therapy Code Descriptions/Definitions Functional Metcalfe Measure: 0=Not Assessed/NA 4=Minimal Assistance 1=Total Assistance 5=Supervision or Setup 2=Maximal Assistance 6=Modified Metcalfe 3=Moderate Assistance 7=Complete Metcalfe Therapy Quality Codes: 6 Independent with activity with or without an assistive device 5 Patient requires set up or clean up by helper. Patient completes activity by themselves 4 Supervision or touching assist (CGA). [place] provide cues , steadying assist 3 The helper provides less than half the effort to complete the activity 2 The helper provides more than half the effort to complete the activity 1 Dependent. The helper does all the effort to complete an activity 7 Patient refused to complete or attempt activity 9 The patient did not perform the activity before the current illness or injury 88 Not attempted due to Medical conditions or safety concerns Functional Abilities and Goals: Independent: Patient completed the activities by him/herself, with or without an assistive device, with no assistance from a helper. Needed Some Help: Patient needed partial assistance from another person to complete activities. Dependent: A helper completed the activities for the patient. Unknown: Not Applicable: Bed Mobility: 7 Transfers (B,C,W/C) (FIM): 7 Gait: 7 Stairs: 7 Indoor Mobility (Ambulation): Independent Stairs: Independent PT Evaluation-Current Subjective Patient in bed pre tx, agrees to PT, has little pain at rest in bed or when sitting but states has 8-9/10 pain in his abdomen when sitting up or rolling. Pt/Family Goals to be independent at home Objective Patient Orientation: Person, Place, Situation ROM/Strength ROM Lower Extremities WNL Strength Lower Extremities 4/5 gross bilateral lower extremities Neuromuscular (Tone, Coordination, Reflexes) NT Sensory Vision: Neglect Left Hearing: Functional Sensation Right Lower Extremit: Intact Sensation Left Lower Extremity: Intact Transfers Therapy Code Descriptions/Definitions Functional Metcalfe Measure: 0=Not Assessed/NA 4=Minimal Assistance 1=Total Assistance 5=Supervision or Setup 2=Maximal Assistance 6=Modified Metcalfe 3=Moderate Assistance 7=Complete Metcalfe Transfers (B, C, W/C) (FIM): 5 Scootin Rollin Supine to/from Sit: 5 Sit to/from Stand: 5 Patient has some difficulty and pain with supine to sit but can do it without assist. Gait Mode of Locomotion: Walk Anticipated Mode of Locomotion: Walk Gait (FIM): 5 Distance: 200' Gait Level of Assist: 5 Gait Persons Needed: 1 Gait Assistive Device: FWW Comments/Gait Description Some unsteadiness at the beginning of ambulation but the more he walked, the more steady he became. Balance Sitting Static: Normal Sitting Dynamic: Normal Standing Static: Good Standing Dynamic: Good Treatment seated LE exercises x20 (AP, LAQ) Assessment/Needs Patient has impaired mobility, strength, endurance. He has a tendency to move quickly and impulsively without regard for his attachments. Rehab Potential: Fair PT Short Term Goals Short Term Goals Time Frame: Aug 27, 2018 Transfers (B,C,W/C) (FIM): 6 Gait (FIM): 6 Gait Distance Comment: 300' Gait Level of Assist: 6 Gait Assistive Device: FWW PT Plan Problem List Problem List: Activity Tolerance, Functional Strength, Safety, Balance, Gait, Transfer, Bed Mobility Treatment/Plan Treatment Plan: Continue Plan of Care Treatment Plan: Bed Mobility, Education, Functional Activity Flory, Functional Strength, Gait, Safety, Therapeutic Exercise, Transfers Treatment Duration: Aug 27, 2018 Frequency: 6 times per week Estimated Hrs Per Day: .25 hour per day (15-30') Patient and/or Family Agrees t: Yes Safety Risks/Education Patient Education: Gait Training, Transfer Techniques, Correct Positioning, Safety Issues Teaching Recipient: Patient Teaching Methods: Demonstration, Discussion Response to Teaching: Reinforcement Needed Discharge Recommendations Therapy D/C Recommendations: Home w/ Family Support Time/GCodes Time In: 851 Time Out: 918 Total Billed Treatment Time: 27 Total Billed Treatment 1 visit PAUL 15' GT 12' MONA SALMERON PT Aug 20, 2018 09:28
[2018-08-20] MEDS: PANTOPRAZOLE 40 MG (PROTONIX) TAB PO SCH (11:48)
--- NOTE | 2018-08-20 11:49 | Progress Note ---
Subjective Time Seen by a Provider: 09:30 Subjective/Events-last exam Pt seen and examined, states his abdominal pain is better but thinks his abdomen is about same as yesterday. He did have BM last night, nothing today. States they are keeping him until Thursday night. Review of Systems General: Fatigue, Malaise Pulmonary: Dyspnea, Cough Gastrointestinal: Abdominal Pain, Constipation; No: Nausea, Vomiting Objective Exam Vital Signs Date Time Temp Pulse Resp B/P (MAP) Pulse Ox O2 Delivery O2 Flow Rate FiO2 08/20/18 11:09 98.6 86 16 125/68 98 Room Air 08/20/18 10:48 99.4 80 14 111/61 97 Room Air 08/20/18 08:44 99.0 95 14 123/70 94 Room Air 08/20/18 08:21 100.7 85 15 113/65 94 Room Air 08/20/18 08:06 99.4 83 14 113/65 94 Room Air 08/20/18 08:00 98.8 82 18 111/70 (84) 92 Room Air 08/20/18 04:00 98.6 80 18 109/67 (81) 95 Room Air 08/20/18 01:20 99.2 08/20/18 00:52 100.8 08/20/18 00:00 100.8 94 20 111/67 (82) 95 Room Air 08/19/18 20:00 Room Air 08/19/18 19:15 99.6 94 18 118/71 (87) 96 Room Air 08/19/18 15:45 98.1 91 19 119/79 (92) 95 Room Air 08/19/18 12:00 97.4 89 18 110/68 (82) 96 Room Air I & O 08/20/18 07:00 Intake Total 2120 ml Output Total 250 ml Balance 1870 ml Capillary Refill : Less Than 3 Seconds General Appearance: No Apparent Distress, Chronically ill Respiratory: Chest Non Tender, Lungs Clear, Normal Breath Sounds, No Accessory Muscle Use, No Respiratory Distress Cardiovascular: Regular Rate, Rhythm, No Murmur Gastrointestinal: soft, distended (very mild); No guarding, No rebound; tenderness (with palpation) Results Lab Laboratory Tests 08/20/18 05:12: White Blood Count 10.0, Red Blood Count 2.35L, Hemoglobin 6.6*L, Hematocrit 21L , Mean Corpuscular Volume 89, Mean Corpuscular Hemoglobin 28, Mean Corpuscular Hemoglobin Concent 32, Red Cell Distribution Width 18.0H, Platelet Count 192, Mean Platelet Volume 10.2, Neutrophils (%) (Auto) 90H, Lymphocytes (%) (Auto) 6L , Monocytes (%) (Auto) 1, Eosinophils (%) (Auto) 3, Basophils (%) (Auto) 0, Neutrophils # (Auto) 9.0H, Lymphocytes # (Auto) 0.6L, Monocytes # (Auto) 0.1, Eosinophils # (Auto) 0.3, Basophils # (Auto) 0.0, Sodium Level 136, Potassium Level 3.6, Chloride Level 108H, Carbon Dioxide Level 22, Anion Gap 6, Blood Urea Nitrogen 16, Creatinine 0.88, Estimat Glomerular Filtration Rate > 60, BUN/ Creatinine Ratio 18, Glucose Level 86, Calcium Level 8.4L, Corrected Calcium 9.8 , Magnesium Level 1.8, Total Bilirubin 0.7, Aspartate Amino Transf (AST/SGOT) 58H, Alanine Aminotransferase (ALT/SGPT) 52, Alkaline Phosphatase 188H, Total Protein 5.0L, Albumin 2.2L Microbiology 08/18/18 C. difficile GDH Antigen & Toxins - Final, Complete Assessment/Plan Assessment/Plan Assessment/Plan Constipation Abdominal Pain Metastatic Urothelial CA Pt has begun having BM's; but still slightly distended and may need Miralax to help. His Abd X-ray is much improved compared to the xray done prior to his admission. Pt should continue drinking lots of fluids, may benefit from Pro- biotic. Clinical Quality Measures DVT/VTE Risk/Contraindication: Risk Factor Score Per Nursin RFS Level Per Nursing on Admit: 3=High JARET MOSQUERA DO Aug 20, 2018 11:49
--- NOTE | 2018-08-20 12:31 | Progress Note-Standard ---
Standard Progress Note Progress Notes/Assess & Plan Date Seen by a Provider: Aug 20, 2018 Time Seen by a Provider: 11:30 Progress/Assessment & Plan 62-year-old male with metastatic urothelial cancer of right renal pelvis to lungs and liver, admitted to the hospital yesterday with ileus. He had been on weekly chemotherapy with abraxane but recent scans show progression of disease, and now patient has few options left for systemic therapy. On admission, he was initially given a dulcolax suppository with good result. Last night, patient had one more loose bowel movement but he still feels distended and his belly is painful with movement. He has had sparing use of opioid pain medications yesterday but not overnight or this morning. He tolerated clear liquids and was advanced to a regular diet last night, but he says he has abdominal pain when swallowing solid foods. He has been able to walk somewhat and sit in a chair but his abdomen is still restricting his movement. Last night and this morning, he had multiple episodes of low grade fever, up to 100.8 F. On exam, abdomen is still distended and tender diffusely, but there is no guarding or rebound. Bowel sounds are hyperactive in the lower abdomen/ pelvic regions. 1. Ileus/constipation. Appears to be resolving but still extremely symptomatic. We will be more aggressive with his bowel regimen today and add a soap suds enema. 2. Chronic pain, cancer related. Long acting morphine added back to his medication list yesterday. He has not needed breakthrough pain medications overnight or this morning. 3. Deconditioning. PT on board. 4. Acute on chronic anemia. Slow gradual decline in hgb over several months. Etiology is combination of chronic illness, poor nutrition and recent chemotherapy. Transfused 2 PRBCs this morning. Will continue to transfuse as needed to keep hgb>7.0. 5. Fever. No clear signs of infection. Vitals otherwise stable. C diff was negative on admission. Blood cultures pending. Will observe closely. 6. Metastatic urothelial carcinoma. Will discuss hospice when patient's acute illness is resolved, most likely on outpatient basis. 7. Continue inpatient admission. JUSTINE LACY MD Aug 20, 2018 12:31
--- NOTE | 2018-08-20 15:41 | NUR ---
Initial visit: Pt and his , Radha, shared the pt's experience with cancer over the past 6 years. Pt states he feels he is getting more tired and feeling worse with time. Pt began resting with eyes closed midway through our visit. His said she was glad to see this because the pt has not been resting well. Radha shared they have two children, a daughter in [place] ([place]) and their son (Chencho) who lives locally and shares the pt's [employer] business. 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 Radha said that before his cancer, the pt was in good health. I facilitated free expression of thoughts and feelings, provided safe place for reflection and the sharing of their story. Offered empathic listening and caregiver support. No spiritual affiliation. Certified Orthotist Practice Manager presence welcomed.
[2018-08-20] MEDS: NS IV 1000 ML 1,000 ML IV SCH (15:49)
[2018-08-20] MEDS: DOCUSATE SODIUM 100 MG (COLACE) CAP PO SCH (20:39)
[2018-08-20] MEDS: LACTULOSE SYRUP 10GM/15ML (ENULOSE) 30ML UDC PO SCH (20:39)
[2018-08-21] VITALS: BP 121/69
[2018-08-21 04:00] VITALS: BP 122/70
[2018-08-21] MEDS: NS IV 1000 ML 1,000 ML IV SCH ×2 (04:39→18:31)
[2018-08-21] MEDS: morphine ER 15 MG (MS CONTIN) TAB PO SCH ×2 (06:11→18:31)
[2018-08-21 08:00] VITALS: BP 134/74
--- NOTE | 2018-08-21 08:32 | Physical Therapy Daily Note ---
PT Daily Note-Current Subjective Pt reports he is about to give up. He's tired of the pain and not being able to do the things that he wants. He c/o abdominal pain 10/11 due to constipation. Transfers Therapy Code Descriptions/Definitions Functional [place] Measure: 0=Not Assessed/NA 4=Minimal Assistance 1=Total Assistance 5=Supervision or Setup 2=Maximal Assistance 6=Modified [place] 3=Moderate Assistance 7=Complete [place] Therapy Quality Codes: 6 Independent with activity with or without an assistive device 5 Patient requires set up or clean up by helper. Patient completes activity by themselves 4 Supervision or touching assist (CGA). [place] provide cues , steadying assist 3 The helper provides less than half the effort to complete the activity 2 The helper provides more than half the effort to complete the activity 1 Dependent. The helper does all the effort to complete an activity 7 Patient refused to complete or attempt activity 9 The patient did not perform the activity before the current illness or injury 88 Not attempted due to Medical conditions or safety concerns Transfers (B, C, W/C) (FIM): 5 Supine to/from Sit: 5 Sit to/from Stand: 5 Bed to/from Chair: 5 Weight Bearing Right Lower Extremity: Right Weight Bearing/Tolerated Left Lower Extremity: Left Weight Bearing/Tolerated Gait Training Gait (FIM): 4 Distance (FIM): 3=150 ft Distance: 350 Gait Level of Assist: 4 Gait Persons Needed: 1 Gait Assistive Device: FWW pt had one loss of balance due to a distraction. He required minimal assist to recover balance. PT Short Term Goals Short Term Goals Time Frame: Aug 27, 2018 Transfers (B,C,W/C) (FIM): 6 Gait (FIM): 6 Gait Distance Comment: 300' Gait Level of Assist: 6 Gait Assistive Device: FWW PT Plan Treatment/Plan Treatment Plan: Continue Plan of Care Treatment Plan: Bed Mobility, Education, Functional Activity Flory, Functional Strength, Gait, Safety, Therapeutic Exercise, Transfers Treatment Duration: Aug 27, 2018 Frequency: 6 times per week Estimated Hrs Per Day: .25 hour per day (15-30') Patient and/or Family Agrees t: Yes Time/GCodes Time In: 710 Time Out: 740 Total Billed Treatment Time: 25 Total Billed Treatment visit, gait 20 min, FA 5 min ALLI FAM PT Aug 21, 2018 08:32
[2018-08-21] MEDS: DOCUSATE SODIUM 100 MG (COLACE) CAP PO SCH ×2 (09:17→20:31)
[2018-08-21] MEDS: PANTOPRAZOLE 40 MG (PROTONIX) TAB PO SCH (09:17)
[2018-08-21] MEDS: LACTULOSE SYRUP 10GM/15ML (ENULOSE) 30ML UDC PO SCH ×4 (09:18→20:31)
[2018-08-21 11:55] LABS: BASOPHILS % (AUTO) 0 % (0-10); EOSINOPHILS # (AUTO) 0.3 10^3/uL (0.0-0.3); EOSINOPHILS % (AUTO) 3 % (0-10); HEMATOCRIT 26 % (40-54); HEMOGLOBIN 8.2 G/DL (13.3-17.7); LYMPHOCYTES # (AUTO) 0.4 X 10^3 (1.0-4.0); LYMPHOCYTES % (AUTO) 5 % (12-44); MEAN CORPUSCULAR HEMOGLOBIN 28 PG (25-34); MEAN CORPUSCULAR HGB CONC 32 G/DL (32-36); MEAN CORPUSCULAR VOLUME 87 FL (80-99); MEAN PLATELET VOLUME 10.2 FL (7.4-10.4); MONOCYTES # (AUTO) 0.2 X 10^3 (0.0-1.0); MONOCYTES % (AUTO) 2 % (0-12); NEUTROPHILS # (AUTO) 7.6 X 10^3 (1.8-7.8); NEUTROPHILS % (AUTO) 90 % (42-75); PLATELET COUNT 195 10^3/uL (130-400); RED CELL DISTRIBUTION WIDTH 18.2 % (10.0-14.5); WHITE BLOOD COUNT 8.5 10^3/uL (4.3-11.0)
[2018-08-21 12:00] VITALS: BP 118/71
--- NOTE | 2018-08-21 12:02 | Progress Note-Standard ---
Standard Progress Note Progress Notes/Assess & Plan Date Seen by a Provider: Aug 21, 2018 Time Seen by a Provider: 11:57 Progress/Assessment & Plan 62-year-old male with metastatic urothelial cancer of right renal pelvis to lungs and liver, admitted to the hospital yesterday with ileus. He had been on weekly chemotherapy with abraxane but recent scans show progression of disease, and now patient has few options left for systemic therapy. On admission, he was initially given a dulcolax suppository with good result. Patient had scant return of stools after soap suds enema last night. He has been encouraged to ambulate and has done so twice already this morning. He has less pain with eating solids. He still has a lot of abdominal pain with audible gurgling at times. He still has not passed gas. On exam, abdomen is still distended and tender diffusely, but there is no guarding or rebound. Bowel sounds are normoactive in the upper abdomen. Patient had low grade temperatures without fever this morning. He did not feel symptomatic. 1. Ileus/constipation. Appears to be resolving but still extremely symptomatic. No significant effect with soap suds enema yesterday. Will increase lactulose dosing schedule. 2. Chronic pain, cancer related. Long acting morphine scheduled. He has used breakthrough pain medications sparingly since admission. 3. Deconditioning. PT on board. 4. Acute on chronic anemia. Slow gradual decline in hgb over several months. Etiology is combination of chronic illness, poor nutrition and recent chemotherapy. Transfused 2 PRBCs 08/20/18 with adequate response noted today. Will continue to transfuse as needed to keep hgb>7.0. 5. Fever. No clear signs of infection. Vitals otherwise stable. C diff was negative on admission. Blood cultures pending. Last noted fevers were yesterday around 1500 and no fever this morning. Will observe closely. 6. Metastatic urothelial carcinoma. Will discuss hospice when patient's acute illness is resolved, most likely on outpatient basis. 7. Continue inpatient admission. JUSTINE LACY MD Aug 21, 2018 12:02
[2018-08-21 12:19] LABS: ALANINE AMINOTRANSFERASE 49 U/L (0-55); ALBUMIN 2.4 GM/DL (3.2-4.5); ALKALINE PHOSPHATASE 225 U/L (40-136); BILIRUBIN,TOTAL 1.4 MG/DL (0.1-1.0); BUN/CREATININE RATIO 14; CALCIUM 8.4 MG/DL (8.5-10.1); CARBON DIOXIDE 21 MMOL/L (21-32); CHLORIDE 104 MMOL/L (98-107); CREATININE SERUM 0.81 MG/DL (0.60-1.30); GFR ESTIMATED > 60; GLUCOSE 101 MG/DL (70-105); POTASSIUM 3.2 MMOL/L (3.6-5.0); SODIUM 133 MMOL/L (135-145); TOTAL PROTEIN 5.5 GM/DL (6.4-8.2)
[2018-08-21 15:55] VITALS: BP 137/74
[2018-08-21] MEDS: ACETAMINOPHEN 325 MG TABLET PO PRN (15:59)
[2018-08-21 19:43] VITALS: BP 122/71
[2018-08-22 00:45] VITALS: BP 125/74
[2018-08-22] MEDS: LACTULOSE SYRUP 10GM/15ML (ENULOSE) 30ML UDC PO SCH ×6 (01:00→20:42)
[2018-08-22] MEDS: morphine ER 15 MG (MS CONTIN) TAB PO SCH ×2 (06:29→18:26)
[2018-08-22] MEDS: NS IV 1000 ML 1,000 ML IV SCH ×3 (06:32→16:25)
[2018-08-22 06:49] LABS: BASOPHILS % (AUTO) 0 % (0-10); EOSINOPHILS # (AUTO) 0.3 10^3/uL (0.0-0.3); EOSINOPHILS % (AUTO) 4 % (0-10); HEMATOCRIT 26 % (40-54); HEMOGLOBIN 8.2 G/DL (13.3-17.7); LYMPHOCYTES # (AUTO) 0.4 X 10^3 (1.0-4.0); LYMPHOCYTES % (AUTO) 6 % (12-44); MEAN CORPUSCULAR HEMOGLOBIN 28 PG (25-34); MEAN CORPUSCULAR HGB CONC 32 G/DL (32-36); MEAN CORPUSCULAR VOLUME 88 FL (80-99); MEAN PLATELET VOLUME 10.5 FL (7.4-10.4); MONOCYTES # (AUTO) 0.3 X 10^3 (0.0-1.0); MONOCYTES % (AUTO) 4 % (0-12); NEUTROPHILS # (AUTO) 6.1 X 10^3 (1.8-7.8); NEUTROPHILS % (AUTO) 86 % (42-75); PLATELET COUNT 207 10^3/uL (130-400); RED CELL DISTRIBUTION WIDTH 17.8 % (10.0-14.5); WHITE BLOOD COUNT 7.1 10^3/uL (4.3-11.0)
[2018-08-22 07:11] LABS: ALANINE AMINOTRANSFERASE 49 U/L (0-55); ALBUMIN 2.4 GM/DL (3.2-4.5); ALKALINE PHOSPHATASE 258 U/L (40-136); BILIRUBIN,TOTAL 1.4 MG/DL (0.1-1.0); BUN/CREATININE RATIO 11; CALCIUM 8.3 MG/DL (8.5-10.1); CARBON DIOXIDE 21 MMOL/L (21-32); CHLORIDE 106 MMOL/L (98-107); CREATININE SERUM 0.83 MG/DL (0.60-1.30); GFR ESTIMATED > 60; GLUCOSE 84 MG/DL (70-105); POTASSIUM 3.1 MMOL/L (3.6-5.0); SODIUM 135 MMOL/L (135-145); TOTAL PROTEIN 5.6 GM/DL (6.4-8.2)
[2018-08-22 08:00] VITALS: BP 119/68
[2018-08-22] MEDS: PANTOPRAZOLE 40 MG (PROTONIX) TAB PO SCH (08:17)
[2018-08-22] MEDS: DOCUSATE SODIUM 100 MG (COLACE) CAP PO SCH ×2 (08:17→20:41)
[2018-08-22] MEDS ORDERED: BISACODYL 10 MG SUPP (DULCOLAX) PR NR (12:00)
[2018-08-22] MEDS ORDERED: SORBITOL 70% 30 ML UNIT DOSE CUP PO PRN (12:00)
--- NOTE | 2018-08-22 12:13 | Progress Note-Standard ---
Standard Progress Note Progress Notes/Assess & Plan Date Seen by a Provider: Aug 22, 2018 Time Seen by a Provider: 11:59 Progress/Assessment & Plan 62-year-old male with metastatic urothelial cancer of right renal pelvis to lungs and liver, admitted to the hospital yesterday with ileus. He had been on weekly chemotherapy with abraxane but recent scans show progression of disease, and now patient has few options left for systemic therapy. On admission, he was initially given a dulcolax suppository with good result. Patient continues to have scant amounts of stools with multiple bowel movements. He had a moderate stool overnight/this morning. His abdomen continues to be severely distended. He tries to walk more but gets tired out. He still has not passed gas. On exam, abdomen is still distended and tender diffusely, but there is no guarding or rebound. Bowel sounds are hypoactive diffusely. There is 1-2+ pitting edema in his legs. Patient had fever yesterday afternoon but did not feel symptomatic. 1. Ileus/constipation. Appears to be resolving but still extremely symptomatic. Minimal improvement with scheduled lactulose. Will give bisacodyl suppository again, add sorbitol prn. We will re-evaluate his ileus with another abdominal x-ray series. If there is still significant stool, consider methylnaltrexone. Appreciate surgery assessment. 2. Chronic pain, cancer related. Long acting morphine scheduled. He has used breakthrough pain medications sparingly since admission. 3. Deconditioning. PT on board. Patient attempting to walk multiple times daily. 4. Acute on chronic anemia. Slow gradual decline in hgb over several months. Etiology is combination of chronic illness, poor nutrition and recent chemotherapy. Transfused 2 PRBCs 08/20/18 with adequate response. Counts are stable today. Will continue to transfuse as needed to keep hgb>7.0. 5. Recurring fever. No clear signs of infection. Vitals otherwise stable. C diff was negative on admission. Blood cultures were negative x2. Last noted fevers were yesterday around 1500. Will order CXR and UA. No other symptoms to suggest source of infection. 6. Metastatic urothelial carcinoma. Will discuss hospice when patient's acute illness is resolved, most likely on outpatient basis. 7. Code status: DNR 8. Continue inpatient admission. JUTSINE LACY MD Aug 22, 2018 12:13
--- NOTE | 2018-08-22 12:44 | Diagnostic Imaging Report ---
EXAM: CHEST PA/LAT (2 VIEW). INDICATION: Fevers. Abdominal pain. COMPARISON: Chest radiograph 08/03/2018. FINDINGS: Low lung volumes. Bibasilar atelectasis or infiltrate. Left subclavian tunneled port CVC tip near the RA-SVC junction. No pneumothorax. Normal heart size and central pulmonary vascularity. No acute osseous findings. IMPRESSION: Low lung volumes with bibasilar atelectasis or infiltrate. Dictated by: Dictated on workstation # [id number]
--- NOTE | 2018-08-22 12:44 | Diagnostic Imaging Report ---
EXAM: ABDOMEN, FLAT UPRIGHT/DECUB INDICATION: Fevers. Abdominal pain. COMPARISON: Abdominal radiograph 08/19/2018. FINDINGS: Nonspecific gaseous distention throughout most of the colon. There is a paucity of bowel gas in the small bowel. Postoperative changes in the upper abdomen. No acute osseous findings. IMPRESSION: No acute radiographic findings in the abdomen. Dictated by: Dictated on workstation # [id number]
[2018-08-22] MEDS: POTASSIUM CL 10MEQ/50ML IVPB 50 ML IV SCH ×6 (13:04→18:26)
[2018-08-22 15:35] VITALS: BP 136/81
[2018-08-22 18:07] LABS: BILIRUBIN,URINE NEGATIVE (NEGATIVE); CLARITY,URINE SLIGHTLY CLOUDY; COLOR,URINE YELLOW; GLUCOSE, URINE (UA) NEGATIVE (NEGATIVE); KETONES,URINE NEGATIVE (NEGATIVE); LEUKOCYTE ESTERASE ,URINE NEGATIVE (NEGATIVE); NITRITE,URINE NEGATIVE (NEGATIVE); PH,URINE 5 (5-9); PROTEIN,URINE 1+ (NEGATIVE); UROBILINOGEN,URINE 1 MG/DL (NORMAL)
[2018-08-22 18:13] LABS: BACTERIA,URINE NEGATIVE /HPF; SQUAMOUS EPITHELIAL CELL,UR RARE /HPF
[2018-08-22] MEDS ORDERED: SIMETHICONE 40 MG/0.6 ML (MYLICON DROPS) 30 ML BTL PO PRN (22:30)
[2018-08-23 00:09] VITALS: BP 105/56
[2018-08-23] MEDS: NS IV 1000 ML 1,000 ML IV SCH ×3 (03:22→23:37)
[2018-08-23] MEDS ORDERED: KCL 10 MEQ TAB (MICRO K) PO SCH (05:00)
[2018-08-23] MEDS: morphine ER 15 MG (MS CONTIN) TAB PO SCH (06:19)
[2018-08-23 07:36] VITALS: BP 133/72
[2018-08-23] MEDS: DOCUSATE SODIUM 100 MG (COLACE) CAP PO SCH ×2 (09:04→20:20)
[2018-08-23] MEDS: PANTOPRAZOLE 40 MG (PROTONIX) TAB PO SCH (09:04)
[2018-08-23 09:15] LABS: BASOPHILS % (AUTO) 0 % (0-10); EOSINOPHILS # (AUTO) 0.3 10^3/uL (0.0-0.3); EOSINOPHILS % (AUTO) 5 % (0-10); HEMATOCRIT 25 % (40-54); HEMOGLOBIN 7.9 G/DL (13.3-17.7); LYMPHOCYTES # (AUTO) 0.4 X 10^3 (1.0-4.0); LYMPHOCYTES % (AUTO) 7 % (12-44); MEAN CORPUSCULAR HEMOGLOBIN 28 PG (25-34); MEAN CORPUSCULAR HGB CONC 32 G/DL (32-36); MEAN CORPUSCULAR VOLUME 88 FL (80-99); MEAN PLATELET VOLUME 9.9 FL (7.4-10.4); MONOCYTES # (AUTO) 0.8 X 10^3 (0.0-1.0); MONOCYTES % (AUTO) 13 % (0-12); NEUTROPHILS # (AUTO) 4.7 X 10^3 (1.8-7.8); NEUTROPHILS % (AUTO) 76 % (42-75); PLATELET COUNT 223 10^3/uL (130-400); RED CELL DISTRIBUTION WIDTH 17.8 % (10.0-14.5); WHITE BLOOD COUNT 6.2 10^3/uL (4.3-11.0)
[2018-08-23 09:34] LABS: ALANINE AMINOTRANSFERASE 44 U/L (0-55); ALBUMIN 2.4 GM/DL (3.2-4.5); ALKALINE PHOSPHATASE 256 U/L (40-136); BILIRUBIN,TOTAL 1.3 MG/DL (0.1-1.0); BUN/CREATININE RATIO 8; CALCIUM 8.1 MG/DL (8.5-10.1); CARBON DIOXIDE 21 MMOL/L (21-32); CHLORIDE 106 MMOL/L (98-107); CREATININE SERUM 0.74 MG/DL (0.60-1.30); GFR ESTIMATED > 60; GLUCOSE 96 MG/DL (70-105); POTASSIUM 3.6 MMOL/L (3.6-5.0); SODIUM 133 MMOL/L (135-145); TOTAL PROTEIN 5.4 GM/DL (6.4-8.2)
[2018-08-23] MEDS ORDERED: DIATRIZOATE MEGLUM/SODIUM 37% 120 ML (GASTROGRAFIN) PO ONE (10:15)
--- NOTE | 2018-08-23 10:21 | Physical Therapy Progress Note ---
Therapy Progress Note Attempted to treat patient this morning but he was not in his room. A family member in the room stated that they just took him downstairs for testing and she was told he would be gone for about an hour. Will check back later. MONA SALMERON PT Aug 23, 2018 10:21
--- NOTE | 2018-08-23 13:30 | Physical Therapy Progress Note ---
Therapy Progress Note Attempted PT visit. Pt resting with eyes closed. Nurse present and reports he has been up and down all day with DI and is about to go again and requested that PT allow him to rest for now. No treatment rendered. CHAVA BAKER PT Aug 23, 2018 13:30
--- NOTE | 2018-08-23 14:16 | Progress Note ---
Subjective Time Seen by a Provider: 14:01 Subjective/Events-last exam Pt seen and examined, states he stopped having BM's yesterday and only had one small one on Thursday. He states still has mild abdominal pain and mild distention. He is not ambulating and has only been lying in bed. Some nausea but no vomiting. Review of Systems General: No Chills, No Night Sweats; Fatigue, Malaise Pulmonary: No Dyspnea, No Cough Cardiovascular: No: Chest Pain, Palpitations Gastrointestinal: Nausea, Abdominal Pain; No: Vomiting Objective Exam Vital Signs Date Time Temp Pulse Resp B/P (MAP) Pulse Ox O2 Delivery O2 Flow Rate FiO2 08/23/18 08:00 Room Air 08/23/18 07:36 99.0 82 18 133/72 (92) 92 Room Air 08/23/18 00:09 99.0 82 20 105/56 (72) 94 Room Air 08/22/18 20:00 Room Air 08/22/18 15:35 99.1 89 20 136/81 (99) 94 Room Air I & O 08/23/18 06:59 Intake Total 2955 ml Output Total 300 ml Balance 2655 ml Capillary Refill : Less Than 3 Seconds General Appearance: No Apparent Distress, Chronically ill HEENT: PERRL/EOMI, Moist Mucous Membranes; No Pharyngeal Erythema Respiratory: Chest Non Tender, Lungs Clear, Normal Breath Sounds, No Accessory Muscle Use, No Respiratory Distress Cardiovascular: Regular Rate, Rhythm, No Murmur Gastrointestinal: soft, distended (very mild); No guarding, No rebound; tenderness (with palpation) Results Lab Laboratory Tests 08/22/18 17:05: Urine Color YELLOW, Urine Clarity SLIGHTLY CLOUDY, Urine pH 5, Urine Specific [place] 1.015L, Urine Protein 1+H, Urine Glucose (UA) NEGATIVE, Urine Ketones NEGATIVE, Urine Nitrite NEGATIVE, Urine Bilirubin NEGATIVE, Urine Urobilinogen 1 , Urine Leukocyte Esterase NEGATIVE, Urine RBC (Auto) 1+H, Urine RBC 2-5H, Urine WBC NONE, Urine Squamous Epithelial Cells RARE, Urine Crystals NONE, Urine Bacteria NEGATIVE, Urine Casts NONE, Urine Mucus NEGATIVE, Urine Culture Indicated NO 08/23/18 09:05: White Blood Count 6.2, Red Blood Count 2.86L, Hemoglobin 7.9L, Hematocrit 25L, Mean Corpuscular Volume 88, Mean Corpuscular Hemoglobin 28, Mean Corpuscular Hemoglobin Concent 32, Red Cell Distribution Width 17.8H, Platelet Count 223, Mean Platelet Volume 9.9, Neutrophils (%) (Auto) 76H, Lymphocytes (%) (Auto) 7L , Monocytes (%) (Auto) 13H, Eosinophils (%) (Auto) 5, Basophils (%) (Auto) 0, Neutrophils # (Auto) 4.7, Lymphocytes # (Auto) 0.4L, Monocytes # (Auto) 0.8, Eosinophils # (Auto) 0.3, Basophils # (Auto) 0.0, Sodium Level 133L, Potassium Level 3.6, Chloride Level 106, Carbon Dioxide Level 21, Anion Gap 6, Blood Urea Nitrogen 6L, Creatinine 0.74, Estimat Glomerular Filtration Rate > 60, BUN/ Creatinine Ratio 8, Glucose Level 96, Calcium Level 8.1L, Corrected Calcium 9.4 , Total Bilirubin 1.3H, Aspartate Amino Transf (AST/SGOT) 48H, Alanine Aminotransferase (ALT/SGPT) 44, Alkaline Phosphatase 256H, Total Protein 5.4L, Albumin 2.4L 08/23/18 12:47: Lab Scanned Report Transfusion Reaction Form Microbiology 08/20/18 Blood Culture - Preliminary, Resulted No growth 08/18/18 C. difficile GDH Antigen & Toxins - Final, Complete Assessment/Plan Assessment/Plan Assessment/Plan Constipation Abdominal Pain Metastatic Urothelial CA Pt still having trouble with BM's and still slightly distended. Currently getting SBFT; after 3 hours it is working its way over to the right side. Pt may benefit from Miralax daily. Pt should continue drinking lots of fluids, may benefit from Pro-biotic. Will wait to see next few X-rays to make sure contrast goes all the way into colon. Clinical Quality Measures DVT/VTE Risk/Contraindication: Risk Factor Score Per Nursin RFS Level Per Nursing on Admit: 3=High JARET MOSQUERA DO Aug 23, 2018 14:16
--- NOTE | 2018-08-23 15:57 | NUR ---
Pt requesting initiation of social security disability claim. Contacted [place] [employer] office and they will contact pt for filing of disability claim this week. Will advise pt and .
--- NOTE | 2018-08-23 16:31 | Diagnostic Imaging Report ---
INDICATION: Ileus. TECHNIQUE: The patient was administered 120 mL of Gastrografin mist with 120 mL of water and serial radiography of the abdomen was performed. FINDINGS: The preliminary radiograph demonstrates the bowel gas pattern to be improved since the radiograph of one day earlier. There are surgical clips in the right upper quadrant. An additional image demonstrates contrast within the stomach with prompt passage of contrast into the proximal small bowel loops. There is normal progression of contrast through the small bowel loops which appear to be of normal caliber. The mucosal fold pattern is unremarkable. No obstructing lesion is seen. Contrast is seen within the right colon at 5 hours. IMPRESSION: Normal small bowel study. No small bowel obstruction is identified. Dictated by: Dictated on workstation # [id number]
[2018-08-23 16:59] VITALS: BP 134/71
--- NOTE | 2018-08-23 17:41 | Progress Note-Standard ---
Standard Progress Note Progress Notes/Assess & Plan Date Seen by a Provider: Aug 23, 2018 Time Seen by a Provider: 17:29 Progress/Assessment & Plan 62-year-old male with metastatic urothelial cancer of right renal pelvis to lungs and liver, admitted to the hospital with abdominal pain and ileus. Initially had several bowel movements and the abdominal distention got better. He developed abdominal discomfort and distention yesterday and has not had a bowel movement for the last 2+ days. Denied any nausea or vomiting. Eating small amounts. Still complained of generalized weakness and has not been able to move around significantly. Gastrografin small bowel follow through completed today showed no obstruction with the dye reaching right colon in 5 hours. I would consider changing morphine ER and oxycodone to fentanyl and see if he tolerates this better. I will start him on scheduled laxatives and stool softeners and titrate the dose as needed. We will continue physical therapy for strengthening and ambulation. Recheck labs tomorrow morning. Since he has evidence of progressive disease on current chemotherapy, treatment options are limited. I reviewed current CT scan of the abdomen and pelvis with the patient and his and answered their questions. Patient understands and accepts that his disease is terminal but his is still in denial. consulting services project manager working with patient and family regarding disability application. Overall prognosis poor. GORGE BARBOUR Aug 23, 2018 17:41
[2018-08-23] MEDS: fentaNYL PATCH 25 MCG (DURAGESIC) TD SCH (19:42)
[2018-08-23] MEDS: ACETAMINOPHEN 325 MG TABLET PO PRN (20:21)
[2018-08-23] MEDS: SORBITOL 70% 30 ML UNIT DOSE CUP PO SCH (20:21)
[2018-08-24 07:04] LABS: BASOPHILS % (AUTO) 0 % (0-10); EOSINOPHILS # (AUTO) 0.4 10^3/uL (0.0-0.3); EOSINOPHILS % (AUTO) 6 % (0-10); HEMATOCRIT 26 % (40-54); HEMOGLOBIN 8.3 G/DL (13.3-17.7); LYMPHOCYTES # (AUTO) 0.6 X 10^3 (1.0-4.0); LYMPHOCYTES % (AUTO) 9 % (12-44); MEAN CORPUSCULAR HEMOGLOBIN 28 PG (25-34); MEAN CORPUSCULAR HGB CONC 32 G/DL (32-36); MEAN CORPUSCULAR VOLUME 88 FL (80-99); MEAN PLATELET VOLUME 10.6 FL (7.4-10.4); MONOCYTES # (AUTO) 1.4 X 10^3 (0.0-1.0); MONOCYTES % (AUTO) 20 % (0-12); NEUTROPHILS # (AUTO) 4.5 X 10^3 (1.8-7.8); NEUTROPHILS % (AUTO) 65 % (42-75); PLATELET COUNT 235 10^3/uL (130-400); RED CELL DISTRIBUTION WIDTH 17.9 % (10.0-14.5); WHITE BLOOD COUNT 6.9 10^3/uL (4.3-11.0)
[2018-08-24 07:23] LABS: ALANINE AMINOTRANSFERASE 43 U/L (0-55); ALBUMIN 2.5 GM/DL (3.2-4.5); ALKALINE PHOSPHATASE 268 U/L (40-136); BUN/CREATININE RATIO 10; CALCIUM 8.4 MG/DL (8.5-10.1); CARBON DIOXIDE 21 MMOL/L (21-32); CHLORIDE 108 MMOL/L (98-107); GFR ESTIMATED > 60; GLUCOSE 66 MG/DL (70-105); MAGNESIUM 1.5 MG/DL (1.8-2.4); POTASSIUM 3.3 MMOL/L (3.6-5.0); SODIUM 137 MMOL/L (135-145); TOTAL PROTEIN 5.6 GM/DL (6.4-8.2)
[2018-08-24 08:00] VITALS: BP 138/65
[2018-08-24] MEDS ORDERED: ALTEPLASE 2 MG (CATHFLO) IV NR (08:45)
[2018-08-24] MEDS ORDERED: WATER (STERILE) FOR INJECTION 10 ML ONE (09:03)
[2018-08-24] MEDS: PANTOPRAZOLE 40 MG (PROTONIX) TAB PO SCH (10:05)
[2018-08-24] MEDS: DOCUSATE SODIUM 100 MG (COLACE) CAP PO SCH ×2 (10:05→20:08)
--- NOTE | 2018-08-24 10:07 | Physical Therapy Daily Note ---
PT Daily Note-Current Subjective Patient in recliner pre tx, agrees to PT, has no complaints of pain. Appearance Patient in recliner post tx with nurse call, phone, tray, family in the room. Mental Status Patient Orientation: Person, Place, Situation Transfers Therapy Code Descriptions/Definitions Functional [place] Measure: 0=Not Assessed/NA 4=Minimal Assistance 1=Total Assistance 5=Supervision or Setup 2=Maximal Assistance 6=Modified [place] 3=Moderate Assistance 7=Complete [place] Therapy Quality Codes: 6 Independent with activity with or without an assistive device 5 Patient requires set up or clean up by helper. Patient completes activity by themselves 4 Supervision or touching assist (CGA). [place] provide cues , steadying assist 3 The helper provides less than half the effort to complete the activity 2 The helper provides more than half the effort to complete the activity 1 Dependent. The helper does all the effort to complete an activity 7 Patient refused to complete or attempt activity 9 The patient did not perform the activity before the current illness or injury 88 Not attempted due to Medical conditions or safety concerns Transfers (B, C, W/C) (FIM): 6 Sit to/from Stand: 6 Weight Bearing Right Lower Extremity: Right Weight Bearing/Tolerated Left Lower Extremity: Left Weight Bearing/Tolerated Gait Training Gait (FIM): 6 Distance: 400' Gait Level of Assist: 6 Gait Assistive Device: FWW Patient ambulated very slowly but steady, no LOB. Treatments ambulation Assessment Current Status: Fair Progress improved endurance PT Short Term Goals Short Term Goals Time Frame: Aug 27, 2018 Transfers (B,C,W/C) (FIM): 6 Gait (FIM): 6 Gait Distance Comment: 300' Gait Level of Assist: 6 Gait Assistive Device: FWW PT Plan Problem List Problem List: Activity Tolerance, Functional Strength, Safety, Balance, Gait, Transfer Treatment/Plan Treatment Plan: Continue Plan of Care Treatment Plan: Bed Mobility, Education, Functional Activity [place], Functional Strength, Gait, Safety, Therapeutic Exercise, Transfers Treatment Duration: Aug 27, 2018 Frequency: 6 times per week Estimated Hrs Per Day: .25 hour per day (15-30') Patient and/or Family Agrees t: Yes Safety Risks/Education Patient Education: Gait Training, Transfer Techniques, Correct Positioning, Safety Issues Teaching Recipient: Patient Teaching Methods: Demonstration, Discussion Response to Teaching: Reinforcement Needed Time/GCodes Time In: 0953 Time Out: 1005 Total Billed Treatment Time: 12 Total Billed Treatment 1 visit GT 12' MONA SALMERON PT Aug 24, 2018 10:07
--- NOTE | 2018-08-24 11:42 | Progress Note ---
Subjective Time Seen by a Provider: 09:40 Subjective/Events-last exam Pt seen and examined, sitting up in chair eating breakfast. He states he is doing better and hopefully going home today. He did have a BM. Review of Systems General: No Chills, No Night Sweats; Fatigue, Malaise Pulmonary: No Dyspnea, No Cough Cardiovascular: No: Chest Pain, Palpitations Gastrointestinal: Constipation; No: Nausea, Vomiting Objective Exam Vital Signs Date Time Temp Pulse Resp B/P (MAP) Pulse Ox O2 Delivery O2 Flow Rate FiO2 08/24/18 08:00 98.0 87 20 138/65 (89) 95 Room Air 08/23/18 23:58 97.3 74 18 92 Room Air 08/23/18 20:51 100.3 08/23/18 20:21 101.4 08/23/18 20:00 Room Air 08/23/18 16:59 100.8 88 18 134/71 (92) 94 Room Air I & O 08/24/18 06:59 Intake Total 1600 ml Output Total 2700 ml Balance -1100 ml Capillary Refill : Less Than 3 Seconds General Appearance: No Apparent Distress, Chronically ill HEENT: PERRL/EOMI, Moist Mucous Membranes; No Pharyngeal Erythema Respiratory: Chest Non Tender, Lungs Clear, Normal Breath Sounds, No Accessory Muscle Use, No Respiratory Distress Cardiovascular: Regular Rate, Rhythm, No Murmur Gastrointestinal: soft; No guarding, No rebound; tenderness (with palpation) Results Lab Laboratory Tests 08/23/18 12:47: Lab Scanned Report Transfusion Reaction Form 08/24/18 06:50: White Blood Count 6.9, Red Blood Count 2.99L, Hemoglobin 8.3L, Hematocrit 26L, Mean Corpuscular Volume 88, Mean Corpuscular Hemoglobin 28, Mean Corpuscular Hemoglobin Concent 32, Red Cell Distribution Width 17.9H, Platelet Count 235, Mean Platelet Volume 10.6H, Neutrophils (%) (Auto) 65, Lymphocytes (%) (Auto) 9L , Monocytes (%) (Auto) 20H, Eosinophils (%) (Auto) 6, Basophils (%) (Auto) 0, Neutrophils # (Auto) 4.5, Lymphocytes # (Auto) 0.6L, Monocytes # (Auto) 1.4H, Eosinophils # (Auto) 0.4H, Basophils # (Auto) 0.0, Sodium Level 137, Potassium Level 3.3L, Chloride Level 108H, Carbon Dioxide Level 21, Anion Gap 8, Blood Urea Nitrogen 7, Creatinine 0.70, Estimat Glomerular Filtration Rate > 60, BUN/ Creatinine Ratio 10, Glucose Level 66L, Calcium Level 8.4L, Corrected Calcium 9.6, Magnesium Level 1.5L, Total Bilirubin 1.0, Aspartate Amino Transf (AST/SGOT ) 43H, Alanine Aminotransferase (ALT/SGPT) 43, Alkaline Phosphatase 268H, Total Protein 5.6L, Albumin 2.5L Microbiology 08/20/18 Blood Culture - Preliminary, Resulted No growth 08/18/18 C. difficile GDH Antigen & Toxins - Final, Complete Assessment/Plan Assessment/Plan Assessment/Plan Constipation Abdominal Pain Metastatic Urothelial CA Pt is slowly improving; recommended he ambulate as much as possible, increase fluids and can take Miralax daily. SBFT showed contrast in colon after 5 hours.. Pt may benefit from Pro-biotic. Pt's only other problem is he stated they are having trouble drawing blood from port. He can follow up in my office as needed. Clinical Quality Measures DVT/VTE Risk/Contraindication: Risk Factor Score Per Nursin RFS Level Per Nursing on Admit: 3=High JARET MOSQUERA DO Aug 24, 2018 11:42
[2018-08-24 16:00] VITALS: BP 139/75
[2018-08-24] MEDS: SORBITOL 70% 30 ML UNIT DOSE CUP PO SCH (16:37)
--- NOTE | 2018-08-24 16:48 | NUR ---
Pt and discussing continued care plans. Discussed options and equipment needs when discharged home.
--- NOTE | 2018-08-24 17:40 | Progress Note-Standard ---
Standard Progress Note Progress Notes/Assess & Plan Date Seen by a Provider: Aug 24, 2018 Time Seen by a Provider: 17:36 Progress/Assessment & Plan 62-year-old male with metastatic urothelial cancer of right renal pelvis to lungs and liver, admitted to the hospital with abdominal pain and ileus. Initially had several bowel movements and the abdominal distention got better. He developed abdominal discomfort and distention over the weekend. Small bowel follow-through done yesterday showed no obstruction. Patient is having loose stools today with improvement in abdominal discomfort. He is eating better. Ambulated in hallway today. Port was not functioning since last night. No results after Cathflo. We will ask Dr. Ortiz to remove the port to reduce risk of thrombosis. Increase food intake and activity level. Continue fentanyl for pain control. We will change sorbitol to as needed for constipation. Home soon if continuing to improve. GORGE BARBOUR Aug 24, 2018 17:40
[2018-08-24] MEDS ORDERED: SORBITOL 70% 30 ML UNIT DOSE CUP PO PRN (17:45)
[2018-08-25] VITALS (7 sets, daily range): BP systolic 123–144; BP diastolic 70–82
[2018-08-25] MEDS: NS IV 1000 ML 1,000 ML IV SCH ×2 (00:28→23:00)
[2018-08-25] MEDS: PANTOPRAZOLE 40 MG (PROTONIX) TAB PO SCH (09:00)
[2018-08-25] MEDS: DOCUSATE SODIUM 100 MG (COLACE) CAP PO SCH ×2 (09:00→18:14)
[2018-08-25] MEDS ORDERED: BUP/EPI 0.5% 1:200,000 (SENSORCAINE) 30 ML VIAL ONE (13:03)
[2018-08-25] MEDS ORDERED: LIDOCAINE 1% INJ 20 ML 20 ML VIAL ONE (13:04)
--- NOTE | 2018-08-25 13:27 | Physical Therapy Progress Note ---
Therapy Progress Note Patient refused physical therapy treatment twice today. Patient states he has not eaten anything because he has been waiting to have a procedure done (which is hours late he says) and feels to weak to do anything right now. Patient encouraged to get into chair and he refuses. Will try back tomorrow morning. MONA SALMERON PT Aug 25, 2018 13:27
--- NOTE | 2018-08-25 13:54 | NUR ---
PATIENT OFF FLOOR AT THIS TIME TO SURGERY.
[2018-08-25] MEDS ORDERED: PROPOFOL INJECTION 50 ML IV ONE (14:13)
[2018-08-25] MEDS ORDERED: ceFAZolin INJECTION 1,000 MG ONE (14:17)
--- NOTE | 2018-08-25 14:41 | Progress Note-Post Operative ---
Post-Operative Progess Note Surgeon (s)/Photo Producer (s) Surgeon JARET MOSQUERA DO Photo Producer: none Pre-Operative Diagnosis venous insufficiency, renal CA Post-Operative Diagnosis same Procedure & Operative Findings Date of Procedure 08/25/18 Procedure Performed/Findings Removal of Johnathan-cath Anesthesia Type IV Sedation by SENIOR [employer] TAX MANAGER Estimated Blood Loss Estimated blood loss (mL): scant Specimens/Packing Specimens Removed johnathan-cath JARET MOSQUERA DO Aug 25, 2018 14:41
--- NOTE | 2018-08-25 14:49 | Anesthesia-General Post-Op ---
MAC Patient Condition Mental Status/LOC: Same as Preop Cardiovascular: Satisfactory Nausea/Vomiting: Absent Respiratory: Satisfactory Pain: Controlled Complications: Absent Post Op Complications Complications None Follow Up Care/Instructions Patient Instructions None needed. Anesthesiology Discharge Order Discharge Order Patient is doing well, no complaints, stable vital signs, no apparent adverse anesthesia problems. No complications reported per nursing. LIA DOTSON CRNA Aug 25, 2018 14:49
--- NOTE | 2018-08-25 14:59 | Progress Note-Standard ---
Standard Progress Note Progress Notes/Assess & Plan Date Seen by a Provider: Aug 25, 2018 Time Seen by a Provider: 14:55 Progress/Assessment & Plan 62-year-old male with metastatic urothelial cancer of right renal pelvis to lungs and liver, admitted to the hospital with abdominal pain and ileus. Initially had several bowel movements and the abdominal distention got better. He developed abdominal discomfort and distention over the weekend. Small bowel follow-through done on Thursday (08/23/18) showed no obstruction. Patient is having few loose stools today. Port was not functioning since yesterday with no results after Cathflo. Scheduled for removal of the port today and is nothing by mouth. Increase food intake and activity level. Continue fentanyl for pain control. We will continue sorbitol as needed for constipation. Home soon if stable. GORGE BARBOUR Aug 25, 2018 14:59
--- NOTE | 2018-08-25 15:10 | NUR ---
PATIENT RETURNED FROM SURGERY. REPORT RECEIVED FROM [facility]. PATIENT AWAKE AND ALERT. PATIENT DENIES ANY PAIN OR DISCOMFORT AT THIS TIME, WILL CONTINUE TO MONITOR.
[2018-08-26] VITALS: BP 136/72
[2018-08-26] MEDS: ACETAMINOPHEN 325 MG TABLET PO PRN (00:10)
--- NOTE | 2018-08-26 01:25 | OPERATIVE REPORT ---
DATE OF SERVICE: PREOPERATIVE DIAGNOSES: Venous insufficiency, metastatic cancer. POSTOPERATIVE DIAGNOSES: Venous insufficiency, metastatic cancer. PROCEDURE: Removal of Port-A-Cath. SURGEON: Rene Ortiz DO. DICTATING MACHINE TRANSCRIBER: None. ANESTHESIA: IV sedation by MANAGER ADVANCED. SPECIMEN: Port-A-Cath. BLOOD LOSS: Scant. FLUIDS: Per anesthesia. POSTOPERATIVE CONDITION: Stable. INDICATION FOR PROCEDURE: The patient is a 62-year-old male who had a Port-A-Cath placed for venous insufficiency. He has metastatic cancer; unfortunately the port was clogged and they wanted it removed, so he does not develop a further clot because of his cancer. FINDINGS: The patient had a Port-A-Cath removed without any difficulty. PROCEDURE NOTE: After informed consent was obtained, the patient was brought to the operating room, placed on the table in supine position, sterilely prepped and draped in normal fashion. Local lidocaine was used to infiltrate the skin directly above the free of blood of the port at the previous incision. Then made an incision right through the old scar with #15 blade, carried down through skin into the subcutaneous tissue, then deepened down to subcutaneous tissue with Bovie electrocautery down to the fascia pectoralis muscle carefully freed up the catheter and able to grasp the catheter and pulled this back, did see a small little clot at the tip and then carefully cut out the capsule around the Port-A-Cath and remove the Port-A-Cath and block, passed off the table. Copiously irrigated with normal saline. Hemostasis obtained using Bovie electrocautery and then elected to close the incision. Closing the subcutaneous tissue with 3-0 Vicryl; 2 interrupted sutures and then closed the skin with 4-0 undyed Monocryl 4 interrupted subcuticular stitches. Area was cleaned and dried. Dermabond placed as well as a Band-Aid. The patient then transferred to recovery room in stable condition. Sponge, instrument and needle counts were correct at the end of the case. Job ID: [id number] DocumentID: [id number] Dictated Date: 08/25/2018 14:38:40 Truck Crane Operator Date: 08/26/2018 01:24:56 Dictated By: RENE ORTIZ DO [facility]
[2018-08-26] MEDS: NS IV 1000 ML 1,000 ML IV SCH ×3 (07:41→15:09)
[2018-08-26 08:00] VITALS: BP 130/71
[2018-08-26] MEDS: PANTOPRAZOLE 40 MG (PROTONIX) TAB PO SCH (08:27)
[2018-08-26] MEDS: DOCUSATE SODIUM 100 MG (COLACE) CAP PO SCH (08:27)
--- NOTE | 2018-08-26 10:32 | Progress Note ---
Subjective Time Seen by a Provider: 10:19 Subjective/Events-last exam Pt seen and examined, no complaints. Review of Systems General: No Chills, No Night Sweats Pulmonary: No Dyspnea, No Cough Objective Exam Vital Signs Date Time Temp Pulse Resp B/P (MAP) Pulse Ox O2 Delivery O2 Flow Rate FiO2 08/26/18 08:23 Room Air 08/26/18 08:00 99.2 71 18 130/71 (90) 96 Room Air 08/26/18 00:40 98.9 08/26/18 00:00 100.8 81 20 136/72 (93) 95 Room Air 08/25/18 20:00 Room Air 95 08/25/18 15:31 98.4 74 18 130/75 (93) 96 Room Air 08/25/18 15:10 98.1 15 99 08/25/18 15:00 16 100 Room Air 08/25/18 14:50 15 100 OxyMask 4 08/25/18 14:41 98.3 16 98 OxyMask 6 I & O 08/26/18 07:00 Intake Total 1710 ml Output Total 2300 ml Balance -590 ml Capillary Refill : Less Than 3 Seconds General Appearance: No Apparent Distress, Chronically ill HEENT: PERRL/EOMI, Moist Mucous Membranes; No Pharyngeal Erythema Respiratory: Chest Non Tender, Lungs Clear, Normal Breath Sounds, No Accessory Muscle Use, No Respiratory Distress Cardiovascular: Regular Rate, Rhythm, No Murmur Gastrointestinal: soft; No guarding, No rebound; tenderness (with palpation) Skin: Other (incision c/d/i) Results Lab Microbiology 08/20/18 Blood Culture - Final, Complete No growth 08/18/18 C. difficile GDH Antigen & Toxins - Final, Complete Assessment/Plan Assessment/Plan Assessment/Plan S/P removal of port - ok to D/C home from surgical standpoint Constipation -improved Abdominal Pain - improved Metastatic Urothelial CA Pt is slowly improving; recommended he ambulate as much as possible, increase fluids and can take Miralax daily. Pt may benefit from Pro-biotic. He can follow up in my office as needed. Clinical Quality Measures DVT/VTE Risk/Contraindication: Risk Factor Score Per Nursin RFS Level Per Nursing on Admit: 3=High JARET MOSQUERA DO Aug 26, 2018 10:32
--- NOTE | 2018-08-26 14:15 | Physical Therapy Daily Note ---
PT Daily Note-Current Subjective Agrees to PT. Post treatment, pt and report they plan to go home today. Transfers Therapy Code Descriptions/Definitions Functional [place] Measure: 0=Not Assessed/NA 4=Minimal Assistance 1=Total Assistance 5=Supervision or Setup 2=Maximal Assistance 6=Modified [place] 3=Moderate Assistance 7=Complete [place] Therapy Quality Codes: 6 Independent with activity with or without an assistive device 5 Patient requires set up or clean up by helper. Patient completes activity by themselves 4 Supervision or touching assist (CGA). [place] provide cues , steadying assist 3 The helper provides less than half the effort to complete the activity 2 The helper provides more than half the effort to complete the activity 1 Dependent. The helper does all the effort to complete an activity 7 Patient refused to complete or attempt activity 9 The patient did not perform the activity before the current illness or injury 88 Not attempted due to Medical conditions or safety concerns Weight Bearing Right Lower Extremity: Right Weight Bearing/Tolerated Left Lower Extremity: Left Weight Bearing/Tolerated Treatments pt able to transfer sit to stand indep and walked 500 ft with FWW mod indep. Pt up in chair post treatment with needs met. Assessment Current Status: Excellent Progress safe and steady gait. PT Short Term Goals Short Term Goals Time Frame: Aug 27, 2018 Transfers (B,C,W/C) (FIM): 6 (met) Gait (FIM): 6 (met) Gait Distance Comment: 300' Gait Level of Assist: 6 Gait Assistive Device: FWW PT Plan Problem List Problem List: Activity Tolerance, Functional Strength Treatment/Plan Treatment Plan: Continue Plan of Care Treatment Plan: Bed Mobility, Education, Functional Activity Flory, Functional Strength, Gait, Safety, Therapeutic Exercise, Transfers Treatment Duration: Aug 27, 2018 Frequency: 6 times per week Estimated Hrs Per Day: .25 hour per day (15-30') Patient and/or Family Agrees t: Yes Safety Risks/Education Patient Education: Safety Issues Teaching Recipient: Patient Teaching Methods: Discussion Response to Teaching: Return Demonstration Time/GCodes Time In: 1410 Time Out: 1423 Total Billed Treatment Time: 13 Total Billed Treatment vsiit GT 13 CHAVA BAKER PT Aug 26, 2018 14:15
[2018-08-26 15:57] VITALS: BP 124/77
[2018-08-26] MEDS: fentaNYL PATCH 25 MCG (DURAGESIC) TD SCH (17:10)
[2018-08-26] MEDS ORDERED: FENT1PAT8 TD (17:29)
--- NOTE | 2018-08-26 17:31 | Discharge Inst-Simple/Standard ---
Discharge Inst-Standard Discharge Medications New, Converted or Re-Newed RX: RX Given to Pt/Family Patient Instructions/Follow Up Plan of Care/Instructions/FU: F/U at [facility] on 09/07/2018 at 1345 hrs. Activity as Tolerated: Yes Discharge Diet: No Restrictions GORGE BARBOUR Aug 26, 2018 17:30
[2018-08-26] MEDS ORDERED: FENTANYL 25 MCG PATCH REMOVAL TP SCH (18:29)
--- NOTE | 2018-08-27 09:18 | DISCHARGE SUMMARY ---
DATE OF SERVICE: FINAL DIAGNOSES: 1. Significant ileus, probably related to opioid-induced constipation. 2. Metastatic urothelial cancer to the lungs and liver. 3. Anemia. BRIEF HISTORY AND HOSPITAL COURSE: The patient is a 62-year-old male with a history of metastatic urothelial cancer to the liver and lungs. He was on outpatient chemotherapy with weekly Abraxane regimen as a third line therapy. He [facility] on [facility]2018 with significant abdominal pain and distention. He had not had a bowel movement for close to a week. He was using long acting morphine and oxycodone to control the cancer pain along with laxatives and stool softeners. He had an abdominal x-ray at the time of presentation with significant bowel distention. This was followed by a CT scan of the abdomen and pelvis, which showed significant distention of probably the colon without evidence of obstruction. He was treated with Dulcolax suppository and continued to have several loose bowel movements throughout the next 24 hours with relief from the abdominal distention and abdominal pain. A surgical consultation was obtained with Dr. Ortiz who evaluated the patient and followed him through his hospital stay. As he was improving, his home medications were resumed and diet was resumed. Within 24 to 48 hours, he developed abdominal distention again along with abdominal pain. At this point, a Gastrografin small bowel follow through was ordered, which showed the dye passed through the small bowel into right colon in 5 hours with no evidence of obstruction. It was felt that recurrent ileus and constipation is probably related to opioid-induced constipation. Morphine and oxycodone were discontinued and the patient was started on fentanyl 25 mcg per hour patch, which controlled his abdominal discomfort. He continued to have bowel movements regularly with occasional sorbitol. During his hospital stay, his Infusaport quit working and attempt to declot this with a Cathflo was unsuccessful. Because of this, it was decided to remove the Infusaport to prevent thrombosis. Dr. Ortiz removed the Infusaport on 08/25/2018. The patient was eating well with no abdominal distention and regular bowel movements and hence on 08/26/2018, it was decided to discharge him home. He was instructed to resume his home medications except extended release morphine. In spite of this, he was placed on fentanyl 25 mcg per hour transdermal patch every 72 hours with a prescription for [address] scan obtained at the time of admission had shown evidence of progressive disease in the liver. I had reviewed these data with the patient and his and answered their questions. He will have a followup at the Cancer Center on 09/07/2018 at 1345 hours. We will discuss further treatment options including a best supportive care with hospice. If he is having any worsening of symptoms or new symptoms prior to his office visit, he was instructed to contact us. Job ID: [id number] DocumentID: [id number] Dictated Date: 08/26/2018 18:37:25 Bank Teller Machine Mechanic Date: 08/27/2018 04:56:52 Dictated By: GORGE BARBOUR MD
== END 2018-08-26 18:30 | disposition home or self-care (01) | DRG 389 ==
LOC: 4TH 16:20 → UNDOADMOB 16:25 → OBSVTOIN 08-19 17:37 → INTOOBSV 08-19 17:40 → UNDODISIN 08-26 18:30
PROVIDERS: ADMIT Internal Medicine Hematology & Oncology; ATTEND Internal Medicine Hematology & Oncology
PROC: 02PY33Z Removal of Infusion Device from Great Vessel, Percutaneous Approach (ICD-10-PCS; 2018-08-25)
PROC: 0JPT0XZ Removal of Tunneled Vascular Access Device from Trunk Subcutaneous Tissue and Fascia, Open Approach (ICD-10-PCS; principal; 2018-08-25 14:08)
DX: K56.7 Ileus, unspecified (principal); K59.00 Constipation, unspecified; C78.7 Secondary malignant neoplasm of liver and intrahepatic bile duct; C78.01 Secondary malignant neoplasm of right lung; C78.02 Secondary malignant neoplasm of left lung; C79.89 Secondary malignant neoplasm of other specified sites; T82.9XXA Unspecified complication of cardiac and vascular prosthetic device, implant and graft, initial encounter; G89.3 Neoplasm related pain (acute) (chronic); Z66 Do not resuscitate; D53.9 Nutritional anemia, unspecified; D63.0 Anemia in neoplastic disease; D64.81 Anemia due to antineoplastic chemotherapy; R50.9 Fever, unspecified; F32.9 Major depressive disorder, single episode, unspecified; K21.9 Gastro-esophageal reflux disease without esophagitis; M19.91 Primary osteoarthritis, unspecified site; I87.2 Venous insufficiency (chronic) (peripheral); Z85.51 Personal history of malignant neoplasm of bladder; Z90.5 Acquired absence of kidney; Z90.6 Acquired absence of other parts of urinary tract; Z79.899 Other long term (current) drug therapy
CPT/HCPCS: 36415; 71046; 74019; 74250; 76937; 80048; 80053; 81000; 83735; 85007; 85025; 85027; 86850; 86900; 86901; 86920; 87040; 87081; 87324; 87449; 94664; G0378

== ENCOUNTER → 2018-08-18 | Outpatient (CLI) | payer BC ==
[~2018-08-18] MED LIST changes: +BENZ200C51 PO; +CITA10TA7 PO; +DIPH25TA31 PO; +DOCU-143 PO; +GLUC500T10 PO; +HYDR-3812 PO; +MORP-33 PO; +ONDA8TAB12 PO; +OXYC-529 PO; +PANT40TA3 PO; +SORB1SOL2 PO
--- NOTE | 2018-08-18 14:39 | Diagnostic Imaging Report ---
INDICATION: Abdominal pain and constipation. TIME OF EXAMINATION: 10:56 AM. FINDINGS: There is gaseous distention of a hollow viscus in the upper mid and left abdomen. This may represent a portion of the colon. No wall thickening is seen. No pneumatosis is identified. Additional mild to moderately gaseous distended loops of bowel more inferiorly in the mid abdomen are also seen. The right colon appears to be decompressed. There is fecal material in the rectum. No free air is seen. There are surgical clips in the gallbladder fossa. IMPRESSION: Moderate gaseous distention of bowel loops in the mid and left abdomen which appear to be colonic. A distal colonic obstruction could not be entirely excluded. CT would be useful for further evaluation. There appear to be rounded masses overlying the lower lobe of the left lung, suggestive of metastatic disease. These results were discussed with Dr. Sapp prior to this dictation. Dictated by: Dictated on workstation # [id number]
== END ==
LOC: RAD 10:39
PROVIDERS: ATTEND Nurse Practitioner Adult Health
DX: C65.2 Malignant neoplasm of left renal pelvis (principal); C78.7 Secondary malignant neoplasm of liver and intrahepatic bile duct; K59.00 Constipation, unspecified; Z98.890 Other specified postprocedural states
CPT/HCPCS: 74018

== ENCOUNTER → 2018-08-18 | Outpatient (RCR) | payer BC ==
[2018-05-20 13:25] LABS: BASOPHILS % (AUTO) 0 % (0-10); EOSINOPHILS # (AUTO) 0.3 10^3/uL (0.0-0.3); EOSINOPHILS % (AUTO) 3 % (0-10); HEMATOCRIT 29 % (40-54); LYMPHOCYTES # (AUTO) 1.4 X 10^3 (1.0-4.0); LYMPHOCYTES % (AUTO) 15 % (12-44); MEAN CORPUSCULAR HEMOGLOBIN 29 PG (25-34); MEAN CORPUSCULAR HGB CONC 31 G/DL (32-36); MEAN CORPUSCULAR VOLUME 93 FL (80-99); MEAN PLATELET VOLUME 8.7 FL (7.4-10.4); MONOCYTES # (AUTO) 1.4 X 10^3 (0.0-1.0); MONOCYTES % (AUTO) 15 % (0-12); NEUTROPHILS # (AUTO) 6.2 X 10^3 (1.8-7.8); NEUTROPHILS % (AUTO) 67 % (42-75); PLATELET COUNT 321 10^3/uL (130-400); WHITE BLOOD COUNT 9.3 10^3/uL (4.3-11.0)
[2018-05-20 13:54] LABS: ALBUMIN 3.8 GM/DL (3.2-4.5); BILIRUBIN,TOTAL 0.4 MG/DL (0.1-1.0); CALCIUM 8.9 MG/DL (8.5-10.1); CREATININE SERUM 1.4 MG/DL (0.60-1.30); POTASSIUM 3.9 MMOL/L (3.6-5.0)
[2018-06-10 13:16] LABS: BASOPHILS % (AUTO) 0 % (0-10); EOSINOPHILS # (AUTO) 0.4 10^3/uL (0.0-0.3); EOSINOPHILS % (AUTO) 4 % (0-10); HEMATOCRIT 28 % (40-54); HEMOGLOBIN 8.8 G/DL (13.3-17.7); LYMPHOCYTES % (AUTO) 9 % (12-44); MEAN CORPUSCULAR HEMOGLOBIN 29 PG (25-34); MEAN CORPUSCULAR HGB CONC 31 G/DL (32-36); MEAN CORPUSCULAR VOLUME 92 FL (80-99); MEAN PLATELET VOLUME 8.6 FL (7.4-10.4); MONOCYTES # (AUTO) 1.3 X 10^3 (0.0-1.0); MONOCYTES % (AUTO) 12 % (0-12); NEUTROPHILS # (AUTO) 7.9 X 10^3 (1.8-7.8); NEUTROPHILS % (AUTO) 75 % (42-75); PLATELET COUNT 308 10^3/uL (130-400); RED CELL DISTRIBUTION WIDTH 15.8 % (10.0-14.5); WHITE BLOOD COUNT 10.6 10^3/uL (4.3-11.0)
[2018-06-10 13:32] LABS: ALBUMIN 3.7 GM/DL (3.2-4.5); BILIRUBIN,TOTAL 0.3 MG/DL (0.1-1.0); CREATININE SERUM 1.24 MG/DL (0.60-1.30); POTASSIUM 4.4 MMOL/L (3.6-5.0); TOTAL PROTEIN 7.9 GM/DL (6.4-8.2)
[2018-07-01 09:33] LABS: BASOPHILS % (AUTO) 0 % (0-10); EOSINOPHILS # (AUTO) 0.3 10^3/uL (0.0-0.3); EOSINOPHILS % (AUTO) 3 % (0-10); HEMATOCRIT 27 % (40-54); HEMOGLOBIN 8.4 G/DL (13.3-17.7); LYMPHOCYTES # (AUTO) 0.7 X 10^3 (1.0-4.0); LYMPHOCYTES % (AUTO) 6 % (12-44); MEAN CORPUSCULAR HEMOGLOBIN 28 PG (25-34); MEAN CORPUSCULAR HGB CONC 32 G/DL (32-36); MEAN CORPUSCULAR VOLUME 90 FL (80-99); MEAN PLATELET VOLUME 8.4 FL (7.4-10.4); MONOCYTES # (AUTO) 1.1 X 10^3 (0.0-1.0); MONOCYTES % (AUTO) 10 % (0-12); NEUTROPHILS # (AUTO) 8.3 X 10^3 (1.8-7.8); NEUTROPHILS % (AUTO) 81 % (42-75); PLATELET COUNT 366 10^3/uL (130-400); WHITE BLOOD COUNT 10.3 10^3/uL (4.3-11.0)
[2018-07-01 09:53] LABS: ALBUMIN 3.5 GM/DL (3.2-4.5); BILIRUBIN,TOTAL 0.4 MG/DL (0.1-1.0); CALCIUM 9.4 MG/DL (8.5-10.1); CREATININE SERUM 1.25 MG/DL (0.60-1.30); POTASSIUM 3.8 MMOL/L (3.6-5.0); TOTAL PROTEIN 7.9 GM/DL (6.4-8.2)
[2018-07-07 10:23] LABS: BASOPHILS % (AUTO) 0 % (0-10); EOSINOPHILS # (AUTO) 0.3 10^3/uL (0.0-0.3); EOSINOPHILS % (AUTO) 3 % (0-10); HEMATOCRIT 26 % (40-54); HEMOGLOBIN 8.1 G/DL (13.3-17.7); LYMPHOCYTES # (AUTO) 0.7 X 10^3 (1.0-4.0); LYMPHOCYTES % (AUTO) 6 % (12-44); MEAN CORPUSCULAR HEMOGLOBIN 28 PG (25-34); MEAN CORPUSCULAR HGB CONC 31 G/DL (32-36); MEAN CORPUSCULAR VOLUME 89 FL (80-99); MEAN PLATELET VOLUME 8.7 FL (7.4-10.4); MONOCYTES # (AUTO) 1.3 X 10^3 (0.0-1.0); MONOCYTES % (AUTO) 11 % (0-12); NEUTROPHILS # (AUTO) 9.3 X 10^3 (1.8-7.8); NEUTROPHILS % (AUTO) 80 % (42-75); PLATELET COUNT 366 10^3/uL (130-400); RED CELL DISTRIBUTION WIDTH 15.8 % (10.0-14.5); WHITE BLOOD COUNT 11.6 10^3/uL (4.3-11.0)
[2018-07-07 10:48] LABS: ALANINE AMINOTRANSFERASE 62 U/L (0-55); ALBUMIN 3.4 GM/DL (3.2-4.5); ALKALINE PHOSPHATASE 250 U/L (40-136); BILIRUBIN,TOTAL 0.5 MG/DL (0.1-1.0); BUN/CREATININE RATIO 13; CALCIUM 9.2 MG/DL (8.5-10.1); CARBON DIOXIDE 21 MMOL/L (21-32); CHLORIDE 102 MMOL/L (98-107); GFR ESTIMATED > 60; GLUCOSE 153 MG/DL (70-105); POTASSIUM 3.6 MMOL/L (3.6-5.0); SODIUM 133 MMOL/L (135-145); TOTAL PROTEIN 7.7 GM/DL (6.4-8.2)
[2018-07-14 08:47] LABS: BASOPHILS % (AUTO) 0 % (0-10); EOSINOPHILS # (AUTO) 0.4 10^3/uL (0.0-0.3); EOSINOPHILS % (AUTO) 4 % (0-10); HEMATOCRIT 26 % (40-54); HEMOGLOBIN 8.1 G/DL (13.3-17.7); LYMPHOCYTES # (AUTO) 0.7 X 10^3 (1.0-4.0); LYMPHOCYTES % (AUTO) 7 % (12-44); MEAN CORPUSCULAR HEMOGLOBIN 27 PG (25-34); MEAN CORPUSCULAR HGB CONC 31 G/DL (32-36); MEAN CORPUSCULAR VOLUME 89 FL (80-99); MEAN PLATELET VOLUME 8.4 FL (7.4-10.4); MONOCYTES # (AUTO) 1.4 X 10^3 (0.0-1.0); MONOCYTES % (AUTO) 15 % (0-12); NEUTROPHILS # (AUTO) 6.9 X 10^3 (1.8-7.8); NEUTROPHILS % (AUTO) 75 % (42-75); PLATELET COUNT 400 10^3/uL (130-400); RED CELL DISTRIBUTION WIDTH 16.5 % (10.0-14.5); WHITE BLOOD COUNT 9.3 10^3/uL (4.3-11.0)
[2018-07-14 09:01] LABS: ALANINE AMINOTRANSFERASE 52 U/L (0-55); ALBUMIN 3.4 GM/DL (3.2-4.5); ALKALINE PHOSPHATASE 290 U/L (40-136); BILIRUBIN,TOTAL 0.5 MG/DL (0.1-1.0); BUN/CREATININE RATIO 14; CALCIUM 9.3 MG/DL (8.5-10.1); CARBON DIOXIDE 24 MMOL/L (21-32); CHLORIDE 103 MMOL/L (98-107); GFR ESTIMATED > 60; GLUCOSE 104 MG/DL (70-105); SODIUM 137 MMOL/L (135-145); TOTAL PROTEIN 7.6 GM/DL (6.4-8.2)
[2018-07-21 08:43] LABS: BASOPHILS % (AUTO) 0 % (0-10); EOSINOPHILS # (AUTO) 0.2 10^3/uL (0.0-0.3); EOSINOPHILS % (AUTO) 3 % (0-10); HEMATOCRIT 26 % (40-54); LYMPHOCYTES # (AUTO) 0.7 X 10^3 (1.0-4.0); LYMPHOCYTES % (AUTO) 9 % (12-44); MEAN CORPUSCULAR HEMOGLOBIN 28 PG (25-34); MEAN CORPUSCULAR HGB CONC 31 G/DL (32-36); MEAN CORPUSCULAR VOLUME 89 FL (80-99); MEAN PLATELET VOLUME 8.7 FL (7.4-10.4); MONOCYTES # (AUTO) 1.7 X 10^3 (0.0-1.0); MONOCYTES % (AUTO) 22 % (0-12); NEUTROPHILS # (AUTO) 5.2 X 10^3 (1.8-7.8); NEUTROPHILS % (AUTO) 66 % (42-75); PLATELET COUNT 389 10^3/uL (130-400); RED CELL DISTRIBUTION WIDTH 16.7 % (10.0-14.5); WHITE BLOOD COUNT 7.9 10^3/uL (4.3-11.0)
[2018-07-21 09:19] LABS: ALBUMIN 3.4 GM/DL (3.2-4.5); BILIRUBIN,TOTAL 0.6 MG/DL (0.1-1.0); CALCIUM 9.4 MG/DL (8.5-10.1); CREATININE SERUM 1.33 MG/DL (0.60-1.30); POTASSIUM 3.8 MMOL/L (3.6-5.0); TOTAL PROTEIN 7.3 GM/DL (6.4-8.2)
[2018-07-28 13:50] LABS: BASOPHILS % (AUTO) 0 % (0-10); EOSINOPHILS # (AUTO) 0.1 10^3/uL (0.0-0.3); EOSINOPHILS % (AUTO) 1 % (0-10); HEMATOCRIT 25 % (40-54); HEMOGLOBIN 7.9 G/DL (13.3-17.7); LYMPHOCYTES # (AUTO) 0.7 X 10^3 (1.0-4.0); LYMPHOCYTES % (AUTO) 9 % (12-44); MEAN CORPUSCULAR HEMOGLOBIN 28 PG (25-34); MEAN CORPUSCULAR HGB CONC 31 G/DL (32-36); MEAN CORPUSCULAR VOLUME 89 FL (80-99); MEAN PLATELET VOLUME 9.3 FL (7.4-10.4); MONOCYTES # (AUTO) 1.2 X 10^3 (0.0-1.0); MONOCYTES % (AUTO) 15 % (0-12); NEUTROPHILS # (AUTO) 6.3 X 10^3 (1.8-7.8); NEUTROPHILS % (AUTO) 75 % (42-75); PLATELET COUNT 329 10^3/uL (130-400); WHITE BLOOD COUNT 8.3 10^3/uL (4.3-11.0)
[2018-07-28 14:11] LABS: ALBUMIN 3.4 GM/DL (3.2-4.5); BILIRUBIN,TOTAL 0.5 MG/DL (0.1-1.0); CALCIUM 8.9 MG/DL (8.5-10.1); CREATININE SERUM 1.36 MG/DL (0.60-1.30); POTASSIUM 4.2 MMOL/L (3.6-5.0); TOTAL PROTEIN 7.2 GM/DL (6.4-8.2)
[2018-08-03 09:26] LABS: BASOPHILS % (AUTO) 0 % (0-10); EOSINOPHILS % (AUTO) 0 % (0-10); HEMATOCRIT 26 % (40-54); HEMOGLOBIN 7.9 G/DL (13.3-17.7); LYMPHOCYTES # (AUTO) 0.6 X 10^3 (1.0-4.0); LYMPHOCYTES % (AUTO) 5 % (12-44); MEAN CORPUSCULAR HEMOGLOBIN 28 PG (25-34); MEAN CORPUSCULAR HGB CONC 31 G/DL (32-36); MEAN CORPUSCULAR VOLUME 89 FL (80-99); MEAN PLATELET VOLUME 8.8 FL (7.4-10.4); MONOCYTES # (AUTO) 2.5 X 10^3 (0.0-1.0); MONOCYTES % (AUTO) 21 % (0-12); NEUTROPHILS # (AUTO) 9.2 X 10^3 (1.8-7.8); NEUTROPHILS % (AUTO) 74 % (42-75); PLATELET COUNT 344 10^3/uL (130-400); RED CELL DISTRIBUTION WIDTH 17.1 % (10.0-14.5); WHITE BLOOD COUNT 12.3 10^3/uL (4.3-11.0)
[2018-08-03 09:42] LABS: ALANINE AMINOTRANSFERASE 60 U/L (0-55); ALBUMIN 3.2 GM/DL (3.2-4.5); ALKALINE PHOSPHATASE 275 U/L (40-136); BUN/CREATININE RATIO 12; CALCIUM 8.9 MG/DL (8.5-10.1); CARBON DIOXIDE 22 MMOL/L (21-32); CHLORIDE 100 MMOL/L (98-107); CREATININE SERUM 1.21 MG/DL (0.60-1.30); GFR ESTIMATED > 60; GLUCOSE 108 MG/DL (70-105); POTASSIUM 4.1 MMOL/L (3.6-5.0); SODIUM 135 MMOL/L (135-145); TOTAL PROTEIN 7.1 GM/DL (6.4-8.2)
[2018-08-03 10:25] LABS: CLARITY,URINE CLEAR; COLOR,URINE AMBER; GLUCOSE, URINE (UA) NEGATIVE (NEGATIVE); KETONES,URINE 1+ (NEGATIVE); LEUKOCYTE ESTERASE ,URINE 1+ (NEGATIVE); NITRITE,URINE NEGATIVE (NEGATIVE); PH,URINE 5 (5-9); PROTEIN,URINE 2+ (NEGATIVE); UROBILINOGEN,URINE 8 MG/DL (NORMAL)
[2018-08-03 10:37] LABS: BACTERIA,URINE NEGATIVE /HPF; BILIRUBIN,URINE 1+ (NEGATIVE); RBC,URINE RARE /HPF; WBC,URINE RARE /HPF
--- NOTE | 2018-08-03 14:57 | Diagnostic Imaging Report ---
INDICATION: Fever, history of metastatic bladder carcinoma. Pulmonary metastatic disease.. TECHNIQUE: Two view chest at 10:24 AM CORRELATION STUDY: 03/26/2017 FINDINGS: Left-sided [id number] catheter is present, the tip at the high right atrium. Heart size borderline. Vasculature overall within normal limits. Areas of atelectasis and or infiltrate about the lung bases particularly posteriorly. The patient is with known bilateral pulmonary masses. These are less well appreciated on chest radiograph compared to CT imaging. Larger mass is at the lung bases are also somewhat obscured by elevated diaphragm and atelectatic change at the lung bases. Area of cavitation of the posterior right mid chest appears likely relatively stable. Definitive adverse interval change is not suggested. IMPRESSION: 1. The known bilateral pulmonary nodules are less well visualized at chest radiograph compared to CT imaging. However, there is no suggestion to reflect adverse interval increase in size or worsening of pulmonary metastatic disease. 2. Areas of atelectasis and/or infiltrate at the lung bases. Dictated by: Dictated on workstation # [id number]
[2018-08-10 14:40] LABS: BASOPHILS % (AUTO) 0 % (0-10); EOSINOPHILS # (AUTO) 0.3 10^3/uL (0.0-0.3); EOSINOPHILS % (AUTO) 2 % (0-10); HEMATOCRIT 24 % (40-54); HEMOGLOBIN 7.5 G/DL (13.3-17.7); LYMPHOCYTES # (AUTO) 0.9 X 10^3 (1.0-4.0); LYMPHOCYTES % (AUTO) 6 % (12-44); MEAN CORPUSCULAR HEMOGLOBIN 28 PG (25-34); MEAN CORPUSCULAR HGB CONC 31 G/DL (32-36); MEAN CORPUSCULAR VOLUME 90 FL (80-99); MEAN PLATELET VOLUME 8.9 FL (7.4-10.4); MONOCYTES # (AUTO) 2.1 X 10^3 (0.0-1.0); MONOCYTES % (AUTO) 13 % (0-12); NEUTROPHILS % (AUTO) 80 % (42-75); PLATELET COUNT 341 10^3/uL (130-400); RED CELL DISTRIBUTION WIDTH 18.1 % (10.0-14.5); WHITE BLOOD COUNT 16.3 10^3/uL (4.3-11.0)
[2018-08-10 15:06] LABS: ALANINE AMINOTRANSFERASE 62 U/L (0-55); ALBUMIN 2.8 GM/DL (3.2-4.5); ALKALINE PHOSPHATASE 285 U/L (40-136); BILIRUBIN,TOTAL 0.6 MG/DL (0.1-1.0); BUN/CREATININE RATIO 18; CALCIUM 9.4 MG/DL (8.5-10.1); CARBON DIOXIDE 26 MMOL/L (21-32); CHLORIDE 105 MMOL/L (98-107); CREATININE SERUM 1.19 MG/DL (0.60-1.30); GFR ESTIMATED > 60; GLUCOSE 113 MG/DL (70-105); POTASSIUM 4.4 MMOL/L (3.6-5.0); SODIUM 137 MMOL/L (135-145); TOTAL PROTEIN 6.9 GM/DL (6.4-8.2)
[2018-08-17 13:39] LABS: BASOPHILS % (AUTO) 0 % (0-10); EOSINOPHILS # (AUTO) 0.2 10^3/uL (0.0-0.3); EOSINOPHILS % (AUTO) 1 % (0-10); HEMATOCRIT 23 % (40-54); HEMOGLOBIN 7.1 G/DL (13.3-17.7); LYMPHOCYTES # (AUTO) 0.6 X 10^3 (1.0-4.0); LYMPHOCYTES % (AUTO) 5 % (12-44); MEAN CORPUSCULAR HEMOGLOBIN 28 PG (25-34); MEAN CORPUSCULAR HGB CONC 31 G/DL (32-36); MEAN CORPUSCULAR VOLUME 90 FL (80-99); MEAN PLATELET VOLUME 9.8 FL (7.4-10.4); MONOCYTES # (AUTO) 1.2 X 10^3 (0.0-1.0); MONOCYTES % (AUTO) 9 % (0-12); NEUTROPHILS # (AUTO) 10.7 X 10^3 (1.8-7.8); NEUTROPHILS % (AUTO) 85 % (42-75); PLATELET COUNT 301 10^3/uL (130-400); RED CELL DISTRIBUTION WIDTH 17.8 % (10.0-14.5); WHITE BLOOD COUNT 12.7 10^3/uL (4.3-11.0)
[2018-08-17 14:05] LABS: ALANINE AMINOTRANSFERASE 63 U/L (0-55); ALBUMIN 2.8 GM/DL (3.2-4.5); ALKALINE PHOSPHATASE 258 U/L (40-136); BILIRUBIN,TOTAL 0.7 MG/DL (0.1-1.0); BUN/CREATININE RATIO 16; CALCIUM 9.9 MG/DL (8.5-10.1); CARBON DIOXIDE 25 MMOL/L (21-32); CHLORIDE 104 MMOL/L (98-107); GFR ESTIMATED > 60; GLUCOSE 114 MG/DL (70-105); POTASSIUM 4.1 MMOL/L (3.6-5.0); SODIUM 138 MMOL/L (135-145); TOTAL PROTEIN 6.7 GM/DL (6.4-8.2)
[2018-08-17 16:20] LABS: BILIRUBIN,URINE NEGATIVE (NEGATIVE); CLARITY,URINE CLEAR; COLOR,URINE AMBER; GLUCOSE, URINE (UA) NEGATIVE (NEGATIVE); KETONES,URINE NEGATIVE (NEGATIVE); LEUKOCYTE ESTERASE ,URINE 1+ (NEGATIVE); NITRITE,URINE NEGATIVE (NEGATIVE); PH,URINE 6 (5-9); PROTEIN,URINE 2+ (NEGATIVE); UROBILINOGEN,URINE 1 MG/DL (NORMAL)
[2018-08-17 16:33] LABS: BACTERIA,URINE TRACE /HPF; WBC,URINE 0-2 /HPF
[~2018-08-18] VITALS: Ht 177.8 cm; Wt 83.5 kg
[~2018-08-18] MED LIST changes: +NS IV 1000 ML (CANCER CTR) 1,000 ML ONE; +NS IV 1000 ML (CANCER CTR) IV SCH; +NS IV 500 ML (CANCER CENTER) 500 ML IV SCH; +ONDANSETRON MDV (CANCER CENTER 8 MG, DEXAMETHASONE INJ (CANCER CTR) 4 MG in NS (IVPB) C... IV ONE; +ONDANSETRON MDV (CANCER CENTER 8 MG, DEXAMETHASONE INJECTION 10 MG in NS (IVPB) CANCER ... IV SCH; +PACLitaxel PROTEIN 180 MG in EMPTY IV BAG (PVC) CANCER CTR 1 EA IV SCH; +PEMBROLIZUMAB 200 MG in NS (IVPB) CANCER CENTER 50 ML IV SCH; +morphine INJ 4 MG/ML 1 ML (CANCER CTR) IV ONE; +morphine INJ 4 MG/ML 1 ML (CANCER CTR) ONE
== END | disposition home or self-care (01) ==
LOC: ONC 05-20 13:24
PROVIDERS: ATTEND Internal Medicine Hematology & Oncology
DX: Z51.11 Encounter for antineoplastic chemotherapy (principal); C64.2 Malignant neoplasm of left kidney, except renal pelvis; C77.9 Secondary and unspecified malignant neoplasm of lymph node, unspecified; Z85.828 Personal history of other malignant neoplasm of skin; Z90.5 Acquired absence of kidney; Z79.899 Other long term (current) drug therapy
CPT/HCPCS: 36415; 36430; 36591; 71046; 80053; 81000; 83615; 84443; 85025; 86850; 86900; 86901; 86920; 87088; 96360; 96374; 96375; 96376; 96413

== ENCOUNTER → 2018-08-18 | Outpatient (CLI) | payer BC ==
[~2018-08-18] MED LIST changes: +HOLD METFORMIN - RECEIVED CONTRAST 20 ML VIAL IV SCH; +IOHEXOL 350 MG/ML 100 ML (OMNIPAQUE 350) VIAL IV ONE; -NS IV 1000 ML (CANCER CTR) 1,000 ML ONE; -NS IV 1000 ML (CANCER CTR) IV SCH; -NS IV 500 ML (CANCER CENTER) 500 ML IV SCH; -ONDANSETRON MDV (CANCER CENTER 8 MG, DEXAMETHASONE INJ (CANCER CTR) 4 MG in NS (IVPB) C... IV ONE; -ONDANSETRON MDV (CANCER CENTER 8 MG, DEXAMETHASONE INJECTION 10 MG in NS (IVPB) CANCER ... IV SCH; -PACLitaxel PROTEIN 180 MG in EMPTY IV BAG (PVC) CANCER CTR 1 EA IV SCH; -PEMBROLIZUMAB 200 MG in NS (IVPB) CANCER CENTER 50 ML IV SCH; -morphine INJ 4 MG/ML 1 ML (CANCER CTR) IV ONE; -morphine INJ 4 MG/ML 1 ML (CANCER CTR) ONE
--- NOTE | 2018-08-18 16:16 | Diagnostic Imaging Report ---
PROCEDURE: CT abdomen and pelvis with contrast. TECHNIQUE: Multiple contiguous axial images were obtained through the abdomen and pelvis after administration of intravenous contrast. Auto Exposure Controls were utilized during the CT exam to meet ALARA standards for radiation dose reduction. INDICATION: Abdominal pain and bowel distention noted on recent X-ray. The study is performed for further evaluation. COMPARISON: Correlation is made with prior CT from 06/29/2018. FINDINGS: Imaging through the lung bases again demonstrate numerous solid appearing masses in the right middle lobe and lingula and bilateral lower lobes consistent with metastatic disease. These masses have increased in size since prior exam. Liver again demonstrates innumerable masses throughout consistent with hepatic metastatic disease. These too appear to be increased when compared with prior exam. Gallbladder is surgically absent. No biliary duct dilatation is seen. The pancreas and spleen are unremarkable. No adrenal mass is identified. Right kidney is unremarkable. Left kidney appears to be surgically absent. Aorta is nonaneurysmal. No significant central retroperitoneal or mesenteric lymphadenopathy is seen. There appear to be some mildly enlarged lymph nodes in the johnathan hepatis. Small bowel is normal in caliber. There is diffuse distention to the colon. The colon is fluid and stool filled from the cecum all the way to the rectum. No definite focal area of narrowing or mass is seen to suggest obstruction. The bladder is unremarkable. Prostate is unremarkable. Bony structures are nonacute. IMPRESSION: 1. Worsening of pulmonary and hepatic metastatic disease. 2. Diffuse fluid and stool distended colon. No discrete obstructing lesion is seen. Features are likely owing to ileus. No other significant abnormality is detected. Dictated by: Dictated on workstation # [id number]
== END ==
LOC: RAD 13:33
PROVIDERS: ATTEND Internal Medicine Hematology & Oncology
DX: C65.2 Malignant neoplasm of left renal pelvis (principal); C78.7 Secondary malignant neoplasm of liver and intrahepatic bile duct; C78.01 Secondary malignant neoplasm of right lung; K59.00 Constipation, unspecified; K63.89 Other specified diseases of intestine; Z90.49 Acquired absence of other specified parts of digestive tract
CPT/HCPCS: 74177